=== PATIENT | female | born 1960 | race Caucasian/White ===

== ENCOUNTER → 2017-03-05 18:19 | Outpatient (REF) | payer MEDICAID, SELFPAY ==
[2017-03-05 20:24] LABS: Amphetamine/Metha Screen,Urine Negative ng/mL (<1000); Barbiturates Screen,Urine Negative ng/mL (<200); Benzodiazepines Screen,Urine Positive ng/mL (200); Cannabinoid Screen,Urine Positive ng/mL (<50); Cocaine Screen,Urine Negative ng/g (<300); Methadone Screen,Urine Negative ng/mL (<300); Opiate Screen,Urine Negative ng/mL (<300); Phencyclidine Screen,Urine Negative ng/mL (<25)
== END ==
LOC: LAB 18:19
PROVIDERS: Visit Provider Emergency Medicine
DX: Z79.899 Other long term (current) drug therapy (principal)
CPT/HCPCS: 80305

== ENCOUNTER 2017-03-20 09:13 | Day surgery (SDC) | payer MEDICAID, SELFPAY ==
[2017-03-19 13:47] VITALS: BMI 22.0
--- NOTE | 2017-03-20 09:35 | HMH.ANESCL ---
[facility] Anesthesia Checklist - Patient Identification Patient Identification: Arm Band, Verbal (Name & ) - Structural Data Admitted From: Home Planned Operative Procedure/s: egd Consent for Planned Operative Procedure(s) Verified: Yes Verified Documents: Surgical Consent - Chart Verification Results Verified: CBC, BMP - Additional verifications Patient : No Anesthesia Reactions: No Hx Blood Transfusions: No Blood Transfusion Reaction: No Cephalosporin Allergy: No Previous Colonoscopy: No - Cardiovascular Assessment Heart Sounds: S1 & S2 Pulse Strength: Strong Pulse Rhythm: Regular Peripheral Edema: No - Airway Assessment C-Spine Mobility Assessed: Yes TMJ Mobility Assessed: Yes Dentition: Dentures-good fit - Neurological Assessment Level of Consciousness: Awake, Alert, Appropriate Hx Seizures: Yes Numbness or tingling in extremities: No - Anesthesia Plan Anesthesia Risk discussed: Yes Anesthesia Plan: Verified ASA Class: III Anesthesia Type: MAC [facility] Anesthesia HX I have reviewed the patient's past medical history: Yes Medical History: Reports:: Cerebrovascular Accident, Gastroesophageal Reflux Disease(GERD), Hypertension Denies:: Diabetes Mellitus Type 1, Diabetes Mellitus Type 2, Lung Disease Other Surgeries: Yes: Colonoscopy, EGD, Hysterectomy-Total Amputation: No Fractures: No *Family Hx:: Cancer, Thyroid Disorder, Hypertension, Coronary Artery Disease
[2017-03-20 09:43] VITALS: BP 123/84; PULSE 72; RESP 18; TEMP 36.2; O2SAT 98
[2017-03-20 09:55] VITALS: O2SAT 99
--- NOTE | 2017-03-20 10:02 | HMH.SCOPE ---
- Procedure: Date: 03/20/17 Procedure Performed:: Esophagogastroduodenoscopy with biopsy Indications:: This is a 56-year-old female recently diagnosed with Helicobacter pylori, as well as crater ulcer of the polyp. She has completed Helicobacter pylori therapy and remains on a proton pump inhibitor, as well as Carafate. She is without symptoms. Performing Provider:: Derek Padron MD Referring Provider:: Dr. Shaw Sedation:: Monitored anesthesia care Procedure:: After informed consent was obtained, the patient was taken to the endoscopy suite. Monitored anesthesia care ensued after she was transferred to the left lateral decubitus position. The gastroscope was passed into the stomach. Evaluation of the antrum and pylorus revealed some inflammatory response, but no ulceration noted. Essentially, 100% healing was seen. Antral biopsies were obtained and the gastroscope was carefully removed. Findings:: Inflammatory response, but no ulceration noted Specimens:: Antral biopsy Recommendations:: Continue medical therapy Complications:: No immediate Estimated blood obtained (mL): 1
[2017-03-20 10:05] VITALS: BP 106/65; PULSE 65; RESP 16; TEMP 36.6; O2SAT 99
[2017-03-20 10:15] VITALS: BP 125/68; PULSE 60; RESP 18; TEMP 36.6; O2SAT 99
[2017-03-20 10:25] VITALS: BP 124/76; PULSE 61; RESP 18; O2SAT 100
[2017-03-20 10:35] VITALS: BP 124/71; PULSE 61; RESP 18; O2SAT 100
--- NOTE | 2017-03-20 14:40 | PC.NURSE ---
450ML TOTAL IV INTAKE
== END 2017-03-20 10:35 ==
PROVIDERS: Family Provider Emergency Medicine; PCP Emergency Medicine; Visit Provider Surgery
PROC: 0DJ08ZZ Inspection of Upper Intestinal Tract, Via Natural or Artificial Opening Endoscopic (ICD-10-PCS; CPT 43235; principal; 2017-03-20 09:45)
DX: Z09 Encounter for follow-up examination after completed treatment for conditions other than malignant neoplasm (principal); Z87.11 Personal history of peptic ulcer disease
CPT/HCPCS: 43239

== ENCOUNTER → 2017-04-04 14:03 | Outpatient (REF) | payer MEDICAID, SELFPAY ==
[2017-04-04 17:40] LABS: Amphetamine/Metha Screen,Urine Negative ng/mL (<1000); Barbiturates Screen,Urine Negative ng/mL (<200); Benzodiazepines Screen,Urine Positive ng/mL (200); Cannabinoid Screen,Urine Positive ng/mL (<50); Cocaine Screen,Urine Negative ng/g (<300); Methadone Screen,Urine Negative ng/mL (<300); Opiate Screen,Urine Positive ng/mL (<300); Phencyclidine Screen,Urine Negative ng/mL (<25)
== END ==
LOC: LAB 14:03
PROVIDERS: Visit Provider Emergency Medicine
DX: Z79.899 Other long term (current) drug therapy (principal)
CPT/HCPCS: 80305

== ENCOUNTER → 2017-05-05 13:15 | Outpatient (REF) | payer MEDICAID, SELFPAY ==
[2017-05-05 19:20] LABS: Amphetamine/Metha Screen,Urine Negative ng/mL (<1000); Barbiturates Screen,Urine Negative ng/mL (<200); Benzodiazepines Screen,Urine Positive ng/mL (200); Cannabinoid Screen,Urine Positive ng/mL (<50); Cocaine Screen,Urine Negative ng/g (<300); Methadone Screen,Urine Negative ng/mL (<300); Opiate Screen,Urine Negative ng/mL (<300); Phencyclidine Screen,Urine Negative ng/mL (<25)
== END ==
LOC: LAB 13:15
PROVIDERS: Visit Provider Emergency Medicine
DX: Z79.899 Other long term (current) drug therapy (principal)
CPT/HCPCS: 80305

== ENCOUNTER → 2017-06-06 12:48 | Outpatient (CLI) | payer MEDICAID, SELFPAY ==
[2017-06-06 18:46] LABS: Amphetamine/Metha Screen,Urine Negative ng/mL (<1000); Barbiturates Screen,Urine Negative ng/mL (<200); Benzodiazepines Screen,Urine Positive ng/mL (200); Cannabinoid Screen,Urine Positive ng/mL (<50); Cocaine Screen,Urine Negative ng/g (<300); Methadone Screen,Urine Negative ng/mL (<300); Opiate Screen,Urine Positive ng/mL (<300); Phencyclidine Screen,Urine Negative ng/mL (<25)
== END ==
PROVIDERS: Visit Provider Emergency Medicine
DX: Z79.899 Other long term (current) drug therapy (principal)
CPT/HCPCS: 80305

== ENCOUNTER → 2017-07-02 13:54 | Outpatient (REF) | payer MEDICAID, SELFPAY ==
[2017-07-02 18:49] LABS: Basophils # 0.1 K/mm3 (0-0.2); Basophils % 0.8 % (0.1-2.0); Eosinophils # 0.3 K/mm3 (0.0-0.4); Eosinophils % 3.8 % (0.1-12.0); Hematocrit 32.2 % (37.0-47.0); Hemoglobin 10.7 g/dL (12.2-16.2); Lymphocytes # 2.2 K/mm3 (0.7-4.5); Lymphocytes % 32.1 K/mm3 (10-50); Mean Corpuscular HGB Conc 33.3 g/dL (31.8-35.4); Mean Corpuscular Hemoglobin 36.5 pg (27.0-31.2); Mean Corpuscular Volume 109.4 fl (81-99); Mean Platelet Volume 8.5 fl (7.4-10.4); Monocytes # 0.5 K/mm3 (0.1-1.0); Monocytes % 6.5 % (1.7-9.3); Neutrophils # 3.9 K/mm3 (1.8-7.8); Neutrophils % 56.8 % (37.0-80.0); Platelet Count 394 K/mm3 (142-424); Red Blood Count 2.95 M/mm3 (4.20-5.40); Red Cell Distribution Width 13.2 % (11.5-17.5); White Blood Count 6.9 K/mm3 (4.8-10.8)
[2017-07-02 19:08] LABS: Alanine Aminotransferase 22 U/L (12-78); Albumin Level 3.5 gm/dL (3.4-5.0); Alkaline Phosphatase 73 U/L (46-116); Anion Gap 17.9 mEq/L (5-15); Aspartate Amino Transferase 21 U/L (15-37); Bilirubin,Total 0.2 mg/dL (0.2-1.0); Blood Urea Nitrogen 11 mg/dL (7-18); Calcium 9.3 mg/dL (8.5-10.1); Carbon Dioxide 21 mmol/L (21.0-32.0); Chloride 104 mmol/L (98-107); Creatinine,Serum 1.15 mg/dL (0.55-1.02); Estimated Glomerular Filt Rate 49 ml/min (>60); Free T4 (Free Thyroxine) 0.73 ng/dl (0.76-1.46); GFR (African American) 59 ML/MIN (>60); Globulin 3.6 gm/dl (1.3-3.2); Glucose 184 mg/dL (74-106); Potassium 3.9 mmoL/L (3.5-5.1); Sodium 139 mmol/L (136-145); Thyroid Stimulating Hormone 1.09 uIU/ml (0.358-3.740); Total Protein,Serum 7.1 gm/dL (6.4-8.2)
[2017-07-04 13:48] LABS: Vitamin D 25 Hydroxy 11.4 ng/mL (30.0-100.0)
[2017-07-04 13:49] LABS: Vitamin B12 329 pg/mL (232-1245)
== END ==
LOC: LAB 13:54
PROVIDERS: Visit Provider Emergency Medicine
DX: R53.83 Other fatigue (principal)
CPT/HCPCS: 80053; 82607; 82652; 84439; 84443; 85025

== ENCOUNTER → 2017-07-16 15:35 | Outpatient (POV) | payer MEDICAID, SELFPAY | PROVIDERS: Family Provider Emergency Medicine; PCP Emergency Medicine | DX: Z00.00 Encounter for general adult medical examination without abnormal findings (principal) ==

== ENCOUNTER → 2017-08-05 15:51 | Outpatient (REF) | payer MEDICAID, SELFPAY ==
[2017-08-05 17:55] LABS: Amphetamine/Metha Screen,Urine Negative ng/mL (<1000); Barbiturates Screen,Urine Negative ng/mL (<200); Benzodiazepines Screen,Urine Positive ng/mL (200); Cannabinoid Screen,Urine Positive ng/mL (<50); Cocaine Screen,Urine Negative ng/g (<300); Methadone Screen,Urine Negative ng/mL (<300); Opiate Screen,Urine Positive ng/mL (<300); Phencyclidine Screen,Urine Negative ng/mL (<25)
== END ==
LOC: LAB 15:51
PROVIDERS: Visit Provider Nurse Practitioner Family
DX: Z79.899 Other long term (current) drug therapy (principal)
CPT/HCPCS: 80305

== ENCOUNTER → 2017-08-12 16:06 | Outpatient (CLI) | payer MEDICAID, SELFPAY ==
--- NOTE | 2017-08-12 16:08 | MM_ITS ---
MM Dig screening mamm BI w/CAD CAD Screening COMPARISON: Digital mammograms with CAD 10/17/2015 and digital mammograms with CAD 10/10/2014 INDICATION: There is a history of breast cancer patient's aunt and sister both diagnosed after menopause. TECHNIQUE: Standard CC and MLO images were obtained. R2 CAD reviewed. FINDINGS: There is a diffusely dense and heterogenic parenchymal pattern in both breast lessening the sensitivity of mammography. There is no new or suspicious lesion in either breast and no suspicious microcalcifications. There are several benign-appearing micro and macro calcifications in each breast. IMPRESSION: Markedly dense parenchymal pattern with no suspicious lesion seen recommend yearly follow-up BI-RADS Category: 2 Benign Finding(s) RECOMMENDED FOLLOW-UP: 1YR - 1 YEAR FOLLOW-UP (A letter has been sent to the patient regarding results of the study.)
== END ==
PROVIDERS: Family Provider Emergency Medicine; PCP Emergency Medicine; Visit Provider Emergency Medicine
DX: Z12.31 Encounter for screening mammogram for malignant neoplasm of breast (principal)
CPT/HCPCS: 77067

== ENCOUNTER → 2017-09-05 14:07 | Outpatient (REF) | payer MEDICAID, SELFPAY ==
[2017-09-05 17:32] LABS: Amphetamine/Metha Screen,Urine Negative ng/mL (<1000); Barbiturates Screen,Urine Negative ng/mL (<200); Benzodiazepines Screen,Urine Positive ng/mL (<200); Cannabinoid Screen,Urine Positive ng/mL (<50); Cocaine Screen,Urine Negative ng/mL (<300); Methadone Screen,Urine Negative ng/mL (<300); Opiate Screen,Urine Positive ng/mL (<300); Phencyclidine Screen,Urine Negative ng/mL (<25)
== END ==
LOC: LAB 14:07
PROVIDERS: Visit Provider Emergency Medicine
DX: N39.0 Urinary tract infection, site not specified (principal); Z79.899 Other long term (current) drug therapy
CPT/HCPCS: 80305; 87086; 87088; 87186

== ENCOUNTER → 2017-10-03 13:43 | Outpatient (REF) | payer MEDICAID, SELFPAY ==
[2017-10-03 18:48] LABS: Amphetamine/Metha Screen,Urine Negative ng/mL (<1000); Barbiturates Screen,Urine Negative ng/mL (<200); Benzodiazepines Screen,Urine Positive ng/mL (<200); Cannabinoid Screen,Urine Positive ng/mL (<50); Cocaine Screen,Urine Negative ng/mL (<300); Methadone Screen,Urine Negative ng/mL (<300); Opiate Screen,Urine Negative ng/mL (<300); Phencyclidine Screen,Urine Negative ng/mL (<25)
== END ==
LOC: LAB 13:43
PROVIDERS: Visit Provider Emergency Medicine
DX: Z79.899 Other long term (current) drug therapy (principal)
CPT/HCPCS: 80305

== ENCOUNTER → 2017-10-31 08:44 | Outpatient (REF) | payer MEDICAID, SELFPAY ==
[2017-10-31 18:51] LABS: Amphetamine/Metha Screen,Urine Negative ng/mL (<1000); Barbiturates Screen,Urine Negative ng/mL (<200); Benzodiazepines Screen,Urine Positive ng/mL (<200); Cannabinoid Screen,Urine Positive ng/mL (<50); Cocaine Screen,Urine Negative ng/mL (<300); Methadone Screen,Urine Negative ng/mL (<300); Opiate Screen,Urine Negative ng/mL (<300); Phencyclidine Screen,Urine Negative ng/mL (<25)
== END ==
LOC: LAB 08:44
PROVIDERS: Visit Provider Emergency Medicine
DX: G89.29 Other chronic pain (principal)
CPT/HCPCS: 80305

== ENCOUNTER → 2017-11-28 15:31 | Outpatient (REF) | payer MEDICAID, SELFPAY ==
[2017-11-28 18:08] LABS: Amphetamine/Metha Screen,Urine Negative ng/mL (<1000); Barbiturates Screen,Urine Negative ng/mL (<200); Benzodiazepines Screen,Urine Positive ng/mL (<200); Cannabinoid Screen,Urine Positive ng/mL (<50); Cocaine Screen,Urine Negative ng/mL (<300); Methadone Screen,Urine Negative ng/mL (<300); Opiate Screen,Urine Negative ng/mL (<300); Phencyclidine Screen,Urine Negative ng/mL (<25)
[2017-12-08 12:15] LABS: Opiates NEGATIVE
== END ==
LOC: LAB 15:31
PROVIDERS: Visit Provider Emergency Medicine
DX: Z79.899 Other long term (current) drug therapy (principal)
CPT/HCPCS: 80305; 80361; G0480

== ENCOUNTER → 2017-12-01 16:33 | Outpatient (REF) | payer MEDICAID, SELFPAY | LOC: LAB 16:33 | PROVIDERS: PCP Emergency Medicine; Visit Provider Emergency Medicine | DX: Z79.899 Other long term (current) drug therapy (principal) ==

== ENCOUNTER → 2017-12-29 18:00 | Outpatient (CLI) | payer MEDICAID, SELFPAY ==
[2017-12-30 20:32] LABS: Amphetamine/Metha Screen,Urine Negative ng/mL (<1000); Barbiturates Screen,Urine Negative ng/mL (<200); Benzodiazepines Screen,Urine Positive ng/mL (<200); Cannabinoid Screen,Urine Positive ng/mL (<50); Cocaine Screen,Urine Negative ng/mL (<300); Methadone Screen,Urine Negative ng/mL (<300); Opiate Screen,Urine Negative ng/mL (<300); Phencyclidine Screen,Urine Negative ng/mL (<25)
== END ==
PROVIDERS: Visit Provider Emergency Medicine
DX: Z79.899 Other long term (current) drug therapy (principal)
CPT/HCPCS: 80305

== ENCOUNTER → 2018-01-26 19:01 | Outpatient (CLI) | payer MEDICAID, SELFPAY ==
[2018-01-26 19:15] LABS: Amphetamine/Metha Screen,Urine Negative ng/mL (<1000); Barbiturates Screen,Urine Negative ng/mL (<200); Benzodiazepines Screen,Urine Negative ng/mL (<200); Cannabinoid Screen,Urine Positive ng/mL (<50); Cocaine Screen,Urine Negative ng/mL (<300); Methadone Screen,Urine Negative ng/mL (<300); Opiate Screen,Urine Negative ng/mL (<300); Phencyclidine Screen,Urine Negative ng/mL (<25)
== END ==
PROVIDERS: Visit Provider Emergency Medicine
DX: Z79.899 Other long term (current) drug therapy (principal)
CPT/HCPCS: 80305

== ENCOUNTER → 2018-02-27 20:12 | Outpatient (CLI) | payer MEDICAID, SELFPAY ==
[2018-02-27 21:28] LABS: Amphetamine/Metha Screen,Urine Negative ng/mL (<1000); Barbiturates Screen,Urine Negative ng/mL (<200); Benzodiazepines Screen,Urine Negative ng/mL (<200); Cannabinoid Screen,Urine Positive ng/mL (<50); Cocaine Screen,Urine Negative ng/mL (<300); Methadone Screen,Urine Negative ng/mL (<300); Opiate Screen,Urine Positive ng/mL (<300); Phencyclidine Screen,Urine Negative ng/mL (<25)
[2018-03-07 16:12] LABS: Alprazolam Negative (Cutoff=100); Benzodiazepines Negative ng/mL (Cutoff=100); Clonazepam Negative (Cutoff=100); Flurazepam Negative (Cutoff=100); Lorazepam Negative (Cutoff=100); Midazolam Negative (Cutoff=100); Temazepam Negative (Cutoff=100); Triazolam Negative (Cutoff=100)
== END ==
PROVIDERS: Visit Provider Emergency Medicine
DX: Z79.899 Other long term (current) drug therapy (principal)
CPT/HCPCS: 80305; 80346

== ENCOUNTER → 2018-04-27 17:15 | Outpatient (CLI) | payer MEDICAID, SELFPAY ==
[2018-04-27 18:52] LABS: Amphetamine/Metha Screen,Urine Negative ng/mL (<1000); Barbiturates Screen,Urine Negative ng/mL (<200); Benzodiazepines Screen,Urine Negative ng/mL (<200); Cannabinoid Screen,Urine Negative ng/mL (<50); Cocaine Screen,Urine Negative ng/mL (<300); Methadone Screen,Urine Negative ng/mL (<300); Opiate Screen,Urine Negative ng/mL (<300); Phencyclidine Screen,Urine Negative ng/mL (<25)
== END ==
PROVIDERS: Visit Provider Emergency Medicine
DX: M54.9 Dorsalgia, unspecified (principal)
CPT/HCPCS: 80305

== ENCOUNTER → 2018-06-26 16:52 | Outpatient (CLI) | payer MEDICAID, SELFPAY ==
[2018-06-26 18:54] LABS: Amphetamine/Metha Screen,Urine Negative ng/mL (<1000); Barbiturates Screen,Urine Negative ng/mL (<200); Benzodiazepines Screen,Urine Positive ng/mL (<200); Cannabinoid Screen,Urine Positive ng/mL (<50); Cocaine Screen,Urine Negative ng/mL (<300); Methadone Screen,Urine Negative ng/mL (<300); Opiate Screen,Urine Negative ng/mL (<300); Phencyclidine Screen,Urine Negative ng/mL (<25)
[2018-07-07 17:12] LABS: Codeine Negative (Cutoff=100); Hydrocodone Negative (Cutoff=100); Hydromorphone Negative (Cutoff=100)
[2018-07-08 06:51] LABS: Morphine Comment: (.); Opiates Comment: ng/mL (.)
== END ==
PROVIDERS: Visit Provider Emergency Medicine
DX: M54.9 Dorsalgia, unspecified (principal)
CPT/HCPCS: 80305; 80361; G0480

== ENCOUNTER → 2018-08-13 10:15 | Outpatient (CLI) | payer MEDICAID, SELFPAY ==
--- NOTE | 2018-08-13 10:17 | MM_ITS ---
MM Dig screening mamm BI w/CAD CAD Screening COMPARISON: Digital mammograms with CAD 10/17/2015 and 08/12/2017 INDICATION: There is a history of breast cancer in patient's sister and paternal aunt both diagnosed after menopause TECHNIQUE: Standard CC and MLO images were obtained. R2 CAD reviewed. FINDINGS: Again noted is a diffusely dense and heterogenic parenchymal pattern lessening the sensitivity of mammography. There are scattered benign-appearing micro and macrocalcifications. There is no suspicious lesion and there are no suspicious microcalcifications. IMPRESSION: Diffusely dense parenchymal pattern with no suspicious lesion seen BI-RADS Category: 2 Benign Finding(s) RECOMMENDED FOLLOW-UP: 1YR - 1 YEAR FOLLOW-UP (A letter has been sent to the patient regarding results of the study.)
== END ==
PROVIDERS: PCP Emergency Medicine; Visit Provider Emergency Medicine
DX: Z12.31 Encounter for screening mammogram for malignant neoplasm of breast (principal)
CPT/HCPCS: 77067

== ENCOUNTER → 2018-08-19 13:18 | Outpatient (POV) | payer MEDICAID, SELFPAY | DX: Z00.00 Encounter for general adult medical examination without abnormal findings (principal) ==

== ENCOUNTER → 2018-09-09 14:26 | Outpatient (CLI) | payer MEDICAID, SELFPAY ==
[2018-09-09 15:04] LABS: Amphetamine/Metha Screen,Urine Negative ng/mL (<1000); Barbiturates Screen,Urine Negative ng/mL (<200); Benzodiazepines Screen,Urine Positive ng/mL (<200); Cannabinoid Screen,Urine Positive ng/mL (<50); Cocaine Screen,Urine Negative ng/mL (<300); Methadone Screen,Urine Negative ng/mL (<300); Opiate Screen,Urine Negative ng/mL (<300); Phencyclidine Screen,Urine Negative ng/mL (<25)
== END ==
PROVIDERS: Visit Provider Emergency Medicine
DX: Z79.891 Long term (current) use of opiate analgesic (principal); Z79.899 Other long term (current) drug therapy
CPT/HCPCS: 80305; 80361; 80365; G0480

== ENCOUNTER → 2018-10-07 18:39 | Outpatient (CLI) | payer MEDICAID, SELFPAY ==
[2018-10-07 19:32] LABS: Amphetamine/Metha Screen,Urine Negative ng/mL (<1000); Barbiturates Screen,Urine Negative ng/mL (<200); Benzodiazepines Screen,Urine Positive ng/mL (<200); Cannabinoid Screen,Urine Positive ng/mL (<50); Cocaine Screen,Urine Negative ng/mL (<300); Methadone Screen,Urine Negative ng/mL (<300); Opiate Screen,Urine Negative ng/mL (<300); Phencyclidine Screen,Urine Negative ng/mL (<25)
[2018-10-18 17:19] LABS: Opiates Negative ng/mL (Cutoff=100)
== END ==
PROVIDERS: Visit Provider Emergency Medicine
DX: Z79.899 Other long term (current) drug therapy (principal)
CPT/HCPCS: 80305; 80361; G0480

== ENCOUNTER → 2018-12-09 08:54 | Outpatient (CLI) | payer MEDICAID, SELFPAY ==
--- NOTE | 2018-12-09 08:55 | CA_ITS ---
APPROVED REPORT Bl[employer] Furnace Supervisor: Meredith Marino RVT Study Quality: Excellent Indications: Uncontrolled HTN Risk Factors Hypertension Hyperlipidemia Smoking Renal Artery Doppler Origin (R) 107.0/34.1 cm/sec Proximal (R) 99.5/46.8 cm/sec Mid (R) 144.0/45.8 cm/sec Distal (R) 94.2/33.9 cm/sec Renal Aorta Ratio (R) 2.81 Segmental A. (R) 30.9/10.8 cm/sec RI: 0.65 Segmental A. Sup (R) 28.9/7.3 cm/sec Segmental A. Mid (R) 35.8/13.4 cm/sec Segmental A. Inf (R) 27.9/11.7 cm/sec Origin (L) 120.0/42.8 cm/sec Proximal (L) 138.0/38.2 cm/sec Mid (L) 118.0/42.8 cm/sec Distal (L) 141.0/49.7 cm/sec Renal Aorta Ratio (L) 2.75 Segmental A. (L) 43.0/15.2 cm/sec RI: 0.64 Segmental A. Sup (L) 55.9/17.1 cm/sec Segmental A. Mid (L) 42.8/16.6 cm/sec Segmental A. Inf (L) 30.3/11.9 cm/sec Renal Measurements Kidney Size (R) 9.8x5.5 cm Cortical Thickness (R) 0.9 cm Kidney Size (L) 8.3x4.8 cm Cortical Thickness (L) 0.8 cm Aortic Doppler Velocity Waveform Sup David Ao 51.2 cm/sec Findings No evidence of renal artery occlusive disease in either renal artery. Conclusion No evidence of renal artery occlusive disease in either renal artery. Electronically signed by : Luis Eduardo Hunter MD 12/10/2018 18:58:41
== END ==
PROVIDERS: PCP Emergency Medicine; Visit Provider Emergency Medicine
DX: I10 Essential (primary) hypertension (principal)
CPT/HCPCS: 93976

== ENCOUNTER → 2018-12-29 17:12 | Outpatient (CLI) | payer MEDICAID, SELFPAY ==
[2018-12-29 19:02] LABS: Amphetamine/Metha Screen,Urine Negative ng/mL (<1000); Barbiturates Screen,Urine Negative ng/mL (<200); Benzodiazepines Screen,Urine Positive ng/mL (<200); Cannabinoid Screen,Urine Positive ng/mL (<50); Cocaine Screen,Urine Negative ng/mL (<300); Methadone Screen,Urine Negative ng/mL (<300); Opiate Screen,Urine Negative ng/mL (<300); Phencyclidine Screen,Urine Negative ng/mL (<25)
[2019-01-08 21:12] LABS: Opiates Negative (Cutoff=100)
== END ==
PROVIDERS: Visit Provider Emergency Medicine
DX: Z79.899 Other long term (current) drug therapy (principal)
CPT/HCPCS: 80305; 80361; 80365; G0480

== ENCOUNTER → 2019-02-02 16:42 | Outpatient (CLI) | payer MEDICAID, SELFPAY ==
[2019-02-02 17:34] LABS: Amphetamine/Metha Screen,Urine Negative ng/mL (<1000); Barbiturates Screen,Urine Negative ng/mL (<200); Benzodiazepines Screen,Urine Positive ng/mL (<200); Cannabinoid Screen,Urine Positive ng/mL (<50); Cocaine Screen,Urine Negative ng/mL (<300); Methadone Screen,Urine Negative ng/mL (<300); Opiate Screen,Urine Negative ng/mL (<300); Phencyclidine Screen,Urine Negative ng/mL (<25)
== END ==
PROVIDERS: Visit Provider Emergency Medicine
DX: Z79.899 Other long term (current) drug therapy (principal); M54.9 Dorsalgia, unspecified
CPT/HCPCS: 80305; 87086; 87088; 87186

== ENCOUNTER → 2019-03-03 17:25 | Outpatient (CLI) | payer MEDICAID, SELFPAY ==
[2019-03-03 19:11] LABS: Amphetamine/Metha Screen,Urine Negative ng/mL (<1000); Barbiturates Screen,Urine Negative ng/mL (<200); Benzodiazepines Screen,Urine Positive ng/mL (<200); Cannabinoid Screen,Urine Positive ng/mL (<50); Cocaine Screen,Urine Negative ng/mL (<300); Methadone Screen,Urine Negative ng/mL (<300); Opiate Screen,Urine Negative ng/mL (<300); Phencyclidine Screen,Urine Negative ng/mL (<25)
== END ==
PROVIDERS: Visit Provider Emergency Medicine
DX: M54.2 Cervicalgia (principal)
CPT/HCPCS: 80305

== ENCOUNTER → 2019-03-17 13:50 | Outpatient (POV) | payer MEDICAID, SELFPAY | DX: Z00.00 Encounter for general adult medical examination without abnormal findings (principal) ==

== ENCOUNTER → 2019-04-13 16:48 | Outpatient (CLI) | payer MEDICAID, SELFPAY ==
[2019-04-13 21:11] LABS: Benzodiazepines Screen,Urine Negative ng/ml (<200)
[2019-04-13 21:12] LABS: Amphetamine/Metha Screen,Urine Negative ng/ml (<1000); Barbiturates Screen,Urine Negative ng/ml (<200)
[2019-04-13 21:13] LABS: Cannabinoid Screen,Urine Positive ng/ml (<50)
[2019-04-13 21:14] LABS: Cocaine Screen,Urine Negative ng/ml (<300); Methadone Screen,Urine Negative ng/ml (<300)
[2019-04-13 21:16] LABS: Phencyclidine Screen,Urine Negative
[2019-04-13 21:37] LABS: Opiate Screen,Urine Negative ng/ml (<300)
[2019-04-22 10:28] LABS: Alprazolam Negative (Cutoff=100); Benzodiazepines Negative ng/mL (Cutoff=100); Clonazepam Negative (Cutoff=100); Flurazepam Negative (Cutoff=100); Lorazepam Negative (Cutoff=100); Midazolam Negative (Cutoff=100); Temazepam Negative (Cutoff=100); Triazolam Negative (Cutoff=100)
[2019-04-22 12:33] LABS: Opiates Negative (Cutoff=100)
== END ==
PROVIDERS: Visit Provider Emergency Medicine
DX: Z79.899 Other long term (current) drug therapy (principal)
CPT/HCPCS: 80305; 80346; 80361; 80365; G0480

== ENCOUNTER → 2019-07-30 09:13 | Outpatient (CLI) | payer MEDICAID, SELFPAY ==
--- NOTE | 2019-07-30 09:14 | US_ITS ---
APPROVED REPORT Exam Type: Lower Extremity Segmental Pressures Lap Polisher: Charlotte Russell RDCS Indications Claudication: Edema Current Smoker History of Smoking Pressures/Indices Right Indices Left Indices Brachial 133.00 mmHg Brachial 140.00 mmHg Low Thigh 118.00 mmHg 0.84 Low Thigh 138.00 mmHg 0.99 Calf 131.00 mmHg 0.94 Calf 134.00 mmHg 0.96 Ankle(PT) 143.00 mmHg 1.02 Ankle(PT) 142.00 mmHg 1.01 Ankle(DP) 133.00 mmHg 0.95 Ankle(DP) 132.00 mmHg 0.94 Digit 87.00 mmHg 0.62 Digit 92.00 mmHg 0.66 Findings RIGHT ISIDRO 1.0 LEFT ISIDRO .9 RIGHT TBI .9 LEFT TBI .7 NORMAL PULSES AND WAVEFORMS No evidence significant arterial disease throughout the right and left lower extremities as evidenced by normal resting PVR waveforms and normal resting indices. Electronically signed by : Luis Eduardo Hunter MD 07/30/2019 16:45:26
== END ==
PROVIDERS: PCP Emergency Medicine; Visit Provider Emergency Medicine
DX: R60.0 Localized edema (principal)
CPT/HCPCS: 93923

== ENCOUNTER 2020-02-28 02:02 | Emergency (ER) | payer MEDICAID, SELFPAY ==
[2020-02-28 01:41] VITALS: BP 150/92; PULSE 116; RESP 17; TEMP 36.9; O2SAT 95; BMI 21.9
--- NOTE | 2020-02-28 01:53 | PC.NURSE ---
EKG attempted at this time. pt is too anxious to sit still and continues to yell at police officers outside of the room at this time
--- NOTE | 2020-02-28 01:57 | PC.NURSE ---
pt to RAD
--- NOTE | 2020-02-28 01:59 | XR_ITS ---
PROCEDURE: XR CHEST 2V CLINICAL HISTORY: chest pain Smoker COMPARISON: CT [facility] CT CHEST W/O CONTRAST from 11/05/2013 CR XR CHEST 2V from 11/26/2018 CR XR RIBS LT MIN 3V W CXR1V from 01/29/2019 CR XR CHEST AP from 05/20/2019 FINDINGS: Patient is tilted toward the right. Normal heart size. There is slight increased density in the left lower lobe which may be related to the patient positioning an overlying breast attenuation. Lungs are otherwise clear. Thoracic scoliosis convex left IMPRESSION: No acute findings. Dictated by: Luis Eduardo Hunter MD 02/28/2020 04:54 Luis Eduardo Hunter MD in [place] 02/28/2020 04:54
--- NOTE | 2020-02-28 01:59 | ECG_ITS ---
APPROVED REPORT Exam: Resting ECG HR:99 bpm ECG Measurements Heart Rate 99 AXES IA 146 P 63 QRSd 60 QRS 78 QT 330 T 76 QTc 423 Conclusion Normal sinus rhythm Left atrial abnormality Late R wave progression Abnormal ECG Electronically signed by : Ariel Sanchez, 02/28/2020 06:54:23
--- NOTE | 2020-02-28 02:00 | XR_ITS ---
PROCEDURE: XR KNEE LT 3V CLINICAL INDICATION: fall yesterday. left knee pain COMPARISON: No exams were available for comparison FINDINGS: There is a nondisplaced transverse fracture involving the mid to lower aspect of the patella. Suprapatellar effusion/hemarthrosis noted. The joint spaces are well-preserved. No significant degenerative/arthritic changes. No erosive changes evident. Other findings:None. IMPRESSION: Nondisplaced patellar fracture with hemarthrosis Dictated by: Luis Eduardo Hunter MD 02/28/2020 04:53 Luis Eduardo Hunter MD in [place] 02/28/2020 04:53
[2020-02-28 02:01] VITALS: BP 116/81; PULSE 111; RESP 15; O2SAT 95
--- NOTE | 2020-02-28 02:04 | HMH.EDCP ---
ED Disposition Clinical Impression: SHADY (acute kidney injury), Abnormal drug screen Chest pain Qualifiers: Chest pain type: precordial pain Qualified Code(s): R07.2 - Precordial pain Patellar fracture Qualifiers: Encounter type: initial encounter Fracture type: closed Fracture morphology: transverse Fracture alignment: nondisplaced Laterality: left Qualified Code(s): S82.035A - Nondisplaced transverse fracture of left patella, initial encounter for closed fracture Disposition: Left Against Medical Advice Condition on Discharge: Fair Instructions: DI for Kidney Failure Additional Instructions: see pcp for follow up this week and stop neurotin Referrals: Higinio Shaw MD [Primary Care Provider] - - Critical Care Critical Care Time: No Attestation: On , the high probability of a clinically significant, sudden or life threatening deterioration of the following system(s) required my full and direct attention, intervention and personal management. The time I documented below is in addition to time spent performing reported procedures but includes the following listed in this critical care notation. Medical Decision Making - Medical Records Medical records reviewed: Yes: I reviewed the patient's medical records. - Georgi Inquiry Pt receiving controlled substance: No Vital Signs: 02/28/20 01:41 02/28/20 02:01 Temperature 98.5 F Temperature Source Oral Pulse Rate [Left Radial] 116 H 111 H Respiratory Rate 17 15 Blood Pressure [Right Arm] 150/92 H 116/81 Blood Pressure Mean [Right Arm] 111 92 Blood Pressure Source [Right Arm] Automatic Cuff Automatic Cuff Blood Pressure Position [Right Arm] Sitting Sitting 02 Sat by Pulse Oximetry 95 95 Oxygen Delivery Method Room Air Room Air - Lab Data Lab results reviewed: Yes: I reviewed the patient's lab results. Lab Results 02/28/20 02:15: WBC 12.7 H, RBC 3.31 L, Hgb 11.2 L, Hct 35.2 L, MCV 106.4 H, MCH 33.8 H, MCHC 31.8, RDW 14.8, Plt Count 493 H, MPV 7.2 L, Neut % (Auto) 64.3, Lymph % (Auto) 25.5, [place] % (Auto) 7.1, Eos % (Auto) 2.2, Baso % (Auto) 0.9, Neut # (Auto) 8.1 H, Lymph # (Auto) 3.2, [place] # (Auto) 0.9, Eos # (Auto) 0.3, Baso # (Auto) 0.1 02/28/20 02:15: Sodium 139, Potassium 3.5, Chloride 109 H, Carbon Dioxide 15 L, Anion Gap 18.5 H, BUN 62 H, Creatinine 2.90 H, Estimated Creat Clear 18, Estimated GFR 17 L*, Est GFR ( Amer) 20 L, Glucose 101 H, Calcium 10.8 H, Troponin I 0.07 H 02/28/20 02:15: SARS-CoV-2 IgG Ab (Rapid) Negative, SARS-CoV-2 IgM Ab (Rapid) Negative 02/28/20 02:40: Urine Color Yellow, Urine Appearance Cloudy, Urine pH 5.5, Ur Specific [place] 1.025, Urine Protein Trace, Urine Glucose (UA) Negative, Urine Ketones Negative, Urine Blood 1+, Urine Nitrate Negative, Urine Bilirubin Negative, Urine Urobilinogen 0.2, Ur Leukocyte Esterase Trace, Urine RBC 3-5, Urine WBC 3-5, Ur Squamous Epith Cells 50-100 02/28/20 02:40: Urine Opiates Screen Positive H, Urine Methadone Screen Negative, Ur Barbituates Screen Negative, Ur Phencyclidine Scrn Negative, Ur Amphetamines Screen Positive H, U Benzodiazepines Scrn Negative, Urine Cocaine Screen Negative, U Marijuana (THC) Screen Positive H Result diagrams: 02/28/20 02:15 02/28/20 02:15 Orders (Tests/Meds): ED MEDICATIONS Generic Name Dose Route Start Last Admin Trade Name Freq PRN Reason Stop Dose Admin Sodium Chloride 1,000 mls @ 999 mls/hr 02/28/20 02:45 02/28/20 02:52 Sod Chlor 0.9% 1000ml Bag IV 02/28/20 03:45 999 mls/hr .Q1H1M AVE Administration Discontinued Medications Generic Name Dose Route Start Last Admin Trade Name Freq PRN Reason Stop Dose Admin Aspirin 324 mg 02/28/20 02:42 02/28/20 02:49 Aspirin 81mg Chewable Tablet PO 02/28/20 02:43 324 mg ONCE ONE Administration ORDERS Category Date Time Status XR chest 2V Stat Exams 02/28/20 01:59 Taken XR knee LT 3V Stat Exams 02/28/20 02:00 Taken Ethyl Alcohol Stat Lab 02/28/20 02:15 Received
[2020-02-28 02:23] LABS: Basophils # 0.1 K/mm3 (0-0.2); Basophils % 0.9 % (0.1-2.0); Eosinophils # 0.3 K/mm3 (0.0-0.4); Eosinophils % 2.2 % (0.1-12.0); Hematocrit 35.2 % (37.0-47.0); Hemoglobin 11.2 g/dL (12.2-16.2); Lymphocytes # 3.2 K/mm3 (0.7-4.5); Lymphocytes % 25.5 % (10-50); Mean Corpuscular HGB Conc 31.8 g/dL (31.8-35.4); Mean Corpuscular Hemoglobin 33.8 pg (27.0-31.2); Mean Corpuscular Volume 106.4 fl (81-99); Mean Platelet Volume 7.2 fl (7.4-10.4); Monocytes # 0.9 K/mm3 (0.1-1.0); Monocytes % 7.1 % (1.7-9.3); Neutrophils # 8.1 K/mm3 (1.8-7.8); Neutrophils % 64.3 % (37.0-80.0); Platelet Count 493 K/mm3 (142-424); Red Blood Count 3.31 M/mm3 (4.20-5.40); Red Cell Distribution Width 14.8 % (11.5-17.5); White Blood Count 12.7 K/mm3 (4.8-10.8)
[2020-02-28 02:33] LABS: Anion Gap 18.5 mEq/L (5-15); Blood Urea Nitrogen 62 mg/dl (7-17); Calcium 10.8 mg/dl (8.4-10.2); Carbon Dioxide 15 mmol/L (22.0-30.0); Chloride 109 mmol/L (98-107); Creatinine Clearance Estimated 18 mL/min (50-200); Estimated Glomerular Filt Rate 17 ml/min (>60); GFR (African American) 20 ML/MIN (>60); Glucose 101 mg/dl (74-100); Potassium 3.5 mmoL/L (3.5-5.1); Sodium 139 mmol/L (136-145)
[2020-02-28 02:45] LABS: Troponin I 0.07 ng/ml (0.00-0.034)
[2020-02-28 02:47] LABS: Microscopic, Urine URINE MICROSCOPIC (MICROSCOPIC)
[2020-02-28 02:49] LABS: Appearance,Urine CLOUDY (Clear); Bilirubin,Urine Negative (Negative); Blood, Urine 1+ (Negative); Color,Urine YELLOW (Yellow); Glucose,Urine (UA) Negative (Negative); Ketones,Urine Negative (Negative); Leukocyte Esterase,Urine TRACE (Negative); Nitrate,Urine Negative (Negative); PH,Urine 5.5 (5.0-8.5); Protein,Urine TRACE (Negative); Specific Gravity, Urine 1.025 (1.005-1.030); Urobilinogen,Urine 0.2 EU/dl (0.2)
[2020-02-28 02:55] LABS: Squamous Epithelial Cell,Urine 50-100 #/hpf (0-5)
[2020-02-28 03:05] LABS: Barbiturates Screen,Urine Negative ng/ml (<200)
[2020-02-28 03:06] LABS: Benzodiazepines Screen,Urine Negative ng/ml (<200)
[2020-02-28 03:07] LABS: Cannabinoid Screen,Urine Positive ng/ml (<50); Cocaine Screen,Urine Negative ng/ml (<300)
[2020-02-28 03:08] LABS: Methadone Screen,Urine Negative ng/ml (<300)
[2020-02-28 03:09] LABS: Opiate Screen,Urine Positive ng/ml (<300); Phencyclidine Screen,Urine Negative ng/ml (<25)
[2020-02-28 03:19] LABS: Amphetamine/Metha Screen,Urine Positive ng/ml (<1000)
[2020-02-28 03:29] LABS: Coronavirus 19 IgG Antibody Negative (Negative); Coronavirus 19 IgM Antibody Negative (Negative)
--- NOTE | 2020-02-28 03:29 | PC.NURSE ---
at bedside. pt is refusing to be admitted at this time.
[2020-02-28 03:39] LABS: Ethyl Alcohol < 10 mg/dl (0-10)
[2020-02-28 03:43] VITALS: BP 112/71; PULSE 75; RESP 16; TEMP 36.7; O2SAT 98
== END 2020-02-28 03:49 | disposition left against medical advice (07) ==
PROVIDERS: Emergency Provider Emergency Medicine; PCP Emergency Medicine
DX: S82.035A Nondisplaced transverse fracture of left patella, initial encounter for closed fracture (principal); W10.9XXA Fall (on) (from) unspecified stairs and steps, initial encounter; N17.9 Acute kidney failure, unspecified; Z01.84 Encounter for antibody response examination; F12.10 Cannabis abuse, uncomplicated; F19.10 Other psychoactive substance abuse, uncomplicated; J44.9 Chronic obstructive pulmonary disease, unspecified; F41.8 Other specified anxiety disorders; K21.9 Gastro-esophageal reflux disease without esophagitis; Z88.5 Allergy status to narcotic agent; F17.210 Nicotine dependence, cigarettes, uncomplicated; Z79.899 Other long term (current) drug therapy
CPT/HCPCS: 71046; 73562; 80048; 80305; 81001; 84484; 85025; 86328; 93005; 99282

== ENCOUNTER 2020-02-28 12:36 | Observation (INO) | payer MEDICAID, SELFPAY ==
[2020-02-28] VITALS (7 sets, daily range): BP systolic 93–140; BP diastolic 52–81; PULSE 66–90; RESP 11–20; TEMP 36.4–36.8; O2SAT 90–99; BMI 20.2; BMI 21.3
[2020-02-28 12:53] LABS: Basophils # 0.1 K/mm3 (0-0.2); Basophils % 0.7 % (0.1-2.0); Eosinophils # 0.2 K/mm3 (0.0-0.4); Eosinophils % 1.8 % (0.1-12.0); Hematocrit 31.6 % (37.0-47.0); Hemoglobin 10.5 g/dL (12.2-16.2); Lymphocytes # 3.3 K/mm3 (0.7-4.5); Lymphocytes % 26.1 % (10-50); Mean Corpuscular HGB Conc 33.4 g/dL (31.8-35.4); Mean Corpuscular Hemoglobin 34.3 pg (27.0-31.2); Mean Corpuscular Volume 102.6 fl (81-99); Mean Platelet Volume 7.7 fl (7.4-10.4); Monocytes # 0.8 K/mm3 (0.1-1.0); Monocytes % 5.9 % (1.7-9.3); Neutrophils # 8.4 K/mm3 (1.8-7.8); Neutrophils % 65.5 % (37.0-80.0); Platelet Count 452 K/mm3 (142-424); Red Blood Count 3.08 M/mm3 (4.20-5.40); Red Cell Distribution Width 14.9 % (11.5-17.5); White Blood Count 12.8 K/mm3 (4.8-10.8)
[2020-02-28 13:00] LABS: Alanine Aminotransferase 34 U/L (12-78); Albumin Level 4.6 g/dl (3.5-5.0); Albumin/Globulin Ratio 1.1 (1.1-1.8); Alkaline Phosphatase 77 U/L (38-126); Anion Gap 17.8 mEq/L (5-15); Aspartate Amino Transferase 83 U/L (14-36); Bilirubin,Total 0.7 mg/dl (0.2-1.3); Blood Urea Nitrogen 56 mg/dl (7-17); Calcium 10.5 mg/dl (8.4-10.2); Carbon Dioxide 14 mmol/L (22.0-30.0); Chloride 113 mmol/L (98-107); Creatinine Clearance Estimated 17 mL/min (50-200); Estimated Glomerular Filt Rate 17 ml/min (>60); GFR (African American) 21 ML/MIN (>60); Globulin 4.1 g/dL (1.3-3.2); Glucose 100 mg/dl (74-100); Potassium 3.8 mmoL/L (3.5-5.1); Sodium 141 mmol/L (136-145); Total Protein,Serum 8.7 g/dl (6.3-8.2)
--- NOTE | 2020-02-28 13:05 | HMH.EDRECH ---
ED Disposition Clinical Impression: SHADY (acute kidney injury) Disposition: Admitted as Observation Condition on Discharge: Good Instructions: DI for Urinary Tract Infection (UTI), DI for Urinary Tract Infection in Children Referrals: Higinio Shaw MD [Primary Care Provider] - - Critical Care Critical Care Time: No Attestation: On 02/28/20, the high probability of a clinically significant, sudden or life threatening deterioration of the following system(s) required my full and direct attention, intervention and personal management. The time I documented below is in addition to time spent performing reported procedures but includes the following listed in this critical care notation. Medical Decision Making - Medical Records Medical records reviewed: Yes: I reviewed the patient's medical records. - Georgi Inquiry Pt receiving controlled substance: No Vital Signs: 02/28/20 12:37 02/28/20 13:07 02/28/20 14:00 Temperature 98.2 F Temperature Source Oral Pulse Rate [Left Radial] 90 81 72 Respiratory Rate 20 20 11 L Blood Pressure [Right Arm] 93/52 L 96/66 L 93/62 L Blood Pressure Mean [Right Arm] 65 76 72 Blood Pressure Source [Right Arm] Automatic Cuff Automatic Cuff Blood Pressure Position [Right Arm] Sitting Supine Sitting 02 Sat by Pulse Oximetry 98 98 Oxygen Delivery Method Room Air Room Air - Lab Data Lab results reviewed: Yes: I reviewed the patient's lab results. Lab Results 02/28/20 12:40: WBC 12.8 H, RBC 3.08 L, Hgb 10.5 L, Hct 31.6 L, MCV 102.6 H, MCH 34.3 H, MCHC 33.4, RDW 14.9, Plt Count 452 H, MPV 7.7, Neut % (Auto) 65.5, Lymph % (Auto) 26.1, [place] % (Auto) 5.9, Eos % (Auto) 1.8, Baso % (Auto) 0.7, Neut # (Auto) 8.4 H, Lymph # (Auto) 3.3, [place] # (Auto) 0.8, Eos # (Auto) 0.2, Baso # (Auto) 0.1 02/28/20 12:40: Sodium 141, Potassium 3.8, Chloride 113 H, Carbon Dioxide 14 L, Anion Gap 17.8 H, BUN 56 H, Creatinine 2.80 H, Estimated Creat Clear 17, Estimated GFR 17 L*, Est GFR ( Amer) 21 L, Glucose 100, Calcium 10.5 H, Total Bilirubin 0.7, AST 83 H, ALT 34, Alkaline Phosphatase 77, Total Protein 8.7 H, Albumin 4.6, Globulin 4.1 H, Albumin/Globulin Ratio 1.1 02/28/20 12:40: SARS-CoV-2 IgG Ab (Rapid) Negative, SARS-CoV-2 IgM Ab (Rapid) Negative Result diagrams: 02/28/20 12:40 02/28/20 12:40 Orders (Tests/Meds): ED MEDICATIONS Generic Name Dose Route Start Last Admin Trade Name Freq PRN Reason Stop Dose Admin Sodium Chloride 1,000 mls @ 200 mls/hr 02/28/20 13:15 02/28/20 13:05 Sod Chlor 0.9% 1000ml Bag IV 03/29/20 13:14 200 mls/hr .Q5H AVE Administration Recheck HPI - General Chief Complaint: Urogenital-Female Stated Complaint: back pain Time Seen by Provider: 02/28/20 13:05 Mode of Arrival: EMS Source of Information: Patient, EMS, Medical Record Limitations: No Limitations Description of Symptoms (Recalled from ER Triage Doc. by RN): Pt states she has not urinated since 329 and is having lower back pain. - History of Present Illness HPI narrative: pt here last pm with abn labs with shady - dec po intake - no fever/vomiting or diarrhea - MD complaint: abnormal lab Initial visit (ago): day(s) Returns today for: called because of abnormal lab/test Symptoms since prior visit: no new symptoms Associated symptoms: none - Related Data Home Medications Medication Instructions Recorded Confirmed Aspirin [Low Dose Aspirin EC] 81 mg PO BID 02/28/20 02/28/20 Bisoprolol/Hydrochlorothiazide 1 tab PO DAILY 02/28/20 02/28/20 [Bisoprolol-Hctz 2.5-6.25 mg Tb] Cholecalciferol (Vitamin D3) 25 mcg PO DAILY 02/28/20 02/28/20 [Vitamin D3 1,000 Unit Tab] Ergocalciferol (Vitamin D2) 50,000 unit PO QWEEK 02/28/20 02/28/20 [Drisdol] Hydrocodone/Acetaminophen [[place] 1 tab PO BID 02/28/20 02/28/20 7.5-325 Tablet] Quetiapine Fumarate 200 mg PO QHS 02/28/20 02/28/20 levETIRAcetam [Levetiracetam] 1 tab PO DAILY 02/28/20 02/28/20 Previous Rx's Medication
--- NOTE | 2020-02-28 13:32 | PC.NURSE ---
Notified care management of admission
[2020-02-28 14:22] LABS: Coronavirus 19 IgG Antibody Negative (Negative)
[2020-02-28 14:23] LABS: Coronavirus 19 IgM Antibody Negative (Negative)
--- NOTE | 2020-02-28 16:05 | HMH.PHAINT ---
MEDICATION RECONCILIATION COMPLETED ON PATIENT USING EXTERNAL FILL HISTORY FROM PHARMACY AND LIST FROM MD OFFICE. -LOLLY BUCHANAND
--- NOTE | 2020-02-28 17:20 | INFXCTL.NOTE ---
HS updated that pt will be going to room 207. A stat clean was placed for this bed and the nurse will come to get report once the room is finished
--- NOTE | 2020-02-28 17:56 | PC.NURSE ---
PT eating supper at this time. No complaints.
--- NOTE | 2020-02-28 18:32 | PC.NURSE ---
Called 2nd floor who advised room was clean. Advised them pt was ready for admission
--- NOTE | 2020-02-28 19:01 | PC.NURSE ---
call and requested to know how much longer for admit. spoke with yuriyrn-charge nurse. she stated the receiving nurse had been told multiple times and she still hadn't come for the patient.both charge and malt house loader aware that nurse has not came for patient.advised nursing patient will be brought to floor. transported via mitch albright-p. no acute distress or complaints offered at time of dc.
--- NOTE | 2020-02-28 20:32 | P.CONPHA_ITS ---
[facility] Pharmacy VTE Monitoring - Patient Demographics Admission date: 02/28/20 Report Date: 02/28/20 Time: 20:32 Allergies/Adverse Reactions: Patient Allergies codeine Allergy (Mild, Verified 01/05/20 13:20) Height: 1.52 m Weight: 47.174 kg Patient Problems: Current Active Problems SHADY (acute kidney injury) (Acute) - VTE Risk Labs: VTE Related Lab Results Hgb 10.5 g/dL (12.2-16.2) L 02/28/20 12:40 Hct 31.6 % (37.0-47.0) L 02/28/20 12:40 Plt Count 452 K/mm3 (142-424) H 02/28/20 12:40 BUN 56 mg/dl (7-17) H 02/28/20 12:40 Creatinine 2.80 mg/dl (0.52-1.04) H 02/28/20 12:40 Estimated Creat Clear 17 mL/min (50-200) 02/28/20 12:40 Clinical Trial Participant: No - Prophylaxis VTE Prophylaxis Ordered?: Yes Types of VTE Prophylaxis: TEDS Knee High
--- NOTE | 2020-02-28 23:11 | PC.NURSE ---
Addendum entered by Moni Moreau RN 02/28/20 23:24: 2012- PT. D/C FROM [facility] Original Note: 1949-- PT. UPSET THAT HER SIGNIFICANT OTHER COULD NOT SPEND THE NIGHT WITH HER. EXPLAINED VISITING HOURS AND REASONS, ALSO NOTIFIED ADULT SPECIALIST. PT. ADAMANT ABOUT LEAVING, PT. EDUCATED ON RISKS OF LEAVING AMA. 1956- NOTIFIED MD LAKESHIA OF SITUATION; NNO 1999- D/C IV AND FC, PT. AND FAMILY ESCORTED TO ED
== END 2020-02-28 23:33 | disposition left against medical advice (07) ==
LOC: ER 14:37 → 2ND 23:20
PROVIDERS: Admitting Provider Emergency Medicine; Emergency Provider Emergency Medicine; PCP Emergency Medicine; Visit Provider Emergency Medicine
DX: N17.9 Acute kidney failure, unspecified (principal); J44.9 Chronic obstructive pulmonary disease, unspecified; I10 Essential (primary) hypertension; Z72.0 Tobacco use; Z79.899 Other long term (current) drug therapy
CPT/HCPCS: 80053; 85025; 86328; 96365; 99284; G0378

== ENCOUNTER 2020-03-02 12:36 | Emergency (ER) | payer MEDICAID, SELFPAY ==
[2020-03-02 12:37] VITALS: BP 120/76; PULSE 72; RESP 16; TEMP 36.5; O2SAT 99; BMI 20.5
--- NOTE | 2020-03-02 12:43 | HMH.EDGENADL ---
ED Disposition Clinical Impression: Left patella fracture Qualifiers: Encounter type: initial encounter Fracture type: closed Fracture morphology: unspecified fracture morphology Fracture alignment: nondisplaced Qualified Code(s): S82.002A - Unspecified fracture of left patella, initial encounter for closed fracture Low back pain Qualifiers: Chronicity: acute Back pain laterality: bilateral Sciatica presence: without sciatica Qualified Code(s): M54.5 - Low back pain Disposition: Home, Self-Care Condition on Discharge: Good Instructions: DI for Low Back Pain, DI for Patella Fracture Additional Instructions: Follow-up with Dr. Shaw in the office tomorrow as scheduled. Continue knee immobilizer. Referrals: Higinio Shaw MD [Primary Care Provider] - - Critical Care Critical Care Time: No Attestation: On 03/02/20, the high probability of a clinically significant, sudden or life threatening deterioration of the following system(s) required my full and direct attention, intervention and personal management. The time I documented below is in addition to time spent performing reported procedures but includes the following listed in this critical care notation. Medical Decision Making - Medical Records Medical records reviewed: Yes: I reviewed the patient's medical records. MR Comment: Reviewed emergency department visits/admission on 02/28/2020 - Georgi Blum Pt receiving controlled substance: No Vital Signs: 03/02/20 12:37 03/02/20 13:16 03/02/20 13:36 Temperature 97.7 F Temperature Source Oral Pulse Rate Pulse Rate [Radial] 72 73 68 Respiratory Rate 16 18 18 Blood Pressure Blood Pressure [Right Arm] 120/76 101/71 L 103/74 L Blood Pressure Mean [Right Arm] 90 81 83 Blood Pressure Source [Right Arm] Automatic Cuff Automatic Cuff Blood Pressure Position Blood Pressure Position [Right Arm] Sitting Sitting Sitting 02 Sat by Pulse Oximetry 99 100 100 Oxygen Delivery Method Room Air Room Air 03/02/20 15:33 03/02/20 15:47 Temperature 98 F Temperature Source Oral Pulse Rate 87 Pulse Rate [Radial] 65 Respiratory Rate 18 16 Blood Pressure 112/54 L Blood Pressure [Right Arm] Blood Pressure Mean [Right Arm] Blood Pressure Source [Right Arm] Blood Pressure Position Sitting Blood Pressure Position [Right Arm] 02 Sat by Pulse Oximetry 99 Oxygen Delivery Method Room Air - Lab Data Lab results reviewed: Yes: I reviewed the patient's lab results. Lab Results 03/02/20 12:55: Urine Color Yellow, Urine Appearance Sl cloudy, Urine pH 6.0, Ur Specific [place] 1.020, Urine Protein Trace, Urine Glucose (UA) Negative, Urine Ketones 1+, Urine Blood Negative, Urine Nitrate Negative, Urine Bilirubin Negative, Urine Urobilinogen 0.2, Ur Leukocyte Esterase Negative, Urine RBC 3-5, Urine WBC 5-10, Ur Squamous Epith Cells 10-20, Urine Bacteria 2+ 03/02/20 13:05: WBC 7.6, RBC 3.20 L, Hgb 10.5 L, Hct 34.4 L, MCV 107.4 H, MCH 32.8 H, MCHC 30.5 L, RDW 14.4, Plt Count 453 H, MPV 7.5, Neut % (Auto) 54.1, Lymph % (Auto) 37.3, [place] % (Auto) 5.5, Eos % (Auto) 2.2, Baso % (Auto) 0.9, Neut # (Auto) 4.1, Lymph # (Auto) 2.8, [place] # (Auto) 0.4, Eos # (Auto) 0.2, Baso # (Auto) 0.1 03/02/20 13:05: Sodium 143, Potassium 4.2, Chloride 116 H, Carbon Dioxide 19 L, Anion Gap 12.2, BUN 23 H, Creatinine 1.10 H, Estimated Creat Clear 42, Estimated GFR 51 L, Est GFR ( Amer) 62, Glucose 147 H, Calcium 10.7 H, Total Bilirubin 0.6, AST 55 H, ALT 31, Alkaline Phosphatase 74, Total Protein 8.9 H, Albumin 4.6, Globulin 4.3 H, Albumin/Globulin Ratio 1.1 Result diagrams: 03/02/20 13:05 03/02/20 13:05 Orders (Tests/Meds): ED MEDICATIONS Discontinued Medications Generic Name Dose Route Start Last Admin Trade Name Freq PRN Reason Stop Dose Admin Sodium Chloride 1,000 mls @ 999 mls/hr 03/02/20 13:30 03/02/20 13:30 Sod Chlor 0.9% 1000ml Bag IV 03/02/20 14:30 999 mls/hr .Q1H1M AVE Administration ORDER
[2020-03-02 13:02] LABS: Microscopic, Urine URINE MICROSCOPIC (MICROSCOPIC)
--- NOTE | 2020-03-02 13:10 | CT_ITS ---
PROCEDURE: CT ABDOMEN PELVIS WO CON CLINICAL INDICATION: kidney pain , SHADY Left flank pain COMPARISON: CT ABDPELW/O CT ABD PELVIS W/O CONTRAST from 11/06/2016 TECHNIQUE: Axial images obtained with sagittal and coronal reformats. All CT scans at the facility use one or more dose reduction, viz: automated exposure control, ma/kV adjustment per patient size (including targeted exams where dose is matched to indication, i.e. head), or iterative reconstruction technique. FINDINGS: LOWER THORAX: No acute finding ABDOMEN & PELVIS: There is mild thickening of the GE junction. The liver, spleen, adrenal glands, pancreas, and kidneys have an unremarkable unenhanced appearance. Small focal area of calcification is present along the upper portion of the stomach posteriorly and medially not significantly changed. No evidence of appendicitis, intestinal obstruction, free air, or diverticulitis. There are post hysterectomy changes. No acute bony findings. IMPRESSION: No acute finding Dictated by: Luis Eduardo Hunter MD 03/02/2020 14:53 Luis Eduardo Hunter MD in [place] 03/02/2020 14:53
[2020-03-02 13:12] LABS: Appearance,Urine SL CLOUDY (Clear); Blood, Urine Negative (Negative); Color,Urine YELLOW (Yellow); Glucose,Urine (UA) Negative (Negative); Ketones,Urine 1+ (Negative); Leukocyte Esterase,Urine Negative (Negative); Nitrate,Urine Negative (Negative); Protein,Urine TRACE (Negative); Urobilinogen,Urine 0.2 EU/dl (0.2)
[2020-03-02 13:16] VITALS: BP 101/71; PULSE 73; RESP 18; O2SAT 100
[2020-03-02 13:17] LABS: Basophils # 0.1 K/mm3 (0-0.2); Basophils % 0.9 % (0.1-2.0); Eosinophils # 0.2 K/mm3 (0.0-0.4); Eosinophils % 2.2 % (0.1-12.0); Hematocrit 34.4 % (37.0-47.0); Hemoglobin 10.5 g/dL (12.2-16.2); Lymphocytes # 2.8 K/mm3 (0.7-4.5); Lymphocytes % 37.3 % (10-50); Mean Corpuscular HGB Conc 30.5 g/dL (31.8-35.4); Mean Corpuscular Hemoglobin 32.8 pg (27.0-31.2); Mean Corpuscular Volume 107.4 fl (81-99); Mean Platelet Volume 7.5 fl (7.4-10.4); Monocytes # 0.4 K/mm3 (0.1-1.0); Monocytes % 5.5 % (1.7-9.3); Neutrophils # 4.1 K/mm3 (1.8-7.8); Neutrophils % 54.1 % (37.0-80.0); Platelet Count 453 K/mm3 (142-424); Red Cell Distribution Width 14.4 % (11.5-17.5); White Blood Count 7.6 K/mm3 (4.8-10.8)
[2020-03-02 13:19] LABS: Bilirubin,Urine Negative (Negative)
[2020-03-02 13:19] LABS: Chloride 116 mmol/L (98-107); Potassium 4.2 mmoL/L (3.5-5.1); Sodium 143 mmol/L (136-145)
[2020-03-02 13:21] LABS: Blood Urea Nitrogen 23 mg/dl (7-17); Creatinine Clearance Estimated 42 mL/min (50-200); Estimated Glomerular Filt Rate 51 ml/min (>60); GFR (African American) 62 ML/MIN (>60)
[2020-03-02 13:22] LABS: Alanine Aminotransferase 31 U/L (12-78); Albumin Level 4.6 g/dl (3.5-5.0); Albumin/Globulin Ratio 1.1 (1.1-1.8); Alkaline Phosphatase 74 U/L (38-126); Anion Gap 12.2 mEq/L (5-15); Aspartate Amino Transferase 55 U/L (14-36); Bilirubin,Total 0.6 mg/dl (0.2-1.3); Carbon Dioxide 19 mmol/L (22.0-30.0); Globulin 4.3 g/dL (1.3-3.2); Total Protein,Serum 8.9 g/dl (6.3-8.2)
[2020-03-02 13:23] LABS: Calcium 10.7 mg/dl (8.4-10.2); Glucose 147 mg/dl (74-100)
[2020-03-02 13:36] VITALS: BP 103/74; PULSE 68; RESP 18; O2SAT 100
[2020-03-02 13:38] LABS: Bacteria,Urine 2+ /lpf
[2020-03-02 15:33] VITALS: PULSE 65; RESP 18; O2SAT 99
[2020-03-02 15:47] VITALS: BP 112/54; PULSE 87; RESP 16; TEMP 36.6; O2SAT 98
== END 2020-03-02 15:49 | disposition home or self-care (01) ==
PROVIDERS: Emergency Provider Emergency Medicine; PCP Emergency Medicine
DX: S82.002A Unspecified fracture of left patella, initial encounter for closed fracture (principal); R10.32 Left lower quadrant pain; M54.5 Low back pain; J44.9 Chronic obstructive pulmonary disease, unspecified; F41.8 Other specified anxiety disorders; K21.9 Gastro-esophageal reflux disease without esophagitis; I10 Essential (primary) hypertension; F17.210 Nicotine dependence, cigarettes, uncomplicated
CPT/HCPCS: 74176; 80053; 81001; 85025; 87086; 96365; 99283

== ENCOUNTER → 2020-03-15 08:44 | Outpatient (CLI) | payer MEDICAID, SELFPAY ==
--- NOTE | 2020-03-15 08:49 | XR_ITS ---
PROCEDURE: XR KNEE LT 2V CLINICAL INDICATION: left patella fracture fu Follow-up patellar fracture COMPARISON: CR XR KNEE LT 3V from 02/28/2020 FINDINGS: Nondisplaced transverse and longitudinal fracture involves the mid aspect of the patella The joint spaces are well-preserved. No significant degenerative/arthritic changes. No erosive changes evident. Other findings:Suprapatellar effusion has resolved. IMPRESSION: No change nondisplaced patellar fracture with resolution of suprapatellar effusion Dictated by: Luis Eduardo Hunter MD 03/15/2020 11:00 Luis Eduardo Hunter MD in [place] 03/15/2020 11:00
--- NOTE | 2020-03-15 11:00 | XR_ITS ---
PROCEDURE: XR KNEE LT 2V CLINICAL INDICATION: left patella fx Follow-up fracture COMPARISON: CR XR KNEE LT 3V from 02/28/2020 CR XR KNEE LT 2V from 03/15/2020 FINDINGS: Cast has been placed. No change in the nondisplaced patellar fracture. Other findings:None. IMPRESSION: Status post casting nondisplaced patellar fracture Dictated by: Luis Eduardo Hunter MD 03/15/2020 11:52 Luis Eduardo Hunter MD in [place] 03/15/2020 11:52
== END ==
PROVIDERS: PCP Emergency Medicine; Visit Provider Orthopaedic Surgery
DX: S82.002A Unspecified fracture of left patella, initial encounter for closed fracture (principal)
CPT/HCPCS: 73560

== ENCOUNTER → 2020-04-28 17:33 | Outpatient (CLI) | payer MEDICAID, SELFPAY ==
[2020-04-28 18:51] LABS: Amphetamine/Metha Screen,Urine Negative ng/ml (<1000); Barbiturates Screen,Urine Negative ng/ml (<200)
[2020-04-28 18:53] LABS: Benzodiazepines Screen,Urine Positive ng/ml (<200)
[2020-04-28 18:54] LABS: Cannabinoid Screen,Urine Positive ng/ml (<50); Cocaine Screen,Urine Negative ng/ml (<300)
[2020-04-28 18:55] LABS: Methadone Screen,Urine Negative ng/ml (<300)
[2020-04-28 18:56] LABS: Opiate Screen,Urine Negative ng/ml (<300); Phencyclidine Screen,Urine Negative ng/ml (<25)
== END ==
PROVIDERS: Visit Provider Emergency Medicine
DX: M54.5 Low back pain (principal); Z79.899 Other long term (current) drug therapy
CPT/HCPCS: 80305

== ENCOUNTER → 2020-05-09 08:35 | Outpatient (CLI) | payer MEDICAID, SELFPAY ==
--- NOTE | 2020-05-09 08:36 | MM_ITS ---
PROCEDURE: MM DIG SCREENING MAMM BI W/CAD Digital Breast Tomosynthesis Included CLINICAL INDICATION: screening There is a history of breast cancer in the patient's mother sister. There has been a previous cyst aspiration left breast with benign findings COMPARISON: MG DMSB DIG MAMM-SCREEN GEOVANY from 10/17/2015 MG SCBI MM Dig screening mamm BI w/CAD from 08/12/2017 MG DIG MAMM-SCREEN GEOVANY from 08/13/2018 TECHNIQUE: Standard CC and MLO images and 3D Tomosynthesis was obtained. R2 CAD reviewed. FINDINGS: There is a markedly dense and heterogenic parenchymal findings are fairly symmetrical bilaterally. There are several benign-appearing microcalcifications in each breast, there is a mole marker right breast. There is a biopsy clip left breast. Benigno images are most helpful in this type of dense breast parenchyma. There is faint arterial calcification in each breast. There is no new or suspicious lesion in either breast and no suspicious microcalcifications. IMPRESSION: Diffusely dense and heterogenic parenchymal pattern with no suspicious lesions seen BI-RAD Category: 2 Benign Finding(s) FOLLOW-UP: 1YR 1 Year Follow-up (A letter has been sent to the patient regarding results of the study.) Dictated by: Dr. Yinka Proctor MD 05/13/2020 08:48 Dr. Yinka Proctor MD in [place] 05/13/2020 08:48
== END ==
PROVIDERS: PCP Emergency Medicine; Visit Provider Emergency Medicine
DX: Z12.31 Encounter for screening mammogram for malignant neoplasm of breast (principal)
CPT/HCPCS: 77063; 77067

== ENCOUNTER 2020-05-15 12:51 | Emergency (ER) | payer MEDICAID, SELFPAY ==
[2020-05-15 12:55] VITALS: BP 114/78; PULSE 84; RESP 16; TEMP 37.2; O2SAT 98; BMI 24.3
[2020-05-15 13:00] VITALS: BP 114/78; PULSE 84; RESP 16; TEMP 37.2; O2SAT 98; BMI 24.2
--- NOTE | 2020-05-15 13:28 | HMH.EDUTC ---
[facility] [place] Disposition Clinical Impression: Gastroenteritis Disposition: Home, Self-Care Condition on Discharge: Good Instructions: DI for Viral Gastroenteritis -- Adult Additional Instructions: Drink plenty of fluids. Take tylenol or ibuprofen for pain or fever. Take the medications as directed. Follow up with your regular doctor. GO TO THE ER FOR ANY WORSENING SYMPTOMS Prescriptions: Ondansetron [Zofran 4mg ODT] 4 mg PO Q8HP PRN #20 tab.rapdis PRN Reason: Nausea Transmission Status: Received by [facility] Referrals: Higinio Shaw MD [Primary Care Provider] - Time of Disposition: 13:38 Medical Decision Making - Medical Records Medical records reviewed: No: I reviewed the patient's medical records. - Georgi Inquiry Pt receiving controlled substance: No Vital Signs: 05/15/20 12:55 05/15/20 13:00 05/15/20 13:40 Temperature 98.9 F 98.9 F 98.9 F Temperature Source Oral Oral Pulse Rate 84 Pulse Rate [Radial] 84 84 Respiratory Rate 16 16 16 Blood Pressure 114/78 Blood Pressure [Right Arm] 114/78 114/78 Blood Pressure Mean [Right Arm] 90 90 Blood Pressure Source [Right Arm] Automatic Cuff Blood Pressure Position [Right Arm] Sitting Sitting 02 Sat by Pulse Oximetry 98 98 Oxygen Delivery Method Room Air Room Air [facility] [place] HPI - General Stated complaint: nausea, weakness Time Seen by Provider: 05/15/20 13:28 Mode of Arrival: Ambulatory Source of Information: Patient Limitations: No Limitations Description of Symptoms (Recalled from Triage Doc. by RN): TO ED PER PVT CAR WITH C/O NAUSEA STARTING FRIDAY. PT DENIES ANY FEVER, VOMITING, DIARRHEA, ABD PAIN. PT STATES SHE RECEIVED HER FIRST COVID VACC. . - History of Present Illness Provider Complaint: She states that for the past 2 days she has had nausea. She denies any abdominal pain. She denies diarrhea or constipation. She has vomited x1 since her symptoms began. - Related Data Home Medications Medication Instructions Recorded Confirmed Albuterol Sulfate [Albuterol 3 ml IH Q6HP PRN 02/28/20 04/28/20 0.083% 2.5mg/3mL neb] Ergocalciferol (Vitamin D2) 50,000 unit PO WEEKLY 02/28/20 04/28/20 [Drisdol] Previous Rx's Medication Instructions Recorded aspirin 81 mg tablet,delayed See Rx Instructions .ROUTE 03/03/20 release .COMPLEX #60 tablet bisoprolol 2.5 See Rx Instructions .ROUTE 03/03/20 mg-hydrochlorothiazide 6.25 mg .COMPLEX #30 tablet tablet cholecalciferol (vitamin D3) 25 See Rx Instructions .ROUTE 03/03/20 mcg (1,000 unit) tablet .COMPLEX #30 tablet amlodipine 5 mg tablet 5 mg PO HS #90 tab 04/28/20 diazepam 5 mg tablet 5 mg PO DAILY #30 tab 04/28/20 gabapentin 300 mg capsule 300 mg PO BID #60 cap 04/28/20 hydrocodone 7.5 mg-acetaminophen 1 tab PO BID #60 tab 04/28/20 325 mg tablet levetiracetam 1,000 mg tablet 1,500 mg PO BID #270 tab 04/28/20 lisinopril 20 1 tab PO DAILY #90 tab 04/28/20 mg-hydrochlorothiazide 12.5 mg tablet albuterol sulfate 90 mcg/actuation 2 puff INHALATION Q4-6H PRN #8.5 g 05/02/20 aerosol inhaler quetiapine 200 mg tablet 200 mg PO HS #30 tab 05/09/20 Ondansetron [Zofran 4mg ODT] 4 mg PO Q8HP PRN #20 tab.rapdis 05/15/20 Allergies Allergy/AdvReac Type Severity Reaction Status Date / Time codeine Allergy Mild Verified 05/09/20 15:02 - Worker's Comp Is this a Worker's Comp case?: No [facility] History - Hepatitis A Screen Drug use history?: No High risk sexual behaviors?: No History of sexually transmitted infection?: No Currently employed?: No Childcare worker?: No Do you have indoor plumbing?: Yes Do you have electricity?: Yes Attestation statement:: This patient has been screened for Hepatitis A risk factors. I have reviewed the patient's past medical history: Yes Medical History: Reports:: Anxiety, Chronic Obstructive Pulmonary Disease (COPD), Cerebrovascular Accident, Depression, Gastroesophageal Reflux Disease(GERD)
[2020-05-15 13:40] VITALS: BP 114/78; PULSE 84; RESP 16; TEMP 37.2; O2SAT 98
== END 2020-05-15 13:43 | disposition home or self-care (01) ==
PROVIDERS: Emergency Provider Nurse Practitioner Family; PCP Emergency Medicine
DX: K52.9 Noninfective gastroenteritis and colitis, unspecified (principal); F41.8 Other specified anxiety disorders; K21.9 Gastro-esophageal reflux disease without esophagitis; I10 Essential (primary) hypertension; J44.9 Chronic obstructive pulmonary disease, unspecified; F17.210 Nicotine dependence, cigarettes, uncomplicated; Z79.899 Other long term (current) drug therapy
CPT/HCPCS: 99202; G0463

== ENCOUNTER → 2020-06-14 13:24 | Outpatient (POV) | payer MEDICAID, SELFPAY | DX: Z00.00 Encounter for general adult medical examination without abnormal findings (principal) ==

== ENCOUNTER → 2020-06-26 17:21 | Outpatient (CLI) | payer MEDICAID, SELFPAY ==
[2020-06-26 18:37] LABS: Barbiturates Screen,Urine Negative ng/ml (<200)
[2020-06-26 18:38] LABS: Benzodiazepines Screen,Urine Negative ng/ml (<200)
[2020-06-26 18:39] LABS: Cocaine Screen,Urine Negative ng/ml (<300)
[2020-06-26 18:40] LABS: Opiate Screen,Urine Positive ng/ml (<300)
[2020-06-26 18:41] LABS: Phencyclidine Screen,Urine Negative ng/ml (<25)
[2020-06-26 18:56] LABS: Cannabinoid Screen,Urine Positive ng/ml (<50)
[2020-06-26 19:39] LABS: Amphetamine/Metha Screen,Urine Negative ng/ml (<1000); Methadone Screen,Urine Negative ng/ml (<300)
== END ==
PROVIDERS: Visit Provider Emergency Medicine
DX: Z79.899 Other long term (current) drug therapy (principal)
CPT/HCPCS: 80305

== ENCOUNTER → 2020-08-21 17:33 | Outpatient (CLI) | payer MEDICAID, SELFPAY ==
[2020-08-21 19:17] LABS: Amphetamine/Metha Screen,Urine Negative ng/ml (<1000)
[2020-08-21 19:18] LABS: Barbiturates Screen,Urine Negative ng/ml (<200)
[2020-08-21 19:19] LABS: Benzodiazepines Screen,Urine Negative ng/ml (<200)
[2020-08-21 19:20] LABS: Cannabinoid Screen,Urine Negative ng/ml (<50)
[2020-08-21 19:21] LABS: Cocaine Screen,Urine Negative ng/ml (<300); Methadone Screen,Urine Negative ng/ml (<300)
[2020-08-21 19:22] LABS: Opiate Screen,Urine Negative ng/ml (<300)
[2020-08-21 19:23] LABS: Phencyclidine Screen,Urine Negative ng/ml (<25)
== END ==
PROVIDERS: Visit Provider Emergency Medicine
DX: Z79.899 Other long term (current) drug therapy (principal)
CPT/HCPCS: 80305

== ENCOUNTER 2020-10-10 16:25 | Emergency (ER) | payer MEDICAID, SELFPAY ==
[2020-10-10 16:25] VITALS: BP 111/69; PULSE 64; RESP 15; TEMP 36.8; O2SAT 98; BMI 21.4
--- NOTE | 2020-10-10 16:34 | XR_ITS ---
PROCEDURE: XR CHEST 2V CLINICAL HISTORY: soa COMPARISON: CT [facility] CT CHEST W/O CONTRAST from 11/05/2013 CR XR RIBS LT MIN 3V W CXR1V from 01/29/2019 CR XR CHEST AP from 05/20/2019 CR XR CHEST 2V from 02/28/2020 FINDINGS: The cardiomediastinal silhouette and pulmonary vascularity are within normal limits. The lungs are clear without infiltrates, suspicious nodules, or pleural effusions. Lower thoracic scoliosis convex left. IMPRESSION: No acute findings. Dictated by: Luis Eduardo Hunter MD 10/10/2020 17:04 Luis Eduardo Hunter MD in [place] 10/10/2020 17:04
--- NOTE | 2020-10-10 16:41 | ECG_ITS ---
APPROVED REPORT Exam: Resting ECG HR:64 bpm ECG Measurements Heart Rate 64 AXES QRSd 66 QRS 58 QT 400 T 34 QTc 412 Conclusion Junctional rhythm Nonspecific ST and T wave abnormality Abnormal ECG Electronically signed by : Ariel Sanchez MD 10/11/2020 11:44:45
--- NOTE | 2020-10-10 16:46 | PC.NURSE ---
Pt to rad.
--- NOTE | 2020-10-10 16:50 | PC.NURSE ---
Pt returned from rad
[2020-10-10 16:56] LABS: Basophils # 0.1 K/mm3 (0-0.2); Basophils % 0.6 % (0.1-2.0); Eosinophils # 0.4 K/mm3 (0.0-0.4); Eosinophils % 4.2 % (0.1-12.0); Hematocrit 30.6 % (37.0-47.0); Hemoglobin 10.3 g/dL (12.2-16.2); Lymphocytes # 2.8 K/mm3 (0.7-4.5); Lymphocytes % 32.5 % (10-50); Mean Corpuscular HGB Conc 33.7 g/dL (31.8-35.4); Mean Corpuscular Hemoglobin 33.4 pg (27.0-31.2); Mean Corpuscular Volume 99.1 fl (81-99); Mean Platelet Volume 7.4 fl (7.4-10.4); Monocytes # 0.5 K/mm3 (0.1-1.0); Monocytes % 6.3 % (1.7-9.3); Neutrophils # 4.8 K/mm3 (1.8-7.8); Neutrophils % 56.4 % (37.0-80.0); Platelet Count 445 K/mm3 (142-424); Red Blood Count 3.09 M/mm3 (4.20-5.40); Red Cell Distribution Width 13.4 % (11.5-17.5); White Blood Count 8.6 K/mm3 (4.8-10.8)
[2020-10-10 17:05] LABS: Chloride 103 mmol/L (98-107); Potassium 4.1 mmoL/L (3.5-5.1); Sodium 132 mmol/L (136-145)
[2020-10-10 17:08] LABS: Anion Gap 10.1 mEq/L (5-15); Blood Urea Nitrogen 20 mg/dl (7-17); Calcium 9.3 mg/dl (8.4-10.2); Carbon Dioxide 23 mmol/L (22.0-30.0); Creatinine Clearance Estimated 54 mL/min (50-200); Estimated Glomerular Filt Rate 64 ml/min (>60); GFR (African American) 78 ML/MIN (>60); Glucose 98 mg/dl (74-100)
[2020-10-10 17:27] LABS: Troponin I < 0.01 ng/ml (0.00-0.034)
--- NOTE | 2020-10-10 17:36 | HMH.EDGENADL ---
ED Disposition Attestation: On , the high probability of a clinically significant, sudden or life threatening deterioration of the following system(s) required my full and direct attention, intervention and personal management. The time I documented below is in addition to time spent performing reported procedures but includes the following listed in this critical care notation. Medical Decision Making Vital Signs: 10/10/20 16:25 Temperature 98.3 F Temperature Source Oral Pulse Rate [Left Radial] 64 Respiratory Rate 15 Blood Pressure [Right Arm] 111/69 Blood Pressure Mean [Right Arm] 83 Blood Pressure Source [Right Arm] Automatic Cuff Blood Pressure Position [Right Arm] Sitting 02 Sat by Pulse Oximetry 98 Oxygen Delivery Method Room Air - Lab Data Lab Results 10/10/20 16:46: WBC 8.6, RBC 3.09 L, Hgb 10.3 L, Hct 30.6 L, MCV 99.1 H, MCH 33.4 H, MCHC 33.7, RDW 13.4, Plt Count 445 H, MPV 7.4, Neut % (Auto) 56.4, Lymph % (Auto) 32.5, Sierra % (Auto) 6.3, Eos % (Auto) 4.2, Baso % (Auto) 0.6, Neut # (Auto) 4.8, Lymph # (Auto) 2.8, Sierra # (Auto) 0.5, Eos # (Auto) 0.4, Baso # (Auto) 0.1 10/10/20 16:46: Sodium 132 L, Potassium 4.1, Chloride 103, Carbon Dioxide 23, Anion Gap 10.1, BUN 20 H, Creatinine 0.90, Estimated Creat Clear 54, Estimated GFR 64, Est GFR ( Amer) 78, Glucose 98, Calcium 9.3, Troponin I < 0.01 Result diagrams: 10/10/20 16:46 10/10/20 16:46 Orders (Tests/Meds): ORDERS Category Date Time Status Lactic Acid Stat Lab 10/10/20 16:34 Ordered Troponin I Q3H Lab 10/10/20 19:45 Ordered Troponin I Q3H Lab 10/10/20 22:45 Ordered Blood Culture Stat Micro 10/10/20 16:34 Ordered - Radiology Data #1 Image(s): Chest Image Reviewed: Yes I have reviewed radiologist's interpretation PROCEDURE: XR CHEST PORTABLE CLINICAL HISTORY: COVID POSITIVE FROM [facility] COMPARISON: No exams were available for comparison FINDINGS: There is cardiomegaly with mild CHF or plasma volume overload. The azygos vein is also suggesting plasma volume overload. Patchy density is present in the right upper and right lower lobe consistent with right-sided pneumonia. IMPRESSION: Right-sided pneumonia with mild CHF/volume overload Dictated by: Luis Eduardo Hunter MD 10/10/2020 15:37 Luis Eduardo Hunter MD in [place] 10/10/2020 15:37 - ECG Data Tracing #1 EKG interpreted by Mickey Mcmahan MD: Rhythm: sinus Rate: 64 [place]: normal Ectopy: none Conduction: normal ST Segment Changes: none T Wave Changes: none Q Waves: none No evidence of acute ischemia or injury Baseline artifact present, but I consider the EKG adequate for accurate interpretation. General Adult HPI - General Chief complaint: Shortness of Breath/Dyspnea Stated complaint: SOB Mode of Arrival: Ambulatory Limitations: No Limitations Description of Symptoms (Recalled from ER Triage Doc. by RN): c/o soa all day, states she took a nap and after she had increased soa - Related Data Home Medications Medication Instructions Recorded Confirmed Albuterol Sulfate [Albuterol 3 ml IH Q6HP PRN 02/28/20 08/21/20 0.083% 2.5mg/3mL neb] Previous Rx's Medication Instructions Recorded Ondansetron [Zofran 4mg ODT] 4 mg PO Q8HP PRN #20 tab.rapdis 05/15/20 diazepam 5 mg tablet 5 mg PO DAILY #30 tab 08/21/20 gabapentin 300 mg capsule 300 mg PO BID #60 cap 08/21/20 hydrocodone 7.5 mg-acetaminophen 1 tab PO BID #60 tab 08/21/20 325 mg tablet lisinopril 20 See Rx Instructions .ROUTE 08/22/20 mg-hydrochlorothiazide 12.5 mg .COMPLEX #30 tab tablet albuterol sulfate 90 mcg/actuation See Rx Instructions .ROUTE 08/25/20 aerosol inhaler .COMPLEX #8.5 g quetiapine 200 mg tablet 200 mg PO HS #30 tab 09/05/20 sertraline 50 mg tablet 50 mg PO DAILY #30 tab 09/05/20 amlodipine 5 mg tablet See Rx Instructions .ROUTE 09/08/20 .COMPLEX #30 tab levetiracetam 750 mg tablet 1,500 mg PO BID #120 tab 09/19/20 aspirin 81 mg tablet,d
--- NOTE | 2020-10-10 17:51 | PC.NURSE ---
pt states wanting to leave at this time, states she is feeling better and has a ride outside waiting on her.
[2020-10-10 17:52] VITALS: BP 130/65; PULSE 64; RESP 16; TEMP 36.8; O2SAT 98
== END 2020-10-10 17:52 | disposition left against medical advice (07) ==
LOC: ER 11-16 09:30
PROVIDERS: Emergency Provider Emergency Medicine; PCP Emergency Medicine
DX: R06.02 Shortness of breath (principal)
CPT/HCPCS: 71046; 80048; 84484; 85025; 93005; 99211; 99283

== ENCOUNTER → 2020-10-16 18:33 | Outpatient (CLI) | payer MEDICAID, SELFPAY ==
[2020-10-16 19:16] LABS: Opiate Screen,Urine Positive ng/ml (<300)
[2020-10-16 19:17] LABS: Phencyclidine Screen,Urine Negative ng/ml (<25)
[2020-10-16 19:20] LABS: Amphetamine/Metha Screen,Urine Negative ng/ml (<1000)
[2020-10-16 19:21] LABS: Barbiturates Screen,Urine Negative ng/ml (<200); Benzodiazepines Screen,Urine Negative ng/ml (<200)
[2020-10-16 19:22] LABS: Cannabinoid Screen,Urine Positive ng/ml (<50)
[2020-10-16 19:23] LABS: Cocaine Screen,Urine Negative ng/ml (<300); Methadone Screen,Urine Negative ng/ml (<300)
== END ==
PROVIDERS: Visit Provider Emergency Medicine
DX: R82.90 Unspecified abnormal findings in urine (principal); Z79.899 Other long term (current) drug therapy
CPT/HCPCS: 80305; 87086; 87088; 87186

== ENCOUNTER 2020-11-06 15:04 | Emergency (ER) | payer MEDICAID, SELFPAY ==
[2020-11-06 16:10] VITALS: BP 146/81; PULSE 89; RESP 18; TEMP 36.8; O2SAT 98; BMI 29.2
--- NOTE | 2020-11-06 16:55 | HMH.EDUTC ---
[facility] [place] Disposition Clinical Impression: Nausea, Encounter for laboratory testing for COVID-19 virus Disposition: Home, Self-Care Condition on Discharge: Good Instructions: DI for COVID-19 (Suspected or Confirmed ), Preventing the Spread of Coronavirus Discharge Instructions Additional Instructions: *Monitor Temp, Over the counter Motrin or Tylenol as directed/as needed Tylenol every 4 hours and Motrin every 6 hours (as long as your family doctor has told you that you can take it) for fever or pain. and straight to ER if unable to lower temp less than 101.0 after medication given *Warm salt water gargles may help to soothe the throat *Throat Lozenges *Warm fluids like tea with honey may help to soothe the throat *Sleep elevated *Humidifier/Vaporizer Drink extra fluids with and between meals. If you have difficulty drinking, try very small amounts of water or suck on ice chips. ? Avoid fruit juices, as these do not replace minerals and can actually increase diarrhea. ? Children and adults can use sports drinks to replenish electrolytes. Younger children and infants should use products formulated for children, like oral rehydration solutions. ? Eat food in small amounts and let your stomach recover. ? Get lots of rest. You may feel tired or weak. ? No greasy or fried foods for the next 24-48 hours BRAT diet Bananas Rice Apples and [place]wood ? Make sure to drink plenty of liquids ? Return if needed ? Straight to ER if any life threatening symptoms ? Zofran as prescribed ? Follow up with family doctor in the next 48-72 hours if no improvement or any worsening of symptoms Follow up IMMEDIATELY for new or worsening symptoms or no Noticeable improvement over the next 48-72 hours. 911 for difficulty breathing or swallowing You were tested for today for COVID19 your test result should be back in the next 24-48 hours, you was given handout on how to check for your results on [facility] if you have issues or no internet access you may call the [facility] You was given a handout with instructions for Self Quarantine and Self isolation for while you wait on test results and what to do if they are positive If you are positive the Health Dept will be contacting you also Make sure to take your Vitamins Vit. C Vit D and Zinc if you can take them Prescriptions: Ondansetron [Zofran 4mg ODT] 4 mg PO TIDP PRN #20 tab PRN Reason: Nausea Transmission Status: Pending to [facility] Referrals: Higinio Shaw MD [Primary Care Provider] - As needed Time of Disposition: 17:02 Medical Decision Making - Georgi Inquiry Pt receiving controlled substance: No Georgi was queried for this patient: No Vital Signs: 11/06/20 16:10 Temperature 98.2 F Temperature Source Oral Pulse Rate [Right Brachial] 89 Respiratory Rate 18 Blood Pressure [Right Arm] 146/81 H Blood Pressure Mean [Right Arm] 102 Blood Pressure Source [Right Arm] Automatic Cuff Blood Pressure Position [Right Arm] Sitting 02 Sat by Pulse Oximetry 98 Oxygen Delivery Method Room Air Medical Decision Narrative: Patient states that she has taken zofran before without complications or reactions [facility] [place] HPI - General Stated complaint: covid test and symptoms Time Seen by Provider: 11/06/20 16:55 Mode of Arrival: Ambulatory Source of Information: Patient Limitations: No Limitations Description of Symptoms (Recalled from Triage Doc. by RN): PATIENT C/O LOSS OF TASTE, DECREASED APPETITE, AND RUNNY NOSE. WANTING COVID TEST HEENT Symptoms (Recalled from RN notes): Yes Resp Symptoms (Recalled from RN notes): No Skin Symptoms (Recalled from RN notes): No MS Symptoms (Recalled from RN notes): No Functional Status (Recalled from RN notes): WNL - History of Present Illness Provider Complaint: Patient state that she has been fully vaccinated but for the last couple of days she has noticed she has not been able to taste anything, having runny nose, and nausea and decreased appet
[2020-11-06 17:12] VITALS: BP 146/81; PULSE 89; RESP 18; TEMP 36.8; O2SAT 98
== END 2020-11-06 17:15 | disposition home or self-care (01) ==
PROVIDERS: Emergency Provider Nurse Practitioner; PCP Emergency Medicine
DX: Z20.822 Contact with and (suspected) exposure to COVID-19 (principal); R43.9 Unspecified disturbances of smell and taste; R11.0 Nausea; F17.210 Nicotine dependence, cigarettes, uncomplicated; F41.8 Other specified anxiety disorders
CPT/HCPCS: 99202; C9803; G0463; U0003; U0005

== ENCOUNTER → 2020-12-13 18:24 | Outpatient (CLI) | payer MEDICAID, SELFPAY ==
[2020-12-13 19:35] LABS: Amphetamine/Metha Screen,Urine Negative ng/ml (<1000); Barbiturates Screen,Urine Negative ng/ml (<200)
[2020-12-13 19:37] LABS: Benzodiazepines Screen,Urine Positive ng/ml (<200)
[2020-12-13 19:38] LABS: Cannabinoid Screen,Urine Positive ng/ml (<50); Cocaine Screen,Urine Negative ng/ml (<300)
[2020-12-13 19:39] LABS: Methadone Screen,Urine Negative ng/ml (<300)
[2020-12-13 19:40] LABS: Opiate Screen,Urine Positive ng/ml (<300); Phencyclidine Screen,Urine Negative ng/ml (<25)
== END ==
PROVIDERS: Visit Provider Emergency Medicine
DX: Z79.899 Other long term (current) drug therapy (principal)
CPT/HCPCS: 80305

== ENCOUNTER → 2021-02-07 19:08 | Outpatient (CLI) | payer MEDICAID, SELFPAY ==
[2021-02-07 21:02] LABS: Amphetamine/Metha Screen,Urine Negative ng/ml (<1000)
[2021-02-07 21:03] LABS: Barbiturates Screen,Urine Negative ng/ml (<200)
[2021-02-07 21:05] LABS: Benzodiazepines Screen,Urine Positive ng/ml (<200); Cannabinoid Screen,Urine Positive ng/ml (<50)
[2021-02-07 21:06] LABS: Cocaine Screen,Urine Negative ng/ml (<300); Methadone Screen,Urine Negative ng/ml (<300)
[2021-02-07 21:07] LABS: Opiate Screen,Urine Positive ng/ml (<300)
[2021-02-07 21:08] LABS: Phencyclidine Screen,Urine Negative ng/ml (<25)
== END ==
PROVIDERS: Visit Provider Emergency Medicine
DX: Z79.899 Other long term (current) drug therapy (principal); R82.90 Unspecified abnormal findings in urine; B96.20 Unspecified Escherichia coli [E. coli] as the cause of diseases classified elsewhere
CPT/HCPCS: 80305; 87086; 87088; 87186

== ENCOUNTER → 2021-04-23 11:18 | Outpatient (CLI) | payer MEDICAID, SELFPAY ==
[2021-04-23 12:12] LABS: Basophils # 0.2 K/mm3 (0-0.2); Basophils % 1.6 % (0.1-2.0); Eosinophils # 0.7 K/mm3 (0.0-0.4); Eosinophils % 7.3 % (0.1-12.0); Hematocrit 31.7 % (37.0-47.0); Hemoglobin 10.4 g/dL (12.2-16.2); Lymphocytes # 2.2 K/mm3 (0.7-4.5); Lymphocytes % 24.7 % (10-50); Mean Corpuscular HGB Conc 32.8 g/dL (31.8-35.4); Mean Corpuscular Hemoglobin 33.5 pg (27.0-31.2); Mean Corpuscular Volume 102.1 fl (81-99); Mean Platelet Volume 7.6 fl (7.4-10.4); Monocytes # 0.6 K/mm3 (0.1-1.0); Monocytes % 6.8 % (1.7-9.3); Neutrophils # 5.3 K/mm3 (1.8-7.8); Neutrophils % 59.5 % (37.0-80.0); Platelet Count 373 K/mm3 (142-424); Red Cell Distribution Width 14.2 % (11.5-17.5)
[2021-04-23 13:20] LABS: Chloride 91 mmol/L (98-107); Sodium 121 mmol/L (136-145)
[2021-04-23 13:23] LABS: Blood Urea Nitrogen 24 mg/dl (7-17); Carbon Dioxide 24 mmol/L (22.0-30.0); Estimated Glomerular Filt Rate 51 ml/min (>60); GFR (African American) 62 ML/MIN (>60)
[2021-04-23 13:24] LABS: Calcium 8.4 mg/dl (8.4-10.2); Glucose 87 mg/dl (74-100)
== END ==
PROVIDERS: Visit Provider Internal Medicine
DX: Z01.812 Encounter for preprocedural laboratory examination (principal); Z11.52 Encounter for screening for COVID-19; R55 Syncope and collapse; I20.9 Angina pectoris, unspecified; I63.9 Cerebral infarction, unspecified; I10 Essential (primary) hypertension; E78.5 Hyperlipidemia, unspecified; R94.31 Abnormal electrocardiogram [ECG] [EKG]
CPT/HCPCS: 36415; 80048; 85025; C9803; U0003; U0005

== ENCOUNTER 2021-04-24 06:39 | Day surgery (SDC) | payer MEDICAID, SELFPAY ==
[2021-04-24] VITALS (10 sets, daily range): BP systolic 71–109; BP diastolic 37–72; PULSE 67–81; RESP 16–20; O2SAT 90–97; BMI 23.0
--- NOTE | 2021-04-24 | IR_ITS ---
APPROVED REPORT Patient Location: Outpatient Soc Analyst: AMRITA Vera RT (R) PROCEDURES Left heart catheterization Left ventriculogram Selective coronary angiogram Intravascular ultrasound interrogation of the LAD and left main artery INDICATION Coronary artery disease, Typical angina pectoris, Risk factors for coronary disease, Angiographically indeterminate left main stenosis, Informed consent was obtained prior to the procedure. COMPLICATIONS None Estimated Blood Loss: Less than 10 mls TECHNIQUE One percent lidocaine used to anesthetize the right anterior aspect of the wrist. The right radial artery was accessed via the Seldinger technique. A 6 Wolof sheath was placed in the right radial artery. 2.5 mg of verapamil, 800 mcg of nitroglycerin, 1mg Lidocaine and 3000 U Heparin were given through the arterial sheath. The papa catheter was also used to perform left heart catheterization, left ventriculogram and selective coronary angiogram. At the end of the diagnostic angiogram therapeutic heparin was administered giving a therapeutic ACT. The catheter was left in the left main artery and a Choice PT floppy wire was placed distally in the LAD. An [place] eye intravascular ultrasound probe was advanced in the LAD and left main artery were interrogated. This demonstrated mild eccentric plaque approximately 20% with an MLA much greater than 6.5 mm???. Given the mild coronary artery disease the apparatus was removed the sheath was removed and hemostasis was achieved using TR banding patient transferred to the postop already in stable condition ANGIOGRAPHIC RESULTS The left main artery Has a distal eccentric 20% stenosis The left anterior descending artery Has an ostial 10 to 20% stenosis with remaining vessel normal The circumflex artery Nondominant normal The right coronary artery Is a dominant vessel and has diffuse proximal and mid vessel 20 to 30% stenoses The DILLARD ventriculogram reveals Normal 65% The left ventricular end-diastolic pressure 10 mmHg IMPRESSION Mild nonflow limiting coronary disease as described above Normal ejection fraction Normal left ventricular end-diastolic pressure PLAN 1. Risk factor modification for coronary disease 2. Avoidance of tobacco products 3. Patient is likely experiencing endothelial dysfunction which is etiology for her angina pectoris and should be accordingly treated 4. May be reasonable to continue noncardiac evaluation evaluation of ongoing angina/chest pain Electronically signed by : Jose Luis Gibbs MD 04/24/2021 09:51:14
--- NOTE | 2021-04-24 07:18 | CA_ITS ---
APPROVED REPORT EXAM: Comprehensive 2D, Doppler, and color-flow Echocardiogram Health Insurance Adjuster: Meredith Marino RVT Ht: 5 ft 0 in Wt: 118lbs BSA: 1.49 BP: 106/73 mmHg Indications: ANGINA,HX CVA,HX IV DRUG USE,SMOKER,HTN,HLD 2D Dimensions LVOT 2.04 cm (M/F) 1.5-2.5 LA Volume 24.60 mL LA Volume Index 16.51 mL/m2 (M/F) 16-34 M-Mode Dimensions RVDd 1.75 cm (0.9-2.6) LA Diam 3.07 cm (1.9-4.0) LVDd 4.44 cm (3.5-5.7) Ao Diam 2.89 cm (2.0-3.7) LVDs 3.16 cm (3.5-5.7) IVSd 0.38 cm (0.6-1.1) PWd 0.75 cm (0.6-1.1) EF (Teich) 55.70% FS 28.80% EDV (Teich) 89.60 mL TAPSE 2.66 (<1.7) ESV (Teich) 39.70 mL LV Diastology E Decel Time 203.00 (160-240 msec) E/A Ratio 1.0 MED E' 8.10 (< 7 cm/sec) E'/MED E' Ratio 9.96 (>14) LAT E' 12.30 (<10 cm/sec) E/LAT E' Ratio 6.56 (>14) Mitral Valve MV E Max Alcides. 81.00 (40-130 cm/s) MV A Velocity 82.00 (40-130 cm/s) E/A Ratio 0.98 MV Decel. Time 203.00 (160-240 ms) MV PHT 60.00 ms Pulmonary Valve PV Peak Velocity 45.00 (50-150 cm/s) Tricuspid Valve TR P. Velocity 297.00 cm/s RAP Estimate 10.00 mmHg RVSP 45.20 mmHg Left Ventricle Left atrium is mildly enlarged, left ventricle is normal size, mild concentric left ventricular hypertrophy, visually estimated ejection fraction 55% with no regional wall motion abnormality, diastolic parameters are inconclusive. Right Ventricle Right atrium and right ventricle mildly enlarged with normal contractility. Aortic Valve Aortic valve is minimally thickened and fibrosed, there is no aortic stenosis or aortic insufficiency. Mitral Valve Mitral valve is grossly normal, there is trace mitral regurgitation. Tricuspid Valve Tricuspid grossly normal, there is trace tricuspid regurgitation, calculated right ventricular systolic pressure is 45 mmHg. Pulmonic Valve Pulmonic valve is poorly visualized. Great Vessels Aortic root is normal size. Inferior vena cava is mildly dilated. Respiratory variation is not seen. Pericardium No significant pericardial effusion noted. Conclusion 1. Biatrial enlargement, normal left ventricular size, mild concentric left ventricular hypertrophy, visually estimated ejection fraction 55% with no obvious regional wall motion abnormality, diastolic parameters are inconclusive. 2. Mildly enlarged right ventricle with normal contractility. 3. Trace mitral and tricuspid regurgitation, calculated right ventricular systolic pressure is 45 mmHg. 4. Inferior vena cava is mildly dilated without significant respiratory variation. Electronically signed by : Jason Shaw MD 04/24/2021 20:26:50
--- NOTE | 2021-04-24 07:18 | CA_ITS ---
FINAL REPORT TECHNIQUE: Color Doppler, duplex Doppler and savage scale sonography of the bilateral neck arterial vasculature was performed. Velocities were measured in the carotid arteries. Stenosis evaluation based on the validated velocity criteria. CLINICAL HISTORY: HX CVA,SMOKER,HTN,HLD,DIZZINESS FINDINGS: The peak systolic velocity of the right common carotid artery is 72 cm/s. The peak systolic velocity of the right internal carotid artery is 76 cm/s and end diastolic velocity 28 cm/s. The ICA/CCA ratio is 1.1. A small amount of plaque is present. The right external carotid artery is patent. The right vertebral artery is patent with antegrade flow. The peak systolic velocity of the left common carotid artery is 62 cm/s. The peak systolic velocity of the left internal carotid artery is 89 cm/s and end diastolic velocity 36 cm/s. The ICA/CCA ratio is 1.7. A small amount of plaque is present. The left external carotid artery is patent.The left vertebral artery is patent with antegrade flow. IMPRESSION: Less than 50% bilateral carotid stenoses. Bilateral patent vertebral arteries with antegrade flow. If indicated, CTA or MRA could further evaluate. Reviewed, Interpreted and Dictated by Cal Hwang III, MD Transcribed by Dionne Locke Authenticated by Cal Hwang III, MD on 04/24/2021 09:10:24 AM [facility]
== END 2021-04-24 13:28 | disposition home or self-care (01) ==
LOC: CATHLAB 06:40
PROVIDERS: PCP Emergency Medicine; Visit Provider Internal Medicine
DX: R07.2 Precordial pain (principal); E78.5 Hyperlipidemia, unspecified; I25.110 Atherosclerotic heart disease of native coronary artery with unstable angina pectoris; I10 Essential (primary) hypertension; R94.31 Abnormal electrocardiogram [ECG] [EKG]; F17.210 Nicotine dependence, cigarettes, uncomplicated; Z79.899 Other long term (current) drug therapy; G45.8 Other transient cerebral ischemic attacks and related syndromes
CPT/HCPCS: 92978; 93306; 93458; 93880; 99152; C1725; C1769; J1644; Q9967

== ENCOUNTER → 2021-05-10 12:49 | Outpatient (CLI) | payer MEDICAID, SELFPAY ==
--- NOTE | 2021-05-10 12:49 | MM_ITS ---
PROCEDURE INFORMATION: Exam: MG Bilateral Screening 3D Mammography Exam date and time: 05/10/2021 12:55 PM Age: 60 years old Clinical indication: Encounter for screening mammogram for malignant neoplasm of breast TECHNIQUE: Imaging protocol: Bilateral Screening tomosynthesis and 2D mammography including computer-aided detection (CAD) when performed. COMPARISON: 1. MG MM DIG SCREENING MAMM BI W/CAD 05/09/2020 9:02 AM 2. MG DIG MAMM-SCREEN GEOVANY 08/13/2018 10:25 AM FINDINGS: MAMMOGRAPHY: Breast composition: The breast tissue is extremely dense, limiting the sensitivity of mammography. Mass: None. Architectural distortion: None. Calcifications: No suspicious calcifications. Asymmetric density: None. Skin thickening: None. Axillary adenopathy: None. IMPRESSION: No mammographic evidence of malignancy. Annual screening is recommended unless otherwise clinically indicated. ASSESSMENT: BI-RADS Category 1: Negative
== END ==
PROVIDERS: PCP Emergency Medicine; Visit Provider Emergency Medicine
DX: Z12.31 Encounter for screening mammogram for malignant neoplasm of breast (principal)
CPT/HCPCS: 77063; 77067

== ENCOUNTER → 2021-06-06 12:48 | Outpatient (CLI) | payer MEDICAID, SELFPAY ==
[2021-06-05 22:23] LABS: Barbiturates Screen,Urine Negative ng/ml (<200)
[2021-06-05 22:24] LABS: Amphetamine/Metha Screen,Urine Negative ng/ml (<1000); Benzodiazepines Screen,Urine Negative ng/ml (<200)
[2021-06-05 22:25] LABS: Methadone Screen,Urine Negative ng/ml (<300)
[2021-06-05 22:26] LABS: Cannabinoid Screen,Urine Positive ng/ml (<50); Cocaine Screen,Urine Negative ng/ml (<300)
[2021-06-05 22:27] LABS: Opiate Screen,Urine Positive ng/ml (<300)
[2021-06-05 22:28] LABS: Phencyclidine Screen,Urine Negative ng/ml (<25)
== END ==
PROVIDERS: Visit Provider Emergency Medicine
DX: Z79.899 Other long term (current) drug therapy (principal)
CPT/HCPCS: 80305

== ENCOUNTER 2021-07-14 14:01 | Emergency (ER) | payer MEDICAID, SELFPAY ==
[2021-07-14 14:02] VITALS: BP 136/78; PULSE 78; RESP 16; TEMP 36.8; O2SAT 98; BMI 23.8
--- NOTE | 2021-07-14 14:10 | ECG_ITS ---
APPROVED REPORT Exam: Resting ECG HR:75 bpm ECG Measurements Heart Rate 75 AXES AZ 158 P 58 QRSd 88 QRS 65 QT 375 T 41 QTc 404 Conclusion SINUS RHYTHM NONSPECIFIC T-WAVE ABNORMALITY BORDERLINE ECG UNCONFIRMED REPORT Electronically signed by : Ariel Sanchez MD 07/16/2021 17:47:38
--- NOTE | 2021-07-14 14:19 | XR_ITS ---
PROCEDURE INFORMATION: Exam: XR Left Shoulder Exam date and time: 07/14/2021 2:20 PM Age: 60 years old Clinical indication: Pain; Shoulder; Left; Additional info: Pain x1day. No injury or trauma. TECHNIQUE: Imaging protocol: XR Left shoulder. Views: 2 or more views. COMPARISON: [id number] 02/27/2016 3:02 PM FINDINGS: Bones/joints: Mild changes of osteopenia. No evidence of acute osseous injury. Soft tissues: Normal. IMPRESSION: No evidence of acute osseous injury.
--- NOTE | 2021-07-14 14:19 | HMH.EDGENADL ---
ED Disposition Clinical Impression: Acute pain of left shoulder, Renal insufficiency Fatigue Qualifiers: Fatigue type: unspecified Qualified Code(s): R53.83 - Other fatigue Disposition: Home, Self-Care Condition on Discharge: Good Additional Instructions: follow up pcp next week, return for worse - Critical Care Critical Care Time: No Attestation: On , the high probability of a clinically significant, sudden or life threatening deterioration of the following system(s) required my full and direct attention, intervention and personal management. The time I documented below is in addition to time spent performing reported procedures but includes the following listed in this critical care notation. Medical Decision Making - Medical Records Medical records reviewed: Yes: I reviewed the patient's medical records. - Georgi Inquiry Pt receiving controlled substance: No Vital Signs: 07/14/21 14:02 07/14/21 14:28 Temperature 98.2 F Temperature Source Oral Pulse Rate 78 Pulse Rate [Radial] 78 Respiratory Rate 16 16 Blood Pressure 136/78 Blood Pressure [Right Arm] 136/78 Blood Pressure Mean [Right Arm] 97 Blood Pressure Position Sitting Blood Pressure Position [Right Arm] Sitting 02 Sat by Pulse Oximetry 98 98 Oxygen Delivery Method Room Air - Lab Data Lab Results 07/14/21 14:55: WBC 8.2, RBC 3.49 L, Hgb 12.0 L, Hct 36.8 L, MCV 105.2 H, MCH 34.4 H, MCHC 32.7, RDW 13.7, Plt Count 463 H, MPV 7.7, Neut % (Auto) 58.0, Lymph % (Auto) 30.9, [place] % (Auto) 7.7, Eos % (Auto) 1.4, Baso % (Auto) 2.1 H, Neut # (Auto) 4.8, Lymph # (Auto) 2.5, [place] # (Auto) 0.6, Eos # (Auto) 0.1, Baso # (Auto) 0.2 07/14/21 14:55: Sodium 138, Potassium 4.3, Chloride 106, Carbon Dioxide 23, Anion Gap 13.3, BUN 28 H, Creatinine 1.70 H, Estimated Creat Clear 32, Estimated GFR 31 L, Est GFR ( Amer) 37 L, Glucose 108 H, Calcium 10.3 H, Total Bilirubin 0.4, AST 29, ALT 19, Alkaline Phosphatase 83, Troponin I < 0.01, Total Protein 8.1, Albumin 4.3, Globulin 3.8 H, Albumin/Globulin Ratio 1.1 Result diagrams: 07/14/21 14:55 07/14/21 14:55 Orders (Tests/Meds): ED MEDICATIONS Generic Name Dose Route Start Last Admin Trade Name Freq PRN Reason Stop Dose Admin Sodium Chloride 1,000 mls @ 999 mls/hr 07/14/21 15:45 Sod Chlor 0.9% 1000ml Bag IV 07/14/21 16:[address] ORDERS Category Date Time Status ECG Request by /Raf Stat Y 07/14/21 14:20 Ordered - ECG Data Tracing #1 I reviewed this ECG and interpreted as documented below: ekg by me nsr, qrs narrow, no st elev Medical Decision Narrative: reval, declined fluids and meal, says she wants to go home, appears well, family at bedside, ok with plan to f/u pcp General Adult HPI - General Chief complaint: PAIN Stated complaint: weakness Time Seen by Provider: 07/14/21 14:19 Mode of Arrival: EMS Limitations: No Limitations Description of Symptoms (Recalled from ER Triage Doc. by RN): TO ED PER SQUAD WITH C/O GENERALIZED WEAKNESS, LT SIDE SHOULDER AND NECK PAIN AFTER WAKING UP YESTERDAY. PT C/O SOB, NAUSEA STATES PAIN WORSE WITH MOVEMENT - History of Present Illness HPI narrative: left shoulder pain acute this am, no injury also generalized weakness, no cause Onset (ago): hour(s) Radiation: neck Severity: moderate Consistency: constant Relieving factors: immobilization Exacerbating factors: movement Associated symptoms: denies other symptoms - Related Data Home Medications Medication Instructions Recorded Confirmed Albuterol Sulfate [Albuterol 3 ml IH Q6HP PRN 02/28/20 06/05/21 0.083% 2.5mg/3mL neb] Albuterol Sulfate [Albuterol See Rx Instructions .ROUTE .COMPLEX 04/24/21 06/05/21 Sulfate Hfa] Bisoprolol/Hydrochlorothiazide See Rx Instructions .ROUTE .COMPLEX 04/24/21 06/05/21 [Bisoprolol-Hctz 2.5-6.25 mg Tb] Lisinopril/Hydrochlorothiazide See Rx Instructions .ROUTE .COMPLEX 04/24/21 06/05/21 [Lisinopril-Hctz
--- NOTE | 2021-07-14 14:27 | PC.NURSE ---
patient to radiology at this time.
[2021-07-14 14:28] VITALS: BP 136/78; PULSE 78; RESP 16; O2SAT 98
--- NOTE | 2021-07-14 14:32 | PC.NURSE ---
patient back from radiology. Hooked back up to vital signs and cardiac monitoring. family member bedside with patient.
[2021-07-14 15:00] VITALS: BP 131/73; PULSE 68; RESP 18; O2SAT 98
[2021-07-14 15:01] LABS: Basophils # 0.2 K/mm3 (0-0.2); Basophils % 2.1 % (0.1-2.0); Eosinophils # 0.1 K/mm3 (0.0-0.4); Eosinophils % 1.4 % (0.1-12.0); Hematocrit 36.8 % (37.0-47.0); Lymphocytes # 2.5 K/mm3 (0.7-4.5); Lymphocytes % 30.9 % (10-50); Mean Corpuscular HGB Conc 32.7 g/dL (31.8-35.4); Mean Corpuscular Hemoglobin 34.4 pg (27.0-31.2); Mean Corpuscular Volume 105.2 fl (81-99); Mean Platelet Volume 7.7 fl (7.4-10.4); Monocytes # 0.6 K/mm3 (0.1-1.0); Monocytes % 7.7 % (1.7-9.3); Neutrophils # 4.8 K/mm3 (1.8-7.8); Platelet Count 463 K/mm3 (142-424); Red Blood Count 3.49 M/mm3 (4.20-5.40); Red Cell Distribution Width 13.7 % (11.5-17.5); White Blood Count 8.2 K/mm3 (4.8-10.8)
[2021-07-14 15:07] LABS: Chloride 106 mmol/L (98-107)
[2021-07-14 15:08] LABS: Potassium 4.3 mmoL/L (3.5-5.1); Sodium 138 mmol/L (136-145)
[2021-07-14 15:10] LABS: Alanine Aminotransferase 19 U/L (12-78); Alkaline Phosphatase 83 U/L (38-126); Aspartate Amino Transferase 29 U/L (14-36); Bilirubin,Total 0.4 mg/dl (0.2-1.3); Blood Urea Nitrogen 28 mg/dl (7-17); Creatinine Clearance Estimated 32 mL/min (50-200); Estimated Glomerular Filt Rate 31 ml/min (>60); GFR (African American) 37 ML/MIN (>60)
[2021-07-14 15:11] LABS: Albumin Level 4.3 g/dl (3.5-5.0); Albumin/Globulin Ratio 1.1 (1.1-1.8); Anion Gap 13.3 mEq/L (5-15); Calcium 10.3 mg/dl (8.4-10.2); Carbon Dioxide 23 mmol/L (22.0-30.0); Globulin 3.8 g/dL (1.3-3.2); Glucose 108 mg/dl (74-100); Total Protein,Serum 8.1 g/dl (6.3-8.2)
[2021-07-14 15:23] LABS: Troponin I < 0.01 ng/ml (0.00-0.034)
--- NOTE | 2021-07-14 15:41 | PC.NURSE ---
called dietary to get a tray for the patient. will send one down.
[2021-07-14 16:35] VITALS: BP 125/74; PULSE 74; RESP 16; TEMP 36.6; O2SAT 98
== END 2021-07-14 16:37 | disposition home or self-care (01) ==
PROVIDERS: Emergency Provider Emergency Medicine
DX: M25.512 Pain in left shoulder (principal); R53.82 Chronic fatigue, unspecified; R53.1 Weakness; M54.2 Cervicalgia; R06.02 Shortness of breath; R11.0 Nausea; I10 Essential (primary) hypertension; N28.9 Disorder of kidney and ureter, unspecified; I25.2 Old myocardial infarction; K21.9 Gastro-esophageal reflux disease without esophagitis; J44.9 Chronic obstructive pulmonary disease, unspecified; G40.909 Epilepsy, unspecified, not intractable, without status epilepticus; F32.A Depression, unspecified; F41.9 Anxiety disorder, unspecified; F17.210 Nicotine dependence, cigarettes, uncomplicated; Z79.51 Long term (current) use of inhaled steroids; Z79.82 Long term (current) use of aspirin; Z79.899 Other long term (current) drug therapy; Z88.5 Allergy status to narcotic agent; Z82.49 Family history of ischemic heart disease and other diseases of the circulatory system; Z83.49 Family history of other endocrine, nutritional and metabolic diseases; Z80.9 Family history of malignant neoplasm, unspecified
CPT/HCPCS: 73030; 80053; 84484; 85025; 93005; 96360; 99285

== ENCOUNTER → 2021-08-02 07:17 | Outpatient (CLI) | payer MEDICAID, SELFPAY ==
[2021-08-01 17:55] LABS: Amphetamine/Metha Screen,Urine Negative ng/ml (<1000)
[2021-08-01 17:56] LABS: Barbiturates Screen,Urine Negative ng/ml (<200)
[2021-08-01 17:57] LABS: Benzodiazepines Screen,Urine Positive ng/ml (<200); Cannabinoid Screen,Urine Positive ng/ml (<50)
[2021-08-01 17:58] LABS: Cocaine Screen,Urine Negative ng/ml (<300)
[2021-08-01 17:59] LABS: Methadone Screen,Urine Negative ng/ml (<300); Opiate Screen,Urine Positive ng/ml (<300)
[2021-08-01 18:01] LABS: Phencyclidine Screen,Urine Negative ng/ml (<25)
== END ==
PROVIDERS: PCP Emergency Medicine; Visit Provider Emergency Medicine
DX: R82.90 Unspecified abnormal findings in urine (principal); Z79.899 Other long term (current) drug therapy; B95.8 Unspecified staphylococcus as the cause of diseases classified elsewhere
CPT/HCPCS: 80305; 87086; 87088; 87186

== ENCOUNTER → 2021-10-02 07:15 | Outpatient (CLI) | payer MEDICAID, SELFPAY ==
[2021-10-02 20:32] LABS: Barbiturates Screen,Urine Negative ng/ml (<200)
[2021-10-02 20:33] LABS: Benzodiazepines Screen,Urine Positive ng/ml (<200)
[2021-10-02 20:34] LABS: Amphetamine/Metha Screen,Urine Negative ng/ml (<1000); Methadone Screen,Urine Negative ng/ml (<300)
[2021-10-02 20:35] LABS: Cannabinoid Screen,Urine Negative ng/ml (<50); Cocaine Screen,Urine Negative ng/ml (<300)
[2021-10-02 20:37] LABS: Opiate Screen,Urine Positive ng/ml (<300); Phencyclidine Screen,Urine Negative ng/ml (<25)
== END ==
PROVIDERS: PCP Emergency Medicine; Visit Provider Emergency Medicine
DX: Z79.899 Other long term (current) drug therapy (principal)
CPT/HCPCS: 80305

== ENCOUNTER → 2021-11-28 16:00 | Outpatient (CLI) | payer MEDICAID, SELFPAY ==
[2021-11-28 20:49] LABS: Amphetamine/Metha Screen,Urine Negative ng/ml (<1000); Barbiturates Screen,Urine Negative ng/ml (<200)
[2021-11-28 20:50] LABS: Benzodiazepines Screen,Urine Positive ng/ml (<200)
[2021-11-28 20:51] LABS: Cannabinoid Screen,Urine Positive ng/ml (<50); Cocaine Screen,Urine Positive ng/ml (<300)
[2021-11-28 20:52] LABS: Methadone Screen,Urine Negative ng/ml (<300)
[2021-11-28 20:53] LABS: Opiate Screen,Urine Positive ng/ml (<300); Phencyclidine Screen,Urine Negative ng/ml (<25)
== END ==
PROVIDERS: PCP Emergency Medicine; Visit Provider Emergency Medicine
DX: Z79.899 Other long term (current) drug therapy (principal)
CPT/HCPCS: 80305

== ENCOUNTER 2021-12-01 12:21 | Emergency (ER) | payer MEDICAID, SELFPAY ==
[2021-12-01 12:17] VITALS: BP 148/107; PULSE 81; RESP 18; TEMP 36.6; O2SAT 99; BMI 22.2
--- NOTE | 2021-12-01 12:30 | XR_ITS ---
PROCEDURE INFORMATION: Exam: XR Chest Exam date and time: 12/01/2021 12:31 PM Age: 61 years old Clinical indication: Shortness of breath; Additional info: SOA TECHNIQUE: Imaging protocol: Radiologic exam of the chest. Views: 2 views. COMPARISON: CR XR CHEST 2V 10/10/2020 4:39 PM FINDINGS: Lungs: Hyperexpanded lung ghotra consistent with COPDNo consolidation. Pleural spaces: Unremarkable. No pleural effusion. No pneumothorax. Heart/Mediastinum: Unremarkable. No cardiomegaly. Bones/joints: Mild levoscoliosis of the lumbar spine IMPRESSION: Hyperexpanded lung ghotra consistent with COPD
--- NOTE | 2021-12-01 12:30 | PC.NURSE ---
ED MD AT BEDSIDE FOR EVALUATION
--- NOTE | 2021-12-01 12:33 | HMH.EDGENADL ---
Discharge Plan Disposition Patient Disposition: Home, Self-Care Condition: Good Prescriptions Prescriptions: New ondansetron 4 mg tablet,disintegrating 4 mg PO Q8H PRN (Reason: nausea and vomiting) Qty: 8 0RF No Action gabapentin 300 mg capsule 300 mg PO BID Qty: 60 1RF diazepam 5 mg tablet 5 mg PO BID Qty: 60 1RF oxycodone-acetaminophen [Percocet] 5-325 mg tablet 1 tab PO BID Qty: 60 0RF cholecalciferol (vitamin D3) 25 mcg (1,000 unit) tablet See Rx Instructions .ROUTE .COMPLEX Qty: 30 3RF Dose Instruction: TAKE ONE TABLET BY MOUTH ONCE A DAY Rx Instructions: TAKE ONE TABLET BY MOUTH ONCE A DAY aspirin 81 mg tablet,delayed release (DR/EC) See Rx Instructions .ROUTE .COMPLEX Qty: 60 3RF Dose Instruction: TAKE ONE TABLET BY MOUTH 2 TIMES A DAY Rx Instructions: TAKE ONE TABLET BY MOUTH 2 TIMES A DAY ergocalciferol (vitamin D2) 1,250 mcg (50,000 unit) capsule See Rx Instructions .ROUTE .COMPLEX Qty: 4 3RF Dose Instruction: TAKE ONE CAPSULE BY MOUTH EVERY WEEK Rx Instructions: TAKE ONE CAPSULE BY MOUTH EVERY WEEK levetiracetam 750 mg tablet See Rx Instructions .ROUTE .COMPLEX Qty: 120 3RF Dose Instruction: TAKE 2 TABLETS BY MOUTH 2 TIMES A DAY Rx Instructions: TAKE 2 TABLETS BY MOUTH 2 TIMES A DAY quetiapine 200 mg tablet 200 mg PO HS Qty: 30 1RF albuterol sulfate [ProAir HFA] 90 mcg/actuation HFA aerosol inhaler See Rx Instructions .ROUTE .COMPLEX Qty: 8.5 3RF Dose Instruction: INHALE 2 PUFFS BY MOUTH EVERY 4 TO 6 HOURS NEEDED FOR SHORTNESS OF BREATH OR WHEEZING Rx Instructions: INHALE 2 PUFFS BY MOUTH EVERY 4 TO 6 HOURS NEEDED FOR SHORTNESS OF BREATH OR WHEEZING lisinopril-hydrochlorothiazide 20-12.5 mg tablet See Rx Instructions .ROUTE .COMPLEX Qty: 30 3RF Dose Instruction: TAKE ONE TABLET BY MOUTH ONCE A DAY FOR HYPERTENSION Rx Instructions: TAKE ONE TABLET BY MOUTH ONCE A DAY FOR HYPERTENSION ondansetron 4 MG tablet,disintegrating 4 mg PO Q8HP PRN (Reason: Nausea) Qty: 20 0RF albuterol sulfate 2.5 MG/NEB solution for nebulization 3 ml IH Q6HP PRN (Reason: shortness of breath or wheezing) bisoprolol-hydrochlorothiazide 1 EACH tablet See Rx Instructions .Route .COMPLEX Rx Instructions: TAKE ONE TABLET BY MOUTH ONCE A DAY Activity Restrictions/Add. Instructions Additional Instructions/Restrictions: Zofran as needed for nausea and vomiting. Additional instructions for VOMITING/DIARRHEA: See your physician as soon as possible for further evaluation. Drink plenty of fluids. Return immediately if severe abdominal pain, uncontrollable vomiting, shortness of breath, fever, bloody diarrhea, vomiting of blood or abdominal distention. Clinical Impressions Clinical Impression: Gastroenteritis Discharge ED Provider: Mickey Mcmahan General Adult HPI General Chief complaint: Nausea/Vomiting/Diarrhea Stated complaint: Weakness Time Seen by Provider: 12/01/21 12:26 Mode of Arrival: EMS Limitations: No Limitations Description of Symptoms (Recalled from ER Triage Doc. by RN): PT TO ED VIA EMS. REPORTS N/V THAT BEGAN THIS AM. REPORTS BODY ACHES AND SHORTNESS OF BREATH. History of Present Illness HPI narrative: Arrives by ambulance. States she has been sick since last night. She has body aches. Vomiting, she thinks twice. Diarrhea once when she ate some chicken broth last night. No diarrhea since. She had some shortness of breath earlier today which is now gone. She has a chronic cough which she says is unchanged. No fever noted. No abdominal pain. No chest pain. No urinary symptoms. Related Data Home Medications Medication Instructions Recorded Confirmed albuterol sulfate 2.5 mg/3 mL 3 ml inhalation Q6HP PRN shortness 02/28/20 11/28/21 (0.083 %) solution for nebulization of breath or wheezing bisoprolol 2.5 See Rx Instructions .Route
--- NOTE | 2021-12-01 12:39 | PC.NURSE ---
PT TO XR AT THIS TIME
--- NOTE | 2021-12-01 12:41 | PC.NURSE ---
pt gone to rad
[2021-12-01 13:14] LABS: Chloride 100 mmol/L (98-107); Potassium 3.9 mmoL/L (3.5-5.1); Sodium 134 mmol/L (136-145)
[2021-12-01 13:15] LABS: Basophils # 0.1 K/mm3 (0-0.2); Basophils % 0.9 % (0.1-2.0); Eosinophils # 0.1 K/mm3 (0.0-0.4); Eosinophils % 1.1 % (0.1-12.0); Hematocrit 35.8 % (37.0-47.0); Hemoglobin 11.4 g/dL (12.2-16.2); Lymphocytes # 1.9 K/mm3 (0.7-4.5); Lymphocytes % 25.1 % (10-50); Mean Corpuscular HGB Conc 31.8 g/dL (31.8-35.4); Mean Corpuscular Hemoglobin 33.7 pg (27.0-31.2); Mean Platelet Volume 8.2 fl (7.4-10.4); Monocytes # 0.5 K/mm3 (0.1-1.0); Monocytes % 6.2 % (1.7-9.3); Neutrophils # 5.1 K/mm3 (1.8-7.8); Neutrophils % 66.7 % (37.0-80.0); Platelet Count 499 K/mm3 (142-424); Red Blood Count 3.37 M/mm3 (4.20-5.40); Red Cell Distribution Width 13.5 % (11.5-17.5); White Blood Count 7.7 K/mm3 (4.8-10.8)
[2021-12-01 13:16] LABS: Alanine Aminotransferase 21 U/L (12-78); Aspartate Amino Transferase 39 U/L (14-36); Blood Urea Nitrogen 12 mg/dl (7-17); Creatinine Clearance Estimated 62 mL/min (50-200); Estimated Glomerular Filt Rate 73 ml/min (>60); GFR (African American) 89 ML/MIN (>60)
--- NOTE | 2021-12-01 13:16 | PC.NURSE ---
PT SWABBED FOR COVID, UP TO BR FOR URINE SPECIMEN
[2021-12-01 13:17] LABS: Albumin Level 4.1 g/dl (3.5-5.0); Albumin/Globulin Ratio 1.2 (1.1-1.8); Alkaline Phosphatase 79 U/L (38-126); Anion Gap 13.9 mEq/L (5-15); Bilirubin,Total 0.2 mg/dl (0.2-1.3); Calcium 9.5 mg/dl (8.4-10.2); Carbon Dioxide 24 mmol/L (22.0-30.0); Globulin 3.4 g/dL (1.3-3.2); Glucose 119 mg/dl (74-100); Lipase 184 U/L (23-300); Total Protein,Serum 7.5 g/dl (6.3-8.2)
--- NOTE | 2021-12-01 13:20 | ECG_ITS ---
APPROVED REPORT Exam: Resting ECG HR:71 bpm ECG Measurements Heart Rate 71 AXES MD 162 P 34 QRSd 83 QRS 75 QT 378 T 63 QTc 401 Conclusion SINUS RHYTHM NONSPECIFIC T-WAVE ABNORMALITY BORDERLINE ECG UNCONFIRMED REPORT Electronically signed by : Ariel Sanchez MD 12/01/2021 17:37:09
[2021-12-01 13:26] LABS: Coronavirus 19, PCR Not Detected (NotDetected); Influenza A, PCR Not Detected (NotDetected); Influenza B, PCR Not Detected (NotDetected)
[2021-12-01 13:26] LABS: Microscopic, Urine URINE MICROSCOPIC (MICROSCOPIC)
[2021-12-01 13:30] LABS: Appearance,Urine CLEAR (Clear); Bilirubin,Urine Negative (Negative); Blood, Urine Negative (Negative); Color,Urine YELLOW (Yellow); Glucose,Urine (UA) Negative (Negative); Ketones,Urine Negative (Negative); Leukocyte Esterase,Urine TRACE (Negative); Nitrate,Urine Negative (Negative); Protein,Urine Negative (Negative); Urobilinogen,Urine 0.2 EU/dl (0.2)
[2021-12-01 13:31] LABS: Troponin I < 0.01 ng/ml (0.00-0.034)
--- NOTE | 2021-12-01 13:31 | PC.NURSE ---
Pt ambulatory to bathroom with assistance.
[2021-12-01 13:40] VITALS: BP 128/81; PULSE 79; O2SAT 99
[2021-12-01 13:45] LABS: Bacteria,Urine Trace /lpf; WBC,Urine Occasional #/hpf (0-3)
--- NOTE | 2021-12-01 13:51 | PC.NURSE ---
KASIA BELLA at
[2021-12-01 14:00] VITALS: BP 125/80; PULSE 75; RESP 18; TEMP 36.7; O2SAT 99
== END 2021-12-01 14:00 | disposition home or self-care (01) ==
PROVIDERS: Emergency Provider Emergency Medicine; PCP Emergency Medicine
DX: M54.9 Dorsalgia, unspecified (principal); R06.02 Shortness of breath; R11.2 Nausea with vomiting, unspecified; R19.7 Diarrhea, unspecified; R53.1 Weakness; R05.9 Cough, unspecified; Z20.822 Contact with and (suspected) exposure to COVID-19; M79.10 Myalgia, unspecified site; F17.210 Nicotine dependence, cigarettes, uncomplicated; F41.9 Anxiety disorder, unspecified; Z79.51 Long term (current) use of inhaled steroids; Z79.82 Long term (current) use of aspirin; Z79.899 Other long term (current) drug therapy; Z88.5 Allergy status to narcotic agent
CPT/HCPCS: 71046; 80053; 81001; 83690; 84484; 85025; 93005; 96361; 96374; 99285; C9803; J2405; U0003; U0005

== ENCOUNTER → 2021-12-10 16:25 | Outpatient (CLI) | payer MEDICAID, SELFPAY ==
[2021-12-10 17:49] LABS: Amphetamine/Metha Screen,Urine Negative ng/ml (<1000)
[2021-12-10 17:50] LABS: Barbiturates Screen,Urine Negative ng/ml (<200); Benzodiazepines Screen,Urine Positive ng/ml (<200)
[2021-12-10 17:51] LABS: Cannabinoid Screen,Urine Positive ng/ml (<50)
[2021-12-10 17:52] LABS: Cocaine Screen,Urine Negative ng/ml (<300); Methadone Screen,Urine Negative ng/ml (<300)
[2021-12-10 17:53] LABS: Opiate Screen,Urine Negative ng/ml (<300)
[2021-12-10 17:54] LABS: Phencyclidine Screen,Urine Negative ng/ml (<25)
== END ==
PROVIDERS: PCP Emergency Medicine; Visit Provider Emergency Medicine
DX: Z79.899 Other long term (current) drug therapy (principal)
CPT/HCPCS: 80305

== ENCOUNTER → 2022-01-22 14:05 | Outpatient (CLI) | payer MEDICAID, SELFPAY ==
[2022-01-22 18:12] LABS: Amphetamine/Metha Screen,Urine Negative ng/ml (<1000)
[2022-01-22 18:13] LABS: Barbiturates Screen,Urine Negative ng/ml (<200); Benzodiazepines Screen,Urine Negative ng/ml (<200)
[2022-01-22 18:14] LABS: Cannabinoid Screen,Urine Positive ng/ml (<50)
[2022-01-22 18:15] LABS: Cocaine Screen,Urine Negative ng/ml (<300); Methadone Screen,Urine Negative ng/ml (<300)
[2022-01-22 18:16] LABS: Opiate Screen,Urine Positive ng/ml (<300)
[2022-01-22 18:17] LABS: Phencyclidine Screen,Urine Negative ng/ml (<25)
== END ==
PROVIDERS: PCP Emergency Medicine; Visit Provider Emergency Medicine
DX: Z79.899 Other long term (current) drug therapy (principal)
CPT/HCPCS: 80305

== ENCOUNTER → 2022-03-22 11:00 | Outpatient (CLI) | payer MEDICAID, SELFPAY ==
[2022-03-22 18:49] LABS: Amphetamine/Metha Screen,Urine Negative ng/ml (<1000)
[2022-03-22 18:50] LABS: Barbiturates Screen,Urine Negative ng/ml (<200)
[2022-03-22 18:51] LABS: Benzodiazepines Screen,Urine Positive ng/ml (<200); Cannabinoid Screen,Urine Positive ng/ml (<50)
[2022-03-22 18:53] LABS: Cocaine Screen,Urine Negative ng/ml (<300); Methadone Screen,Urine Negative ng/ml (<300)
[2022-03-22 18:54] LABS: Opiate Screen,Urine Positive ng/ml (<300)
[2022-03-22 18:55] LABS: Phencyclidine Screen,Urine Negative ng/ml (<25)
== END ==
PROVIDERS: PCP Emergency Medicine; Visit Provider Emergency Medicine
DX: Z79.899 Other long term (current) drug therapy (principal)
CPT/HCPCS: 80305

== ENCOUNTER → 2022-05-24 16:31 | Outpatient (CLI) | payer MEDICAID, SELFPAY ==
--- NOTE | 2022-05-24 16:32 | MM_ITS ---
PROCEDURE INFORMATION: Exam: MG Bilateral Screening 3D Mammography Exam date and time: 05/24/2022 4:26 PM Age: 61 years old Clinical indication: Screening examination. Her mother and her sister had breast cancer. TECHNIQUE: Imaging protocol: Bilateral Screening tomosynthesis and 2D mammography including computer-aided detection (CAD) when performed. COMPARISON: 1. MG MM DIG SCREENING MAMM BI W/CAD 05/10/2021 12:55 PM 2. MG MM DIG SCREENING MAMM BI W/CAD 05/09/2020 9:02 AM 3. MG DIG MAMM-SCREEN [place] 08/13/2018 10:25 AM 4. MG SCBI MM Dig screening mamm BI w/CAD 08/12/2017 4:15 PM FINDINGS: MAMMOGRAPHY: Breast composition: The breasts are extremely dense, which lowers the sensitivity of mammography. Mass: None. Architectural distortion: None. Calcifications: No suspicious calcifications. Asymmetric density: None. Skin thickening: None. Axillary adenopathy: None. Other: Left biopsy clip. IMPRESSION: No mammographic evidence of malignancy. Annual screening is recommended unless otherwise clinically indicated. Given the reported risk factors coupled with the patient's breast density, a breast cancer risk assessment may prove useful for further evaluation. ASSESSMENT: BI-RADS Category 2: Benign
== END ==
PROVIDERS: PCP Emergency Medicine; Visit Provider Emergency Medicine
DX: Z12.31 Encounter for screening mammogram for malignant neoplasm of breast (principal)
CPT/HCPCS: 77063; 77067

== ENCOUNTER 2022-07-09 15:56 | Outpatient (CLI) | payer MEDICAID, SELFPAY ==
[2022-07-09 16:01] VITALS: BMI 21.1
[2022-07-09 16:20] VITALS: BP 125/73; PULSE 102; RESP 20; TEMP 36.6; O2SAT 98
[2022-07-09 16:38] LABS: Basophils % 0.3 % (0.1-2.0); Eosinophils # 0.2 K/mm3 (0.0-0.4); Eosinophils % 1.5 % (0.1-12.0); Hemoglobin 11.2 g/dL (12.2-16.2); Lymphocytes # 2.6 K/mm3 (0.7-4.5); Lymphocytes % 26.2 % (10-50); Mean Corpuscular Hemoglobin 34.3 pg (27.0-31.2); Mean Platelet Volume 7.5 fl (7.4-10.4); Monocytes # 0.6 K/mm3 (0.1-1.0); Monocytes % 5.7 % (1.7-9.3); Neutrophils # 6.7 K/mm3 (1.8-7.8); Neutrophils % 66.3 % (37.0-80.0); Platelet Count 601 K/mm3 (142-424); Red Blood Count 3.27 M/mm3 (4.20-5.40); Red Cell Distribution Width 14.8 % (11.5-17.5)
[2022-07-09 16:42] LABS: Chloride 92 mmol/L (98-107); Sodium 129 mmol/L (136-145)
[2022-07-09 16:44] LABS: Blood Urea Nitrogen 7 mg/dl (7-17); Creatinine Clearance Estimated 59 mL/min (50-200); Estimated Glomerular Filt Rate 73 ml/min (>60); GFR (African American) 89 ML/MIN (>60)
[2022-07-09 16:45] LABS: Alanine Aminotransferase 19 U/L (12-78); Albumin Level 4.1 g/dl (3.5-5.0); Albumin/Globulin Ratio 1.1 (1.1-1.8); Alkaline Phosphatase 90 U/L (38-126); Aspartate Amino Transferase 30 U/L (14-36); Bilirubin,Total 0.4 mg/dl (0.2-1.3); Carbon Dioxide 26 mmol/L (22.0-30.0); Globulin 3.9 g/dL (1.3-3.2)
[2022-07-09 16:46] LABS: Calcium 9.9 mg/dl (8.4-10.2); Glucose 94 mg/dl (74-100)
[2022-07-09 16:50] VITALS: BP 119/72; PULSE 99; RESP 20; O2SAT 98
[2022-07-09 17:35] VITALS: BP 118/77; PULSE 97; RESP 20; O2SAT 98
[2022-07-09 20:25] LABS: Barbiturates Screen,Urine Negative ng/ml (<200)
[2022-07-09 20:26] LABS: Amphetamine/Metha Screen,Urine Negative ng/ml (<1000); Benzodiazepines Screen,Urine Positive ng/ml (<200)
[2022-07-09 20:27] LABS: Cannabinoid Screen,Urine Positive ng/ml (<50); Methadone Screen,Urine Negative ng/ml (<300)
[2022-07-09 20:28] LABS: Cocaine Screen,Urine Negative ng/ml (<300)
[2022-07-09 20:31] LABS: Opiate Screen,Urine Negative ng/ml (<300); Phencyclidine Screen,Urine Negative ng/ml (<25)
== END 2022-07-09 17:35 | disposition home or self-care (01) ==
LOC: INF 15:57
PROVIDERS: PCP Emergency Medicine; Visit Provider Physician Assistant
DX: R42 Dizziness and giddiness (principal); E86.0 Dehydration; Z79.899 Other long term (current) drug therapy
CPT/HCPCS: 80053; 80305; 85025; 96360; 96375; J2405

== ENCOUNTER → 2022-07-10 08:15 | Outpatient (CLI) | payer MEDICAID, SELFPAY | PROVIDERS: PCP Physician Assistant; Visit Provider Physician Assistant | DX: Z79.899 Other long term (current) drug therapy (principal) ==

== ENCOUNTER 2022-07-16 09:58 | Day surgery (SDC) | payer MEDICAID, SELFPAY ==
[2022-07-15 11:04] VITALS: BMI 27.5
[2022-07-16 10:16] VITALS: BP 92/62; PULSE 77; RESP 18; TEMP 36.4; O2SAT 98
--- NOTE | 2022-07-16 10:26 | HMH.SCOPE ---
Procedure: Date: 07/16/22 Patient Date of :: 1960 Procedure Performed:: Colonoscopy with polypectomy Indications:: Screening Performing Provider:: Derek Padron MD Referring Provider:: . Sedation:: Monitored anesthesia care Procedure:: After informed consent was obtained the patient was taken to the endoscopy suite. Sedation ensued after the patient was transferred to the left lateral decubitus position. Pulse, blood pressure, and oxygen saturation were monitored throughout the procedure. Digital rectal exam revealed no significant abnormality. The colonoscope was placed in position. The entire colon was evaluated. The colonoscope was carefully removed and the patient was transferred to recovery in stable condition. Please see findings and specimens below for detail. Findings:: Bowel preparation moderate to poor Significant tortuosity (profound sigmoid tortuosity) Lobulated sessile polyp of the splenic flexure Specimens:: Lobulated sessile splenic flexure polyp (cold snare) Recommendations:: Timing of repeat colonoscopy is pending pathology but likely be between 1-2 years with extended/alternate bowel preparation Complications:: No immediate Estimated blood obtained (mL): 1
[2022-07-16 10:37] VITALS: O2SAT 98
[2022-07-16 11:21] VITALS: BP 99/56; PULSE 78; RESP 16; TEMP 36.3; O2SAT 99
[2022-07-16 11:31] VITALS: BP 93/61; PULSE 76; RESP 17; O2SAT 98
[2022-07-16 11:41] VITALS: BP 85/59; PULSE 73; RESP 16; O2SAT 98
[2022-07-16 11:51] VITALS: BP 93/67; PULSE 75; RESP 17; O2SAT 99
== END 2022-07-16 12:00 | disposition home or self-care (01) ==
PROVIDERS: PCP Emergency Medicine; Visit Provider Surgery
PROC: 0DJD8ZZ Inspection of Lower Intestinal Tract, Via Natural or Artificial Opening Endoscopic (ICD-10-PCS; CPT 45385; principal; 2022-07-16 11:30)
DX: Z12.11 Encounter for screening for malignant neoplasm of colon (principal); D12.6 Benign neoplasm of colon, unspecified; F17.210 Nicotine dependence, cigarettes, uncomplicated
CPT/HCPCS: 45385

== ENCOUNTER 2022-08-07 13:26 | Emergency (ER) | payer MEDICAID, SELFPAY ==
[2022-08-07 13:28] VITALS: BP 116/69; PULSE 87; RESP 19; TEMP 36.8; O2SAT 99; BMI 22.2
--- NOTE | 2022-08-07 13:47 | PC.NURSE ---
ED MD AT BEDSIDE
--- NOTE | 2022-08-07 13:48 | XR_ITS ---
FINAL REPORT CLINICAL HISTORY: fall. low back pain COMPARISON: 01/29/2019 FINDINGS: LUMBAR SPINE Three views demonstrate no acute fracture. There is dextroscoliosis. There is mild right lateral subluxation of L3 on 4. There are mild degenerative changes. Mild vascular calcification is identified. IMPRESSION: Degenerative changes as above, stable since previous. Reviewed, Interpreted and Dictated by Cal Hwang III, MD Transcribed by Dionne Locke Authenticated and [facility]
--- NOTE | 2022-08-07 13:48 | XR_ITS ---
FINAL REPORT CLINICAL HISTORY: fall, coccyx pain COMPARISON: None FINDINGS: SACRUM COCCYX 2 views demonstrate no acute fracture or dislocation. The sacral arches are intact. The sacroiliac joints are unremarkable. No soft tissue abnormality is seen. IMPRESSION: No acute process. Reviewed, Interpreted and Dictated by Cal Hwang III, MD Transcribed by Kera Leigh Authenticated and [facility]
--- NOTE | 2022-08-07 13:50 | HMH.EDFALL ---
Discharge Plan Disposition Chief Complaint: Fall Prescriptions Prescriptions: No Action albuterol sulfate 2.5 mg /3 mL (0.083 %) solution for nebulization 2.5 mg IH Q6HP PRN (Reason: shortness of breath or wheezing) Qty: 180 3RF diazepam 5 mg tablet 5 mg PO BID Qty: 60 1RF gabapentin 300 mg capsule 300 mg PO BID Qty: 60 1RF quetiapine 200 mg tablet 200 mg PO HS Qty: 30 2RF ergocalciferol (vitamin D2) 1,250 mcg (50,000 unit) capsule See Rx Instructions .ROUTE .COMPLEX Qty: 4 0RF Dose Instruction: TAKE ONE CAPSULE BY MOUTH EVERY WEEK Rx Instructions: TAKE ONE CAPSULE BY MOUTH EVERY WEEK aspirin 81 mg tablet,delayed release (DR/EC) See Rx Instructions .ROUTE .COMPLEX Qty: 60 0RF Dose Instruction: TAKE ONE TABLET BY MOUTH 2 TIMES A DAY Rx Instructions: TAKE ONE TABLET BY MOUTH 2 TIMES A DAY levetiracetam 750 mg tablet See Rx Instructions .ROUTE .COMPLEX Qty: 120 0RF Dose Instruction: TAKE 2 TABLETS BY MOUTH 2 TIMES A DAY Rx Instructions: TAKE 2 TABLETS BY MOUTH 2 TIMES A DAY lisinopril-hydrochlorothiazide 20-12.5 mg tablet See Rx Instructions .ROUTE .COMPLEX Qty: 30 0RF Dose Instruction: TAKE ONE TABLET BY MOUTH ONCE A DAY FOR HYPERTENSION Rx Instructions: TAKE ONE TABLET BY MOUTH ONCE A DAY FOR HYPERTENSION cholecalciferol (vitamin D3) 25 mcg (1,000 unit) tablet See Rx Instructions .ROUTE .COMPLEX Qty: 30 0RF Dose Instruction: TAKE ONE TABLET BY MOUTH ONCE A DAY Rx Instructions: TAKE ONE TABLET BY MOUTH ONCE A DAY bisoprolol-hydrochlorothiazide 2.5-6.25 mg tablet See Rx Instructions .ROUTE .COMPLEX Qty: 30 0RF Dose Instruction: TAKE ONE TABLET BY MOUTH ONCE A DAY Rx Instructions: TAKE ONE TABLET BY MOUTH ONCE A DAY oxycodone-acetaminophen [Percocet] 5-325 mg tablet 1 tab PO BID albuterol sulfate [ProAir HFA] 90 mcg/actuation HFA aerosol inhaler See Rx Instructions .ROUTE .COMPLEX Rx Instructions: INHALE 2 PUFFS BY MOUTH EVERY 4 TO 6 HOURS NEEDED FOR SHORTNESS OF BREATH OR WHEEZING Referrals Follow up/Referrals: Higinio Shaw MD [Primary Care Provider] - See instructions Discharge ED Provider: Heath Cyo Fall HPI General Chief Complaint: Fall Stated Complaint: AO6/12@home pain in tailbone Time Seen by Provider: 08/07/22 14:48 Mode of Arrival: Ambulatory Source of Information: Patient Limitations: No Limitations Description of Symptoms (Recalled from ER Triage Doc. by RN): 61 F presents from home after sustaining a fall on Friday night when she tripped in the dark. Patient was checked out by EMS, and decided not to be taken to the hospital. Patient has pain to her sacral area that has not gotten better with medication or time. Patient denies loss of bowel or bladder after the accident. History of Present Illness HPI Narrative: This is a 61-year-old white female who sustained a mechanical ground-level fall 2 days ago landing on her behind. Apparently she called EMS at that time but did not want to go to the hospital patient presents today with low back pain and tailbone pain. No saddle paresthesias no gait disturbance no foot drop no weakness or numbness of the lower extremities. Patient denies any other trauma. Related Data Home Medications Medication Instructions Recorded Confirmed albuterol sulfate 90 mcg/actuation See Rx Instructions .Route 07/15/22 aerosol inhaler (ProAir HFA) .COMPLEX SOA oxycodone-acetaminophen 5 mg-325 1 tab PO BID Pain 07/15/22 mg tablet (Percocet) Previous Rx's Medication Instructions Recorded albuterol sulfate 2.5 mg/3 mL 2.5 mg (3 mL) inhalation Q6HP PRN 04/10/22 (0.083 %) solution for nebulization shortness of breath or wheezing #180 mL diazepam 5 mg tablet 5 mg PO BID Anxiety #60 tabs 07/10/22 gabapentin 300 mg capsule 300 mg PO BID Pain #60 caps 07/10/22 quetiapine 200 mg tablet 200 mg PO HS sleep #30 tabs 05
[2022-08-07 14:30] VITALS: BP 107/63; PULSE 82; O2SAT 99
[2022-08-07 15:00] VITALS: BP 123/70; PULSE 73; O2SAT 99
[2022-08-07 15:30] VITALS: BP 116/78; PULSE 75; O2SAT 98
[2022-08-07 16:00] VITALS: BP 130/77; PULSE 76; O2SAT 99
[2022-08-07 16:28] VITALS: BP 127/81; PULSE 77; RESP 16; TEMP 36.8; O2SAT 98
== END 2022-08-07 17:21 | disposition home or self-care (01) ==
PROVIDERS: Emergency Provider Emergency Medicine; PCP Emergency Medicine
DX: M53.3 Sacrococcygeal disorders, not elsewhere classified (principal); W19.XXXA Unspecified fall, initial encounter; M54.50 Low back pain, unspecified; I10 Essential (primary) hypertension; G40.919 Epilepsy, unspecified, intractable, without status epilepticus; F41.9 Anxiety disorder, unspecified; Z86.73 Personal history of transient ischemic attack (TIA), and cerebral infarction without residual deficits; F17.210 Nicotine dependence, cigarettes, uncomplicated
CPT/HCPCS: 72100; 72220; 96372; 99284

== ENCOUNTER → 2022-09-03 23:39 | Outpatient (CLI) | payer MEDICAID, SELFPAY | PROVIDERS: PCP Emergency Medicine; Visit Provider Emergency Medicine | DX: N39.0 Urinary tract infection, site not specified (principal) | CPT/HCPCS: 87086 ==

== ENCOUNTER → 2022-11-01 23:47 | Outpatient (CLI) | payer MEDICAID, SELFPAY ==
[2022-11-01 18:54] LABS: Benzodiazepines Screen,Urine Positive ng/ml (<200)
[2022-11-01 18:55] LABS: Amphetamine/Metha Screen,Urine Negative ng/ml (<1000); Barbiturates Screen,Urine Negative ng/ml (<200)
[2022-11-01 18:56] LABS: Methadone Screen,Urine Negative ng/ml (<300)
[2022-11-01 18:57] LABS: Cannabinoid Screen,Urine Positive ng/ml (<50); Cocaine Screen,Urine Negative ng/ml (<300)
[2022-11-01 18:59] LABS: Opiate Screen,Urine Negative ng/ml (<300); Phencyclidine Screen,Urine Negative ng/ml (<25)
== END ==
PROVIDERS: PCP Emergency Medicine; Visit Provider Emergency Medicine
DX: M54.9 Dorsalgia, unspecified (principal); N39.0 Urinary tract infection, site not specified
CPT/HCPCS: 80305; 87086

== ENCOUNTER → 2022-11-12 14:18 | Outpatient (CLI) | payer MEDICAID, SELFPAY ==
[2022-11-12 14:40] LABS: Basophils % 0.3 % (0.1-2.0); Eosinophils # 0.3 K/mm3 (0.0-0.4); Eosinophils % 2.1 % (0.1-12.0); Hematocrit 29.5 % (37.0-47.0); Hemoglobin 9.4 g/dL (12.2-16.2); Lymphocytes # 3.2 K/mm3 (0.7-4.5); Lymphocytes % 25.2 % (10-50); Mean Corpuscular HGB Conc 31.8 g/dL (31.8-35.4); Mean Corpuscular Hemoglobin 33.3 pg (27.0-31.2); Mean Corpuscular Volume 104.5 fl (81-99); Mean Platelet Volume 7.5 fl (7.4-10.4); Monocytes # 0.7 K/mm3 (0.1-1.0); Monocytes % 5.3 % (1.7-9.3); Neutrophils # 8.5 K/mm3 (1.8-7.8); Neutrophils % 67.2 % (37.0-80.0); Platelet Count 402 K/mm3 (142-424); Red Blood Count 2.82 M/mm3 (4.20-5.40); Red Cell Distribution Width 14.1 % (11.5-17.5); White Blood Count 12.7 K/mm3 (4.8-10.8)
[2022-11-12 16:05] LABS: Chloride 97 mmol/L (98-107); Sodium 128 mmol/L (136-145)
[2022-11-12 16:06] LABS: Potassium 3.8 mmoL/L (3.5-5.1)
[2022-11-12 16:08] LABS: Alanine Aminotransferase 17 U/L (12-78); Albumin Level 3.4 g/dl (3.5-5.0); Albumin/Globulin Ratio 1.1 (1.1-1.8); Alkaline Phosphatase 69 U/L (38-126); Anion Gap 15.8 mEq/L (5-15); Aspartate Amino Transferase 25 U/L (14-36); Bilirubin,Total 0.3 mg/dl (0.2-1.3); Blood Urea Nitrogen 20 mg/dl (7-17); Calcium 8.6 mg/dl (8.4-10.2); Carbon Dioxide 19 mmol/L (22.0-30.0); Cholesterol 223 mg/dl (140-200); Estimated Glomerular Filt Rate 42 ml/min (>60); GFR (African American) 51 ML/MIN (>60); Globulin 3.1 g/dL (1.3-3.2); Glucose 129 mg/dl (74-100); Total Protein,Serum 6.5 g/dl (6.3-8.2); Triglycerides 133 mg/dl (30-150); VLDL Cholesterol 27 mg/dL (0-40)
[2022-11-12 16:09] LABS: Chol/HDL Ratio 6.8 (1-3.5); HDL Cholesterol 33 mg/dl (40-60)
[2022-11-12 16:19] LABS: Direct LDL Cholesterol 132.68 mg/dL (100-129)
[2022-11-12 16:26] LABS: Free T4 (Free Thyroxine) 0.92 ng/dl (0.78-2.19)
[2022-11-12 16:40] LABS: Thyroid Stimulating Hormone 0.48 uIU/mL (0.465-4.68)
[2022-11-12 16:52] LABS: 25-OH Vitamin D, Total 115 ng/mL (30-100)
[2022-11-12 21:47] LABS: Vitamin B12 237 pg/mL (239-931)
== END ==
PROVIDERS: PCP Emergency Medicine; Visit Provider Emergency Medicine
DX: R53.83 Other fatigue (principal); K59.00 Constipation, unspecified; E03.9 Hypothyroidism, unspecified; E67.3 Hypervitaminosis D
CPT/HCPCS: 36415; 80053; 80061; 82306; 82607; 84439; 84443; 85025

== ENCOUNTER 2022-11-22 11:56 | Emergency (ER) | payer MEDICAID, SELFPAY ==
[2022-11-22] VITALS (7 sets, daily range): BP systolic 88–117; BP diastolic 65–75; PULSE 74–93; RESP 14–20; TEMP 36.6; O2SAT 95–99; BMI 22.2
--- NOTE | 2022-11-22 12:07 | PC.NURSE ---
DR MISHRA AT BEDSIDE
--- NOTE | 2022-11-22 12:18 | ECG_ITS ---
APPROVED REPORT Exam: Resting ECG HR:80 bpm ECG Measurements Heart Rate 80 AXES WV 160 P 61 QRSd 84 QRS 72 QT 356 T 52 QTc 391 Conclusion SINUS RHYTHM NORMAL ECG UNCONFIRMED REPORT Electronically signed by : Ariel Sanchez MD 11/25/2022 17:18:11
--- NOTE | 2022-11-22 12:47 | HMH.EDGENADL ---
Discharge Plan Disposition Patient Disposition: Home, Self-Care Condition: Good Prescriptions Prescriptions: No Action diazepam 5 mg tablet 5 mg PO BID Qty: 60 1RF gabapentin 300 mg capsule 300 mg PO BID Qty: 60 1RF oxycodone-acetaminophen [Percocet] 5-325 mg tablet 1 tab PO BID Qty: 60 0RF albuterol sulfate 2.5 mg /3 mL (0.083 %) solution for nebulization 2.5 mg IH Q6HP PRN (Reason: shortness of breath or wheezing) Qty: 180 3RF levetiracetam 750 mg tablet See Rx Instructions .ROUTE .COMPLEX Qty: 120 2RF Dose Instruction: TAKE 2 TABLETS BY MOUTH 2 TIMES A DAY Rx Instructions: TAKE 2 TABLETS BY MOUTH 2 TIMES A DAY lisinopril-hydrochlorothiazide 20-12.5 mg tablet See Rx Instructions .ROUTE .COMPLEX Qty: 30 2RF Dose Instruction: TAKE ONE TABLET BY MOUTH ONCE A DAY FOR HYPERTENSION Rx Instructions: TAKE ONE TABLET BY MOUTH ONCE A DAY FOR HYPERTENSION aspirin 81 mg tablet,delayed release (DR/EC) See Rx Instructions .ROUTE .COMPLEX Qty: 60 2RF Dose Instruction: TAKE ONE TABLET BY MOUTH 2 TIMES A DAY Rx Instructions: TAKE ONE TABLET BY MOUTH 2 TIMES A DAY bisoprolol-hydrochlorothiazide 2.5-6.25 mg tablet See Rx Instructions .ROUTE .COMPLEX Qty: 30 2RF Dose Instruction: TAKE ONE TABLET BY MOUTH ONCE A DAY Rx Instructions: TAKE ONE TABLET BY MOUTH ONCE A DAY cholecalciferol (vitamin D3) 25 mcg (1,000 unit) tablet See Rx Instructions .ROUTE .COMPLEX Qty: 30 2RF Dose Instruction: TAKE ONE TABLET BY MOUTH ONCE A DAY Rx Instructions: TAKE ONE TABLET BY MOUTH ONCE A DAY ferrous sulfate 325 mg (65 mg iron) tablet 325 mg PO DAILY Qty: 90 2RF quetiapine 200 mg tablet 200 mg PO HS Qty: 30 2RF albuterol sulfate [ProAir HFA] 90 mcg/actuation HFA aerosol inhaler See Rx Instructions .ROUTE .COMPLEX Rx Instructions: INHALE 2 PUFFS BY MOUTH EVERY 4 TO 6 HOURS NEEDED FOR SHORTNESS OF BREATH OR WHEEZING Referrals Follow up/Referrals: Higinio Shaw MD [Primary Care Provider] - See instructions Activity Restrictions/Add. Instructions Additional Instructions/Restrictions: Please follow-up closely with your primary care provider. Make sure that you are staying hydrated and eating plenty. Return to the emergency department for new or worsening symptoms. Clinical Impressions Clinical Impression: Orthostatic hypotension, Chronic hyponatremia Instructions Patient Instructions: DI for Orthostatic Hypotension, DI for Hyponatremia Discharge ED Provider: Felicia Hernandez General Adult HPI General Chief complaint: Recheck/Abnormal Lab/Rx Stated complaint: phy ref, low BP Time Seen by Provider: 11/22/22 12:05 Mode of Arrival: Ambulatory Source of Information: Patient Limitations: No Limitations Description of Symptoms (Recalled from ER Triage Doc. by RN): PT SENT FROM PCP FOR LOW BLOOD PRESSURE PT DENIES ANY SYMPTOMS. SCHEDULED APPT FOR B12 AND LABS. PT WITHOUT CONERNS AT THIS TIME History of Present Illness HPI narrative: This patient is a 62-year-old female with a history of hypertension, hyperlipidemia, renal insufficiency, CAD, vitamin B12 deficiency, and gastric ulcer presenting to the emergency department for evaluation with concern for low blood pressure reading at her primary care provider's office. Patient states that she has been feeling fine without any concerns or complaints. She states that she went there for a B12 shot and basic lab work to check her kidney function. She denies any recent fevers, chills, cough, congestion, chest pain, shortness of breath, abdominal pain, nausea, vomiting, changes in bowel movements, rashes, or swelling. She does note that she has not had quite as much of an appetite as usual. She denies any recent changes in medications. Related Data Home Medications Medication Instructions Recorded Confirmed albuterol sulfate 90 mcg/actuation See Rx Instructions .
[2022-11-22 12:52] LABS: Anion Gap 10.3 mEq/L (5-15); Blood Urea Nitrogen 7 mg/dl (7-17); Calcium 9.2 mg/dl (8.4-10.2); Carbon Dioxide 27 mmol/L (22.0-30.0); Chloride 94 mmol/L (98-107); Creatinine Clearance Estimated 61 mL/min (50-200); Estimated Glomerular Filt Rate 73 ml/min (>60); GFR (African American) 89 ML/MIN (>60); Glucose 86 mg/dl (74-100); Potassium 4.3 mmoL/L (3.5-5.1); Sodium 127 mmol/L (136-145)
[2022-11-22 12:56] LABS: Basophils % 0.4 % (0.1-2.0); Eosinophils # 0.1 K/mm3 (0.0-0.4); Eosinophils % 1.2 % (0.1-12.0); Hematocrit 34.1 % (37.0-47.0); Hemoglobin 10.8 g/dL (12.2-16.2); Lymphocytes # 2.4 K/mm3 (0.7-4.5); Lymphocytes % 31.2 % (10-50); Mean Corpuscular HGB Conc 31.8 g/dL (31.8-35.4); Mean Corpuscular Volume 103.7 fl (81-99); Mean Platelet Volume 7.2 fl (7.4-10.4); Monocytes # 0.6 K/mm3 (0.1-1.0); Monocytes % 7.6 % (1.7-9.3); Neutrophils # 4.6 K/mm3 (1.8-7.8); Neutrophils % 59.5 % (37.0-80.0); Platelet Count 523 K/mm3 (142-424); Red Blood Count 3.28 M/mm3 (4.20-5.40); Red Cell Distribution Width 14.1 % (11.5-17.5); White Blood Count 7.8 K/mm3 (4.8-10.8)
== END 2022-11-22 13:35 | disposition home or self-care (01) ==
PROVIDERS: Emergency Provider Emergency Medicine; PCP Emergency Medicine
DX: I95.1 Orthostatic hypotension (principal); E87.1 Hypo-osmolality and hyponatremia; N28.9 Disorder of kidney and ureter, unspecified; E78.5 Hyperlipidemia, unspecified; I25.10 Atherosclerotic heart disease of native coronary artery without angina pectoris; E53.8 Deficiency of other specified B group vitamins; G40.909 Epilepsy, unspecified, not intractable, without status epilepticus; F17.210 Nicotine dependence, cigarettes, uncomplicated
CPT/HCPCS: 80048; 85025; 93005; 96360; 99284

== ENCOUNTER 2022-12-06 14:02 | Emergency (ER) | payer MEDICAID, SELFPAY ==
[2022-12-06] VITALS (7 sets, daily range): BP systolic 65–95; BP diastolic 45–66; PULSE 62–91; RESP 11–18; TEMP 36.4–36.7; O2SAT 84–98; BMI 22.2
--- NOTE | 2022-12-06 | ECG_ITS ---
APPROVED REPORT Exam: Resting ECG HR:90 bpm ECG Measurements Heart Rate 90 AXES NE 151 P 49 QRSd 74 QRS 61 QT 337 T 62 QTc 384 Conclusion SINUS RHYTHM NONSPECIFIC T-WAVE ABNORMALITY BORDERLINE ECG UNCONFIRMED REPORT Electronically signed by : Ariel Sanchez MD 12/07/2022 11:02:15
--- NOTE | 2022-12-06 14:39 | PC.NURSE ---
Dr. Medellin at BS for pt eval
--- NOTE | 2022-12-06 14:42 | CT_ITS ---
PROCEDURE INFORMATION: Exam: CTA Chest With Contrast Exam date and time: 12/06/2022 3:30 PM Age: 62 years old Clinical indication: Dyspnea; Additional info: Shock, dyspnea TECHNIQUE: Imaging protocol: Computed tomographic angiography of the chest with contrast. Exam focused on the arteries. 3D rendering (Not supervised by radiologist): MIP and/or 3D reconstructed images were created by the technologist. Radiation optimization: All CT scans at this facility use at least one of these dose optimization techniques: automated exposure control; mA and/or kV adjustment per patient size (includes targeted exams where dose is matched to clinical indication); or iterative reconstruction. Contrast material: ISOVUE; Contrast volume: 70 ml; Contrast route: INTRAVENOUS (IV); REPORTING DATA: Count of CT and Cardiac NM exams in prior 12 months: This patient has received 0 known CTs and 0 known cardiac nuclear medicine studies in the 12 months prior to the current study. COMPARISON: CR XR CHEST 2V 12/01/2021 12:31 PM FINDINGS: Pulmonary arteries: No evidence of filling defects to suggest pulmonary emboli. Great vessels off aortic arch: Moderate narrowing of the origin of the left subclavian artery. Aorta: Aorta is nonaneurysmal. Lungs: Bibasilar subsegmental atelectasis noted. No evidence of airspace opacity or interlobular septal thickening. Scattered pulmonary granulomas noted. Pleural spaces: No pneumothorax. No pleural effusion. Heart: No cardiomegaly or pericardial effusion. The left atrial appendage is normal. Heart RV/LV ratio: The RV/LV ratio is less than 1. Coronary arteries: There is mild atherosclerotic calcification of the coronary arteries. Lymph nodes: Prominent right hilar node. Bones/joints: No acute osseous abnormality. Multilevel degenerative changes of the included spine. Soft tissues: Unremarkable. IMPRESSION: 1. No evidence of filling defects to suggest pulmonary emboli. 2. Moderate narrowing of the origin of the left subclavian artery.
--- NOTE | 2022-12-06 14:47 | HMH.EDGENADL ---
Discharge Plan Disposition Patient Disposition: Home, Self-Care Prescriptions Prescriptions: New cefdinir 300 mg capsule 300 mg PO BID 10 Days Qty: 20 0RF No Action diazepam 5 mg tablet 5 mg PO BID Qty: 60 1RF gabapentin 300 mg capsule 300 mg PO BID Qty: 60 1RF oxycodone-acetaminophen [Percocet] 5-325 mg tablet 1 tab PO BID Qty: 60 0RF albuterol sulfate 2.5 mg /3 mL (0.083 %) solution for nebulization 2.5 mg IH Q6HP PRN (Reason: shortness of breath or wheezing) Qty: 180 3RF levetiracetam 750 mg tablet See Rx Instructions .ROUTE .COMPLEX Qty: 120 2RF Dose Instruction: TAKE 2 TABLETS BY MOUTH 2 TIMES A DAY Rx Instructions: TAKE 2 TABLETS BY MOUTH 2 TIMES A DAY lisinopril-hydrochlorothiazide 20-12.5 mg tablet See Rx Instructions .ROUTE .COMPLEX Qty: 30 2RF Dose Instruction: TAKE ONE TABLET BY MOUTH ONCE A DAY FOR HYPERTENSION Rx Instructions: TAKE ONE TABLET BY MOUTH ONCE A DAY FOR HYPERTENSION aspirin 81 mg tablet,delayed release (DR/EC) See Rx Instructions .ROUTE .COMPLEX Qty: 60 2RF Dose Instruction: TAKE ONE TABLET BY MOUTH 2 TIMES A DAY Rx Instructions: TAKE ONE TABLET BY MOUTH 2 TIMES A DAY bisoprolol-hydrochlorothiazide 2.5-6.25 mg tablet See Rx Instructions .ROUTE .COMPLEX Qty: 30 2RF Dose Instruction: TAKE ONE TABLET BY MOUTH ONCE A DAY Rx Instructions: TAKE ONE TABLET BY MOUTH ONCE A DAY ferrous sulfate 325 mg (65 mg iron) tablet 325 mg PO DAILY Qty: 90 2RF quetiapine 200 mg tablet 200 mg PO HS Qty: 30 2RF ergocalciferol (vitamin D2) 1,250 mcg (50,000 unit) capsule See Rx Instructions .ROUTE .COMPLEX Qty: 4 0RF Dose Instruction: TAKE ONE CAPSULE BY MOUTH EVERY WEEK Rx Instructions: TAKE ONE CAPSULE BY MOUTH EVERY WEEK albuterol sulfate [ProAir HFA] 90 mcg/actuation HFA aerosol inhaler See Rx Instructions .ROUTE .COMPLEX Rx Instructions: INHALE 2 PUFFS BY MOUTH EVERY 4 TO 6 HOURS NEEDED FOR SHORTNESS OF BREATH OR WHEEZING Referrals Follow up/Referrals: Higinio Shaw MD [Primary Care Provider] - See instructions Activity Restrictions/Add. Instructions Additional Instructions/Restrictions: Call your family doctor to establish care for this visit to the emergency department and schedule follow-up within 48 hours to ensure improvement. If you have any worsening of your condition or any other concerning signs or symptoms, return to the emergency department or your primary care doctor for further evaluation. Take cefdinir twice daily for full 10-day course. Clinical Impressions Clinical Impression: Acute hypotension, SHADY (acute kidney injury), Pyelonephritis Discharge ED Provider: Gilson Griffin General Adult HPI <Brandy Medellin MD - Last Filed: 12/06/22 14:57> General Chief complaint: Recheck/Abnormal Lab/Rx Stated complaint: cant get reading Time Seen by Provider: 12/06/22 14:24 History of Present Illness HPI narrative: Is a 62-year-old female who presents today with hypotension from Dr. Shaw's office. States that over the last 24 hours she has had some foul-smelling urine and little bit of urine [place] frequency and some shortness of breath. She states she has chronic low back pain but has a little bit worsening back pain than baseline currently. She denies any fevers or chills. Denies any changes in her medications but she is on blood pressure medication. States she had no change in her urine output no nausea vomiting or diarrhea. He did take two 5 mg oxycodone just prior to arrival which she is chronically prescribed states that this is a normal occurrence for her. Related Data Home Medications Medication Instructions Recorded Confirmed albuterol sulfate 90 mcg/actuation See Rx Instructions .Route 07/15/22 11/29/22 aerosol inhaler (ProAir HFA) .COMPLEX SOA Previous Rx's Medication Instructions Recorded albuterol sulfate 2.5 mg/3 mL 2.5 m
--- NOTE | 2022-12-06 15:02 | PC.NURSE ---
Pt unable to void a this time.
[2022-12-06 15:09] LABS: Coronavirus 19, PCR Not Detected (NotDetected); Influenza A, PCR Not Detected (NotDetected); Influenza B, PCR Not Detected (NotDetected)
[2022-12-06 15:10] LABS: Basophils # 0.1 K/mm3 (0-0.2); Basophils % 0.5 % (0.1-2.0); Eosinophils # 0.2 K/mm3 (0.0-0.4); Eosinophils % 1.4 % (0.1-12.0); Hematocrit 33.3 % (37.0-47.0); Hemoglobin 11.1 g/dL (12.2-16.2); Lymphocytes # 2.9 K/mm3 (0.7-4.5); Lymphocytes % 26.8 % (10-50); Mean Corpuscular HGB Conc 33.4 g/dL (31.8-35.4); Mean Corpuscular Hemoglobin 35.4 pg (27.0-31.2); Mean Corpuscular Volume 105.9 fl (81-99); Mean Platelet Volume 7.5 fl (7.4-10.4); Monocytes # 0.8 K/mm3 (0.1-1.0); Monocytes % 7.5 % (1.7-9.3); Neutrophils # 6.9 K/mm3 (1.8-7.8); Neutrophils % 63.7 % (37.0-80.0); Platelet Count 399 K/mm3 (142-424); Red Blood Count 3.15 M/mm3 (4.20-5.40); Red Cell Distribution Width 13.7 % (11.5-17.5); White Blood Count 10.8 K/mm3 (4.8-10.8)
--- NOTE | 2022-12-06 15:20 | CT_ITS ---
PROCEDURE INFORMATION: Exam: CT Abdomen And Pelvis With Contrast Exam date and time: 12/06/2022 3:30 PM Age: 62 years old Clinical indication: Abdominal pain; Other: L flank plain; Additional info: L abd/flank pain, hypotension TECHNIQUE: Imaging protocol: Computed tomography of the abdomen and pelvis with contrast. Radiation optimization: All CT scans at this facility use at least one of these dose optimization techniques: automated exposure control; mA and/or kV adjustment per patient size (includes targeted exams where dose is matched to clinical indication); or iterative reconstruction. Contrast material: ISOVUE; Contrast volume: 70 ml; Contrast route: IV; REPORTING DATA: Count of CT and Cardiac NM exams in prior 12 months: This patient has received 0 known CTs and 0 known cardiac nuclear medicine studies in the 12 months prior to the current study. COMPARISON: CT ABDOMEN PELVIS WO CON 03/02/2020 2:07 PM FINDINGS: Pleural spaces: No pneumothorax. No pleural effusion. Liver: No focal hepatic lesions. Gallbladder and bile ducts: Gallbladder is distended without radiopaque cholelithiasis. No biliary ductal dilation. Pancreas: No peripancreatic fluid stranding. No main pancreatic ductal dilation. Spleen: No splenomegaly. Adrenal glands: Nodular thickening of adrenal glands bilaterally. Kidneys and ureters: Nephrograms are symmetric. No nephrolithiasis or hydroureteronephrosis on either side. No solid lesions Stomach and bowel: No bowel wall thickening or distention. Appendix: A normal appendix is identified. Intraperitoneal space: There is no evidence of free intraperitoneal or pelvic fluid. Vasculature: The aorta demonstrates mild atherosclerotic calcification. Scattered pelvic phleboliths noted Lymph nodes: No lymphadenopathy. No lymphadenopathy. Urinary bladder: Unremarkable as visualized. Reproductive: Status post hysterectomy. Bones/joints: Multilevel degenerative changes of the included spine. No acute osseous abnormality. Soft tissues: Unremarkable. Other findings: For findings in the chest, please refer to the separately dictated chest CT report under a separate accession number. IMPRESSION: No acute abnormality in the abdomen or pelvis
[2022-12-06 15:21] LABS: Alanine Aminotransferase 22 U/L (12-78); Albumin Level 4.1 g/dl (3.5-5.0); Alkaline Phosphatase 97 U/L (38-126); Anion Gap 15.9 mEq/L (5-15); Aspartate Amino Transferase 30 U/L (14-36); Bilirubin,Total 0.3 mg/dl (0.2-1.3); Blood Urea Nitrogen 13 mg/dl (7-17); Calcium 9.6 mg/dl (8.4-10.2); Carbon Dioxide 23 mmol/L (22.0-30.0); Chloride 98 mmol/L (98-107); Creatinine Clearance Estimated 31 mL/min (50-200); Estimated Glomerular Filt Rate 33 ml/min (>60); GFR (African American) 40 ML/MIN (>60); Globulin 4.3 g/dL (1.3-3.2); Glucose 118 mg/dl (74-100); Potassium 3.9 mmoL/L (3.5-5.1); Sodium 133 mmol/L (136-145); Total Protein,Serum 8.4 g/dl (6.3-8.2)
[2022-12-06 15:33] LABS: NT Pro Brain Natriuretic Pep. 225 pg/mL (0-125)
[2022-12-06 15:39] LABS: Troponin I < 0.01 ng/ml (0.00-0.034)
--- NOTE | 2022-12-06 15:49 | PC.NURSE ---
Pt returned from RAD
[2022-12-06 15:52] LABS: Thyroid Stimulating Hormone 5.27 uIU/mL (0.465-4.68)
--- NOTE | 2022-12-06 15:53 | EXP.PHA.CONS ---
Pharmacy Consult Date: 12/06/22 Time: 15:53 Referring provider: DR. PAREDES Reason for Consult:: VANCOMYCIN DOSING Allergies Allergy/AdvReac Type Severity Reaction Status Date / Time codeine Allergy Mild Verified 11/29/22 11:38 Home Medications Medication Instructions Recorded Confirmed Type albuterol sulfate 2.5 mg/3 mL 2.5 mg (3 mL) inhalation Q6HP PRN 04/10/22 11/29/22 Rx (0.083 %) solution for nebulization shortness of breath or wheezing #180 mL albuterol sulfate 90 mcg/actuation See Rx Instructions .Route 07/15/22 11/29/22 History aerosol inhaler (ProAir HFA) .COMPLEX SOA levetiracetam 750 mg tablet See Rx Instructions .Route 08/28/22 11/29/22 Rx .COMPLEX #120 tabs aspirin 81 mg tablet,delayed See Rx Instructions .Route 10/31/22 11/29/22 Rx release .COMPLEX #60 tabs bisoprolol 2.5 See Rx Instructions .Route 10/31/22 11/29/22 Rx mg-hydrochlorothiazide 6.25 mg .COMPLEX #30 tabs tablet lisinopril 20 See Rx Instructions .Route 10/31/22 11/29/22 Rx mg-hydrochlorothiazide 12.5 mg .COMPLEX #30 tabs tablet diazepam 5 mg tablet 5 mg PO BID Anxiety #60 tabs 11/01/22 11/29/22 Rx gabapentin 300 mg capsule 300 mg PO BID Pain #60 caps 11/01/22 11/29/22 Rx oxycodone-acetaminophen 5 mg-325 1 tab PO BID Pain #60 tabs 11/01/22 11/29/22 Rx mg tablet (Percocet) ferrous sulfate 325 mg (65 mg 325 mg PO DAILY low HGB #90 tabs 11/13/22 11/29/22 Rx iron) tablet quetiapine 200 mg tablet 200 mg PO HS sleep #30 tabs 11/13/22 11/29/22 Rx ergocalciferol (vitamin D2) 1,250 See Rx Instructions .Route 11/27/22 11/29/22 Rx mcg (50,000 unit) capsule .COMPLEX #4 caps New Prescriptions to Start Prescriptions: Height: 1.52 m Weight: 51.71 kg Laboratory Results:: Laboratory Results - last 24 hr 12/06/22 14:53: WBC 10.8, RBC 3.15 L, Hgb 11.1 L, Hct 33.3 L, MCV 105.9 H, MCH 35.4 H, MCHC 33.4, RDW 13.7, Plt Count 399, MPV 7.5, Neut % (Auto) 63.7, Lymph % (Auto) 26.8, Van Zandt % (Auto) 7.5, Eos % (Auto) 1.4, Baso % (Auto) 0.5, Neut # (Auto) 6.9, Lymph # (Auto) 2.9, Van Zandt # (Auto) 0.8, Eos # (Auto) 0.2, Baso # (Auto) 0.1, Sodium 133 L, Potassium 3.9, Chloride 98, Carbon Dioxide 23, Anion Gap 15.9 H, BUN 13, Creatinine 1.60 H, Estimated Creat Clear 31, Estimated GFR 33 L, Est GFR ( Amer) 40 L, Glucose 118 H, Lactate 2.0, Calcium 9.6, Total Bilirubin 0.3, AST 30, ALT 22, Alkaline Phosphatase 97, Troponin I < 0.01, NT-Pro-B Natriuret Pep 225 H, Total Protein 8.4 H D, Albumin 4.1, Globulin 4.3 H, Albumin/Globulin Ratio 1.0 L, TSH 5.27 H 12/06/22 14:56: SARS-CoV-2 (PCR) Not detected, Influenza A Untype (PCR) Not detected, Influenza Type B (PCR) Not detected Medical History: Medical History (Updated 12/06/22 @ 14:57 by Brandy Paredes MD) Anxiety Back Pain History of stroke HTN (hypertension) Nerve pain Seizure disorder Assessment and Plan Assessment and plan all Dx Assessment and Plan for all problems:: Pharmacokinetic dosing service Objective: Patient: Floor: Age: 62 yo Serum creatinine: 1.60 mg/dL Height: 60.0 Inches Weight (kg): 51.7 Assessment: IBW (kg): 45.50 Dosing wt(kg): 51.7 Estimated Creatinine clearance (ml/min): 26.9 CRCL method: Cockcroft and Gault using ibw(default). Drug selected: Vancomycin Loading dose (mg): Vd (liters): 41.4 (factor used: 0.8 L/kg) Alex (hr-1): 0.027 Half life (hrs): 25.67 CLvanco=?? 1.118 L/hr Recommended dose: 1000 mg Interval: 36 hrs Infusion time (hrs): 2.0 Predicted peak (mcg/mL): 37.8 Predicted trough (mcg/mL): 15.09 Total body weight is being used for vancomycin dosing. Recommendations: Give Vancomycin 1000 mg q 36 hrs with an expected Cpeak of 37.8 mcg/ml and an expected Ctrough of 15.09 mcg/ml AUC 0-24 /YULY Data:
[2022-12-06 17:27] LABS: Microscopic, Urine URINE MICROSCOPIC (MICROSCOPIC)
--- NOTE | 2022-12-06 17:29 | PC.NURSE ---
Pt given drink and snack
[2022-12-06 17:32] LABS: Appearance,Urine CLOUDY (Clear); Bilirubin,Urine Negative (Negative); Blood, Urine 1+ (Negative); Color,Urine YELLOW (Yellow); Glucose,Urine (UA) Negative (Negative); Ketones,Urine Negative (Negative); Leukocyte Esterase,Urine 2+ (Negative); Nitrate,Urine POSITIVE (Negative); PH,Urine 5.5 (5.0-8.5); Protein,Urine TRACE (Negative); Urobilinogen,Urine 0.2 EU/dl (0.2)
[2022-12-06 17:33] LABS: Bacteria,Urine 1+ /lpf; RBC,Urine Occasional #/hpf (0-3); Squamous Epithelial Cell,Urine Occasional #/hpf (0-5)
--- NOTE | 2022-12-11 11:39 | PC.NURSE ---
notified dr. griffin of urine culture results-mixed urogenital camilo. Dr. Griffin states no action needed.
== END 2022-12-06 18:04 | disposition home or self-care (01) ==
PROVIDERS: Student in an Organized Health Care Education/Training Program; Emergency Provider Emergency Medicine; PCP Emergency Medicine
DX: N10 Acute pyelonephritis; I95.89 Other hypotension; N17.9 Acute kidney failure, unspecified; R06.02 Shortness of breath; M54.59 Other low back pain; I10 Essential (primary) hypertension; F41.9 Anxiety disorder, unspecified; Z86.73 Personal history of transient ischemic attack (TIA), and cerebral infarction without residual deficits; B96.29 Other Escherichia coli [E. coli] as the cause of diseases classified elsewhere
CPT/HCPCS: 71275; 74177; 80053; 81001; 83605; 83880; 84443; 84484; 85025; 87040; 87086; 87636; 93005; 96365; 96366; 96367; 99285; Q9967

== ENCOUNTER → 2022-12-13 08:35 | Outpatient (CLI) | payer MEDICAID, SELFPAY ==
[2022-12-13 18:53] LABS: Anion Gap 16.8 mEq/L (5-15); Blood Urea Nitrogen 13 mg/dl (7-17); Calcium 9.8 mg/dl (8.4-10.2); Carbon Dioxide 21 mmol/L (22.0-30.0); Chloride 102 mmol/L (98-107); Estimated Glomerular Filt Rate 57 ml/min (>60); GFR (African American) 68 ML/MIN (>60); Glucose 101 mg/dl (74-100); Potassium 4.8 mmoL/L (3.5-5.1); Sodium 135 mmol/L (136-145)
== END ==
PROVIDERS: PCP Emergency Medicine; Visit Provider Emergency Medicine
DX: N12 Tubulo-interstitial nephritis, not specified as acute or chronic (principal)
CPT/HCPCS: 80048

== ENCOUNTER → 2022-12-30 08:48 | Outpatient (CLI) | payer MEDICAID, SELFPAY ==
[2022-12-30 21:37] LABS: Amphetamine/Metha Screen,Urine Negative ng/ml (<1000)
[2022-12-30 21:38] LABS: Barbiturates Screen,Urine Negative ng/ml (<200); Benzodiazepines Screen,Urine Positive ng/ml (<200)
[2022-12-30 21:39] LABS: Cannabinoid Screen,Urine Positive ng/ml (<50); Cocaine Screen,Urine Negative ng/ml (<300)
[2022-12-30 21:40] LABS: Methadone Screen,Urine Negative ng/ml (<300)
[2022-12-30 21:41] LABS: Opiate Screen,Urine Positive ng/ml (<300); Phencyclidine Screen,Urine Negative ng/ml (<25)
== END ==
PROVIDERS: PCP Emergency Medicine; Visit Provider Emergency Medicine
DX: Z79.899 Other long term (current) drug therapy (principal)
CPT/HCPCS: 80305

== ENCOUNTER → 2023-01-21 08:20 | Outpatient (CLI) | payer MEDICAID, SELFPAY ==
[2023-01-21 18:39] LABS: Basophils % 0.5 % (0.1-2.0); Eosinophils # 0.2 K/mm3 (0.0-0.4); Eosinophils % 2.5 % (0.1-12.0); Hematocrit 36.5 % (37.0-47.0); Hemoglobin 11.7 g/dL (12.2-16.2); Lymphocytes # 2.8 K/mm3 (0.7-4.5); Lymphocytes % 34.8 % (10-50); Mean Corpuscular HGB Conc 31.9 g/dL (31.8-35.4); Mean Corpuscular Hemoglobin 34.8 pg (27.0-31.2); Mean Corpuscular Volume 109.1 fl (81-99); Mean Platelet Volume 9.9 fl (7.4-10.4); Monocytes # 0.6 K/mm3 (0.1-1.0); Neutrophils # 4.3 K/mm3 (1.8-7.8); Neutrophils % 54.2 % (37.0-80.0); Platelet Count 458 K/mm3 (142-424); Red Blood Count 3.35 M/mm3 (4.20-5.40); Red Cell Distribution Width 14.4 % (11.5-17.5)
[2023-01-21 18:43] LABS: Alanine Aminotransferase 24 U/L (12-78); Albumin Level 3.6 g/dl (3.5-5.0); Alkaline Phosphatase 85 U/L (38-126); Anion Gap 9.2 mEq/L (5-15); Aspartate Amino Transferase 37 U/L (14-36); Bilirubin,Total 0.3 mg/dl (0.2-1.3); Blood Urea Nitrogen 6 mg/dl (7-17); Calcium 8.7 mg/dl (8.4-10.2); Carbon Dioxide 27 mmol/L (22.0-30.0); Chloride 106 mmol/L (98-107); Estimated Glomerular Filt Rate 73 ml/min (>60); GFR (African American) 89 ML/MIN (>60); Globulin 3.7 g/dL (1.3-3.2); Glucose 100 mg/dl (74-100); Potassium 4.2 mmoL/L (3.5-5.1); Sodium 138 mmol/L (136-145); Total Protein,Serum 7.3 g/dl (6.3-8.2)
[2023-01-21 18:51] LABS: Amphetamine/Metha Screen,Urine Negative ng/ml (<1000)
[2023-01-21 18:52] LABS: Barbiturates Screen,Urine Negative ng/ml (<200)
[2023-01-21 18:53] LABS: Benzodiazepines Screen,Urine Positive ng/ml (<200); Cannabinoid Screen,Urine Positive ng/ml (<50)
[2023-01-21 18:54] LABS: Cocaine Screen,Urine Negative ng/ml (<300)
[2023-01-21 18:55] LABS: Methadone Screen,Urine Negative ng/ml (<300); Opiate Screen,Urine Negative ng/ml (<300)
[2023-01-21 18:56] LABS: Phencyclidine Screen,Urine Negative ng/ml (<25)
[2023-01-21 19:14] LABS: Thyroid Stimulating Hormone 0.91 uIU/mL (0.465-4.68)
== END ==
PROVIDERS: PCP Internal Medicine; Visit Provider Internal Medicine
DX: F41.9 Anxiety disorder, unspecified (principal); I95.9 Hypotension, unspecified; F10.929 Alcohol use, unspecified with intoxication, unspecified
CPT/HCPCS: 80053; 80305; 82043; 84443; 85025

== ENCOUNTER 2023-02-25 07:12 | Outpatient (CLI) | payer MEDICAID, SELFPAY ==
[2023-02-25 18:53] LABS: Alanine Aminotransferase 24 U/L (12-78); Albumin Level 3.5 g/dl (3.5-5.0); Alkaline Phosphatase 104 U/L (38-126); Anion Gap 7.8 mEq/L (5-15); Aspartate Amino Transferase 42 U/L (14-36); Bilirubin,Total 0.4 mg/dl (0.2-1.3); Blood Urea Nitrogen 8 mg/dl (7-17); Calcium 8.8 mg/dl (8.4-10.2); Carbon Dioxide 20 mmol/L (22.0-30.0); Chloride 109 mmol/L (98-107); Estimated Glomerular Filt Rate 85 ml/min (>60); GFR (African American) 103 ML/MIN (>60); Globulin 3.6 g/dL (1.3-3.2); Glucose 94 mg/dl (74-100); Potassium 3.8 mmoL/L (3.5-5.1); Sodium 133 mmol/L (136-145); Total Protein,Serum 7.1 g/dl (6.3-8.2)
[2023-02-25 19:51] LABS: Amphetamine/Metha Screen,Urine Negative ng/ml (<1000); Barbiturates Screen,Urine Negative ng/ml (<200); Benzodiazepines Screen,Urine Positive ng/ml (<200); Cannabinoid Screen,Urine Positive ng/ml (<50); Cocaine Screen,Urine Negative ng/ml (<300); Methadone Screen,Urine Negative ng/ml (<300); Opiate Screen,Urine Negative ng/ml (<300); Phencyclidine Screen,Urine Negative ng/ml (<25)
== END 2023-02-25 23:59 ==
LOC: LAB.DROPOF 02-26 07:12
PROVIDERS: PCP Internal Medicine; Visit Provider Internal Medicine
DX: Z79.899 Other long term (current) drug therapy (principal); I10 Essential (primary) hypertension
CPT/HCPCS: 80053; 80307

== ENCOUNTER 2023-03-25 21:19 | Outpatient (CLI) | payer MEDICAID, SELFPAY ==
[2023-03-25 18:32] LABS: Basophils # 0.1 K/mm3 (0-0.2); Basophils % 0.7 % (0.1-2.0); Eosinophils # 0.1 K/mm3 (0.0-0.4); Eosinophils % 1.6 % (0.1-12.0); Hematocrit 41.4 % (37.0-47.0); Hemoglobin 14.1 g/dL (12.2-16.2); Lymphocytes # 2.3 K/mm3 (0.7-4.5); Mean Corpuscular Hemoglobin 36.7 pg (27.0-31.2); Mean Corpuscular Volume 108.2 fl (81-99); Mean Platelet Volume 9.8 fl (7.4-10.4); Monocytes # 0.7 K/mm3 (0.1-1.0); Monocytes % 8.9 % (1.7-9.3); Neutrophils # 4.4 K/mm3 (1.8-7.8); Neutrophils % 58.7 % (37.0-80.0); Platelet Count 366 K/mm3 (142-424); Red Blood Count 3.83 M/mm3 (4.20-5.40); Red Cell Distribution Width 13.1 % (11.5-17.5); White Blood Count 7.5 K/mm3 (4.8-10.8)
[2023-03-25 18:41] LABS: Chol/HDL Ratio 3.1 (1-3.5); Cholesterol 179 mg/dl (140-200); HDL Cholesterol 58 mg/dl (40-60); Triglycerides 116 mg/dl (30-150); VLDL Cholesterol 23 mg/dL (0-40)
[2023-03-25 18:56] LABS: Direct LDL Cholesterol 91.75 mg/dL (100-129)
== END 2023-03-25 23:59 ==
LOC: LAB.DROPOF 21:19
PROVIDERS: PCP Internal Medicine; Visit Provider Internal Medicine
DX: R53.83 Other fatigue (principal)
CPT/HCPCS: 80061; 85025

== ENCOUNTER 2023-03-28 11:05 | Outpatient (CLI) | payer MEDICAID, SELFPAY ==
[2023-03-28] VITALS (7 sets, daily range): BP systolic 85–127; BP diastolic 55–84; PULSE 56–98; RESP 18; TEMP 36.6; O2SAT 95–98
--- NOTE | 2023-03-28 11:06 | CT_ITS ---
APPROVED REPORT Safety Aide: CLINICAL INDICATION Risk stratification. Of note, this test was initially scheduled as CCTA, but the patient's IV line infiltrated and the patient declined additional IV access. Therefore, the test was switched to coronary artery calcium CT only (only (without contrast). TECHNIQUE Image Acquisition: A 128 slice MDCT scanner ([employer] View) was used for data acquisition. A noncontrast coronary calcium scan was performed. A CT attenuation threshold of 130 Hounsfield units (HU) was used for the detection of calcium in contiguous voxels of 1 sq mm in area to be counted as individual lesions. A tube voltage of 120 KVp was used. The patient received no medications prior to the coronary calcium CT. Image Reconstruction Transaxial images were reconstructed at 0.67 mm slide thickness. Data was reviewed interactively on an advanced workstation capable of 2 and 3-dimensional displays in all conventional reconstruction formats, including multiplanar reformations, maximum intensity projections, curved multiplanar reformations, and volume rendered reconstructions. When applicable, selected routine images describing the relevant coronary anatomy and pathology were saved and sent to PACS. Complications -This test was initially scheduled as CCTA, but the patient's IV line infiltrated and the patient declined additional IV access. Therefore, the test was switched to coronary artery calcium CT only (only (without contrast). Technical Quality Overall image quality was good. Total DLP (Dose-Length Product) is 396.8 mGy-cm. The reported value represents the total of one or more individual components during the CT acquisition of this date and at this time, and as such, the same value may appear in more than one CT report depending on the interpreting/reporting physicians. COMPARISON None FINDINGS CT Coronary Calcium Scoring LMA (Left Main Artery) = 136 LAD (Left Anterior Descending) = 59 LCX (Left Coronary Circumflex) = 13 RCA (Right Coronary Artery) = 140 Total Calcium Score = 348 using the AJ-130 method. There is also identifiable calcification in the ascending and descending thoracic aorta, but not the aortic valve, mitral annulus or mitral valve, pericardium, or myocardium. IMPRESSION -Moderate coronary artery calcification is present. -Total Calcium Score (Agatston Score) = 348 using the AJ-130 method. -The observed calcium score of 348 is at 97th percentile for subjects of the same age, sex, and race/ethnicity. -Of note, this test was initially scheduled as CCTA, but the patient's IV line infiltrated and the patient declined additional IV access. Therefore, the test was switched to coronary artery calcium CT only (only (without contrast). The interpretation of the calcium heart score is based on the following continuum*: 0 = no calcified plaque detected (risk of coronary artery disease is very low ??? less than 5%) 1-10 = calcium detected in extremely minimal levels (risk of coronary diseases is still low ??? less than 10%) 11-100 = mild levels of plaque detected with certainty (mild or minimal narrowing of heart arteries is likely) 101-400 = definite,at least moderate levels of plaque detected (relatively high risk of a heart attack within 3-5 years) >401-999 = extensive levels of plaque detected (high risk of heart attack, high levels of vascular disease are present, high likelihood of at least one significant coronary narrowing) *The calcium heart score quantifies the burden of coronary calcification/plaque in the coronary arteries. The calcium heart score does not evaluate the presence or the burden of non-calcified (i.e. soft) plaque. The coronary and cardiac findings of this Coronary Calcium CT were reviewed, reported, and signed by Olvin Galo MD (Timber Harvester Operator). Conclusion Electronically signed by : Janelle Galo MD 03/28/2023 17:04:15
[2023-03-28] MEDS: METOPROLOL TARTRATE 25MG TABLET *IVABRADINE+METOPROLOL REGIMINE 25 MG PO (11:37)
[2023-03-28] MEDS: IVABRADINE HCL 7.5MG TABLET *IVABRADINE+METOPROLOL REGIMINE 15 MG PO (11:37)
[2023-03-28] MEDS: METOPROLOL TARTRATE 50MG TABLET *IVABRADINE+METOPROLOL REGIMINE 50 MG PO (11:37)
[2023-03-28] MEDS: NITROGLYCERIN 0.4MG SL TABLET 0.400000000000000022 MG SL (12:48)
[2023-03-28] MEDS: IOPAMIDOL-370 (76%);100ML BOTTLE 80 ML IV (13:13)
[2023-03-28] MEDS: 0.9 % SODIUM CHLORIDE 50 ML VIAL IV (13:13)
[2023-03-28] MEDS: SODIUM CHLORIDE 0.9% 10ML SYR (RAD ONLY) 10 ML IV (13:13)
--- NOTE | 2023-03-28 13:15 | PC.NURSE ---
1300-IV INFILTRATED R A/C. TEST STOPPED. r A/C IS SWOLLEN WITH THE CONTRAST UNDER THE SKIN WITH PURPLISH COLOR. SKIN VERY FIRM AND VERY PAINFUL. IV REMOVED AND COLD COMPRESS APPLIED. ER MD, DR. HOME MISHRA BROUGHT IN TO ASSESS. RADIAL PULSE STRONG, NO C/O OF NUMBNESS OR TINGLING. MD SAYS SHOULD BE FINE BUT TO RETURN TO ER IF DEVELOP NUMBNESS OR TINGLING IN R ARM, APPLY ICE. PT VERBALIZED UNDERSTANDING.
--- NOTE | 2023-03-28 13:19 | PC.NURSE ---
PT BROUGHT TO POST OP FOR RECOVERY, ICE PACK APPLIED TO R A/C INFLITRATION SITE. VSS, DRINKING MT. PULSES GOOD IN R RADIAL AND DENIES NUMBESS OR TINGLING, SAYS PAIN IS IMPROVING.
--- NOTE | 2023-03-28 14:05 | PC.NURSE ---
vss. r a/c still swollen but improving and softening. Ice applied. Pt says pain is better, no numbness or tingling.
== END 2023-03-28 14:00 | disposition home or self-care (01) ==
PROVIDERS: PCP Internal Medicine; Visit Provider Physician Assistant
DX: R07.2 Precordial pain (principal); R07.9 Chest pain, unspecified; I25.10 Atherosclerotic heart disease of native coronary artery without angina pectoris; I10 Essential (primary) hypertension; E78.5 Hyperlipidemia, unspecified; I63.9 Cerebral infarction, unspecified; Z72.0 Tobacco use
CPT/HCPCS: 75571; 93306; Q9967

== ENCOUNTER 2023-04-10 13:55 | Outpatient (CLI) | payer MEDICAID, SELFPAY ==
--- NOTE | 2023-04-10 13:56 | CA_ITS ---
APPROVED REPORT EXAM: Comprehensive 2D, Doppler, and color-flow Echocardiogram Tree Planter: Amie Briseno RT(R) Ht: 5 ft 0 in Wt: 114lbs BSA: 1.47 BP: 93/63 mmHg Indications: SOA, smoker, CP, HTN, hyperlipidemia, hx of stroke, seizure disorder, CAD, CVA 2D Dimensions Left Atrium 2.80 cm F: 2.7 - 3.8 EF AP4 47.60 % LVOT 1.90 cm (M/F) 1.5-2.5 GL Strain -17.0 % M-Mode Dimensions RVDd 3.04 cm (0.9-2.6) LVDd 3.93 cm (3.5-5.7) Ao Diam 2.69 cm (2.0-3.7) LVDs 3.22 cm (3.5-5.7) IVSd 0.71 cm (0.6-1.1) PWd 0.68 cm (0.6-1.1) EF (Teich) 38.00% FS 18.10% EDV (Teich) 67.10 mL ESV (Teich) 41.60 mL LV Diastology E Decel Time 153 (160-240 msec) E/A Ratio 0.7 MED E' 6.0 (>= 7 cm/sec) E'/MED E' Ratio 8.70 (<= 14) LAT E' 7.8 (>= 10 cm/sec) E/LAT E' Ratio 6.69 (<= 14) Mitral Valve MV E Max Alcides. 52.0 (40-130 cm/s) MV A Velocity 78.0 (40-130 cm/s) E/A Ratio 0.67 MV Decel. Time 153 (160-240 ms) Tricuspid Valve TR P. Velocity 211.00 cm/s RAP Estimate 10.00 mmHg RVSP 27.70 mmHg Left Ventricle The left ventricle is normal size. Left ventricular systolic function is mildly decreased. There is increased LV wall thickness. There is moderate hypokinesis of the anterior LV wall. Grade 1 diastolic dysfunction is present. LVEF is 45%. Right Ventricle Right ventricle is mildly dilated. Right ventricle is mildly hypokinetic. Atria The left atrium size is normal. The right atrium is mildly dilated. There is no Doppler evidence of interatrial shunt. Lipomatous hypertrophy of the interatrial septum is noted. Aortic Valve The aortic valve is mildly thickened. There is no aortic valvular stenosis. Trace aortic regurgitation. Mitral Valve The mitral valve is mildly thickened. No evidence of mitral valve stenosis. Trace mitral regurgitation. Tricuspid Valve The tricuspid valve leaflets are thin and pliable. Mild tricuspid regurgitation. RVSP is 20-25 mmHg. Pulmonic Valve The pulmonary valve is normal in structure. Trace pulmonic regurgitation. Great Vessels The aortic root is normal in size. The ascending aorta is not well-visualized. IVC is normal in size and collapses >50% with inspiration. Pericardium There is no pericardial effusion. Other Information Study Quality: Technically Difficult Conclusion Technically difficult study due to poor acoustic windows. Mild reduction in LV systolic function (LVEF 45%). Moderate hypokinesis of the anterior LV wall. Mild RV dilation with mild reduction in RV function. Mild RA dilation. Mild TR. Electronically signed by : Janelle Galo MD 04/14/2023 10:51:39
[2023-04-10 15:20] VITALS: PULSE 68; PULSE 70
[2023-04-10] MEDS: ALBUTEROL 0.083% 2.5 MG/3 ML NEB IH (15:20)
== END 2023-04-10 23:59 ==
LOC: RT 13:56
PROVIDERS: PCP Internal Medicine; Visit Provider Physician Assistant
DX: R06.09 Other forms of dyspnea (principal); R07.9 Chest pain, unspecified; R06.2 Wheezing; I25.10 Atherosclerotic heart disease of native coronary artery without angina pectoris; I10 Essential (primary) hypertension; E78.5 Hyperlipidemia, unspecified; I63.9 Cerebral infarction, unspecified; Z72.0 Tobacco use; Z71.6 Tobacco abuse counseling
CPT/HCPCS: 93306; 94060; 94640; 94726; 94729

== ENCOUNTER 2023-04-22 18:36 | Outpatient (CLI) | payer MEDICAID, SELFPAY ==
[2023-04-22 19:29] LABS: Alanine Aminotransferase 31 U/L (12-78); Albumin Level 3.8 g/dl (3.5-5.0); Albumin/Globulin Ratio 1.2 (1.1-1.8); Alkaline Phosphatase 78 U/L (38-126); Anion Gap 9.2 mEq/L (5-15); Aspartate Amino Transferase 36 U/L (14-36); Bilirubin,Total 0.4 mg/dl (0.2-1.3); Blood Urea Nitrogen 9 mg/dl (7-17); Calcium 9.3 mg/dl (8.4-10.2); Carbon Dioxide 26 mmol/L (22.0-30.0); Chloride 101 mmol/L (98-107); Estimated Glomerular Filt Rate 64 ml/min (>60); GFR (African American) 77 ML/MIN (>60); Globulin 3.1 g/dL (1.3-3.2); Glucose 73 mg/dl (74-100); Potassium 4.2 mmoL/L (3.5-5.1); Sodium 132 mmol/L (136-145); Total Protein,Serum 6.9 g/dl (6.3-8.2)
== END 2023-04-22 23:59 ==
LOC: LAB.DROPOF 18:36
PROVIDERS: PCP Internal Medicine; Visit Provider Internal Medicine
DX: R53.83 Other fatigue (principal)
CPT/HCPCS: 80053

== ENCOUNTER 2023-04-28 08:42 | Day surgery (SDC) | payer MEDICAID, SELFPAY ==
[2023-04-28] VITALS (11 sets, daily range): BP systolic 101–147; BP diastolic 72–95; PULSE 78–94; RESP 15–18; TEMP 36.7; O2SAT 93–97; BMI 20.1
--- NOTE | 2023-04-28 | IR_ITS ---
APPROVED REPORT Patient Location: Outpatient PROCEDURES Left heart catheterization Left ventriculogram Selective coronary angiogram INDICATION Acute coronary syndrome Informed consent was obtained prior to the procedure. COMPLICATIONS None Estimated Blood Loss: Less than 10 ml TECHNIQUE One percent lidocaine used to anesthetize the right anterior aspect of the wrist. The right radial artery was accessed via the Seldinger technique. A 6 [place] sheath was placed in the right radial artery. 2.5 mg of Verapamil, 800 mcg of nitroglycerin, 1mg Lidocaine and 5000 U Heparin were given through the arterial sheath. The papa catheter was also used to perform left heart catheterization, left ventriculogram and selective coronary angiogram. At the end of the procedure the sheath was removed good hemostasis was achieved using Traclet band, patient was transferred to the postop holding area in stable condition. ANGIOGRAPHIC RESULTS The left main artery Normal The left anterior descending artery Has an ostial 10 to 20% stenosis followed by mid vessel smooth 20 to 30% mid vessel stenosis the mid to distal LAD is highly tortuous The circumflex artery Is nondominant has proximal 30% stenoses in the first obtuse marginal artery The right coronary artery Is dominant and has proximal to mid vessel 30% stenoses The DILLARD ventriculogram reveals Normal 65% The left ventricular end-diastolic pressure 20 mmHg IMPRESSION Mild nonflow limiting coronary disease as described above Normal ejection fraction Borderline elevated LVEDP PLAN 1. Risk factor modification 2. Medical management Electronically signed by : Jose Luis Gibbs MD 04/29/2023 15:19:07
[2023-04-28 09:20] LABS: Basophils # 0.1 K/mm3 (0-0.2); Basophils % 1.2 % (0.1-2.0); Eosinophils # 0.2 K/mm3 (0.0-0.4); Eosinophils % 2.6 % (0.1-12.0); Hematocrit 39.9 % (37.0-47.0); Hemoglobin 12.5 g/dL (12.2-16.2); Lymphocytes # 1.6 K/mm3 (0.7-4.5); Lymphocytes % 19.9 % (10-50); Mean Corpuscular HGB Conc 31.3 g/dL (31.8-35.4); Mean Corpuscular Hemoglobin 36.3 pg (27.0-31.2); Mean Corpuscular Volume 115.9 fl (81-99); Mean Platelet Volume 7.7 fl (7.4-10.4); Monocytes # 0.5 K/mm3 (0.1-1.0); Monocytes % 6.7 % (1.7-9.3); Neutrophils # 5.5 K/mm3 (1.8-7.8); Neutrophils % 69.5 % (37.0-80.0); Platelet Count 342 K/mm3 (142-424); Red Blood Count 3.44 M/mm3 (4.20-5.40); Red Cell Distribution Width 12.7 % (11.5-17.5)
[2023-04-28 09:28] LABS: Anion Gap 8.8 mEq/L (5-15); Blood Urea Nitrogen 13 mg/dl (7-17); Calcium 9.4 mg/dl (8.4-10.2); Carbon Dioxide 23 mmol/L (22.0-30.0); Chloride 107 mmol/L (98-107); Creatinine Clearance Estimated 55 mL/min (50-200); Estimated Glomerular Filt Rate 73 ml/min (>60); GFR (African American) 89 ML/MIN (>60); Glucose 100 mg/dl (74-100); Potassium 3.8 mmoL/L (3.5-5.1); Sodium 135 mmol/L (136-145)
[2023-04-28] MEDS: HEPARIN 1,000 UNITS/500ML NS (CATH LAB) 3000 UNIT IV (11:49)
[2023-04-28] MEDS: NITROGLYCERIN 800MCG/8ML SYR (CATH LAB) 800 MCG IA (11:50)
[2023-04-28] MEDS: LIDOCAINE 1% 10ML MDV 20 ML IJ (11:50)
[2023-04-28] MEDS: VERAPAMIL 2.5MG/ML 2ML VIAL 2.5 MG IV (11:50)
[2023-04-28] MEDS: 0.9 % SODIUM CHLORIDE 500 ML 25 ML IV (11:50)
[2023-04-28] MEDS: HEPARIN 1,000 UNITS/ML 10ML VIAL (CATH LAB) 10000 UNIT IV (11:50)
[2023-04-28] MEDS: diphenhydrAMINE 50MG/ML VIAL 50 MG IV (11:51)
[2023-04-28] MEDS: MIDAZOLAM HCL 1MG/1ML 5ML VIAL 1 MG IV (12:21)
[2023-04-28] MEDS: FENTANYL 100MCG/2ML VIAL 50 MCG IV (12:21)
[2023-04-28] MEDS: MIDAZOLAM 2MG/2ML VIAL 1 MG IV (12:21)
[2023-04-28] MEDS: IOPAMIDOL-370 (76%);100ML BOTTLE 50 ML IV (13:33)
--- NOTE | 2023-04-28 14:09 | SUR.PHASEII ---
Pt is refusing to stay the required time for post op after cath, educated patient on importance of staying, pt continues to refuse, pt ride made aware. Pt is understanding she is leaving against medical advice.
--- NOTE | 2023-04-28 14:13 | SUR.PHASEII ---
All air removed out of radial band, no s/s of bleeding. Sterile bandage applied to site. 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 MD aware of patient leaving AMA
== END 2023-04-28 14:27 | disposition home or self-care (01) ==
LOC: CATHLAB 08:45
PROVIDERS: PCP Internal Medicine; Visit Provider Internal Medicine
DX: I25.10 Atherosclerotic heart disease of native coronary artery without angina pectoris (principal); I10 Essential (primary) hypertension; F17.210 Nicotine dependence, cigarettes, uncomplicated; R93.1 Abnormal findings on diagnostic imaging of heart and coronary circulation; R06.00 Dyspnea, unspecified
CPT/HCPCS: 80048; 85025; 93458; 99152; C1725; C1769; J1644; Q9967

== ENCOUNTER 2023-05-05 13:53 | Outpatient (CLI) | payer MEDICAID, SELFPAY ==
--- NOTE | 2023-05-05 14:04 | XR_ITS ---
FINAL REPORT CLINICAL HISTORY: weight loss COMPARISON: 12/01/2021 FINDINGS: Two views of the chest were obtained. The heart size and pulmonary vascularity are within normal limits. The mediastinum is normal. No acute pulmonary abnormality is identified. There is no pneumothorax. The bony thorax is intact. IMPRESSION: No active cardiopulmonary disease. Reviewed, Interpreted and Dictated by Cal Hwang III, MD Transcribed by Tiffany Cruz Authenticated and [facility]
[2023-05-05 14:59] LABS: Alanine Aminotransferase 24 U/L (12-78); Albumin Level 3.7 g/dl (3.5-5.0); Alkaline Phosphatase 81 U/L (38-126); Aspartate Amino Transferase 26 U/L (14-36); Bilirubin,Direct 0.3 mg/dl (0.0-0.4); Bilirubin,Indirect 0.2 mg/dL (0.0-0.9); Bilirubin,Total 0.5 mg/dl (0.2-1.3); Bilirubin,Unconjugated 0.2 mg/dL (0.0-1.1); Chol/HDL Ratio 3.3 (1-3.5); Cholesterol 160 mg/dl (140-200); HDL Cholesterol 48 mg/dl (40-60); Total Protein,Serum 6.8 g/dl (6.3-8.2); Triglycerides 81 mg/dl (30-150); VLDL Cholesterol 16 mg/dL (0-40)
[2023-05-05 15:11] LABS: Direct LDL Cholesterol 80.51 mg/dL (100-129)
== END 2023-05-05 23:59 ==
LOC: LAB 13:54
PROVIDERS: PCP Internal Medicine; Visit Provider Nurse Practitioner Family
DX: R06.2 Wheezing (principal); J44.9 Chronic obstructive pulmonary disease, unspecified; D64.9 Anemia, unspecified; E78.5 Hyperlipidemia, unspecified; I10 Essential (primary) hypertension; Z86.73 Personal history of transient ischemic attack (TIA), and cerebral infarction without residual deficits; F17.210 Nicotine dependence, cigarettes, uncomplicated
CPT/HCPCS: 36415; 71046; 80061; 80076

== ENCOUNTER 2023-07-17 13:30 | Observation (INO) | payer MEDICAID, SELFPAY ==
[2023-07-17 13:32] VITALS: BP 100/73; PULSE 100; RESP 18; TEMP 36.7; O2SAT 99; BMI 21.4
[2023-07-17 13:53] VITALS: BMI 21.4
[2023-07-17] MEDS: LACTATED RINGERS 1000ML 1,000 ML 999 ML IV ×2 (14:00→15:55)
[2023-07-17 14:05] LABS: Basophils # 0.1 K/mm3 (0-0.2); Basophils % 0.8 % (0.1-2.0); Eosinophils # 0.1 K/mm3 (0.0-0.4); Hematocrit 38.3 % (37.0-47.0); Hemoglobin 12.6 g/dL (12.2-16.2); Lymphocytes # 2.2 K/mm3 (0.7-4.5); Lymphocytes % 19.5 % (10-50); Mean Corpuscular HGB Conc 32.8 g/dL (31.8-35.4); Mean Corpuscular Hemoglobin 36.2 pg (27.0-31.2); Mean Corpuscular Volume 110.1 fl (81-99); Mean Platelet Volume 7.7 fl (7.4-10.4); Monocytes # 0.8 K/mm3 (0.1-1.0); Neutrophils # 8.1 K/mm3 (1.8-7.8); Neutrophils % 71.7 % (37.0-80.0); Platelet Count 513 K/mm3 (142-424); Red Blood Count 3.48 M/mm3 (4.20-5.40); Red Cell Distribution Width 13.8 % (11.5-17.5); White Blood Count 11.2 K/mm3 (4.8-10.8)
[2023-07-17 14:10] LABS: Alanine Aminotransferase 32 U/L (12-78); Albumin Level 4.4 g/dl (3.5-5.0); Alkaline Phosphatase 70 U/L (38-126); Anion Gap 18.1 mEq/L (5-15); Aspartate Amino Transferase 36 U/L (14-36); Bilirubin,Total 0.5 mg/dl (0.2-1.3); Blood Urea Nitrogen 34 mg/dl (7-17); Calcium 10.3 mg/dl (8.4-10.2); Carbon Dioxide 24 mmol/L (22.0-30.0); Chloride 103 mmol/L (98-107); Creatinine Clearance Estimated 25 mL/min (50-200); Estimated Glomerular Filt Rate 27 ml/min (>60); GFR (African American) 33 ML/MIN (>60); Globulin 4.2 g/dL (1.3-3.2); Glucose 188 mg/dl (74-100); Potassium 4.1 mmoL/L (3.5-5.1); Sodium 141 mmol/L (136-145); Total Protein,Serum 8.6 g/dl (6.3-8.2)
--- NOTE | 2023-07-17 14:43 | HMH.EDGENADL ---
Discharge Plan Disposition Patient Disposition: Admitted Prescriptions Prescriptions: No Action atorvastatin 10 mg tablet 10 mg PO DAILY Qty: 90 4RF baclofen 5 mg tablet See Rx Instructions .ROUTE .COMPLEX Qty: 90 4RF Dose Instruction: TAKE ONE TABLET BY MOUTH 3 TIMES A DAY Rx Instructions: TAKE ONE TABLET BY MOUTH 3 TIMES A DAY bupropion HCl 150 mg tablet extended release 24 hr 150 mg PO DAILY Qty: 90 4RF cyanocobalamin (vitamin B-12) 1,000 mcg tablet, sublingual 1,000 mcg PO DAILY 90 Days Qty: 90 4RF diazepam 5 mg tablet 2.5 mg PO BID PRN (Reason: pain) 30 Days Qty: 30 1RF ergocalciferol (vitamin D2) 1,250 mcg (50,000 unit) capsule See Rx Instructions .ROUTE .COMPLEX Qty: 12 1RF Dose Instruction: TAKE ONE CAPSULE BY MOUTH EVERY WEEK Rx Instructions: TAKE ONE CAPSULE BY MOUTH EVERY WEEK ferrous sulfate 325 mg (65 mg iron) tablet 325 mg PO DAILY Qty: 90 4RF hydrochlorothiazide 12.5 mg tablet 12.5 mg PO DAILY Qty: 90 4RF levetiracetam 750 mg tablet See Rx Instructions .ROUTE .COMPLEX Qty: 120 4RF Dose Instruction: TAKE 2 TABLETS BY MOUTH 2 TIMES A DAY Rx Instructions: TAKE 2 TABLETS BY MOUTH 2 TIMES A DAY lisinopril 10 mg tablet 10 mg PO DAILY 90 Days Qty: 90 4RF metoprolol succinate 25 mg tablet extended release 24 hr 25 mg PO DAILY 90 Days Qty: 90 4RF oxycodone-acetaminophen 5-325 mg tablet 1 tab PO BID PRN (Reason: pain) 30 Days Qty: 60 0RF oxycodone-acetaminophen 5-325 mg tablet 1 tab PO BID 30 Days Qty: 60 0RF quetiapine 300 mg tablet 300 mg PO DAILY 90 Days Qty: 90 2RF aspirin 81 mg tablet,delayed release (DR/EC) See Rx Instructions .ROUTE .COMPLEX Qty: 60 2RF Dose Instruction: TAKE ONE TABLET BY MOUTH 2 TIMES A DAY Rx Instructions: TAKE ONE TABLET BY MOUTH 2 TIMES A DAY albuterol sulfate [ProAir HFA] 90 mcg/actuation HFA aerosol inhaler See Rx Instructions .ROUTE .COMPLEX Rx Instructions: INHALE 2 PUFFS BY MOUTH EVERY 4 TO 6 HOURS NEEDED FOR SHORTNESS OF BREATH OR WHEEZING Referrals Follow up/Referrals: Jose De Jesus Kovacs DO [Primary Care Provider] - See instructions Clinical Impressions Clinical Impression: SHADY (acute kidney injury), Pyelonephritis Instructions Patient Instructions: DI for Urinary Tract Infection (UTI), DI for Urinary Tract Infection in Children Discharge ED Provider: Gilson Griffin General Adult HPI <Gilson Griffin MD - Last Filed: 07/17/23 15:23> General Chief complaint: Urogenital-Female Stated complaint: loss of appitite weakness dizziness Time Seen by Provider: 07/17/23 13:45 Mode of Arrival: Wheelchair Limitations: No Limitations Description of Symptoms (Recalled from ER Triage Doc. 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 DENIES N/V/D. REPORTS BURNING WITH URINATION. History of Present Illness HPI narrative: Please note that above description of symptoms, in this electronic medical record under categorization of recalled from ER triage doctor by RN are reflective of an initial nursing assessment, however, is not reflective of my full history and physical exam that was personally taken and clarified. Consequentially, this preceding description of symptoms, which may include the patient's categorized chief complaint in the EMR, do not reflect my personal clinical impression, and the ultimate description of history of present illness and patient stated complaints should be deferred to this section of the note. Unless stated otherwise or congruent with this section of the note, additional signs, symptoms, or incongruence should be interpreted as inaccurate with my clinical impression. Related Data Home Medications Medication Instructions Recorded Confirmed albuterol sulfate 90 mcg/actuation See Rx Instructions .Route 07/15/22 06/16/23 aerosol inhaler (ProAir HFA) .COMPLEX SOA Previous Rx's Medication Instructions Recorded aspirin 81 mg tablet,delayed See Rx Instructions .Route 10/31/22 release .COMPLEX #60 tabs atorvastatin 10 mg tablet 10 mg PO DAILY Cholesterol #90 tabs 06/16/23 baclofen 5 mg tablet See Rx Instructions .Route 06/16/23 .COMPLEX #90 tabs bupropion HCl 150 mg 24 hr tablet, 150 mg PO DAILY #90 tabs 06/16/23 extended release cyanocobalamin (vitamin B-12) 1,000 mcg PO DAILY 90 days #90 tabs 06/16/23 1,000 mcg sublingual tablet diazepam 5 mg tablet 2.5 mg (1/2 x 5 mg) PO BID PRN 06/16/23 pain 30 days #30 tabs ergocalciferol (vitamin D2) 1,250 See Rx Instructions .Route 06/16/23 mcg (50,000 unit) capsule .COMPLEX vit D deficiency #12 caps ferrous sulfate 325 mg (65 mg 325 mg PO DAILY low HGB #90 tabs 06/16/23 iron) tablet hydrochlorothiazide 12.5 mg tablet 12.5 mg PO DAILY #90 tabs 06/16/23 levetiracetam 750 mg tablet See Rx Instructions .Route 06/16/23 .COMPLEX #120 tabs lisinopril 10 mg tablet 10 mg PO DAILY 90 days #90 tabs 06/16/23 metoprolol succinate 25 mg 25 mg PO DAILY 90 days #90 tabs 06/16/23 tablet,extended release 24 hr oxycodone-acetaminophen 5 mg-325 1 tab PO BID 30 days #60 tabs 06/16/23 mg tablet oxycodone-acetaminophen 5 mg-325 1 tab PO BID PRN pain 30 days #60 06/16/23 mg tablet tabs quetiapine 300 mg tablet 300 mg PO DAILY 90 days #90 tabs 06/16/23 Allergies Allergy/AdvReac Type Severity Reaction Status Date / Time codeine Allergy Mild Verified 06/16/23 14:08 [facility] <Gilson Griffin MD - Last Filed: 07/17/23 15:23> [facility] Disclaimer: The information contained in this section may have been updated after the patient was seen, as this information can be updated by other users. Medical History (Updated 07/17/23 @ 16:58 by Brandy Medellin MD) CAD in [place] artery Hyperlipidemia Hypertension COPD (chronic obstructive pulmonary disease) Wheezing Dyspnea History of stroke Seizure disorder Nerve pain HTN (hypertension) Anxiety Back Pain Surgical History History of hysterectomy Family History Other Family history of cancer Family history of myocardial infarction Social History Smoking Status: Current every day smoker tobacco type: cigarettes packs per day: 1 second hand exposure: Yes alcohol intake: never substance use type: marijuana, crack/cocaine, heroin and opiates current occupational status: unemployed Travel in the last 8 weeks: None household members: significant other housing: house number of children: 2 <Gilson Griffin MD - Last Filed: 07/17/23 15:23> ROS Obtained: Yes All systems reviewed & no additional complaints except as documented Physical Exam <Gilson Griffin MD - Last Filed: 07/17/23 15:23> General General appearance: alert, in no apparent distress and cachectic (Chronically ill) Head Head exam: atraumatic and normocephalic Eye Eye exam: Present normal appearance, PERRL and EOMI ENT ENT exam: Present mucous membranes dry Neck Neck exam: Present normal inspection, full ROM and trachea midline Respiratory Respiratory exam: Present normal lung sounds bilaterally; Absent respiratory distress, wheezes, stridor, accessory muscle use or prolonged expiratory phase Cardiovascular Cardiovascular exam: Present normal rhythm; Absent regular rate Abdominal Exam Abdominal exam: Present soft and tenderness; Absent distention, guarding, rebound or rigidity Abdominal tenderness: Present suprapubic and mild Extremities Exam Extremities exam: Absent edema Back Exam Back exam: Present CVA tenderness (R) and CVA tenderness (L) Neurological Exam Neurological exam: Present alert, oriented X3 and normal gait (Wheelchair-bound); Absent CN II-XII intact (Baseline blindness) or motor sensory deficit Skin Skin exam: Present warm and dry; Absent diaphoresis or erythema Medical Decision Making <Gilson Griffin MD - Last Filed: 07/17/23 15:23> Medical Records Medical records reviewed: Yes I reviewed the patient's medical records. Georgi Inquiry Pt receiving controlled substance: No Georgi was queried for this patient: No Vital Signs: 07/17/23 13:32 Temperature 98.0 F Temperature Source Oral Pulse Rate [Radial] 100 H Respiratory Rate 18 Blood Pressure [Right Arm] 100/73 L Blood Pressure Mean [Right Arm] 82 Blood Pressure Source [Right Arm] Automatic Cuff Blood Pressure Position [Right Arm] Sitting 02 Sat by Pulse Oximetry 99 Oxygen Delivery Method Room Air Lab Data Lab Results 07/17/23 13:40: WBC 11.2 H, RBC 3.48 L, Hgb 12.6, Hct 38.3, MCV 110.1 H, MCH 36.2 H, MCHC 32.8, RDW 13.8, Plt Count 513 H, MPV 7.7, Neut % (Auto) 71.7, Lymph % (Auto) 19.5, [place] % (Auto) 7.0, Eos % (Auto) 1.0, Baso % (Auto) 0.8, Neut # (Auto) 8.1 H, Lymph # (Auto) 2.2, [place] # (Auto) 0.8, Eos # (Auto) 0.1, Baso # (Auto) 0.1, Sodium 141, Potassium 4.1, Chloride 103, Carbon Dioxide 24, Anion Gap 18.1 H, BUN 34 H, Creatinine 1.90 H, Estimated Creat Clear 25, Estimated GFR 27 L, Est GFR ( Amer) 33 L, Glucose 188 H, Calcium 10.3 H, Total Bilirubin 0.5, AST 36, ALT 32, Alkaline Phosphatase 70, Total Protein 8.6 H D, Albumin 4.4, Globulin 4.2 H, Albumin/Globulin Ratio 1.0 L 07/17/23 15:00: Urine Color Yellow, Urine Appearance Clear, Urine pH 6.0, Ur Specific [place] 1.020, Urine Protein Negative, Urine Glucose (UA) Negative, Urine Ketones Negative, Urine Blood Negative, Urine Nitrate Negative, Urine Bilirubin 1+ A, Urine Urobilinogen 0.2, Ur Leukocyte Esterase 2+ A, Urine RBC None, Urine WBC 10-20, Ur Squamous Epith Cells 3-5, Urine Bacteria 1+, Hyaline Casts Occasional, Urine Mucus 1+, Urine Trichomonas 2+ 07/17/23 13:40 07/17/23 13:40 Orders (Tests/Meds): ED MEDICATIONS Generic Name Dose Route Start Last Admin Trade Name Freq PRN Reason Stop Dose Admin Ceftriaxone Sodium 1 gm/ 50 mls @ 100 mls/hr 07/17/23 16:55 Sodium Chloride IV 07/17/23 17:24 ONCE ONE Sodium Chloride 10 ml 07/17/23 13:54 Sodium Chloride 0.9% 10ml Flush Syringe IV 08/16/23 13:53 NEEDED PRN Maintain IV Site Discontinued Medications Generic Name Dose Route Start Last Admin Trade Name Freq PRN Reason Stop Dose Admin Lactated Ringer's 1,000 mls @ 999 mls/hr 07/17/23 13:54 07/17/23 14:00 Lactated Ringer's 1000 Ml Bag IV 07/17/23 14:54 999 mls/hr .Q1H1M ONE Administration Lactated Ringer's 1,000 mls @ 999 mls/hr 07/17/23 15:16 07/17/23 15:55 Lactated Ringer's 1000 Ml Bag IV 07/17/23 16:16 999 mls/hr .Q1H1M ONE Administration Ondansetron HCl 4 mg 07/17/23 14:46 07/17/23 14:54 Ondansetron 4mg/2ml Vial IV 07/17/23 14:47 4 mg ONCE ONE Administration ORDERS Category Date Time Status Complete Blood Count Auto Diff Stat Lab 07/17/23 13:40 Completed Comprehensive Metabolic Panel Stat Lab 07/17/23 13:40 Completed Urinalysis and Microscopic Stat Lab 07/17/23 15:00 Completed Urine Culture Stat Micro 07/17/23 15:00 Received Medical Decision Narrative: 62 no history of hypertension, hyperlipidemia, CKD, seizure disorder on Keppra, CAD, CKD, 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 Patient states that she has not had much of an appetite for the past 2 or 3 months, has chronic abdominal pain, and chronic back pain but over the past few days has developed worsening bilateral lower back pain, dysuria, and lower abdominal pain. She is also been vomiting and unable to keep anything down in 3 to 4 days. States that she feels dehydrated, unable to keep even water down. No cough, fevers or chills, chest pain, shortness of breath, falls, no other complaints at this time. History was obtained via conversation with patient and caregiver. On arrival, patient hemodynamically stable, alert, oriented x4, appropriate, GCS 15. At neurologic baseline per her and caregiver. Full physical exam performed and significant for chronically ill-appearing woman who is in no acute distress. She does have lower abdominal tenderness in suprapubic region, it is minimally tender, no guarding or peritonitis. She does have bilateral flank tenderness, but states she thinks this may be chronic. Dry mucous membranes, heart rate in the 90s on my exam. Mildly hypotensive. Differential includes UTI, pyelonephritis, dehydration, deconditioning, malnutrition, among others. Patient was given fluid bolus, Zofran for symptomatic management and correction of underlying abnormalities. Workup independently interpreted and significant for nonactionable CBC. Chemistry with appears to be prerenal SHADY with BUN 34, creatinine 1.9. Anion gap mildly elevated 18.1, glucose 188. Urinalysis still pending given patient's dehydration and boluses when handed off to oncoming physician. Forestry Technical Officer disclaimer Much of this encounter note is an electronic outside salesman spoken language to printed text. Electronic outside salesman of the spoken language may permit errors. Although I have reviewed the note, some errors may still exist. <Brandy Medellin MD - Last Filed: 07/17/23 16:59> Vital Signs: 07/17/23 13:32 Temperature 98.0 F Temperature Source Oral Pulse Rate [Radial] 100 H Respiratory Rate 18 Blood Pressure [Right Arm] 100/73 L Blood Pressure Mean [Right Arm] 82 Blood Pressure Source [Right Arm] Automatic Cuff Blood Pressure Position [Right Arm] Sitting 02 Sat by Pulse Oximetry 99 Oxygen Delivery Method Room Air Lab Data Lab results reviewed: Yes I reviewed the patient's lab results. Lab Results 07/17/23 13:40: WBC 11.2 H, RBC 3.48 L, Hgb 12.6, Hct 38.3, MCV 110.1 H, MCH 36.2 H, MCHC 32.8, RDW 13.8, Plt Count 513 H, MPV 7.7, Neut % (Auto) 71.7, Lymph % (Auto) 19.5, [place] % (Auto) 7.0, Eos % (Auto) 1.0, Baso % (Auto) 0.8, Neut # (Auto) 8.1 H, Lymph # (Auto) 2.2, [place] # (Auto) 0.8, Eos # (Auto) 0.1, Baso # (Auto) 0.1, Sodium 141, Potassium 4.1, Chloride 103, Carbon Dioxide 24, Anion Gap 18.1 H, BUN 34 H, Creatinine 1.90 H, Estimated Creat Clear 25, Estimated GFR 27 L, Est GFR ( Amer) 33 L, Glucose 188 H, Calcium 10.3 H, Total Bilirubin 0.5, AST 36, ALT 32, Alkaline Phosphatase 70, Total Protein 8.6 H D, Albumin 4.4, Globulin 4.2 H, Albumin/Globulin Ratio 1.0 L 07/17/23 15:00: Urine Color Yellow, Urine Appearance Clear, Urine pH 6.0, Ur Specific [place] 1.020, Urine Protein Negative, Urine Glucose (UA) Negative, Urine Ketones Negative, Urine Blood Negative, Urine Nitrate Negative, Urine Bilirubin 1+ A, Urine Urobilinogen 0.2, Ur Leukocyte Esterase 2+ A, Urine RBC None, Urine WBC 10-20, Ur Squamous Epith Cells 3-5, Urine Bacteria 1+, Hyaline Casts Occasional, Urine Mucus 1+, Urine Trichomonas 2+ Orders (Tests/Meds): ED MEDICATIONS Generic Name Dose Route Start Last Admin Trade Name Freq PRN Reason Stop Dose Admin Ceftriaxone Sodium 1 gm/ 50 mls @ 100 mls/hr 07/17/23 16:55 Sodium Chloride IV 07/17/23 17:24 ONCE ONE Sodium Chloride 10 ml 07/17/23 13:54 Sodium Chloride 0.9% 10ml Flush Syringe IV 08/16/23 13:53 NEEDED PRN Maintain IV Site Discontinued Medications Generic Name Dose Route Start Last Admin Trade Name Freq PRN Reason Stop Dose Admin Lactated Ringer's 1,000 mls @ 999 mls/hr 07/17/23 13:54 07/17/23 14:00 Lactated Ringer's 1000 Ml Bag IV 07/17/23 14:54 999 mls/hr .Q1H1M ONE Administration Lactated Ringer's 1,000 mls @ 999 mls/hr 07/17/23 15:16 07/17/23 15:55 Lactated Ringer's 1000 Ml Bag IV 07/17/23 16:16 999 mls/hr .Q1H1M ONE Administration Ondansetron HCl 4 mg 07/17/23 14:46 07/17/23 14:54 Ondansetron 4mg/2ml Vial IV 07/17/23 14:47 4 mg ONCE ONE Administration ORDERS Category Date Time Status Complete Blood Count Auto Diff Stat Lab 07/17/23 13:40 Completed Comprehensive Metabolic Panel Stat Lab 07/17/23 13:40 Completed Urinalysis and Microscopic Stat Lab 07/17/23 15:00 Completed Urine Culture Stat Micro 07/17/23 15:00 Received Medical Decision Narrative: 62 no history of hypertension, hyperlipidemia, CKD, seizure disorder on Keppra, CAD, CKD, 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 Patient states that she has not had much of an appetite for the past 2 or 3 months, has chronic abdominal pain, and chronic back pain but over the past few days has developed worsening bilateral lower back pain, dysuria, and lower abdominal pain. She is also been vomiting and unable to keep anything down in 3 to 4 days. States that she feels dehydrated, unable to keep even water down. No cough, fevers or chills, chest pain, shortness of breath, falls, no other complaints at this time. History was obtained via conversation with patient and caregiver. On arrival, patient hemodynamically stable, alert, oriented x4, appropriate, GCS 15. At neurologic baseline per her and caregiver. Full physical exam performed and significant for chronically ill-appearing woman who is in no acute distress. She does have lower abdominal tenderness in suprapubic region, it is minimally tender, no guarding or peritonitis. She does have bilateral flank tenderness, but states she thinks this may be chronic. Dry mucous membranes, heart rate in the 90s on my exam. Mildly hypotensive. Differential includes UTI, pyelonephritis, dehydration, deconditioning, malnutrition, among others. Patient was given fluid bolus, Zofran for symptomatic management and correction of underlying abnormalities. Workup independently interpreted and significant for nonactionable CBC. Chemistry with appears to be prerenal SHADY with BUN 34, creatinine 1.9. Anion gap mildly elevated 18.1, glucose 188. Urinalysis still pending given patient's dehydration and boluses when handed off to oncoming physician. Forestry Technical Officer disclaimer Much of this encounter note is an electronic transc ription spoken language to printed text. Electronic outside salesman of the spoken language may permit errors. Although I have reviewed the note, some errors may still exist. Reassessment this is Dr. Medellin at 4:58 PM I took over from Dr. Griffin pending patient's urinalysis. Patient had flank pain urinalysis is positive for urinary tract infection Rocephin has been administered no evidence of any significant sepsis right now. Or endorgan damage or shock. Patient does have acute kidney injury with a creatinine of 0.8 at baseline now 1.9. She will need to be admitted for further evaluation I will discuss the case with hospital medicine for admission. Critical Care <Gilson Griffin MD - Last Filed: 07/17/23 15:23> Critical Care Time Critical Care Time: No
[2023-07-17] MEDS: ONDANSETRON 4MG/2ML VIAL 4 MG IV (14:54)
[2023-07-17 15:05] LABS: Microscopic, Urine URINE MICROSCOPIC (MICROSCOPIC)
[2023-07-17 15:26] LABS: Appearance,Urine CLEAR (Clear); Blood, Urine Negative (Negative); Color,Urine YELLOW (Yellow); Glucose,Urine (UA) Negative (Negative); Ketones,Urine Negative (Negative); Leukocyte Esterase,Urine 2+ (Negative); Nitrate,Urine Negative (Negative); Protein,Urine Negative (Negative); Urobilinogen,Urine 0.2 EU/dl (0.2)
[2023-07-17 15:34] LABS: Bilirubin,Urine 1+ (Negative)
[2023-07-17 15:47] LABS: Bacteria,Urine 1+ /lpf; Mucus,Urine 1+ /lpf; Trichomonas,Urine 2+ /lpf
[2023-07-17 15:48] LABS: Hyaline Casts,Urine Occasional #/lpf (0)
--- NOTE | 2023-07-17 16:14 | PC.NURSE ---
ROUNDED ON PT, NO NEEDS AT THIS TIME
--- NOTE | 2023-07-17 16:58 | PC.NURSE ---
DR PAREDES CONTACTED DR BUSTOS FOR ADMISSION
--- NOTE | 2023-07-17 17:02 | PC.NURSE ---
DR PAREDES SPEAKING WITH DR BUSTOS FOR ADMISSION
--- NOTE | 2023-07-17 17:07 | EXP.HP ---
History of Present Illness *Admission Date: 07/17/23 *Reason for visit:: back, nausea *History of present illness: Ms. Cedeño is a 62-year-old female with history of hypertension, CKD, seizure disorder, CAD, CVA with subsequent blindness. She presented with several days of decreased appetite and worsening low back pain. She does not have much of an appetite for the past several days, increased abdominal pain. Back pain for the past few days. Her caregiver came to check on her today and recommended she come to the ER for evaluation. She has had increased dysuria and lower abdominal pain. No kaylee fever. Reported vomiting in the ER but did not, no vomiting on my exam. Workup in the ER concerning for dehydration with SHADY. Urine positive for infection. Given back pain, clinically has pyelonephritis. Initiated on IV antibiotics, given fluid bolus, and medicine consulted for admission. On arrival to the floor, patient is feeling better. She denies chest pain, shortness of breath, headache. Stable on room air. [facility] Disclaimer: The information contained in this section may have been updated after the patient was seen, as this information can be updated by other users. Medical History (Updated 07/17/23 @ 21:37 by Branden Camacho MD) CAD in jackson artery Hyperlipidemia Hypertension COPD (chronic obstructive pulmonary disease) Wheezing Dyspnea History of stroke Seizure disorder Nerve pain HTN (hypertension) Anxiety Back Pain Surgical History History of hysterectomy Family History Other Family history of cancer Family history of myocardial infarction Social History Smoking Status: Current every day smoker tobacco type: cigarettes packs per day: 1 second hand exposure: Yes alcohol intake: former substance use type: marijuana, crack/cocaine, heroin and opiates current occupational status: unemployed Travel in the last 8 weeks: None household members: significant other housing: house number of children: 2 Review of Systems Review of Systems Review of systems (narrative): 14 point review of systems performed, pertinent positives and negatives as per HPI Meds Home Medications and Allergies Home Medications Medication Instructions Recorded Confirmed Type albuterol sulfate 90 mcg/actuation See Rx Instructions .Route 07/15/22 07/17/23 History aerosol inhaler (ProAir HFA) .COMPLEX SOA aspirin 81 mg tablet,delayed See Rx Instructions .Route 10/31/22 07/17/23 Rx release .COMPLEX #60 tabs atorvastatin 10 mg tablet 10 mg PO DAILY Cholesterol #90 tabs 06/16/23 07/17/23 Rx baclofen 5 mg tablet See Rx Instructions .Route 06/16/23 07/17/23 Rx .COMPLEX #90 tabs bupropion HCl 150 mg 24 hr tablet, 150 mg PO DAILY #90 tabs 06/16/23 07/17/23 Rx extended release cyanocobalamin (vitamin B-12) 1,000 mcg PO DAILY 90 days #90 tabs 06/16/23 07/17/23 Rx 1,000 mcg sublingual tablet diazepam 5 mg tablet 2.5 mg (1/2 x 5 mg) PO BID PRN 06/16/23 07/17/23 Rx pain 30 days #30 tabs ergocalciferol (vitamin D2) 1,250 See Rx Instructions .Route 06/16/23 07/17/23 Rx mcg (50,000 unit) capsule .COMPLEX vit D deficiency #12 caps ferrous sulfate 325 mg (65 mg 325 mg PO DAILY low HGB #90 tabs 06/16/23 07/17/23 Rx iron) tablet hydrochlorothiazide 12.5 mg tablet 12.5 mg PO DAILY #90 tabs 06/16/23 07/17/23 Rx lisinopril 10 mg tablet 10 mg PO DAILY 90 days #90 tabs 06/16/23 07/17/23 Rx metoprolol succinate 25 mg 25 mg PO DAILY 90 days #90 tabs 06/16/23 07/17/23 Rx tablet,extended release 24 hr oxycodone-acetaminophen 5 mg-325 1 tab PO BID 30 days #60 tabs 06/16/23 07/17/23 Rx mg tablet oxycodone-acetaminophen 5 mg-325 1 tab PO BID PRN pain 30 days #60 06/16/23 07/17/23 Rx mg tablet tabs quetiapine 300 mg tablet 300 mg PO DAILY 90 days #90 tabs 06/16/23 07/17/23 Rx levetiracetam 1,000 mg tablet 1,000 mg PO BID 07/17/23 07/17/23 History New Prescriptions to Start Prescriptions: Allergies Allergy/AdvReac Type Severity Reaction Status Date / Time codeine Allergy Mild Verified 06/16/23 14:08 Exam Data for Last 24 hours Vital signs and Labs for Last 24 Hours: Temp Pulse Resp BP Pulse Ox O2 Del Method 98.0 F 100 H 18 100/73 L 99 Room Air 07/17/23 13:32 07/17/23 13:32 07/17/23 13:32 07/17/23 13:32 07/17/23 13:32 07/17/23 13:32 Laboratory Results - last 24 hr 07/17/23 13:40: WBC 11.2 H, RBC 3.48 L, Hgb 12.6, Hct 38.3, MCV 110.1 H, MCH 36.2 H, MCHC 32.8, RDW 13.8, Plt Count 513 H, MPV 7.7, Neut % (Auto) 71.7, Lymph % (Auto) 19.5, Geary % (Auto) 7.0, Eos % (Auto) 1.0, Baso % (Auto) 0.8, Neut # (Auto) 8.1 H, Lymph # (Auto) 2.2, Geary # (Auto) 0.8, Eos # (Auto) 0.1, Baso # (Auto) 0.1, Sodium 141, Potassium 4.1, Chloride 103, Carbon Dioxide 24, Anion Gap 18.1 H, BUN 34 H, Creatinine 1.90 H, Estimated Creat Clear 25, Estimated GFR 27 L, Est GFR ( Amer) 33 L, Glucose 188 H, Calcium 10.3 H, Total Bilirubin 0.5, AST 36, ALT 32, Alkaline Phosphatase 70, Total Protein 8.6 H D, Albumin 4.4, Globulin 4.2 H, Albumin/Globulin Ratio 1.0 L 07/17/23 15:00: Urine Color Yellow, Urine Appearance Clear, Urine pH 6.0, Ur Specific Palmetto 1.020, Urine Protein Negative, Urine Glucose (UA) Negative, Urine Ketones Negative, Urine Blood Negative, Urine Nitrate Negative, Urine Bilirubin 1+ A, Urine Urobilinogen 0.2, Ur Leukocyte Esterase 2+ A, Urine RBC None, Urine WBC 10-20, Ur Squamous Epith Cells 3-5, Urine Bacteria 1+, Hyaline Casts Occasional, Urine Mucus 1+, Urine Trichomonas 2+ I & O for Last 24 hours: Intake & Output 07/14/23 07/15/23 07/16/23 07/17/23 23:59 23:59 23:59 23:59 Weight 49.895 kg Constitutional Constitutional: no acute distress, average body habitus, chronically ill appearing and cooperative *Routine HEENT Exam Head: Present normocephalic Eye: Present EOMI ENT: Present mucous membranes moist Comments: vision impaired *Routine Neck Exam Neck: Present supple; Absent lymphadenopathy *Routine Respiratory Exam Respiratory: Present CTA bilaterally; Absent rhonchi or wheezes *Routine Cardiovascular Exam Cardiovascular: Present RRR *Routine Abdominal Exam Abdominal: Present soft and normoactive bowel sounds; Absent tenderness or distended *Routine Rectal Exam Rectal:: deferred *Routine Genitalia Exam Genitalia:: deferred *Routine Extremities Exam Extremities: Absent cyanosis, clubbing or edema Routine Back/Spine/Pelvis Exam Back/Spine: Present CVA tenderness (left worse than right) *Routine Skin Exam Skin: Present intact and warm; Absent rash *Routine Neurological Exam Neurological: Present alert, oriented X3 and moving all extremities; Absent altered mental status Assessment and Plan *Assessment and plan (1) Sepsis: Status: Acute Category: Medical Code(s): A41.9 - Sepsis, unspecified organism (2) Pyelonephritis: Status: Acute Category: Medical Code(s): N12 - Tubulo-interstitial nephritis, not specified as acute or chronic (3) Infection due to trichomonas: Status: Acute Category: Medical Code(s): A59.9 - Trichomoniasis, unspecified (4) SHADY (acute kidney injury): Status: Acute Category: Medical Code(s): N17.9 - Acute kidney failure, unspecified (5) Chronic kidney disease: Problem Comment: This patient's GFR has ranged anywhere from 33 up to 73. In June 2021 was 31 and then in November 2021 it was 73. Dropped down again to 42 in November 16 then back up just 10 days later to 73. Not sure what to make of this. We did recheck the GFR on 04/22/2023 (today) and it was 73. Will just follow for now. If she does have further drops would consider sending her to nephrology. Status: Acute Qualifiers: Chronic kidney disease stage: unspecified stage Qualified Code(s): N18.9 - Chronic kidney disease, unspecified Category: Medical Code(s): N18.9 - Chronic kidney disease, unspecified (6) Anxiety: Status: Chronic Category: Medical Code(s): F41.9 - Anxiety disorder, unspecified (7) Back Pain: Problem Comment: This patient's main complaint is in the back and leg. Status: Chronic Qualifiers: Back pain laterality: bilateral Back pain location: low back pain Chronicity: chronic Sciatica presence: without sciatica Qualified Code(s): M54.5 - Low back pain; G89.29 - Other chronic pain Category: Medical Code(s): M54.9 - Dorsalgia, unspecified (8) HTN (hypertension): Status: Acute Category: Medical Code(s): I10 - Essential (primary) hypertension (9) History of stroke: Status: Acute Category: Medical Code(s): Z86.73 - Personal history of transient ischemic attack (TIA), and cerebral infarction without residual deficits (10) Seizure disorder: Status: Acute Category: Medical Code(s): G40.909 - Epilepsy, unspecified, not intractable, without status epilepticus (11) COPD (chronic obstructive pulmonary disease): Problem Comment: Patient has at least a [id number] history of smoking. Will get a low-dose CT scan for evaluation of potential carcinoma in this patient. Status: Acute Qualifiers: COPD type: unspecified COPD Qualified Code(s): J44.9 - Chronic obstructive pulmonary disease, unspecified Category: Medical Code(s): J44.9 - Chronic obstructive pulmonary disease, unspecified Plan 62-year-old female who vision impairment after CVA, COPD, hypertension, seizure disorder, chronic back pain. Presented with worsening pain, nausea, general feeling of being ill. Found to have sepsis and pyelonephritis. ER consulted medicine for IV antibiotics and further management. Medicine agreed to admit. Problems addressed as follows: Sepsis Pyelonephritis Trichomonas - flank pain on exam, urinalysis grossly abnormal. Urine culture pending -Initiated on ceftriaxone, continue 1 g daily -Urine positive for trichomonas, initiate metronidazole 500 mg twice daily for 7 days -White cell count elevated at 11.2 -Repeat CBC, CMP, magnesium ordered for the morning. SHADY -BUN elevated 34, creatinine 1.9. Baseline appears to be normal from chart review. -Gentle hydration IV fluids. Monitor kidney function in the morning Chronic pain: Continue oxycodone 5 mg every 6 hours as needed and baclofen 5 mg per home regimen Mood disorder: Continue Seroquel 300 mg daily, continue Wellbutrin 150 mg daily History of stroke: Continue aspirin 81 mg daily and Lipitor 10 mg daily Hypertension: Holding lisinopril in setting of SHADY, holding metoprolol due to normotensive state Seizure disorder: Continue Keppra 1000 mg twice daily Vision impairment complicates her care. Dependent on director of physician practices at home. Full code Cardiac diet
--- NOTE | 2023-07-17 17:07 | PC.NURSE ---
CASE REPAIRER NOTIFIED OF ADMISSION
--- NOTE | 2023-07-17 17:26 | PC.NURSE ---
REPORT CALLED TO MEGAN HARO
[2023-07-17] MEDS: CEFTRIAXONE SODIUM 1 GM in 0.9 % SODIUM CHLORIDE 50 ML IV (17:36)
[2023-07-17] MEDS: metroNIDAZOLE 500 MG TABLET PO (17:37)
[2023-07-17 17:40] VITALS: BP 140/78; PULSE 98; RESP 20; TEMP 36.6; O2SAT 100
[2023-07-17 18:00] VITALS: BP 171/90; PULSE 118; RESP 18; TEMP 36.6; O2SAT 93; BMI 20.2
[2023-07-17 20:00] VITALS: BP 125/75; PULSE 87; RESP 18; TEMP 36.7; O2SAT 99
[2023-07-17] MEDS: OXYCODONE 5MG W/APAP 325MG TABLET 1 EACH PO (20:34)
[2023-07-17] MEDS: levETIRAcetam 500 MG TABLET 1500 MG PO (20:35)
[2023-07-17] MEDS: QUETIAPINE 100MG TABLET 300 MG PO (21:23)
[2023-07-18] MEDS: METRONIDAZ/SOD CHL 500 MG/100 ML PIGGYBACK 100 MG IV ×2 (03:34→16:21)
[2023-07-18 04:00] VITALS: BP 99/70; PULSE 77; RESP 18; TEMP 36.6; O2SAT 99; BMI 21.6
--- NOTE | 2023-07-18 05:37 | PC.NURSE ---
Pt is alert and oriented x4 and currently on RA and tolerating it well. Pt has no complaints and no acute changes this shift
[2023-07-18 06:01] LABS: Basophils # 0.1 K/mm3 (0-0.2); Basophils % 1.3 % (0.1-2.0); Eosinophils # 0.3 K/mm3 (0.0-0.4); Eosinophils % 3.8 % (0.1-12.0); Hematocrit 35.2 % (37.0-47.0); Hemoglobin 11.6 g/dL (12.2-16.2); Lymphocytes # 2.5 K/mm3 (0.7-4.5); Lymphocytes % 32.3 % (10-50); Mean Corpuscular HGB Conc 32.9 g/dL (31.8-35.4); Mean Corpuscular Hemoglobin 36.8 pg (27.0-31.2); Mean Corpuscular Volume 111.7 fl (81-99); Mean Platelet Volume 7.5 fl (7.4-10.4); Monocytes # 0.5 K/mm3 (0.1-1.0); Monocytes % 6.1 % (1.7-9.3); Neutrophils # 4.4 K/mm3 (1.8-7.8); Neutrophils % 56.5 % (37.0-80.0); Platelet Count 389 K/mm3 (142-424); Red Blood Count 3.15 M/mm3 (4.20-5.40); Red Cell Distribution Width 13.5 % (11.5-17.5); White Blood Count 7.8 K/mm3 (4.8-10.8)
[2023-07-18 06:16] LABS: Potassium 3.4 mmoL/L (3.5-5.1)
[2023-07-18 06:19] LABS: Alanine Aminotransferase 17 U/L (12-78); Albumin Level 3.5 g/dl (3.5-5.0); Alkaline Phosphatase 66 U/L (38-126); Anion Gap 12.4 mEq/L (5-15); Aspartate Amino Transferase 39 U/L (14-36); Bilirubin,Total 0.4 mg/dl (0.2-1.3); Blood Urea Nitrogen 19 mg/dl (7-17); Calcium 9.1 mg/dl (8.4-10.2); Carbon Dioxide 23 mmol/L (22.0-30.0); Chloride 108 mmol/L (98-107); Creatinine Clearance Estimated 43 mL/min (50-200); Estimated Glomerular Filt Rate 51 ml/min (>60); GFR (African American) 61 ML/MIN (>60); Globulin 3.4 g/dL (1.3-3.2); Glucose 92 mg/dl (74-100); Magnesium 1.4 mg/dl (1.6-2.3); Sodium 140 mmol/L (136-145); Total Protein,Serum 6.9 g/dl (6.3-8.2)
[2023-07-18] MEDS: MAGNESIUM SULFATE IN WATER 2 GM/50 ML PIGGYBACK IV (07:47)
[2023-07-18 08:00] VITALS: BP 110/72; PULSE 84; RESP 16; TEMP 36.7; O2SAT 97
[2023-07-18] MEDS: buPROPion HCl SR 150MG TAB 150 MG PO (08:35)
[2023-07-18] MEDS: MAGNESIUM OXIDE 400MG TABLET 400 MG PO ×2 (08:36→20:14)
[2023-07-18] MEDS: METOPROLOL SUCCINATE XL 25MG TABLET 25 MG PO (08:36)
[2023-07-18] MEDS: levETIRAcetam 500 MG TABLET 1000 MG PO ×2 (08:36→20:15)
--- NOTE | 2023-07-18 09:59 | HMH.PTEV ---
Physical Therapy Evaluation Rehab PT IP Evaluation Start: 07/17/23 17:06 Freq: ONCE Status: Active Protocol: Document 07/18/23 09:55 TONY (Rec: 07/18/23 09:59 TONY [id number]) Subjective/History History History Per H&P: Ms. Cedeño is a 62-year-old female with history of hypertension, CKD, seizure disorder, CAD, CVA with subsequent blindness. She presented with several days of decreased appetite and worsening low back pain. She does not have much of an appetite for the past several days, increased abdominal pain . Back pain for the past few days. Her caregiver came to check on her today and recommended she come to the ER for evaluation. She has had increased dysuria and lower abdominal pain. No kaylee fever. Reported vomiting in the ER but did not, no vomiting on my exam. Workup in the ER concerning for dehydration with SHADY. Urine positive for infection. Given back pain, clinically has pyelonephritis. Initiated on IV antibiotics, given fluid bolus, and medicine consulted for admission. Subjective Subjective PLOF per pt report: Lives alone in single story apartment at [facility]. Has a ramped enterance. IND with ADLs and functional mobility. Has a RW but primarily furniture walks. Has a office engineer that comes in 2x a week. One fall reported in the past week. New diagnosis of cancer in past 12 No months? Rehab PT IP Eval Objective Appearance Patient Behavior Appropriate,Cooperative Patient Orientation Person,Birthday Difficulty following instructions none Speech Pattern Clear Ambulation Patient Able to Ambulate Yes Ambulation Observation IP General Gait Pattern Observation Wide Based Gait Ambulation Distance (feet) 15 Ambulation Assistive Device None Ambulation Ability Contact Guard/Hand Hold Balance Ability to Arise Able, uses arms to help Sitting Balance Steady, safe Standing Balance Steady, wide stance Transfers Bed Transfer Ability Supervision/Stand by Sit to Stand Bed Transfer Ability Minimal x 1 (25% assist) Rehab PT IP prob,goals,plan Problems Date of Evaluation: 07/18/23 PT IP Problems Bed Mobility,Transfers,Gait, Balance,Safety Rehab Potential Rehab Potential Good Equipment Needs Assistive Devices Rolling / Wheeled Walker Plan PT Intervention Plan Bed Mobility,Transfers,Gait, Balance,Safety,Therapeutic Exercise Other Intervention Plan 1-2 times PT Plan Frequency Daily Duration LOS Discharge Goals Bed Transfer Ability Independent Sit to Stand Chair Transfer Ability Supervision/Stand by Ambulation Assistive Device Rolling Walker Ambulation Distance (feet) 25 Discharge Plan PT Discharge Plan Initial physical therapy evaluation performed. Patient presents below baseline at this time in functional mobility, transfers, gait, and strength. Pt would benefit from skilled PT while at [facility] to prevent further functional decline and maximize safety with mobility. Pt safe to d/c home when deemed medically necessary d/t current level of mobility, home set-up, and family support. PT recommending home health PT services to address deficits. Eval Complexity Eval Charge Codes 60750 - Moderate Complexity PHYSICIAN CERTIFICATION: I certify the specified therapy services for Kiesha Cedeño are required, authorized, and reviewed every 30 days.
--- NOTE | 2023-07-18 10:37 | CT_ITS ---
FINAL REPORT TECHNIQUE: Axial images through the abdomen and pelvis were performed without contrast. This study was performed with techniques to keep radiation doses as low as reasonably achievable, (ALARA). Individualized dose reduction techniques using automated exposure control or adjustment of mA and/or kV according to the patient's size were employed. CLINICAL HISTORY: pyelo uti COMPARISON: 12/06/2022 FINDINGS: Abdomen: Scarring is present in the right lung base. There is a 20 degree thoracolumbar scoliosis convex to the right. The liver parenchyma is homogeneous. The gallbladder is present. The spleen, pancreas, adrenals and kidneys are unremarkable. There are several high density foci in the appendix, that may represent small appendicoliths. No periappendiceal inflammatory change is identified to suggest an acute process. Pelvis: The urinary bladder is incompletely distended. There is no pelvic mass or inflammation. No free fluid is noted in the abdomen or pelvis. IMPRESSION: No acute abnormality. Several high density foci are present in the appendix, that may represent small appendicoliths. No periappendiceal inflammatory change is identified. Reviewed, Interpreted and Dictated by Noe Flynn MD Transcribed by Tiffany Cruz Authenticated and [facility]
--- NOTE | 2023-07-18 10:46 | HMH.OTEV ---
OT Inpatient Evaluation Rehab OT IP Evaluation Start: 07/17/23 17:06 Freq: ONCE Status: Active Protocol: Document 07/18/23 10:38 RONNIE (Rec: 07/18/23 10:46 RONNIE [id number]) Rehab OT IP Assessment Subjective History Ms. Cedeño is a 62-year-old female with history of hypertension, CKD, seizure disorder, CAD, CVA with subsequent blindness. She presented with several days of decreased appetite and worsening low back pain. She does not have much of an appetite for the past several days, increased abdominal pain . Back pain for the past few days. Her caregiver came to check on her today and recommended she come to the ER for evaluation. She has had increased dysuria and lower abdominal pain. No kaylee fever. Reported vomiting in the ER but did not, no vomiting on my exam. Workup in the ER concerning for dehydration with SHADY. Urine positive for infection. Given back pain, clinically has pyelonephritis. Initiated on IV antibiotics, given fluid bolus, and medicine consulted for admission. Patient lives in 1 story apartment with ramp to enter. Independent with ADLs and fx'l mobility with usage of RW. Meals provide to patient daily by community services. family /neighbors provide transportation if needed. Subjective I want to return back home. Instructed Patient on safety awareness to complete bed mobility from supine->sit @ EOB requiring SBA. Instructed Patient on sit->stand transfer with usage of RW requiring Min A due to unsteadiness on feet. Patient able to maneuver around in room ~25 with with CGA. Patient required SBA to ty B socks. Objective Patient Orientation Person,Name,Age,Birthday,Year Right Upper Extremity Gross ROM WFL Left Upper Extremity Gross ROM WFL Bed Mobility bed mobility - supine/sit Assist Level Independent Transfer Training Sit/Stand/Pivot Transfer Assist Level Supervision/Stand by Chair Transfer Ability Supervision/Stand by,Contact Guard/Hand Hold Chair Transfer Technique Sit to/from Ambulatory Chair Transfer Assistive Devices Rolling Walker Lower Body Dressing Ability Independent Rehab OT IP prob,goals,plan Problems Date of Evaluation: 07/18/23 OT IP Problems Bed Mobility,Transfers,Balance ,Self care,Safety Rehab Potential Rehab Potential Good Equipment Needs Assistive Devices Rolling / Wheeled Walker Plan OT intervention Plan Bed Mobility,Transfers,Balance ,Self care,Safety,Therapeutic Exercise OT Plan Frequency Daily Duration LOS Discharge Goals Bed Mobility Ability Standby Assistance Sit to Stand Chair Transfer Ability Supervision/Stand by Chair Transfer Ability Independent Chair Transfer Technique Sit to/from Ambulatory Chair Transfer Assistive Devices Rolling Walker Lower Body Dressing Ability Independent Discharge Plan OT Discharge Plan REcommend patient to return home with HH services after medical d/c. Patient to continue to be seen by OT IP services while here at [facility]. Eval Complexity Eval Charge Codes 27267 - Low Complexity PHYSICIAN CERTIFICATION: I certify the specified therapy services for Kiesha Cedeño are required, authorized, and reviewed every 30 days.
--- NOTE | 2023-07-18 10:57 | SW/DCPLANNER ---
PT/OT evaluated patient and recommended home w/ home health services. Patient is NOT a candidate for home health services at this time due to insurance. Patient stated that she resides at home alone, has caregivers and receives [facility] waiver services. Patient has requested a rolling walker at time of discharge. Patient is agreeable to use [facility] for a rolling walker. Patient information/order will be faxed to [facility] today.
[2023-07-18 11:02] VITALS: BMI 21.6
--- NOTE | 2023-07-18 11:37 | EXP.ACUTE.PN ---
Subjective *Date: 07/18/23 *Time: 17:45 Interval history: Feeling little better today. No fever overnight. Stable on room air. No nausea or vomiting. Still has right-sided flank pain. Tolerating p.o. intake. Medical Exam Vital signs and Labs for Last 24 Hours: Vital Signs Temp Pulse Pulse Resp BP BP Pulse Ox 07/18/23 11:00 07/18/23 09:00 07/18/23 08:00 07/18/23 08:00 98.1 F 84 16 110/72 97 07/18/23 06:43 07/18/23 05:00 07/18/23 04:00 97.9 F 77 18 99/70 L 99 07/18/23 03:00 07/18/23 01:00 07/17/23 23:00 07/17/23 21:00 07/17/23 20:00 07/17/23 20:00 98.1 F 87 18 125/75 99 07/17/23 18:52 07/17/23 18:00 07/17/23 18:00 98 F 118 H 18 171/90 H 93 L 07/17/23 17:40 97.9 F 98 H 20 140/78 07/17/23 13:32 98.0 F 100 H 18 100/73 L 99 O2 Del Method 07/18/23 11:00 Room Air 07/18/23 09:00 Room Air 07/18/23 08:00 Room Air 07/18/23 08:00 07/18/23 06:43 Room Air 07/18/23 05:00 Room Air 07/18/23 04:00 Room Air 07/18/23 03:00 Room Air 07/18/23 01:00 Room Air 07/17/23 23:00 Room Air 07/17/23 21:00 Room Air 07/17/23 20:00 Room Air 07/17/23 20:00 Room Air 07/17/23 18:52 Room Air 07/17/23 18:00 Room Air 07/17/23 18:00 07/17/23 17:40 Room Air 07/17/23 13:32 Room Air Intake and Output 07/17/23 07/18/23 07/18/23 23:59 07:59 15:59 Intake Total 220 / 700 480 / 700 Output Total 0 / 0 0 / 0 Balance 0 / 220 220 / 700 480 / 700 Intake: Intake, Oral Amount 120 / 600 480 / 600 Intake, Total IV Amount 100 / 100 Metronidaz/Sod Chl 500 mg In 100 / 100 100 ml @ 100 mls/hr IV Q12H [facility] Rx#:[id number] Output: Output, Urine Amount 0 / 0 0 / 0 Other: Number of Unmeasured Voids 1 2 Weight 46.811 kg 49.986 kg 49.98 kg Patient Weight 07/18/23 23:59 Weight 49.98 kg Laboratory Results - last 24 hr 07/17/23 13:40: WBC 11.2 H, RBC 3.48 L, Hgb 12.6, Hct 38.3, MCV 110.1 H, MCH 36.2 H, MCHC 32.8, RDW 13.8, Plt Count 513 H, MPV 7.7, Neut % (Auto) 71.7, Lymph % (Auto) 19.5, [place] % (Auto) 7.0, Eos % (Auto) 1.0, Baso % (Auto) 0.8, Neut # (Auto) 8.1 H, Lymph # (Auto) 2.2, [place] # (Auto) 0.8, Eos # (Auto) 0.1, Baso # (Auto) 0.1, Sodium 141, Potassium 4.1, Chloride 103, Carbon Dioxide 24, Anion Gap 18.1 H, BUN 34 H, Creatinine 1.90 H, Estimated Creat Clear 25, Estimated GFR 27 L, Est GFR ( Amer) 33 L, Glucose 188 H, Calcium 10.3 H, Total Bilirubin 0.5, AST 36, ALT 32, Alkaline Phosphatase 70, Total Protein 8.6 H D, Albumin 4.4, Globulin 4.2 H, Albumin/Globulin Ratio 1.0 L 07/17/23 15:00: Urine Color Yellow, Urine Appearance Clear, Urine pH 6.0, Ur Specific [place] 1.020, Urine Protein Negative, Urine Glucose (UA) Negative, Urine Ketones Negative, Urine Blood Negative, Urine Nitrate Negative, Urine Bilirubin 1+ A, Urine Urobilinogen 0.2, Ur Leukocyte Esterase 2+ A, Urine RBC None, Urine WBC 10-20, Ur Squamous Epith Cells 3-5, Urine Bacteria 1+, Hyaline Casts Occasional, Urine Mucus 1+, Urine Trichomonas 2+ 07/18/23 05:40: WBC 7.8 D, RBC 3.15 L, Hgb 11.6 L, Hct 35.2 L, MCV 111.7 H, MCH 36.8 H, MCHC 32.9, RDW 13.5, Plt Count 389, MPV 7.5, Neut % (Auto) 56.5, Lymph % (Auto) 32.3, [place] % (Auto) 6.1, Eos % (Auto) 3.8, Baso % (Auto) 1.3, Neut # (Auto) 4.4, Lymph # (Auto) 2.5, [place] # (Auto) 0.5, Eos # (Auto) 0.3, Baso # (Auto) 0.1, Sodium 140, Potassium 3.4 L, Chloride 108 H, Carbon Dioxide 23, Anion Gap 12.4, BUN 19 H D, Creatinine 1.10 H D, Estimated Creat Clear 43, Estimated GFR 51 L, Est GFR ( Amer) 61 D, Glucose 92 D, Calcium 9.1, Magnesium 1.4 L, Total Bilirubin 0.4, AST 39 H, ALT 17 D, Alkaline Phosphatase 66, Total Protein 6.9, Albumin 3.5 D, Globulin 3.4 H, Albumin/Globulin Ratio 1.0 L I & O for Labs for Last 24 Hours: Intake & Output 07/15/23 07/16/23 07/17/23 07/18/23 23:59 23:59 23:59 23:59 Intake Total 700 / 700 Output Total 0 / 0 0 / 0 Balance 0 / 220 700 / 700 Weight 46.811 kg 49.98 kg Constitutional: Present no acute distress, average body habitus and chronically ill appearing Head: Present atraumatic and normocephalic ENT: Present normal exam Comment:: Visual impairment Respiratory: Present normal respiratory effort; Absent rhonchi, wheezes or crackles Cardiac: Present Reg Rate and Rhythm GI: Present soft and normal bowel sounds; Absent distention or tenderness Rectal (female): Present deferred Extremities: Present normal inspection and full ROM Skin: Present intact; Absent erythema Neuro: Present Grossly Intact, alert, awake, oriented x 3 and moves all extremities Additional Findings:: Right-sided CVA tenderness to percussion, left side improved Assessment and Plan *Assessment and plan (1) Sepsis: Status: Acute Category: Medical Code(s): A41.9 - Sepsis, unspecified organism (2) Pyelonephritis: Status: Acute Category: Medical Code(s): N12 - Tubulo-interstitial nephritis, not specified as acute or chronic (3) Infection due to trichomonas: Status: Acute Category: Medical Code(s): A59.9 - Trichomoniasis, unspecified (4) SHADY (acute kidney injury): Status: Acute Category: Medical Code(s): N17.9 - Acute kidney failure, unspecified (5) Chronic kidney disease: Problem Comment: This patient's GFR has ranged anywhere from 33 up to 73. In June 2021 was 31 and then in November 2021 it was 73. Dropped down again to 42 in November 16 then back up just 10 days later to 73. Not sure what to make of this. We did recheck the GFR on 04/22/2023 (today) and it was 73. Will just follow for now. If she does have further drops would consider sending her to nephrology. Status: Acute Qualifiers: Chronic kidney disease stage: unspecified stage Qualified Code(s): N18.9 - Chronic kidney disease, unspecified Category: Medical Code(s): N18.9 - Chronic kidney disease, unspecified (6) Anxiety: Status: Chronic Category: Medical Code(s): F41.9 - Anxiety disorder, unspecified (7) Back Pain: Problem Comment: This patient's main complaint is in the back and leg. Status: Chronic Qualifiers: Back pain laterality: bilateral Back pain location: low back pain Chronicity: chronic Sciatica presence: without sciatica Qualified Code(s): M54.5 - Low back pain; G89.29 - Other chronic pain Category: Medical Code(s): M54.9 - Dorsalgia, unspecified (8) HTN (hypertension): Status: Acute Category: Medical Code(s): I10 - Essential (primary) hypertension (9) History of stroke: Status: Acute Category: Medical Code(s): Z86.73 - Personal history of transient ischemic attack (TIA), and cerebral infarction without residual deficits (10) Seizure disorder: Status: Acute Category: Medical Code(s): G40.909 - Epilepsy, unspecified, not intractable, without status epilepticus (11) COPD (chronic obstructive pulmonary disease): Problem Comment: Patient has at least a [id number] history of smoking. Will get a low-dose CT scan for evaluation of potential carcinoma in this patient. Status: Acute Qualifiers: COPD type: unspecified COPD Qualified Code(s): J44.9 - Chronic obstructive pulmonary disease, unspecified Category: Medical Code(s): J44.9 - Chronic obstructive pulmonary disease, unspecified (12) Impaired vision: Problem Comment: Is a result of her stroke Status: Chronic Category: Medical Code(s): H54.7 - Unspecified visual loss Plan 62-year-old female who vision impairment after CVA, COPD, hypertension, seizure disorder, chronic back pain. Presented with worsening pain, nausea, general feeling of being ill. Found to have sepsis and pyelonephritis. ER consulted medicine for IV antibiotics and further management. Medicine agreed to admit. Showing some clinical improvement today. Still awaiting urine culture. CT of abdomen obtained today CT personally reviewed. No stones present. No hydronephrosis. Problems addressed as follows: Sepsis Pyelonephritis Trichomonas - flank pain on exam, urinalysis grossly abnormal. Urine culture pending -Continue ceftriaxone 1 g IV daily -Urine positive for trichomonas, initiate metronidazole 500 mg twice daily for 7 days -White cell count improved to 7.8 -Repeat CBC, CMP, magnesium ordered for the morning. Moderate stool burden personally reviewed on CT of abdomen. Will initiate docusate senna scheduled twice daily. At risk for constipation due to her chronic opiate therapy. SHADY -BUN improved to 19, creatinine 1.1. At patient's baseline. Magnesium 1.4, replaced IV and oral today. Chronic pain: Continue oxycodone 5 mg every 6 hours as needed and baclofen 5 mg per home regimen Mood disorder: Continue Seroquel 300 mg daily, continue Wellbutrin 150 mg daily History of stroke: Continue aspirin 81 mg daily and Lipitor 10 mg daily Hypertension: Holding lisinopril in setting of SHADY, holding metoprolol due to normotensive state Seizure disorder: Continue Keppra 1000 mg twice daily Vision impairment complicates her care. 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 Full code Cardiac diet
[2023-07-18] MEDS: diazePAM 5MG TABLET 2.5 MG PO (15:43)
[2023-07-18] MEDS: CEFTRIAXONE SODIUM 1 GM in 0.9 % SODIUM CHLORIDE 50 ML IV (15:44)
[2023-07-18] MEDS: OXYCODONE 5MG W/APAP 325MG TABLET 1 EACH PO (15:44)
[2023-07-18 16:00] VITALS: BP 124/88; PULSE 73; RESP 16; TEMP 36.6; O2SAT 97
--- NOTE | 2023-07-18 16:26 | PC.NURSE ---
pt is A&O x4, on RA. Pt family is at bedside. No changes in condition, call light within reach
[2023-07-18 19:32] VITALS: BP 100/68; PULSE 66; RESP 16; TEMP 36.7; O2SAT 94
[2023-07-18] MEDS: ATORVASTATIN 10MG TABLET 10 MG PO (20:14)
[2023-07-18] MEDS: QUETIAPINE 100MG TABLET 300 MG PO (20:14)
[2023-07-19 04:00] VITALS: BP 108/73; PULSE 77; RESP 17; TEMP 36.6; O2SAT 98; BMI 21.8
[2023-07-19] MEDS: OXYCODONE 5MG W/APAP 325MG TABLET 1 EACH PO (04:02)
[2023-07-19] MEDS: METRONIDAZ/SOD CHL 500 MG/100 ML PIGGYBACK 100 MG IV (04:02)
[2023-07-19 07:54] LABS: Alanine Aminotransferase 18 U/L (12-78); Albumin Level 3.6 g/dl (3.5-5.0); Albumin/Globulin Ratio 1.1 (1.1-1.8); Alkaline Phosphatase 61 U/L (38-126); Anion Gap 11.8 mEq/L (5-15); Aspartate Amino Transferase 31 U/L (14-36); Bilirubin,Total 0.4 mg/dl (0.2-1.3); Blood Urea Nitrogen 17 mg/dl (7-17); Calcium 9.4 mg/dl (8.4-10.2); Carbon Dioxide 26 mmol/L (22.0-30.0); Chloride 103 mmol/L (98-107); Creatinine Clearance Estimated 48 mL/min (50-200); Estimated Glomerular Filt Rate 57 ml/min (>60); GFR (African American) 68 ML/MIN (>60); Globulin 3.4 g/dL (1.3-3.2); Glucose 82 mg/dl (74-100); Magnesium 1.6 mg/dl (1.6-2.3); Potassium 3.8 mmoL/L (3.5-5.1); Sodium 137 mmol/L (136-145)
[2023-07-19 07:58] VITALS: BP 115/69; PULSE 81; RESP 18; TEMP 36.7; O2SAT 96
--- NOTE | 2023-07-19 08:02 | P.DS_ITS ---
General Admission date:: 07/17/23 Discharge date: 07/19/23 HPI HPI HPI: Ms. Cedeño is a 62-year-old female with history of hypertension, CKD, seizure disorder, CAD, CVA with subsequent blindness. She presented with several days of decreased appetite and worsening low back pain. She does not have much of an appetite for the past several days, increased abdominal pain. Back pain for the past few days. Her caregiver came to check on her today and recommended she come to the ER for evaluation. She has had increased dysuria and lower abdominal pain. No kaylee fever. Reported vomiting in the ER but did not, no vomiting on my exam. Workup in the ER concerning for dehydration with SHADY. Urine positive for infection. Given back pain, clinically has pyelonephritis. Initiated on IV antibiotics, given fluid bolus, and medicine consulted for admission. On arrival to the floor, patient is feeling better. She denies chest pain, shortness of breath, headache. Stable on room air. 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 Presented with worsening pain, nausea, general feeling of being ill. Found to have sepsis and pyelonephritis. ER consulted medicine for IV antibiotics and further management. Medicine agreed to admit. Show clinical improvement during admission. Vital stabilized. White cell count normalized. Tolerating p.o. intake. Clinically stable to discharge home. Will complete outpatient antibiotics. Problems addressed as follows: Sepsis Pyelonephritis Trichomonas -Presented with sepsis criteria. Started on broad-spectrum antibiotics with ceftriaxone for suspected pyelonephritis and metronidazole for trichomonas. Saw improvement clinically. White cell count normalized. Transition to Levaquin orally to complete 5-day course of antibiotics for pyelonephritis. Urine culture still negative at time of discharge. Will complete 7 days total of oral metronidazole twice daily for her trichomonas infection. Recommend follow-up with PCP in the next 1 to 2 weeks for reevaluation. Moderate stool burden personally reviewed on CT of abdomen. Initiated on bowel regimen during admission. Continue docusate/senna at discharge. Suspect constipation related to her opiate use SHADY: Present on admission. Improved to normal by day of discharge with BUN of 17 and creatinine of 1.0. Making good urine. Electrolytes improving. Still has low magnesium, will continue magnesium supplementation for 100 mg orally once daily. Chronic pain: Continue oxycodone 5 mg every 6 hours as needed and baclofen 5 mg per home regimen Mood disorder: Continue Seroquel 300 mg daily, continue Wellbutrin 150 mg daily History of stroke: Continue aspirin 81 mg daily and Lipitor 10 mg daily Hypertension: Pressure well-controlled during admission. No hypertension. [place] nopril held during admission, resume lisinopril and metoprolol at discharge. Seizure disorder: Continue Keppra 1000 mg twice daily Vision impairment complicates her care. 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 Exam Data for Last 24 hours Vital signs and Labs for Last 24 Hours: Temp Pulse Resp BP Pulse Ox O2 Del Method 98.1 F 81 18 115/69 96 Room Air 07/19/23 07:58 07/19/23 07:58 07/19/23 07:58 07/19/23 07:58 07/19/23 07:58 07/19/23 07:58 Laboratory Results - last 24 hr 07/19/23 06:17: Sodium 137, Potassium 3.8, Chloride 103, Carbon Dioxide 26, Anion Gap 11.8, BUN 17, Creatinine 1.00, Estimated Creat Clear 48, Estimated GFR 57 L, Est GFR ( Amer) 68, Glucose 82, Calcium 9.4, Magnesium 1.6 D, Total Bilirubin 0.4, AST 31, ALT 18, Alkaline Phosphatase 61, Total Protein 7.0, Albumin 3.6, Globulin 3.4 H, Albumin/Globulin Ratio 1.1 I & O for Last 24 hours: Intake & Output 07/16/23 07/17/23 07/18/23 07/19/23 23:59 23:59 23:59 23:59 Intake Total 1859 436 / 436 Output Total 0 / 0 2 / 2 0 / 0 Balance 0 / 220 1857 436 / 436 Weight 46.811 kg 49.98 kg 50.485 kg Constitutional Constitutional: no acute distress, average body habitus and chronically ill appearing *Routine HEENT Exam Head: Present normocephalic Eye: Present EOMI ENT: Present mucous membranes moist Comments: Visually impaired *Routine Neck Exam Neck: Present supple; Absent lymphadenopathy *Routine Respiratory Exam Respiratory: Present CTA bilaterally; Absent rhonchi, wheezes or crackles *Routine Cardiovascular Exam Cardiovascular: Present RRR *Routine Abdominal Exam Abdominal: Present soft and normoactive bowel sounds; Absent tenderness *Routine Rectal Exam Patient deferred: visual exam *Routine Exam Patient deferred: external exam *Routine Extremities Exam Extremities: Absent cyanosis, clubbing or edema Routine Back/Spine/Pelvis Exam Comments: Minimal lumbar tenderness, no CVA tenderness *Routine Skin Exam Skin: Present warm; Absent rash *Routine Neurological Exam Neurological: Present alert, oriented X3 and moving all extremities; Absent altered mental status Results Data Completed and Pending Labs on day of discharge: Labs from last 24 hours 07/19/23 06:17 Sodium 137 Potassium 3.8 Chloride 103 Carbon Dioxide 26 Anion Gap 11.8 BUN 17 Creatinine 1.00 Estimated Creat Clear 48 Estimated GFR 57 L Est GFR ( Amer) 68 Glucose 82 Calcium 9.4 Magnesium 1.6 D Total Bilirubin 0.4 AST 31 ALT 18 Alkaline Phosphatase 61 Total Protein 7.0 Albumin 3.6 Globulin 3.4 H Albumin/Globulin Ratio 1.1 DS: Diagnosis Discharge Diagnosis (1) Sepsis: Status: Acute Code(s): A41.9 - Sepsis, unspecified organism (2) Pyelonephritis: Status: Acute Code(s): N12 - Tubulo-interstitial nephritis, not specified as acute or chronic (3) Infection due to trichomonas: Status: Acute Code(s): A59.9 - Trichomoniasis, unspecified (4) SHADY (acute kidney injury): Status: Acute Code(s): N17.9 - Acute kidney failure, unspecified (5) Chronic kidney disease: Status: Acute Code(s): N18.9 - Chronic kidney disease, unspecified Qualifiers: Chronic kidney disease stage: unspecified stage Qualified Code(s): N18.9 - Chronic kidney disease, unspecified Problem details: This patient's GFR has ranged anywhere from 33 up to 73. In June 2021 was 31 and then in November 2021 it was 73. Dropped down again to 42 in November 16 then b ack up just 10 days later to 73. Not sure what to make of this. We did recheck the GFR on 04/22/2023 (today) and it was 73. Will just follow for now. If she does have further drops would consider sending her to nephrology. (6) Anxiety: Status: Chronic Code(s): F41.9 - Anxiety disorder, unspecified (7) Back Pain: Status: Chronic Code(s): M54.9 - Dorsalgia, unspecified Qualifiers: Back pain laterality: bilateral Back pain location: low back pain Chronicity: chronic Sciatica presence: without sciatica Qualified Code(s): M54.5 - Low back pain; G89.29 - Other chronic pain Problem details: This patient's main complaint is in the back and leg. (8) HTN (hypertension): Status: Acute Code(s): I10 - Essential (primary) hypertension (9) History of stroke: Status: Acute Code(s): Z86.73 - Personal history of transient ischemic attack (TIA), and cerebral infarction without residual deficits (10) Seizure disorder: Status: Acute Code(s): G40.909 - Epilepsy, unspecified, not intractable, without status epilepticus (11) COPD (chronic obstructive pulmonary disease): Status: Acute Code(s): J44.9 - Chronic obstructive pulmonary disease, unspecified Qualifiers: COPD type: unspecified COPD Qualified Code(s): J44.9 - Chronic obstructive pulmonary disease, unspecified Problem details: Patient has at least a 75-[id number] history of smoking. Will get a low-dose CT scan for evaluation of potential carcinoma in this patient. (12) Impaired vision: Status: Chronic Code(s): H54.7 - Unspecified visual loss Problem details: Is a result of her stroke Meds Home Medications and Allergies Home Medications Medication Instructions Recorded Confirmed Type albuterol sulfate 90 mcg/actuation 2 puff inhalation Q4-6H PRN 07/15/22 07/18/23 History aerosol inhaler (ProAir HFA) Shortness Of Breath atorvastatin 10 mg tablet 10 mg PO DAILY Cholesterol #90 tabs 06/16/23 07/17/23 Rx bupropion HCl 150 mg 24 hr tablet, 150 mg PO DAILY #90 tabs 06/16/23 07/17/23 Rx extended release cyanocobalamin (vitamin B-12) 1,000 mcg PO DAILY 90 days #90 tabs 06/16/23 07/17/23 Rx 1,000 mcg sublingual tablet ferrous sulfate 325 mg (65 mg 325 mg PO DAILY low HGB #90 tabs 06/16/23 07/17/23 Rx iron) tablet hydrochlorothiazide 12.5 mg tablet 12.5 mg PO DAILY #90 tabs 06/16/23 07/17/23 Rx lisinopril 10 mg tablet 10 mg PO DAILY 90 days #90 tabs 06/16/23 07/17/23 Rx metoprolol succinate 25 mg 25 mg PO DAILY 90 days #90 tabs 06/16/23 07/17/23 Rx tablet,extended release 24 hr levetiracetam 1,000 mg tablet 1,000 mg PO BID 07/17/23 07/17/23 History aspirin 81 mg tablet,delayed 81 mg PO DAILY 07/18/23 07/18/23 History release baclofen 5 mg tablet 5 mg PO TID 07/18/23 07/18/23 History diazepam 5 mg tablet 2.5 mg PO BIDP PRN muscle spasms 07/18/23 07/18/23 History ergocalciferol (vitamin D2) 1,250 1,250 mcg PO WEEKLY 07/18/23 07/18/23 History mcg (50,000 unit) capsule oxycodone-acetaminophen 5 mg-325 1 tab PO BID PRN Moderate Pain 07/18/23 07/17/23 History mg tablet (Scale Score 5-6) quetiapine 300 mg tablet 300 mg PO HS 07/18/23 07/18/23 History levofloxacin 750 mg tablet 750 mg PO DAILY 3 days #3 tabs 07/19/23 Rx magnesium oxide 400 mg (241.3 mg 400 mg PO DAILY 30 days #30 tabs 07/19/23 Rx magnesium) tablet metronidazole 500 mg tablet 500 mg PO BID 5 days #10 tabs 07/19/23 Rx sennosides 8.6 mg-docusate sodium 1 tab PO DAILY PRN constipation 30 07/19/23 Rx 50 mg tablet (Stimulant Laxative days #30 tabs Plus) New Prescriptions to Start Prescriptions: levofloxacin Branden Camacho magnesium oxide Branden Camacho metronidazole Branden Camacho sennoklevers-docusate sodium [Stimulant Laxative Plus] Branden Camacho Allergies Allergy/AdvReac Type Severity Reaction Status Date / Time codeine Allergy Mild Verified 06/16/23 14:08 Discharge Plan Disposition Patient Disposition: Home Health Service Condition: Fair Discharge Order Discharge Orders: Discharge Order (Routine); Ordered 07/19/23 Ordered By: Branden Camacho Follow up Plan Follow up with: Jose De Jesus Kovacs DO [Primary Care Provider] - 07/24/23 2:45 pm Prescriptions/Medication Reconciliation: New magnesium oxide 400 mg (241.3 mg magnesium) Tablet 400 mg PO DAILY 30 Days Qty: 30 0RF metronidazole 500 mg tablet 500 mg PO BID 5 Days Qty: 10 0RF sennosides-docusate sodium [Stimulant Laxative Plus] 8.6-50 mg Tablet 1 tab PO DAILY PRN (Reason: constipation) 30 Days Qty: 30 0RF levofloxacin 750 mg tablet 750 mg PO DAILY 3 Days Qty: 3 0RF Continued atorvastatin 10 mg tablet 10 mg PO DAILY Qty: 90 4RF bupropion HCl 150 mg tablet extended release 24 hr 150 mg PO DAILY Qty: 90 4RF cyanocobalamin (vitamin B-12) 1,000 mcg tablet, sublingual 1,000 mcg PO DAILY 90 Days Qty: 90 4RF ferrous sulfate 325 mg (65 mg iron) tablet 325 mg PO DAILY Qty: 90 4RF hydrochlorothiazide 12.5 mg tablet 12.5 mg PO DAILY Qty: 90 4RF lisinopril 10 mg tablet 10 mg PO DAILY 90 Days Qty: 90 4RF metoprolol succinate 25 mg tablet extended release 24 hr 25 mg PO DAILY 90 Days Qty: 90 4RF albuterol sulfate [ProAir HFA] 90 mcg/actuation HFA aerosol inhaler 2 puff inhalation Q4-6H PRN (Reason: Shortness Of Breath) Rx Instructions: INHALE 2 PUFFS BY MOUTH EVERY 4 TO 6 HOURS NEEDED FOR SHORTNESS OF BREATH OR WHEEZING levetiracetam 1,000 mg Tablet 1,000 mg PO BID aspirin 81 mg Tablet,Delayed Release (Dr/Ec) 81 mg PO DAILY ergocalciferol (vitamin D2) 1,250 mcg (50,000 unit) capsule 1,250 mcg PO WEEKLY quetiapine 300 mg tablet 300 mg PO HS oxycodone-acetaminophen 5-325 mg tablet 1 tab PO BID PRN (Reason: Moderate Pain (Scale Score 5-6)) diazepam 5 mg tablet 2.5 mg PO BIDP PRN (Reason: muscle spasms) baclofen 5 mg tablet 5 mg PO TID Rx Instructions: TAKE ONE TABLET BY MOUTH 3 TIMES A DAY Other Ambulatory Orders: Home Medical Equipment (Routine) Location: None Selected Ordered By: Branden Camacho Problem Reconciliation Problems Reviewed?: Yes Patient Discharge Instructions ACTIVITY: Continue current activity DIET: continue same diet Patient Instructions: Heart-Healthy Diet, DI for Kidney Infection, DI for Acute Kidney Injury Providers Primary Care Provider: Jose De Jesus Kovacs Admit Provider: Branden Camacho Attending Provider: Branden Camacho
[2023-07-19] MEDS: MAGNESIUM OXIDE 400MG TABLET 400 MG PO (08:06)
[2023-07-19] MEDS: buPROPion HCl SR 150MG TAB 150 MG PO (08:06)
[2023-07-19] MEDS: SENNOSIDES 8.6MG/DOCUSATE 50MG TABLET 1 TAB PO (08:06)
[2023-07-19] MEDS: levETIRAcetam 500 MG TABLET 1000 MG PO (08:06)
[2023-07-19] MEDS: METOPROLOL SUCCINATE XL 25MG TABLET 25 MG PO (08:07)
[2023-07-19 08:10] LABS: Basophils # 0.1 K/mm3 (0-0.2); Basophils % 0.9 % (0.1-2.0); Eosinophils # 0.3 K/mm3 (0.0-0.4); Eosinophils % 4.1 % (0.1-12.0); Hematocrit 35.8 % (37.0-47.0); Hemoglobin 11.1 g/dL (12.2-16.2); Lymphocytes # 2.2 K/mm3 (0.7-4.5); Lymphocytes % 28.6 % (10-50); Mean Corpuscular HGB Conc 30.9 g/dL (31.8-35.4); Mean Corpuscular Hemoglobin 35.5 pg (27.0-31.2); Mean Corpuscular Volume 114.8 fl (81-99); Monocytes # 0.6 K/mm3 (0.1-1.0); Monocytes % 7.7 % (1.7-9.3); Neutrophils # 4.5 K/mm3 (1.8-7.8); Neutrophils % 58.6 % (37.0-80.0); Platelet Count 396 K/mm3 (142-424); Red Blood Count 3.12 M/mm3 (4.20-5.40); Red Cell Distribution Width 13.7 % (11.5-17.5); White Blood Count 7.7 K/mm3 (4.8-10.8)
--- NOTE | 2023-07-22 14:10 | CARE MANAGER ---
Contacted patient related to hospital discharge. Denies any questions or concerns. Is rescheduling her follow up appointment with PCP but will be following up. She has her medication as well. MEGAN Quarles
== END 2023-07-19 11:08 | disposition home health service (06) ==
LOC: ER 16:58 → 2ND 17:43
PROVIDERS: Admitting Provider Internal Medicine Adolescent Medicine; Emergency Provider Emergency Medicine; PCP Internal Medicine; Visit Provider Internal Medicine Adolescent Medicine
DX: N12 Tubulo-interstitial nephritis, not specified as acute or chronic (principal); N17.9 Acute kidney failure, unspecified; I25.10 Atherosclerotic heart disease of native coronary artery without angina pectoris; G40.909 Epilepsy, unspecified, not intractable, without status epilepticus; F41.9 Anxiety disorder, unspecified; F17.200 Nicotine dependence, unspecified, uncomplicated; A59.9 Trichomoniasis, unspecified; I12.9 Hypertensive chronic kidney disease with stage 1 through stage 4 chronic kidney disease, or unspecified chronic kidney disease; N18.9 Chronic kidney disease, unspecified; A41.9 Sepsis, unspecified organism; M54.9 Dorsalgia, unspecified; J44.9 Chronic obstructive pulmonary disease, unspecified; I69.398 Other sequelae of cerebral infarction; H54.7 Unspecified visual loss; G89.29 Other chronic pain
CPT/HCPCS: 36415; 74176; 80053; 81001; 83735; 85025; 87086; 97116; 97162; 97165; 97535; 99285; G0378; J0696; J2405; J3475

== ENCOUNTER 2023-07-24 15:11 | Outpatient (CLI) | payer MEDICAID, SELFPAY ==
--- NOTE | 2023-07-24 15:12 | CT_ITS ---
FINAL REPORT CLINICAL HISTORY: lung cancer screening smoker 1 ppd x 30 years FINDINGS: CT CHEST LOW DOSE SCREENING HISTORY: Screening exam for lung cancer. Current smoker, 30 pack year smoking history DOSE: CTDIvol: 2.90 mGy, DLP: 100.81 mGy*cm COMPARISON: CTA chest dated 12/06/2022. TECHNIQUE: Axial CT without IV contrast administration using low dose protocol FINDINGS: No acute lung disease is present . No pulmonary lesions are seen suspicious for neoplasm. No pleural or pericardial effusion is seen . No adenopathy or mass lesion is present . IMPRESSION: 1. No evidence of lung cancer LUNG RADS CATEGORY 1 RECOMMENDATION: 12 month LDCT follow up Reviewed, Interpreted and Dictated by Pelon Lantigua MD Transcribed by Vicki Dumont Authenticated and [facility]
== END 2023-07-24 23:59 | disposition home or self-care (01) ==
LOC: RAD 15:12
PROVIDERS: PCP Internal Medicine; Visit Provider Internal Medicine
DX: F17.200 Nicotine dependence, unspecified, uncomplicated (principal); Z12.2 Encounter for screening for malignant neoplasm of respiratory organs
CPT/HCPCS: 71271

== ENCOUNTER 2023-08-09 18:06 | Emergency (ER) | payer MEDICAID, SELFPAY ==
[2023-08-09 18:07] VITALS: BP 138/91; PULSE 74; RESP 19; TEMP 36.6; O2SAT 98; BMI 19.6
[2023-08-09 18:38] VITALS: BP 106/76; PULSE 74; O2SAT 94
--- NOTE | 2023-08-09 18:52 | ED_ITS ---
Discharge Plan Disposition Patient Disposition: Home, Self-Care Prescriptions Prescriptions: New cefdinir 300 mg capsule 300 mg PO BID 10 Days Qty: 20 0RF No Action atorvastatin 10 mg tablet 10 mg PO DAILY Qty: 90 4RF bupropion HCl 150 mg tablet extended release 24 hr 150 mg PO DAILY Qty: 90 4RF cyanocobalamin (vitamin B-12) 1,000 mcg tablet, sublingual 1,000 mcg PO DAILY 90 Days Qty: 90 4RF ferrous sulfate 325 mg (65 mg iron) tablet 325 mg PO DAILY Qty: 90 4RF lisinopril 10 mg tablet 10 mg PO DAILY 90 Days Qty: 90 4RF metoprolol succinate 25 mg tablet extended release 24 hr 25 mg PO DAILY 90 Days Qty: 90 4RF oxycodone-acetaminophen 5-325 mg tablet 1 tab PO BID PRN (Reason: Moderate Pain (Scale Score 5-6)) Qty: 60 0RF albuterol sulfate [ProAir HFA] 90 mcg/actuation HFA aerosol inhaler 2 puff inhalation Q4-6H PRN (Reason: Shortness Of Breath) Qty: 8.5 8RF Rx Instructions: INHALE 2 PUFFS BY MOUTH EVERY 4 TO 6 HOURS NEEDED FOR SHORTNESS OF BREATH OR WHEEZING aspirin 81 mg tablet,delayed release (DR/EC) 81 mg PO DAILY Qty: 90 4RF baclofen 5 mg tablet 5 mg PO TID 90 Days Qty: 270 4RF Rx Instructions: TAKE ONE TABLET BY MOUTH 3 TIMES A DAY diazepam 5 mg tablet 2.5 mg PO BIDP PRN (Reason: muscle spasms) 90 Days Qty: 48 0RF cholecalciferol (vitamin D3) 125 mcg (5,000 unit) capsule 125 mcg PO DAILY Qty: 90 4RF levetiracetam 1,000 mg tablet 1,000 mg PO BID Qty: 180 4RF quetiapine 300 mg tablet 300 mg PO HS Qty: 90 4RF magnesium oxide 400 mg (241.3 mg magnesium) Tablet 400 mg PO DAILY 30 Days Qty: 30 0RF metronidazole 500 mg tablet 500 mg PO BID 5 Days Qty: 10 0RF sennosides-docusate sodium [Stimulant Laxative Plus] 8.6-50 mg Tablet 1 tab PO DAILY PRN (Reason: constipation) 30 Days Qty: 30 0RF levofloxacin 750 mg tablet 750 mg PO DAILY 3 Days Qty: 3 0RF Referrals Follow up/Referrals: Jose De Jesus Kovacs DO [Primary Care Provider] - See instructions Activity Restrictions/Add. Instructions Additional Instructions/Restrictions: Please follow-up primary care doctor in 1 to 3 days return to the emergency room with high fevers or other concerns. Sodium level was also 128 which is below normal which also needs to be followed by your primary care doctor. Clinical Impressions Clinical Impression: Right flank pain, Pyelonephritis, Acute hyponatremia Instructions Patient Instructions: DI for Urinary Tract Infection (UTI), DI for Urinary Tract Infection in Children Discharge ED Provider: Brandy [facility] HPI General Chief complaint: Urogenital-Female Stated complaint: Lower ABD pain Time Seen by Provider: 08/09/23 18:45 Mode of Arrival: EMS Source of Information: Patient, EMS and Medical Record Limitations: legally blind Description of Symptoms (Recalled from ER Triage Doc. by RN): Pt c/o low pelvic pain and recent UTI. Denies any fever, chills, or vomiting. She does report mild nausea. States she was recently tx'ed for a UTI and has 1 days left on her ABX. States the pain came back last night and has continued to worsen today. History of Present Illness HPI narrative: Patient is a 62-year-old female presenting today with right flank pain from my history standpoint she denies any pelvic pain to me. She was recently diagnosed with pyelonephritis and was admitted for acute kidney injury states her symptoms are similar to that and her friend called EMS and she was brought in by EMS. No fevers or chills. Related Data Previous Rx's Medication Instructions Recorded atorvastatin 10 mg tablet 10 mg PO DAILY Cholesterol #90 tabs 06/16/23 bupropion HCl 150 mg 24 hr tablet, 150 mg PO DAILY #90 tabs 06/16/23 extended release cyanocobalamin (vitamin B-12) 1,000 mcg PO DAILY 90 days #90 tabs 06/16/23 1,000 mcg sublingual tablet ferrous sulfate 325 mg (65 mg 325 mg PO DAILY low HGB #90 tabs 06/16/23 iron) tablet lisinopril 10 mg tablet 10 mg PO DAILY 90 days #90 tabs 06/16/23 metoprolol succinate 25 mg 25 mg PO DAILY 90 days #90 tabs 06/16/23 tablet,extended release 24 hr levofloxacin 750 mg tablet 750 mg PO DAILY 3 days #3 tabs 07/19/23 magnesium oxide 400 mg (241.3 mg 400 mg PO DAILY 30 days #30 tabs 07/19/23 magnesium) tablet metronidazole 500 mg tablet 500 mg PO BID 5 days #10 tabs 07/19/23 sennosides 8.6 mg-docusate sodium 1 tab PO DAILY PRN constipation 30 07/19/23 50 mg tablet (Stimulant Laxative days #30 tabs Plus) albuterol sulfate 90 mcg/actuation 2 puff inhalation Q4-6H PRN 07/24/23 aerosol inhaler (ProAir HFA) Shortness Of Breath #8.5 grams aspirin 81 mg tablet,delayed 81 mg PO DAILY #90 tabs 07/24/23 release baclofen 5 mg tablet 5 mg PO TID 90 days #270 tabs 07/24/23 cholecalciferol (vitamin D3) 125 125 mcg PO DAILY #90 caps 07/24/23 mcg (5,000 unit) capsule diazepam 5 mg tablet 2.5 mg (1/2 x 5 mg) PO BIDP PRN 07/24/23 muscle spasms 90 days #48 tabs levetiracetam 1,000 mg tablet 1,000 mg PO BID #180 tabs 07/24/23 oxycodone-acetaminophen 5 mg-325 1 tab PO BID PRN Moderate Pain 07/24/23 mg tablet (Scale Score 5-6) #60 tabs quetiapine 300 mg tablet 300 mg PO HS #90 tabs 07/24/23 cefdinir 300 mg capsule 300 mg PO BID 10 days #20 caps 08/09/23 Allergies Allergy/AdvReac Type Severity Reaction Status Date / Time codeine Allergy Mild Verified 08/04/23 13:14 [facility] Disclaimer: The information contained in this section may have been updated after the patient was seen, as this information can be updated by other users. Medical History Left against medical advice Left patella fracture Alcoholic intoxication Gastric ulcer Essentially healed CAD in [place] artery We did the coronary calcium scoring and she has moderate disease. She is following with Dr. Luis. Echocardiogram does reveal mild reduction of left ventricular function with an ejection fraction of 45%, moderate hypokinesis of the anterior LV, the remainder of the read was read as mild . She will return to Dr. Luis within 2 weeks for further evaluation and treatment. Hyperlipidemia Patient is on atorvastatin at 10 mg/day. Lipid panel done May 05, 2023 reveals a triglyceride of 81, total cholesterol 160, LDL of 80 and an HDL of 48. Will continue the atorvastatin as this panel is not bad. Given her cardiac disease would like to see her LDL closer to 70 and we certainly can consider increasing the atorvastatin to 20 mg/day. Will see what cardiology suggest in this regard. Hypertension Blood pressure today is 100/66, a month ago was 106/74. She has no symptomatology with this. She denies any vertigo, presyncope or other symptoms. Will continue to follow and again have asked her to check her blood pressures record them and bring them back at her next visit. Her blood pressures have done well on the current regimen we will just continue, and she will be seeing cardiology. COPD (chronic obstructive pulmonary disease) We need to get a CT scan low-dose of this patient's lungs because of her tobacco history and risk for pulmonary carcinoma. She has been in the hospital and had other issues but we will try to get this scheduled soon as we can. Wheezing Dyspnea History of stroke Seizure disorder Patient has levetiracetam at 1000 mg twice daily. She has been seizure-free for quite some time. Will continue this medication. Nerve pain HTN (hypertension) Have asked her to check her blood pressures at home at least 3 times a week. This is difficult secondary to her visual disturbances however she does have a caregiver who could do this. I strongly encouraged her to do this. Blood pressure today was 100/66. Anxiety Back Pain This patient's main complaint is in the back and leg. Surgical History History of hysterectomy Family History Other Family history of cancer Family history of myocardial infarction Social History Smoking Status: Current every day smoker tobacco type: cigarettes packs per day: 1 second hand exposure: Yes alcohol intake: former substance use type: marijuana, crack/cocaine, heroin and opiates current occupational status: unemployed Travel in the last 8 weeks: None household members: significant other housing: house number of children: 2 ROS Obtained: Yes All systems reviewed & no additional complaints except as documented Physical Exam General General appearance: alert Respiratory Respiratory exam: Present normal lung sounds bilaterally Cardiovascular Cardiovascular exam: Present regular rate Abdominal Exam Abdominal exam: Present soft; Absent distention or tenderness Back Exam Back exam: Present CVA tenderness (R) Neurological Exam Neurological exam: Present alert and oriented X3 Medical Decision Making Georgi Inquiry Pt receiving controlled substance: No Vital Signs: 08/09/23 18:07 08/09/23 18:38 08/09/23 19:00 Temperature 97.8 F Temperature Source Oral Pulse Rate 74 74 Pulse Rate [Right] 74 Respiratory Rate 19 20 Blood Pressure 106/76 L 114/80 Blood Pressure [Right Arm] 138/91 H Blood Pressure Mean [Right Arm] 106 Blood Pressure Source [Right Arm] Automatic Cuff 02 Sat by Pulse Oximetry 98 94 L 95 Oxygen Delivery Method Room Air Room Air Room Air 08/09/23 19:35 08/09/23 20:00 Temperature Temperature Source Pulse Rate 72 61 Pulse Rate [Right] Respiratory Rate 18 20 Blood Pressure 134/88 148/94 H Blood Pressure [Right Arm] Blood Pressure Mean [Right Arm] Blood Pressure Source [Right Arm] 02 Sat by Pulse Oximetry 96 99 Oxygen Delivery Method Room Air Room Air Lab Data Lab results reviewed: Yes I reviewed the patient's lab results. Lab Results 08/09/23 18:20: WBC 6.2, RBC 3.08 L, Hgb 10.8 L, Hct 33.7 L, MCV 109.4 H, MCH 35.2 H, MCHC 32.1, RDW 13.3, Plt Count 344, MPV 7.9, Neut % (Auto) 52.6, Lymph % (Auto) 36.0, [place] % (Auto) 8.1, Eos % (Auto) 2.0, Baso % (Auto) 1.2, Neut # (Auto) 3.3, Lymph # (Auto) 2.2, [place] # (Auto) 0.5, Eos # (Auto) 0.1, Baso # (Auto) 0.1, Sodium 128 L, Potassium 3.7, Chloride 102, Carbon Dioxide 21 L, Anion Gap 8.7, BUN 13, Creatinine 0.90, Estimated Creat Clear 50, Estimated GFR 64, Est GFR ( Amer) 77, Glucose 104 H, Lactate 0.7, Calcium 8.9, Total Bilirubin 0.3, AST 32, ALT 20, Alkaline Phosphatase 60, Total Protein 7.1, Albumin 3.6, Globulin 3.5 H, Albumin/Globulin Ratio 1.0 L 08/09/23 20:15: Urine Color Yellow, Urine Appearance Clear, Urine pH 6.5, Ur Specific [place] <= 1.005, Urine Protein Negative, Urine Glucose (UA) Negative, Urine Ketones Negative, Urine Blood Negative, Urine Nitrate Negative, Urine Bilirubin Negative, Urine Urobilinogen 0.2, Ur Leukocyte Esterase 1+ A, Urine RBC None, Urine WBC 10-20, Ur Squamous Epith Cells 5-10, Urine Bacteria Trace 08/09/23 18:20 08/09/23 18:20 Orders (Tests/Meds): ED MEDICATIONS Generic Name Dose Route Start Last Admin Trade Name Freq PRN Reason Stop Dose Admin Cefdinir 300 mg 08/09/23 20:34 08/09/23 20:35 Cefdinir 300mg Capsule PO 08/09/23 20:35 300 mg ONCE ONE Administration Discontinued Medications Generic Name Dose Route Start Last Admin Trade Name Freq PRN Reason Stop Dose Admin Lactated Ringer's 1,000 mls @ 999 mls/hr 08/09/23 19:00 08/09/23 19:27 Lactated Ringer's 1000 Ml Bag IV 08/09/23 20:00 999 mls/hr .Q[address]H1M AVE Administration ORDERS Category Date Time Status CBC w/Auto Diff [Complete Blood Count Auto Diff] Stat Lab 08/09/23 18:20 Completed CMP [Comprehensive Metabolic Panel] Stat Lab 08/09/23 18:20 Completed Lactic Acid Stat Lab 08/09/23 18:20 Completed UA [Urinalysis and Microscopic] Stat Lab 08/09/23 20:15 Completed Blood Culture Stat Micro 08/09/23 19:35 Received Urine Culture Stat Micro 08/09/23 20:15 Received Medical Decision Narrative: 8-year-old female presented with right flank pain concerning for possible recurrent pyelonephritis after recent admission for pyelonephritis and acute kidney injury will get basic blood work IV fluids cultures she is tachycardic significantly will reassess. Reassessment 836 patient feeling much better less than she was hospitalized for acute kidney injury in the setting of pyelonephritis this time her creatinine is back to normal at 0.9. She does still have evidence of urinary tract infection with positive leukocyte esterase and white cells in urine. She did not grow anything significantly last time she was in the hospital from a urine culture standpoint so do not have susceptibilities. I will empirically treat her with cefdinir first dose in the emergency department prescription has been sent to her pharmacy. She also has hyponatremia sodium is 128 it has been running low in the past she has been made aware of this she will follow-up with primary care doctor regarding this as well. No indication for hospitalization she looks very good on reassessment serial abdominal exams are benign no evidence of sepsis. Patient was discharged in stable condition. Critical Care Critical Care Time Critical Care Time: No
[2023-08-09 19:00] VITALS: BP 114/80; PULSE 74; RESP 20; O2SAT 95
[2023-08-09 19:03] LABS: Chloride 102 mmol/L (98-107)
[2023-08-09 19:04] LABS: Potassium 3.7 mmoL/L (3.5-5.1); Sodium 128 mmol/L (136-145)
[2023-08-09 19:06] LABS: Alanine Aminotransferase 20 U/L (12-78); Alkaline Phosphatase 60 U/L (38-126); Aspartate Amino Transferase 32 U/L (14-36); Bilirubin,Total 0.3 mg/dl (0.2-1.3); Blood Urea Nitrogen 13 mg/dl (7-17); Creatinine Clearance Estimated 50 mL/min (50-200); Estimated Glomerular Filt Rate 64 ml/min (>60); GFR (African American) 77 ML/MIN (>60); Lactic Acid 0.7 mmol/L (0.7-2.1)
[2023-08-09 19:07] LABS: Albumin Level 3.6 g/dl (3.5-5.0); Anion Gap 8.7 mEq/L (5-15); Basophils # 0.1 K/mm3 (0-0.2); Basophils % 1.2 % (0.1-2.0); Calcium 8.9 mg/dl (8.4-10.2); Carbon Dioxide 21 mmol/L (22.0-30.0); Eosinophils # 0.1 K/mm3 (0.0-0.4); Globulin 3.5 g/dL (1.3-3.2); Glucose 104 mg/dl (74-100); Hematocrit 33.7 % (37.0-47.0); Hemoglobin 10.8 g/dL (12.2-16.2); Lymphocytes # 2.2 K/mm3 (0.7-4.5); Mean Corpuscular HGB Conc 32.1 g/dL (31.8-35.4); Mean Corpuscular Hemoglobin 35.2 pg (27.0-31.2); Mean Corpuscular Volume 109.4 fl (81-99); Mean Platelet Volume 7.9 fl (7.4-10.4); Monocytes # 0.5 K/mm3 (0.1-1.0); Monocytes % 8.1 % (1.7-9.3); Neutrophils # 3.3 K/mm3 (1.8-7.8); Neutrophils % 52.6 % (37.0-80.0); Platelet Count 344 K/mm3 (142-424); Red Blood Count 3.08 M/mm3 (4.20-5.40); Red Cell Distribution Width 13.3 % (11.5-17.5); Total Protein,Serum 7.1 g/dl (6.3-8.2); White Blood Count 6.2 K/mm3 (4.8-10.8)
[2023-08-09] MEDS: LACTATED RINGERS 1000ML 1,000 ML 999 ML IV (19:27)
[2023-08-09 19:35] VITALS: BP 134/88; PULSE 72; RESP 18; O2SAT 96
--- NOTE | 2023-08-09 19:35 | PC.NURSE ---
bld cultures drawn and sent to lab
[2023-08-09 20:00] VITALS: BP 148/94; PULSE 61; RESP 20; O2SAT 99
[2023-08-09 20:17] LABS: Microscopic, Urine URINE MICROSCOPIC (MICROSCOPIC)
[2023-08-09 20:18] LABS: Appearance,Urine CLEAR (Clear); Bilirubin,Urine Negative (Negative); Blood, Urine Negative (Negative); Color,Urine YELLOW (Yellow); Glucose,Urine (UA) Negative (Negative); Ketones,Urine Negative (Negative); Leukocyte Esterase,Urine 1+ (Negative); Nitrate,Urine Negative (Negative); PH,Urine 6.5 (5.0-8.5); Protein,Urine Negative (Negative); Specific Gravity, Urine <= 1.005 (1.005-1.030); Urobilinogen,Urine 0.2 EU/dl (0.2)
[2023-08-09 20:33] LABS: Bacteria,Urine Trace /lpf
[2023-08-09] MEDS: CEFDINIR 300MG CAPSULE 300 MG PO (20:35)
--- NOTE | 2023-08-09 20:42 | PC.NURSE ---
received call from her friend who states they do not have the gas to come get her. informed primary nurse
[2023-08-09 20:44] VITALS: BP 105/77; PULSE 70; RESP 14; TEMP 36.7; O2SAT 97
== END 2023-08-09 20:45 | disposition home or self-care (01) ==
PROVIDERS: Emergency Provider Student in an Organized Health Care Education/Training Program; PCP Internal Medicine
DX: N10 Acute pyelonephritis (principal); R10.31 Right lower quadrant pain; M54.59 Other low back pain; E87.1 Hypo-osmolality and hyponatremia; F17.210 Nicotine dependence, cigarettes, uncomplicated; J44.9 Chronic obstructive pulmonary disease, unspecified; I11.9 Hypertensive heart disease without heart failure; I25.10 Atherosclerotic heart disease of native coronary artery without angina pectoris; E78.5 Hyperlipidemia, unspecified; Z86.73 Personal history of transient ischemic attack (TIA), and cerebral infarction without residual deficits
CPT/HCPCS: 80053; 81001; 83605; 85025; 87040; 87086; 96360; 99284; J7120

== ENCOUNTER 2023-08-22 20:38 | Emergency (ER) | payer MEDICAID, SELFPAY ==
[2023-08-22 20:38] VITALS: BP 103/75; PULSE 84; RESP 18; TEMP 36.7; O2SAT 94; BMI 20.2
--- NOTE | 2023-08-22 20:55 | PC.NURSE ---
Attempted IV x3 with no success.
--- NOTE | 2023-08-22 20:58 | CT_ITS ---
PROCEDURE INFORMATION: Exam: CT Abdomen And Pelvis With Contrast Exam date and time: 08/22/2023 9:19 PM Age: 62 years old Clinical indication: Abdominal pain; Additional info: Rlq pain TECHNIQUE: Imaging protocol: Computed tomography of the abdomen and pelvis with contrast. Radiation optimization: All CT scans at this facility use at least one of these dose optimization techniques: automated exposure control; mA and/or kV adjustment per patient size (includes targeted exams where dose is matched to clinical indication); or iterative reconstruction. Contrast material: ISOVUE; Contrast volume: 70 ml; Contrast route: IV; COMPARISON: 1. CT ABDOMEN PELVIS WO CON 07/18/2023 10:[address] ABDOMEN PELVIS W CON 12/06/2022 3:[address] ABDOMEN PELVIS WO CON 03/02/2020 2:07 PM FINDINGS: Lungs: Scattered areas of bronchial wall thickening which are likely chronic inflammatory. A few areas of subpleural reticulation are noted, nonspecific. Liver: Normal. Gallbladder and biliary ducts: The gallbladder demonstrates a Phrygian cap. Pancreas: Normal. Spleen: Normal. Adrenal glands: The adrenal glands appear normal. Kidneys and ureters: There is mild bilateral pelvicaliectasis, possibly due to the significantly distended urinary bladder. Stomach and bowel: There is large volume stool throughout the colon. Appendix: The appendix is normal in appearance. Intraperitoneal space: Unremarkable. Vasculature: There is atherosclerotic disease of the visualized aorta and its major branch vessels. The aorta demonstrates significant tortuosity. Lymph nodes: No lymphadenopathy. Urinary bladder: There is significant distension of the urinary bladder compression Reproductive: The patient has undergone prior hysterectomy. Bones/joints: There is diffuse degenerative disease of the visualized osseous structures. Soft tissues: Unremarkable. IMPRESSION: 1. Normal appendix. 2. Otherwise, incidental findings as above.
[2023-08-22 21:10] LABS: Chloride 100 mmol/L (98-107); Potassium 4.1 mmoL/L (3.5-5.1); Sodium 127 mmol/L (136-145)
[2023-08-22 21:12] LABS: Basophils # 0.1 K/mm3 (0-0.2); Basophils % 0.9 % (0.1-2.0); Eosinophils # 0.3 K/mm3 (0.0-0.4); Eosinophils % 3.4 % (0.1-12.0); Hematocrit 31.7 % (37.0-47.0); Hemoglobin 10.4 g/dL (12.2-16.2); Lymphocytes # 2.7 K/mm3 (0.7-4.5); Lymphocytes % 35.3 % (10-50); Mean Corpuscular HGB Conc 32.9 g/dL (31.8-35.4); Mean Corpuscular Hemoglobin 35.8 pg (27.0-31.2); Mean Corpuscular Volume 108.7 fl (81-99); Mean Platelet Volume 7.5 fl (7.4-10.4); Monocytes # 0.6 K/mm3 (0.1-1.0); Monocytes % 7.4 % (1.7-9.3); Neutrophils # 4.1 K/mm3 (1.8-7.8); Platelet Count 333 K/mm3 (142-424); Red Blood Count 2.91 M/mm3 (4.20-5.40); Red Cell Distribution Width 13.4 % (11.5-17.5); White Blood Count 7.7 K/mm3 (4.8-10.8)
[2023-08-22 21:13] LABS: Alanine Aminotransferase 17 U/L (12-78); Albumin Level 3.5 g/dl (3.5-5.0); Albumin/Globulin Ratio 1.1 (1.1-1.8); Alkaline Phosphatase 57 U/L (38-126); Anion Gap 10.1 mEq/L (5-15); Aspartate Amino Transferase 30 U/L (14-36); Bilirubin,Total 0.3 mg/dl (0.2-1.3); Blood Urea Nitrogen 9 mg/dl (7-17); Carbon Dioxide 21 mmol/L (22.0-30.0); Creatinine Clearance Estimated 50 mL/min (50-200); Estimated Glomerular Filt Rate 64 ml/min (>60); GFR (African American) 77 ML/MIN (>60); Globulin 3.2 g/dL (1.3-3.2); Total Protein,Serum 6.7 g/dl (6.3-8.2)
[2023-08-22 21:14] LABS: Calcium 9.1 mg/dl (8.4-10.2); Glucose 97 mg/dl (74-100)
[2023-08-22 21:17] LABS: Lactic Acid 1.5 mmol/L (0.7-2.1)
[2023-08-22] MEDS: LACTATED RINGERS 1000ML 1,000 ML 999 ML IV (21:17)
[2023-08-22] MEDS: ACETAMINOPHEN 1,000MG/100ML VIAL 1000 MG IV (21:17)
[2023-08-22] MEDS: KETOROLAC 30MG/ML VIAL 15 MG IV (21:17)
--- NOTE | 2023-08-22 21:24 | PC.NURSE ---
pt to RAD at this time
--- NOTE | 2023-08-22 21:35 | HMH.EDGENADL ---
Discharge Plan Disposition Patient Disposition: Home, Self-Care Prescriptions Prescriptions: New cefdinir 300 mg capsule 300 mg PO BID 5 Days Qty: 10 0RF No Action atorvastatin 10 mg tablet 10 mg PO DAILY Qty: 90 4RF bupropion HCl 150 mg tablet extended release 24 hr 150 mg PO DAILY Qty: 90 4RF cyanocobalamin (vitamin B-12) 1,000 mcg tablet, sublingual 1,000 mcg PO DAILY 90 Days Qty: 90 4RF ferrous sulfate 325 mg (65 mg iron) tablet 325 mg PO DAILY Qty: 90 4RF lisinopril 10 mg tablet 10 mg PO DAILY 90 Days Qty: 90 4RF metoprolol succinate 25 mg tablet extended release 24 hr 25 mg PO DAILY 90 Days Qty: 90 4RF tizanidine 2 mg capsule 2 mg PO HS PRN (Reason: muscle spasticity) Qty: 30 2RF diazepam 5 mg tablet 2.5 mg PO DAILY PRN (Reason: muscle spasms) 30 Days Qty: 15 0RF oxycodone-acetaminophen 5-325 mg tablet 1 tab PO BID PRN (Reason: Moderate Pain (Scale Score 5-6)) Qty: 60 0RF albuterol sulfate [ProAir HFA] 90 mcg/actuation HFA aerosol inhaler 2 puff inhalation Q4-6H PRN (Reason: Shortness Of Breath) Qty: 8.5 8RF Rx Instructions: INHALE 2 PUFFS BY MOUTH EVERY 4 TO 6 HOURS NEEDED FOR SHORTNESS OF BREATH OR WHEEZING aspirin 81 mg tablet,delayed release (DR/EC) 81 mg PO DAILY Qty: 90 4RF cholecalciferol (vitamin D3) 125 mcg (5,000 unit) capsule 125 mcg PO DAILY Qty: 90 4RF levetiracetam 1,000 mg tablet 1,000 mg PO BID Qty: 180 4RF quetiapine 300 mg tablet 300 mg PO HS Qty: 90 4RF magnesium oxide 400 mg (241.3 mg magnesium) Tablet 400 mg PO DAILY 30 Days Qty: 30 0RF sennosides-docusate sodium [Stimulant Laxative Plus] 8.6-50 mg Tablet 1 tab PO DAILY PRN (Reason: constipation) 30 Days Qty: 30 0RF cefdinir 300 mg capsule 300 mg PO BID 10 Days Qty: 20 0RF Referrals Follow up/Referrals: Jose De Jesus Kovacs DO [Primary Care Provider] - See instructions Activity Restrictions/Add. Instructions Additional Instructions/Restrictions: Call your family doctor to establish care for this visit to the emergency department and schedule follow-up within 48 hours to ensure improvement. If you have any worsening of your condition or any other concerning signs or symptoms, return to the emergency department or your primary care doctor for further evaluation. Antibiotic twice daily for 5 days. Take Tylenol 1000 mg every 6 hours (4 times daily) and ibuprofen 400 mg every 6 hours (4 times daily) as needed with food and water to prevent GI upset and kidney damage. Be sure to stay plenty hydrated. Clinical Impressions Clinical Impression: Abdominal pain, right lower quadrant, Urinary tract infection Instructions Patient Instructions: DI for Altered Mental Status Discharge ED Provider: Gilson Griffin General Adult HPI General Chief complaint: Weakness Stated complaint: AMS Time Seen by Provider: 08/22/23 20:41 Mode of Arrival: EMS Source of Information: Patient and EMS Limitations: Altered Mental Status Description of Symptoms (Recalled from ER Triage Doc. by RN): Patient arrived via EMS after original call-out for altered mental status by patient's neighbor. Patient appears drowsy at triage. Oriented x 4 when questioned. Patient reports that she feels unwell and that it came on suddenly, she's unsure of when. EMS reports patient was found in sweatshirt, and air conditioning was working fair in the home. Neighbor had reported to EMS that she was last seen at 2pm more alert and normal-appearing to them. Patient reports that she thinks she might be dehydrated. History of Present Illness HPI narrative: Please note that above description of symptoms, in this electronic medical record under categorization of recalled from ER triage doctor by RN are reflective of an initial nursing assessment, however, is not reflective of my full history and physical exam that was personally taken and clarified. Consequentially, this preceding description of symptoms, which may include the patient's categorized chief complaint in the EMR, do not reflect my personal clinical impression, and the ultimate description of history of present illness and patient stated complaints should be deferred to this section of the note. Unless stated otherwise or congruent with this section of the note, additional signs, symptoms, or incongruence should be interpreted as inaccurate with my clinical impression. Related Data Previous Rx's Medication Instructions Recorded atorvastatin 10 mg tablet 10 mg PO DAILY Cholesterol #90 tabs 06/16/23 bupropion HCl 150 mg 24 hr tablet, 150 mg PO DAILY #90 tabs 06/16/23 extended release cyanocobalamin (vitamin B-12) 1,000 mcg PO DAILY 90 days #90 tabs 06/16/23 1,000 mcg sublingual tablet ferrous sulfate 325 mg (65 mg 325 mg PO DAILY low HGB #90 tabs 06/16/23 iron) tablet lisinopril 10 mg tablet 10 mg PO DAILY 90 days #90 tabs 06/16/23 metoprolol succinate 25 mg 25 mg PO DAILY 90 days #90 tabs 06/16/23 tablet,extended release 24 hr magnesium oxide 400 mg (241.3 mg 400 mg PO DAILY 30 days #30 tabs 07/19/23 magnesium) tablet sennosides 8.6 mg-docusate sodium 1 tab PO DAILY PRN constipation 30 07/19/23 50 mg tablet (Stimulant Laxative days #30 tabs Plus) albuterol sulfate 90 mcg/actuation 2 puff inhalation Q4-6H PRN 07/24/23 aerosol inhaler (ProAir HFA) Shortness Of Breath #8.5 grams aspirin 81 mg tablet,delayed 81 mg PO DAILY #90 tabs 07/24/23 release cholecalciferol (vitamin D3) 125 125 mcg PO DAILY #90 caps 07/24/23 mcg (5,000 unit) capsule levetiracetam 1,000 mg tablet 1,000 mg PO BID #180 tabs 07/24/23 quetiapine 300 mg tablet 300 mg PO HS #90 tabs 07/24/23 cefdinir 300 mg capsule 300 mg PO BID 10 days #20 caps 08/09/23 diazepam 5 mg tablet 2.5 mg (1/2 x 5 mg) PO DAILY PRN 08/12/23 muscle spasms 30 days #15 tabs oxycodone-acetaminophen 5 mg-325 1 tab PO BID PRN Moderate Pain 08/12/23 mg tablet (Scale Score 5-6) #60 tabs tizanidine 2 mg capsule 2 mg PO HS PRN muscle spasticity 08/12/23 #30 caps cefdinir 300 mg capsule 300 mg PO BID 5 days #10 caps 08/22/23 Allergies Allergy/AdvReac Type Severity Reaction Status Date / Time codeine Allergy Mild Verified 08/22/23 20:50 PFSH PFS Disclaimer: The information contained in this section may have been updated after the patient was seen, as this information can be updated by other users. 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 She is following with Dr. Luis. Echocardiogram does reveal mild reduction of left ventricular function with an ejection fraction of 45%, moderate hypokinesis of the anterior LV, the remainder of the read was read as mild . She will return to Dr. Luis within 2 weeks for further evaluation and treatment. Hyperlipidemia Patient is on atorvastatin at 10 mg/day. Lipid panel done May 05, 2023 reveals a triglyceride of 81, total cholesterol 160, LDL of 80 and an HDL of 48. Will continue the atorvastatin as this panel is not bad. Given her cardiac disease would like to see her LDL closer to 70 and we certainly can consider increasing the atorvastatin to 20 mg/day. Will see what cardiology suggest in this regard. Hypertension Blood pressure today is 100/66, a month ago was 106/74. She has no symptomatology with this. She denies any vertigo, presyncope or other symptoms. Will continue to follow and again have asked her to check her blood pressures record them and bring them back at her next visit. Her blood pressures have done well on the current regimen we will just continue, and she will be seeing cardiology. COPD (chronic obstructive pulmonary disease) We need to get a CT scan low-dose of this patient's lungs because of her tobacco history and risk for pulmonary carcinoma. She has been in the hospital and had other issues but we will try to get this scheduled soon as we can. Wheezing Dyspnea History of stroke Seizure disorder Patient has levetiracetam at 1000 mg twice daily. She has been seizure-free for quite some time. Will continue this medication. Nerve pain HTN (hypertension) Have asked her to check her blood pressures at home at least 3 times a week. This is difficult secondary to her visual disturbances however she does have a caregiver who could do this. I strongly encouraged her to do this. Blood pressure today was 100/66. Anxiety Back Pain This patient's main complaint is in the back and leg. Surgical History History of hysterectomy Family History Other Family history of cancer Family history of myocardial infarction Social History Smoking Status: Current every day smoker tobacco type: cigarettes packs per day: 1 second hand exposure: Yes alcohol intake: former substance use type: marijuana, crack/cocaine, heroin and opiates current occupational status: unemployed Travel in the last 8 weeks: None household members: significant other housing: house number of children: 2 ROS Obtained: Yes All systems reviewed & no additional complaints except as documented Physical Exam General General appearance: alert, in no apparent distress and other (chronically ill, no acute illness) Head Head exam: atraumatic and normocephalic Eye Eye exam: Present normal appearance, PERRL and EOMI ENT ENT exam: Present mucous membranes moist Neck Neck exam: Present normal inspection, full ROM and trachea midline Respiratory Respiratory exam: Absent respiratory distress, wheezes, stridor, accessory muscle use or prolonged expiratory phase Cardiovascular Cardiovascular exam: Present normal rhythm Abdominal Exam Abdominal exam: Present soft; Absent distention, tenderness, guarding, rebound or rigidity Comment: No tender Extremities Exam Extremities exam: Absent edema Neurological Exam Neurological exam: Present alert, oriented X3, CN II-XII intact and normal gait; Absent motor sensory deficit Skin Skin exam: Present warm and dry; Absent diaphoresis or erythema Medical Decision Making Medical Records Medical records reviewed: Yes I reviewed the patient's medical records. Georgi Inquiry Pt receiving controlled substance: No Georgi was queried for this patient: No Vital Signs: 08/22/23 20:38 Temperature 98.1 F Temperature Source Oral Pulse Rate [Left Radial] 84 Respiratory Rate 18 Blood Pressure [Right Arm] 103/75 L Blood Pressure Mean [Right Arm] 84 Blood Pressure Source [Right Arm] Automatic Cuff Blood Pressure Position [Right Arm] Sitting 02 Sat by Pulse Oximetry 94 L Oxygen Delivery Method Room Air Lab Data Lab Results 08/22/23 20:35: WBC 7.7, RBC 2.91 L, Hgb 10.4 L, Hct 31.7 L, MCV 108.7 H, MCH 35.8 H, MCHC 32.9, RDW 13.4, Plt Count 333, MPV 7.5, Neut % (Auto) 53.0, Lymph % (Auto) 35.3, Mcculloch % (Auto) 7.4, Eos % (Auto) 3.4, Baso % (Auto) 0.9, Neut # (Auto) 4.1, Lymph # (Auto) 2.7, Mcculloch # (Auto) 0.6, Eos # (Auto) 0.3, Baso # (Auto) 0.1, Sodium 127 L, Potassium 4.1, Chloride 100, Carbon Dioxide 21 L, Anion Gap 10.1, BUN 9, Creatinine 0.90, Estimated Creat Clear 50, Estimated GFR 64, Est GFR ( Amer) 77, Glucose 97, Calcium 9.1, Total Bilirubin 0.3, AST 30, ALT 17, Alkaline Phosphatase 57, Total Protein 6.7, Albumin 3.5, Globulin 3.2, Albumin/Globulin Ratio 1.1 08/22/23 21:03: Lactate 1.5 08/22/23 21:45: Urine Color Yellow, Urine Appearance Clear, Urine pH 6.0, Ur Specific Graham 1.010, Urine Protein Negative, Urine Glucose (UA) Negative, Urine Ketones Negative, Urine Blood Negative, Urine Nitrate Negative, Urine Bilirubin Negative, Urine Urobilinogen 0.2, Ur Leukocyte Esterase 1+ A, Urine RBC None, Urine WBC 3-5, Ur Squamous Epith Cells Occasional, Urine Bacteria Trace 08/22/23 20:35 08/22/23 20:35 Orders (Tests/Meds): ED MEDICATIONS Generic Name Dose Route Start Last Admin Trade Name Freq PRN Reason Stop Dose Admin Sodium Chloride 10 ml 08/22/23 21:36 08/22/23 21:38 Sodium Chloride 0.9% 10ml Syr (Rad Only) IV 09/21/23 21:35 10 ml NEEDED PRN Administration Maintain IV Site Discontinued Medications Generic Name Dose Route Start Last Admin Trade Name Freq PRN Reason Stop Dose Admin Acetaminophen 1,000 mg 08/22/23 20:59 08/22/23 21:17 Acetaminophen 1,000mg/100ml Vial IV 08/22/23 21:00 1,000 mg ONCE ONE Administration Cefdinir 300 mg 08/22/23 22:22 08/22/23 22:28 Cefdinir 300mg Capsule PO 08/22/23 22:23 300 mg ONCE ONE Administration Lactated Ringer's 1,000 mls @ 999 mls/hr 08/22/23 20:59 08/22/23 21:17 Lactated Ringer's 1000 Ml Bag IV 08/22/23 21:59 999 mls/hr .Q1H1M ONE Administration Iopamidol 70 ml 08/22/23 21:36 08/22/23 21:38 Iopamidol-370 (76%);100ml Bottle IV 08/22/23 21:37 70 ml ONCE ONE Administration Ketorolac Tromethamine 15 mg 08/22/23 20:59 08/22/23 21:17 Ketorolac 30mg/Ml Vial IV 08/22/23 21:00 15 mg ONCE ONE Administration ORDERS Category Date Time Status CT abdomen pelvis w con Stat Cat Scan 08/22/23 20:58 Completed CBC w/Auto Diff [Complete Blood Count Auto Diff] Stat Lab 08/22/23 20:35 Completed CMP [Comprehensive Metabolic Panel] Stat Lab 08/22/23 20:35 Completed Lactic Acid Stat Lab 08/22/23 21:03 Completed UA [Urinalysis and Microscopic] Stat Lab 08/22/23 21:45 Completed Urine Culture Stat Micro 08/22/23 21:45 Received Medical Decision Narrative: 62-year-old female presenting with right lower quadrant pain. States has been going on for 2 or 3 days. Starts in right lower quadrant, does not radiate all the time, but intermittently radiates around into her right flank. No dysuria, hematuria, fevers or chills, nausea or vomiting. Pain is moderate in intensity, intermittent. Has tried Tylenol and ibuprofen may have helped mildly. Patient came in on concern for dehydration and kidney stones, UTI, or appendicitis. History was obtained via conversation with patient. On arrival, patient hemodynamically stable, alert, oriented x4, appropriate, GCS 15, moving all extremities spontaneously, pupils equal and reactive to light. Full physical exam performed and significant for chronically appearing woman in no acute distress. Abdomen soft, nontender, nondistende no overlying skin change. No flank tenderness.d. Unremarkable vitals. Differential includes PUD, gastritis, enteritis, gastroenteritis, pancreatitis, SBO, colitis, diverticulitis, nephrolithiasis, UTI, cholecystitis, choledocholithiasis, appendicitis, torsion, hepatitis, aortic pathology, mesenteric ischemia among others. Patient was given fluid bolus, Toradol for symptomatic management and correction of underlying abnormalities. Workup independently interpreted and significant for no leukocytosis. Stable hyponatremia. Kidney function normal. Urinalysis without concern for blood, but she does have leukocyte esterase and bacteria concerning for mild UTI. Given first dose of cefdinir here. CT abdomen pelvis without acute stone or intra-abdominal abnormality. See radiology read for full review of final results. On reevaluation, patient ready go home, feeling much better after Toradol. Because patient at baseline without signs or symptoms of clinical decompensation, deemed appropriate for discharge. Results were relayed to patient who voiced understanding and were agreeable to outpatient management and follow up. I discussed my clinical impression with patient and answered all questions. At this time, the evidence for any other entities in the differential is insufficient to warrant any further testing or ED observation. This was explained as well. Advisory was given that persistent or worsening symptoms require further evaluation. I confirmed the understanding of this discussion. Plastics Worker disclaimer Much of this encounter note is an electronic extrusion technician spoken language to printed text. Electronic extrusion technician of the spoken language may permit errors. Although I have reviewed the note, some errors may still exist. Critical Care Critical Care Time Critical Care Time: No
[2023-08-22] MEDS: SODIUM CHLORIDE 0.9% 10ML SYR (RAD ONLY) 10 ML IV (21:38)
[2023-08-22] MEDS: IOPAMIDOL-370 (76%);100ML BOTTLE 70 ML IV (21:38)
[2023-08-22 21:50] LABS: Microscopic, Urine URINE MICROSCOPIC (MICROSCOPIC)
[2023-08-22 21:52] LABS: Appearance,Urine CLEAR (Clear); Bilirubin,Urine Negative (Negative); Blood, Urine Negative (Negative); Color,Urine YELLOW (Yellow); Glucose,Urine (UA) Negative (Negative); Ketones,Urine Negative (Negative); Leukocyte Esterase,Urine 1+ (Negative); Nitrate,Urine Negative (Negative); Protein,Urine Negative (Negative); Urobilinogen,Urine 0.2 EU/dl (0.2)
[2023-08-22 22:00] LABS: Bacteria,Urine Trace /lpf; Squamous Epithelial Cell,Urine Occasional #/hpf (0-5)
[2023-08-22] MEDS: CEFDINIR 300MG CAPSULE 300 MG PO (22:28)
--- NOTE | 2023-08-22 22:31 | PC.NURSE ---
Rounded on patient and administered 300mgs of cefdinir PO as per the APR.
[2023-08-22 23:15] VITALS: BP 116/76; PULSE 76; RESP 17; TEMP 36.7; O2SAT 92
== END 2023-08-22 23:17 | disposition home or self-care (01) ==
PROVIDERS: Emergency Provider Emergency Medicine; PCP Internal Medicine
DX: R10.31 Right lower quadrant pain (principal); E87.1 Hypo-osmolality and hyponatremia; N39.0 Urinary tract infection, site not specified; F17.210 Nicotine dependence, cigarettes, uncomplicated; I11.9 Hypertensive heart disease without heart failure; E78.5 Hyperlipidemia, unspecified; J44.9 Chronic obstructive pulmonary disease, unspecified; I25.10 Atherosclerotic heart disease of native coronary artery without angina pectoris
CPT/HCPCS: 74177; 80053; 81001; 83605; 85025; 87086; 96361; 96374; 96375; 99285; J0131; J1885; J7120; Q9967

== ENCOUNTER 2023-08-23 20:17 | Emergency (ER) | payer MEDICAID, SELFPAY ==
[2023-08-23 20:17] VITALS: BP 93/69; PULSE 100; RESP 17; TEMP 36.8; O2SAT 94; BMI 20.1
--- NOTE | 2023-08-23 20:52 | PC.NURSE ---
received a call from a third republican, a neighbor, who stated patient had taken another person's medications prior to this event. According to Nayely Enamorado, who lives at [address] [place] [address], the neighbor Marisela Martin who lives at [address] [place] [address] gave this patient one of her nerve pills for anxiety. Upon looking at Marisela's records, it is revealed that she takes clonazepam 1mg as part of her prescriptions. MD and primary nurse notified.
[2023-08-23] MEDS: LACTATED RINGERS 1000ML 1,000 ML 999 ML IV (20:58)
[2023-08-23 21:02] LABS: Chloride 104 mmol/L (98-107); Sodium 129 mmol/L (136-145)
[2023-08-23 21:03] LABS: Potassium 3.6 mmoL/L (3.5-5.1)
[2023-08-23 21:05] LABS: Alanine Aminotransferase 16 U/L (12-78); Albumin Level 3.1 g/dl (3.5-5.0); Albumin/Globulin Ratio 1.1 (1.1-1.8); Alkaline Phosphatase 64 U/L (38-126); Anion Gap 12.6 mEq/L (5-15); Aspartate Amino Transferase 31 U/L (14-36); Bilirubin,Total 0.2 mg/dl (0.2-1.3); Blood Urea Nitrogen 14 mg/dl (7-17); Calcium 8.4 mg/dl (8.4-10.2); Carbon Dioxide 16 mmol/L (22.0-30.0); Creatinine Clearance Estimated 47 mL/min (50-200); Estimated Glomerular Filt Rate 57 ml/min (>60); GFR (African American) 68 ML/MIN (>60); Globulin 2.8 g/dL (1.3-3.2); Glucose 77 mg/dl (74-100); Lipase 364 U/L (23-300); Total Protein,Serum 5.9 g/dl (6.3-8.2)
[2023-08-23 21:14] LABS: Basophils % 0.6 % (0.1-2.0); Eosinophils # 0.2 K/mm3 (0.0-0.4); Eosinophils % 2.7 % (0.1-12.0); Hematocrit 27.2 % (37.0-47.0); Lymphocytes # 2.2 K/mm3 (0.7-4.5); Lymphocytes % 32.1 % (10-50); Mean Corpuscular HGB Conc 34.3 g/dL (31.8-35.4); Mean Corpuscular Hemoglobin 36.7 pg (27.0-31.2); Mean Platelet Volume 7.4 fl (7.4-10.4); Monocytes # 0.6 K/mm3 (0.1-1.0); Monocytes % 8.1 % (1.7-9.3); Neutrophils # 3.9 K/mm3 (1.8-7.8); Neutrophils % 56.4 % (37.0-80.0); Platelet Count 293 K/mm3 (142-424); Red Blood Count 2.54 M/mm3 (4.20-5.40); Red Cell Distribution Width 13.1 % (11.5-17.5); White Blood Count 6.9 K/mm3 (4.8-10.8)
--- NOTE | 2023-08-23 21:14 | PC.NURSE ---
Patient called out requesting to use the restroom. Assisted patient to restroom, standby assist. Patient alert and oriented at this time. No further needs expressed at this time.
[2023-08-23 21:18] LABS: Hemoglobin 9.3 g/dL (12.2-16.2)
--- NOTE | 2023-08-23 21:34 | ED_ITS ---
Discharge Plan Disposition Patient Disposition: Home, Self-Care Chief Complaint: Altered Mental Status Prescriptions Prescriptions: No Action atorvastatin 10 mg tablet 10 mg PO DAILY Qty: 90 4RF bupropion HCl 150 mg tablet extended release 24 hr 150 mg PO DAILY Qty: 90 4RF cyanocobalamin (vitamin B-12) 1,000 mcg tablet, sublingual 1,000 mcg PO DAILY 90 Days Qty: 90 4RF ferrous sulfate 325 mg (65 mg iron) tablet 325 mg PO DAILY Qty: 90 4RF lisinopril 10 mg tablet 10 mg PO DAILY 90 Days Qty: 90 4RF metoprolol succinate 25 mg tablet extended release 24 hr 25 mg PO DAILY 90 Days Qty: 90 4RF tizanidine 2 mg capsule 2 mg PO HS PRN (Reason: muscle spasticity) Qty: 30 2RF diazepam 5 mg tablet 2.5 mg PO DAILY PRN (Reason: muscle spasms) 30 Days Qty: 15 0RF oxycodone-acetaminophen 5-325 mg tablet 1 tab PO BID PRN (Reason: Moderate Pain (Scale Score 5-6)) Qty: 60 0RF albuterol sulfate [ProAir HFA] 90 mcg/actuation HFA aerosol inhaler 2 puff inhalation Q4-6H PRN (Reason: Shortness Of Breath) Qty: 8.5 8RF Rx Instructions: INHALE 2 PUFFS BY MOUTH EVERY 4 TO 6 HOURS NEEDED FOR SHORTNESS OF BREATH OR WHEEZING aspirin 81 mg tablet,delayed release (DR/EC) 81 mg PO DAILY Qty: 90 4RF cholecalciferol (vitamin D3) 125 mcg (5,000 unit) capsule 125 mcg PO DAILY Qty: 90 4RF levetiracetam 1,000 mg tablet 1,000 mg PO BID Qty: 180 4RF quetiapine 300 mg tablet 300 mg PO HS Qty: 90 4RF magnesium oxide 400 mg (241.3 mg magnesium) Tablet 400 mg PO DAILY 30 Days Qty: 30 0RF sennosides-docusate sodium [Stimulant Laxative Plus] 8.6-50 mg Tablet 1 tab PO DAILY PRN (Reason: constipation) 30 Days Qty: 30 0RF cefdinir 300 mg capsule 300 mg PO BID 5 Days Qty: 10 0RF cefdinir 300 mg capsule 300 mg PO BID 10 Days Qty: 20 0RF Referrals Follow up/Referrals: Jose De Jesus Kovacs DO [Primary Care Provider] - See instructions Activity Restrictions/Add. Instructions Additional Instructions/Restrictions: Call your family doctor to establish care for this visit to the emergency department and schedule follow-up within 48 hours to ensure improvement. If you have any worsening of your condition or any other concerning signs or symptoms, return to the emergency department or your primary care doctor for further evaluation. Clinical Impressions Clinical Impression: Fatigue Abdominal pain Qualifiers: Abdominal location: right lower quadrant Qualified Code(s): R10.31 - Right lower quadrant pain Instructions Patient Instructions: DI for Altered Mental Status Discharge ED Provider: Gilson Griffin General Adult HPI General Chief complaint: Altered Mental Status Stated complaint: Falls and combative Time Seen by Provider: 08/23/23 20:21 Mode of Arrival: EMS Source of Information: Patient and EMS Limitations: Altered Mental Status Description of Symptoms (Recalled from ER Triage Doc. by RN): EMS was called by neighbor after patient was reportedly banging on neighbors door, then fell. Patient was found to be lethargic on scene with a blood pressure of 80/52. Patient was oriented on scene but not entirely alert. Patient states that she just got weak and is unable to elaborate at this time. Patient is arousable to voice during triage. Oriented to person, place, month, and situation. History of Present Illness HPI narrative: Please note that above description of symptoms, in this electronic medical record under categorization of recalled from ER triage doctor by RN are reflective of an initial nursing assessment, however, is not reflective of my full history and physical exam that was personally taken and clarified. Consequentially, this preceding description of symptoms, which may include the patient's categorized chief complaint in the EMR, do not reflect my personal clinical impression, and the ultimate description of history of present illness and patient stated complaints should be deferred to this section of the note. Unless stated otherwise or congruent with this section of the note, additional signs, symptoms, or incongruence should be interpreted as inaccurate with my clinical impression. Related Data Previous Rx's Medication Instructions Recorded atorvastatin 10 mg tablet 10 mg PO DAILY Cholesterol #90 tabs 06/16/23 bupropion HCl 150 mg 24 hr tablet, 150 mg PO DAILY #90 tabs 06/16/23 extended release cyanocobalamin (vitamin B-12) 1,000 mcg PO DAILY 90 days #90 tabs 06/16/23 1,000 mcg sublingual tablet ferrous sulfate 325 mg (65 mg 325 mg PO DAILY low HGB #90 tabs 06/16/23 iron) tablet lisinopril 10 mg tablet 10 mg PO DAILY 90 days #90 tabs 06/16/23 metoprolol succinate 25 mg 25 mg PO DAILY 90 days #90 tabs 06/16/23 tablet,extended release 24 hr magnesium oxide 400 mg (241.3 mg 400 mg PO DAILY 30 days #30 tabs 07/19/23 magnesium) tablet sennosides 8.6 mg-docusate sodium 1 tab PO DAILY PRN constipation 30 07/19/23 50 mg tablet (Stimulant Laxative days #30 tabs Plus) albuterol sulfate 90 mcg/actuation 2 puff inhalation Q4-6H PRN 07/24/23 aerosol inhaler (ProAir HFA) Shortness Of Breath #8.5 grams aspirin 81 mg tablet,delayed 81 mg PO DAILY #90 tabs 07/24/23 release cholecalciferol (vitamin D3) 125 125 mcg PO DAILY #90 caps 07/24/23 mcg (5,000 unit) capsule levetiracetam 1,000 mg tablet 1,000 mg PO BID #180 tabs 07/24/23 quetiapine 300 mg tablet 300 mg PO HS #90 tabs 07/24/23 cefdinir 300 mg capsule 300 mg PO BID 10 days #20 caps 08/09/23 diazepam 5 mg tablet 2.5 mg (1/2 x 5 mg) PO DAILY PRN 08/12/23 muscle spasms 30 days #15 tabs oxycodone-acetaminophen 5 mg-325 1 tab PO BID PRN Moderate Pain 08/12/23 mg tablet (Scale Score 5-6) #60 tabs tizanidine 2 mg capsule 2 mg PO HS PRN muscle spasticity 08/12/23 #30 caps cefdinir 300 mg capsule 300 mg PO BID 5 days #10 caps 08/22/23 Allergies Allergy/AdvReac Type Severity Reaction Status Date / Time codeine Allergy Mild Verified 08/22/23 20:50 [facility] Disclaimer: The information contained in this section may have been updated after the patient was seen, as this information can be updated by other users. Medical History Left against medical advice Left patella fracture Alcoholic intoxication Gastric ulcer Essentially healed CAD in [place] artery We did the coronary calcium scoring and she has moderate disease. She is following with Dr. Luis. Echocardiogram does reveal mild reduction of left ventricular function with an ejection fraction of 45%, moderate hypokinesis of the anterior LV, the remainder of the read was read as mild . She will return to Dr. Luis within 2 weeks for further evaluation and treatment. Hyperlipidemia Patient is on atorvastatin at 10 mg/day. Lipid panel done May 05, 2023 reveals a triglyceride of 81, total cholesterol 160, LDL of 80 and an HDL of 48. Will continue the atorvastatin as this panel is not bad. Given her cardiac disease would like to see her LDL closer to 70 and we certainly can consider increasing the atorvastatin to 20 mg/day. Will see what cardiology suggest in this regard. Hypertension Blood pressure today is 100/66, a month ago was 106/74. She has no symptomatology with this. She denies any vertigo, presyncope or other symptoms. Will continue to follow and again have asked her to check her blood pressures record them and bring them back at her next visit. Her blood pressures have done well on the current regimen we will just continue, and she will be seeing cardiology. COPD (chronic obstructive pulmonary disease) We need to get a CT scan low-dose of this patient's lungs because of her tobacco history and risk for pulmonary carcinoma. She has been in the hospital and had other issues but we will try to get this scheduled soon as we can. Wheezing Dyspnea History of stroke Seizure disorder Patient has levetiracetam at 1000 mg twice daily. She has been seizure-free for quite some time. Will continue this medication. Nerve pain HTN (hypertension) Have asked her to check her blood pressures at home at least 3 times a week. This is difficult secondary to her visual disturbances however she does have a caregiver who could do this. I strongly encouraged her to do this. Blood pressure today was 100/66. Anxiety Back Pain This patient's main complaint is in the back and leg. Surgical History History of hysterectomy Family History Other Family history of cancer Family history of myocardial infarction Social History Smoking Status: Current every day smoker tobacco type: cigarettes packs per day: 1 second hand exposure: Yes alcohol intake: former substance use type: marijuana, crack/cocaine, heroin and opiates current occupational status: unemployed Travel in the last 8 weeks: None household members: significant other housing: house number of children: 2 ROS Obtained: Yes All systems reviewed & no additional complaints except as documented Physical Exam General General appearance: alert and other (Acutely ill-appearing, tired) Head Head exam: atraumatic and normocephalic Eye Eye exam: Present normal appearance, PERRL and EOMI ENT ENT exam: Present mucous membranes moist Neck Neck exam: Present normal inspection, full ROM and trachea midline Respiratory Respiratory exam: Absent respiratory distress, wheezes, stridor, accessory muscle use or prolonged expiratory phase Cardiovascular Cardiovascular exam: Present normal rhythm Abdominal Exam Abdominal exam: Present soft; Absent distention, tenderness, guarding, rebound or rigidity Comment: No 10 initial my Extremities Exam Extremities exam: Absent edema Neurological Exam Neurological exam: Present alert, oriented X3, CN II-XII intact and normal gait; Absent motor sensory deficit Skin Skin exam: Present warm and dry; Absent diaphoresis or erythema Medical Decision Making Medical Records Medical records reviewed: Yes I reviewed the patient's medical records. Georgi Inquiry Pt receiving controlled substance: No Georgi was queried for this patient: No Vital Signs: 08/23/23 20:17 Temperature 98.3 F Temperature Source Oral Pulse Rate [Left Radial] 100 H Respiratory Rate 17 Blood Pressure [Right Arm] 93/69 L Blood Pressure Mean [Right Arm] 77 Blood Pressure Source [Right Arm] Automatic Cuff Blood Pressure Position [Right Arm] Sitting 02 Sat by Pulse Oximetry 94 L Oxygen Delivery Method Room Air Lab Data Lab Results 08/23/23 20:25: WBC 6.9, RBC 2.54 L, Hgb 9.3 L D, Hct 27.2 L, MCV 107.0 H, MCH 36.7 H, MCHC 34.3, RDW 13.1, Plt Count 293, MPV 7.4, Neut % (Auto) 56.4, Lymph % (Auto) 32.1, [place] % (Auto) 8.1, Eos % (Auto) 2.7, Baso % (Auto) 0.6, Neut # (Auto) 3.9, Lymph # (Auto) 2.2, [place] # (Auto) 0.6, Eos # (Auto) 0.2, Baso # (Auto) 0.0, Sodium 129 L, Potassium 3.6, Chloride 104, Carbon Dioxide 16 L, Anion Gap 12.6, BUN 14 D, Creatinine 1.00, Estimated Creat Clear 47, Estimated GFR 57 L, Est GFR ( Amer) 68, Glucose 77 D, Calcium 8.4, Total Bilirubin 0.2, AST 31, ALT 16, Alkaline Phosphatase 64, Total Protein 5.9 L, Albumin 3.1 L D, Globulin 2.8, Albumin/Globulin Ratio 1.1, Lipase 364 H 08/23/23 20:25 08/23/23 20:25 Orders (Tests/Meds): ED MEDICATIONS Generic Name Dose Route Start Last Admin Trade Name Freq PRN Reason Stop Dose Admin Lactated Ringer's 1,000 mls @ 999 mls/hr 08/23/23 20:53 08/23/23 20:58 Lactated Ringer's 1000 Ml Bag IV 08/23/23 21:53 999 mls/hr .Q1H1M ONE Administration ORDERS Category Date Time Status CBC w/Auto Diff [Complete Blood Count Auto Diff] Stat Lab 08/23/23 20:25 Completed CMP [Comprehensive Metabolic Panel] Stat Lab 08/23/23 20:25 Completed Lipase Stat Lab 08/23/23 20:25 Completed Medical Decision Narrative: 62-year-old female history of hypertension, hyperlipidemia, numerous UTIs, CAD, chronic fatigue, hysterectomy,Presenting with lower abdominal pain. Was seen yesterday for lower abdominal pain. States it has not changed. Coming in for further evaluation. States she has been constipated, no blood in her stool. Has been taking antibiotics for UTI. No fevers or chills, nausea or vomiting, or any other concerns. Pain is mild in intensity, does not radiate, made worse with changes in position, made better with lying flat. History was obtained via conversation with patient and chart. On arrival, patient hemodynamically stable, alert, oriented x4, appropriate, GCS 15, moving all extremities spontaneously, pupils equal and reactive to light. Full physical exam performed and significant for chronically ill-appearing woman in no acute distress. Abdomen soft, nontender, nondistended, no tenderness is elicited on my exam. No flank tenderness. No overlying skin changes. Basic labs obtained, patient had urine done yesterday, concern for UTI and started on antibiotic by me. Did not need urine today. CT abdomen pelvis was also reviewed from yesterday, no acute findings. Because patient nonperitoneal neck, not an extremis, no tenderness on exam, hemodynamically stable, very well-appearing, CT scan not deemed necessary at this time either. Patient given Toradol for pain. On reevaluation, patient resting comfortably. Patient's neighbor called emergency department staff prior to discharge, stated that another person that lives near her gave her a nerve pill prior to arrival when patient began feeling tired and complaining of abdominal pain. On chart review of this person/patient, clonazepam was medication patient took for her lungs. Conversation was had with patient regarding this, it was recommended that she does not take medications that are not prescribed to her. She voiced understanding. Because patient at baseline without signs or symptoms of clinical decompensation, deemed appropriate for discharge. Results were relayed to patient who voiced understanding and were agreeable to outpatient management and follow up. I discussed my clinical impression with patient and answered all questions. At this time, the evidence for any other entities in the differential is insufficient to warrant any further testing or ED observation. This was explained as well. Advisory was given that persistent or worsening symptoms require further evaluation. I confirmed the understanding of this discussion. Car Salesman disclaimer Much of this encounter note is an electronic surgery technician spoken language to printed text. Electronic surgery technician of the spoken language may permit errors. Although I have reviewed the note, some errors may still exist. Critical Care Critical Care Time Critical Care Time: No
[2023-08-23 22:10] VITALS: BP 123/76; PULSE 63; RESP 15; TEMP 36.7; O2SAT 99
== END 2023-08-23 22:12 | disposition home or self-care (01) ==
PROVIDERS: Emergency Provider Emergency Medicine; PCP Internal Medicine
DX: R10.31 Right lower quadrant pain (principal); E87.1 Hypo-osmolality and hyponatremia; R53.83 Other fatigue; F17.210 Nicotine dependence, cigarettes, uncomplicated; J44.9 Chronic obstructive pulmonary disease, unspecified; I11.9 Hypertensive heart disease without heart failure; I25.10 Atherosclerotic heart disease of native coronary artery without angina pectoris; E78.5 Hyperlipidemia, unspecified
CPT/HCPCS: 80053; 83690; 85025; 96360; 99284; J7120

== ENCOUNTER 2023-09-17 14:51 | Emergency (ER) | payer MEDICAID, SELFPAY ==
[2023-09-17 14:53] VITALS: BP 118/87; PULSE 97; RESP 18; TEMP 36.9; O2SAT 95; BMI 20.2
--- NOTE | 2023-09-17 14:55 | ED_ITS ---
<Statement entered by Chelly Carrizales MD - 09/17/23 16:19> I was consulted by the MONTRELL, and we discussed the complexity of problems being addressed. I approved the treatment and management plan for this patient's care in the emergency department, thus performing a substantial portion of the medical decision making. Chelly Carrizales MD Discharge Plan Disposition Patient Disposition: Home, Self-Care Condition: Good Prescriptions Prescriptions: New methocarbamol 750 mg tablet 750 mg PO QID PRN (Reason: muscle spasm) Qty: 20 0RF lidocaine 5 % adhesive patch,medicated 1 patch topical DAILY Qty: 30 0RF Rx Instructions: leave on most painful area for up to 12 hrs No Action atorvastatin 10 mg tablet 10 mg PO DAILY Qty: 90 4RF bupropion HCl 150 mg tablet extended release 24 hr 150 mg PO DAILY Qty: 90 4RF cyanocobalamin (vitamin B-12) 1,000 mcg tablet, sublingual 1,000 mcg PO DAILY 90 Days Qty: 90 4RF ferrous sulfate 325 mg (65 mg iron) tablet 325 mg PO DAILY Qty: 90 4RF lisinopril 10 mg tablet 10 mg PO DAILY 90 Days Qty: 90 4RF metoprolol succinate 25 mg tablet extended release 24 hr 25 mg PO DAILY 90 Days Qty: 90 4RF tizanidine 2 mg capsule 2 mg PO HS PRN (Reason: muscle spasticity) Qty: 30 2RF albuterol sulfate [ProAir HFA] 90 mcg/actuation HFA aerosol inhaler 2 puff inhalation Q4-6H PRN (Reason: Shortness Of Breath) Qty: 8.5 8RF Rx Instructions: INHALE 2 PUFFS BY MOUTH EVERY 4 TO 6 HOURS NEEDED FOR SHORTNESS OF BREATH OR WHEEZING aspirin 81 mg tablet,delayed release (DR/EC) 81 mg PO DAILY Qty: 90 4RF cholecalciferol (vitamin D3) 125 mcg (5,000 unit) capsule 125 mcg PO DAILY Qty: 90 4RF levetiracetam 1,000 mg tablet 1,000 mg PO BID Qty: 180 4RF quetiapine 300 mg tablet 300 mg PO HS Qty: 90 4RF methylprednisolone [Medrol (David)] 4 mg tablets,dose pack See Rx Instructions PO PER PKG DIR Qty: 21 0RF Rx Instructions: PO PER PKG DIR magnesium oxide 400 mg (241.3 mg magnesium) Tablet 400 mg PO DAILY 30 Days Qty: 30 0RF sennosides-docusate sodium [Stimulant Laxative Plus] 8.6-50 mg Tablet 1 tab PO DAILY PRN (Reason: constipation) 30 Days Qty: 30 0RF Referrals Follow up/Referrals: Jose De Jesus Kovacs DO [Primary Care Provider] - See instructions Activity Restrictions/Add. Instructions Additional Instructions/Restrictions: Please follow-up with your PCP within 48 hours for recheck. I have sent prescriptions in for both muscle relaxer and topical lidocaine patches. Return to ER for any worsening signs or symptoms as needed. Clinical Impressions Clinical Impression: Neck arthralgia Acute thoracic back pain Qualifiers: Back pain laterality: midline Qualified Code(s): M54.6 - Pain in thoracic spine Instructions Patient Instructions: DI for Neck Pain, DI for Thoracic Back Pain Print Language Print Language: Slovak Discharge ED Provider: Chelly Carrizales General Adult HPI <EULALIO Wilson - Last Filed: 09/17/23 16:14> General Chief complaint: Skin/Abscess/Foreign Body Stated complaint: knots on neck and pain Time Seen by Provider: 09/17/23 14:55 History of Present Illness HPI narrative: Patient presents for evaluation of acute neck pain. Patient reports that she has knots on her neck and upper back that are exquisitely tender to palpation. She cannot straighten her head due to the pain. She denies change in mental status loss of neurologic function no numbness no tingling chest pain shortness of breath fever chills hemoptysis hematochezia melena nausea vomiting diarrhea. Patient is legally blind and has a past medical history of hypertension history of stroke history of seizure disorder history of generalized anxiety disorder hyperlipidemia restless leg syndrome. Patient explicitly denied any history of drug or alcohol use although review of her chart suggest differently. Patient's current Glascow coma score at the time of my exam is 15 Related Data Previous Rx's ?Medication ?Instructions ?Recorded atorvastatin 10 mg tablet 10 mg PO DAILY Cholesterol #90 tabs 06/16/23 bupropion HCl 150 mg 24 hr tablet, 150 mg PO DAILY #90 tabs 06/16/23 extended release cyanocobalamin (vitamin B-12) 1,000 mcg PO DAILY 90 days #90 tabs 06/16/23 1,000 mcg sublingual tablet ferrous sulfate 325 mg (65 mg 325 mg PO DAILY low HGB #90 tabs 06/16/23 iron) tablet lisinopril 10 mg tablet 10 mg PO DAILY 90 days #90 tabs 06/16/23 metoprolol succinate 25 mg 25 mg PO DAILY 90 days #90 tabs 06/16/23 tablet,extended release 24 hr magnesium oxide 400 mg (241.3 mg 400 mg PO DAILY 30 days #30 tabs 07/19/23 magnesium) tablet sennosides 8.6 mg-docusate sodium 1 tab PO DAILY PRN constipation 30 07/19/23 50 mg tablet (Stimulant Laxative days #30 tabs Plus) albuterol sulfate 90 mcg/actuation 2 puff inhalation Q4-6H PRN 07/24/23 aerosol inhaler (ProAir HFA) Shortness Of Breath #8.5 grams aspirin 81 mg tablet,delayed 81 mg PO DAILY #90 tabs 07/24/23 release cholecalciferol (vitamin D3) 125 125 mcg PO DAILY #90 caps 07/24/23 mcg (5,000 unit) capsule levetiracetam 1,000 mg tablet 1,000 mg PO BID #180 tabs 07/24/23 quetiapine 300 mg tablet 300 mg PO HS #90 tabs 07/24/23 tizanidine 2 mg capsule 2 mg PO HS PRN muscle spasticity 08/12/23 #30 caps methylprednisolone 4 mg tablets in See Rx Instructions PO PER PKG DIR 09/08/23 a dose pack (Medrol (David)) #21 tabs lidocaine 5 % topical patch 1 patch topical DAILY #30 ea 09/17/23 methocarbamol 750 mg tablet 750 mg PO QID PRN muscle spasm #20 09/17/23 tabs Allergies Allergy/AdvReac Type Severity Reaction Status Date / Time codeine Allergy Mild Verified 09/08/23 14:10 [facility] <EULALIO Wilson - Last Filed: 09/17/23 16:14> [facility] Disclaimer: The information contained in this section may have been updated after the patient was seen, as this information can be updated by other users. Medical History Left against medical advice Left patella fracture Alcoholic intoxication Gastric ulcer Essentially healed CAD in [place] artery We did the coronary calcium scoring and she has moderate disease. She is following with Dr. Luis. Echocardiogram does reveal mild reduction of left ventricular function with an ejection fraction of 45%, moderate hypokinesis of the anterior LV, the remainder of the read was read as mild . She will return to Dr. Luis within 2 weeks for further evaluation and treatment. Hyperlipidemia Hypertension COPD (chronic obstructive pulmonary disease) Wheezing Dyspnea History of stroke Seizure disorder Nerve pain HTN (hypertension) Anxiety Back Pain This patient's main complaint is in the back and leg. Surgical History History of hysterectomy Family History Other Family history of cancer Family history of myocardial infarction Social History Smoking Status: Current every day smoker tobacco type: cigarettes packs per day: 1 second hand exposure: Yes alcohol intake: former substance use type: marijuana, crack/cocaine, heroin and opiates current occupational status: unemployed Travel in the last 8 weeks: None household members: significant other housing: house number of children: 2 <EULALIO Wilson - Last Filed: 09/17/23 16:14> ROS Obtained: Yes Systems reviewed as appropriate & no additional complaints except as documented Physical Exam <EULALIO Wilson - Last Filed: 09/17/23 16:14> General General appearance: alert and in no apparent distress Head Head exam: atraumatic and normal inspection Eye Eye exam: Present normal appearance and EOMI ENT ENT exam: Present normal exam and normal oropharynx Neck Neck exam: Present trachea midline and tenderness (Patient has midline C-spine tenderness and has an abrasion and slight ecchymosis over T1 suggesting a trauma); Absent normal inspection, full ROM or lymphadenopathy Chest Chest inspection: Present normal inspection and symmetric chest wall rise; Absent tenderness Respiratory Respiratory exam: Present normal lung sounds bilaterally and accessory muscle use; Absent respiratory distress or wheezes Cardiovascular Cardiovascular exam: Present regular rate and normal rhythm Abdominal Exam Abdominal exam: Present soft and normal bowel sounds; Absent tenderness, guarding, rebound or rigidity Extremities Exam Extremities exam: Present normal inspection and full ROM; Absent tenderness Back Exam Back exam: Present tenderness; Absent normal inspection or full ROM Neurological Exam Neurological exam: Present alert, oriented X3 and normal gait; Absent motor sensory deficit Psychiatric Psychiatric exam: Present normal affect and normal mood Medical Decision Making <EULALIO Wilson - Last Filed: 09/17/23 16:14> Medical Records Medical records reviewed: Yes I reviewed the patient's medical records. Georgi Inquiry Pt receiving controlled substance: No Vital Signs: 09/17/23 14:53 Temperature 98.4 F Temperature Source Oral Pulse Rate [Right Radial] 97 H Respiratory Rate 18 Blood Pressure [Right Arm] 118/87 Blood Pressure Mean [Right Arm] 97 02 Sat by Pulse Oximetry 95 Oxygen Delivery Method Room Air Lab Data Lab results reviewed: Yes I reviewed the patient's lab results. Lab Results 09/17/23 15:15: WBC 6.4, RBC 2.66 L, Hgb 9.8 L, Hct 29.8 L, MCV 112.3 H, MCH 37.0 H, MCHC 32.9, RDW 13.7, Plt Count 451 H, MPV 8.1, Neut % (Auto) 66.3, Lymph % (Auto) 23.4, Bollinger % (Auto) 5.3, Eos % (Auto) 4.3, Baso % (Auto) 0.7, Neut # (Auto) 4.2, Lymph # (Auto) 1.5, Bollinger # (Auto) 0.3, Eos # (Auto) 0.3, Baso # (Auto) 0.0, Sodium 136, Potassium 3.6, Chloride 111 H, Carbon Dioxide 20 L, Anion Gap 8.6, BUN 10, Creatinine 1.00, Estimated Creat Clear 45, Estimated GFR 57 L, Est GFR ( Amer) 68, Glucose 125 H, Calcium 8.9, Total Bilirubin 0.4, AST 36, ALT 28, Alkaline Phosphatase 84, Total Protein 6.8, Albumin 3.2 L, Globulin 3.6 H, Albumin/Globulin Ratio 0.9 L, Procalcitonin 0.049 09/17/23 15:15 09/17/23 15:15 Orders (Tests/Meds): ED MEDICATIONS Generic Name Dose Route Start Last Admin Trade Name Freq PRN Reason Stop Dose Admin Lidocaine 1 each 09/17/23 16:07 09/17/23 16:12 Lidocaine 5% Transdermal Patch TP 09/17/23 16:08 1 each ONCE ONE Administration Discontinued Medications Generic Name Dose Route Start Last Admin Trade Name Marie PRN Reason Stop Dose Admin Acetaminophen 1,000 mg 09/17/23 14:59 09/17/23 15:33 Acetaminophen 1,000mg/100ml Vial IV 09/17/23 15:00 1,000 mg ONCE ONE Administration Dexamethasone Sodium Phosphate 10 mg 09/17/23 14:59 09/17/23 15:35 Dexamethasone 4mg/Ml 5ml Mdv IV 09/17/23 15:00 10 mg ONCE ONE Administration Sodium Chloride 1,000 mls @ 999 mls/hr 09/17/23 14:59 09/17/23 15:33 Sod Chlor 0.9% 1000ml Bag IV 09/17/23 15:59 999 mls/hr .Q1H1M ONE Administration Methocarbamol 500 mg 09/17/23 14:59 09/17/23 15:34 Methocarbamol 500mg Tablet PO 09/17/23 15:00 500 mg ONCE ONE Administration Ondansetron HCl 4 mg 09/17/23 14:59 09/17/23 15:34 Ondansetron 4mg/2ml Vial IV 09/17/23 15:00 4 mg ONCE ONE Administration ORDERS Category Date Time Status CT cervical spine wo con Stat Cat Scan 09/17/23 14:[address] head/brain wo con Stat Cat Scan 09/17/23 14:[address] lumbar spine wo con Stat Cat Scan 09/17/23 14:[address] thoracic spine wo con Stat Cat Scan 09/17/23 14:58 Completed CBC w/Auto Diff [Complete Blood Count Auto Diff] Stat Lab 09/17/23 15:15 Completed CMP [Comprehensive Metabolic Panel] Stat Lab 09/17/23 15:15 Completed Procalcitonin Stat Lab 09/17/23 15:15 Completed Medical Decision Narrative: In summary patient is a 62-year-old female who presents to the emergency department for evaluation of neck and upper back pain. Patient is hemodynamically stable upon arrival, afebrile. Physical exam is remarkable for tenderness to palpation over the C-spine and T-spine to the level of T2. There appears to be abrasion of the skin at T1 suggesting trauma but patient adamantly denies a fall or trauma. She is unable to straighten her neck to the neutral position due to pain. Patient is neurovascularly intact in all 4 extremities without loss of motor or sensory.. Differential diagnosis includes contusion versus fracture versus infection etc. Initial workup will be conducted with hematologic labs noncontrast CT scans including the head chest and abdomen as patient appears to have had trauma but does not recall it as she adamantly denies falling. Initial interventions include crystalloid bolus Tylenol Decadron Zofran Robaxin. Initial workup reviewed by me and her hematologic labs are nonactionable and her imaging shows no acute fracture via my informal interpretation. Upon repeat evaluation patient reports significant improvement in her discomfort and upon reexamination has no paresthesias, numbness tingling loss of motor or sensory in any extremity and is ambulatory without assistance in the ER.. Given this patient is appropriate for discharge with a prescription for Robaxin and topical lidocaine. Patient to follow-up with her PCP within 48 hours for recheck. <Chelly Carrizales MD - Last Filed: 09/17/23 16:21> Vital Signs: 09/17/23 14:53 Temperature 98.4 F Temperature Source Oral Pulse Rate [Right Radial] 97 H Respiratory Rate 18 Blood Pressure [Right Arm] 118/87 Blood Pressure Mean [Right Arm] 97 02 Sat by Pulse Oximetry 95 Oxygen Delivery Method Room Air Lab Data Lab Results 09/17/23 15:15: WBC 6.4, RBC 2.66 L, Hgb 9.8 L, Hct 29.8 L, MCV 112.3 H, MCH 37.0 H, MCHC 32.9, RDW 13.7, Plt Count 451 H, MPV 8.1, Neut % (Auto) 66.3, Lymph % (Auto) 23.4, Bollinger % (Auto) 5.3, Eos % (Auto) 4.3, Baso % (Auto) 0.7, Neut # (Auto) 4.2, Lymph # (Auto) 1.5, Bollinger # (Auto) 0.3, Eos # (Auto) 0.3, Baso # (Auto) 0.0, Sodium 136, Potassium 3.6, Chloride 111 H, Carbon Dioxide 20 L, Anion Gap 8.6, BUN 10, Creatinine 1.00, Estimated Creat Clear 45, Estimated GFR 57 L, Est GFR ( Amer) 68, Glucose 125 H, Calcium 8.9, Total Bilirubin 0.4, AST 36, ALT 28, Alkaline Phosphatase 84, Total Protein 6.8, Albumin 3.2 L, Globulin 3.6 H, Albumin/Globulin Ratio 0.9 L, Procalcitonin 0.049 Orders (Tests/Meds): ED MEDICATIONS Generic Name Dose Route Start Last Admin Trade Name Frejuan PRN Reason Stop Dose Admin Lidocaine 1 each 09/17/23 16:07 09/17/23 16:12 Lidocaine 5% Transdermal Patch TP 09/17/23 16:08 1 each ONCE ONE Administration Discontinued Medications Generic Name Dose Route Start Last Admin Trade Name Marie PRN Reason Stop Dose Admin Acetaminophen 1,000 mg 09/17/23 14:59 09/17/23 15:33 Acetaminophen 1,000mg/100ml Vial IV 09/17/23 15:00 1,000 mg ONCE ONE Administration Dexamethasone Sodium Phosphate 10 mg 09/17/23 14:59 09/17/23 15:35 Dexamethasone 4mg/Ml 5ml Mdv IV 09/17/23 15:00 10 mg ONCE ONE Administration Sodium Chloride 1,000 mls @ 999 mls/hr 09/17/23 14:59 09/17/23 15:33 Sod Chlor 0.9% 1000ml Bag IV 09/17/23 15:59 999 mls/hr .Q1H1M ONE Administration Methocarbamol 500 mg 09/17/23 14:59 09/17/23 15:34 Methocarbamol 500mg Tablet PO 09/17/23 15:00 500 mg ONCE ONE Administration Ondansetron HCl 4 mg 09/17/23 14:59 09/17/23 15:34 Ondansetron 4mg/2ml Vial IV 09/17/23 15:00 4 mg ONCE ONE Administration ORDERS Category Date Time Status CT cervical spine wo con Stat Cat Scan 09/17/23 14:[address] head/brain wo con Stat Cat Scan 09/17/23 14:[address] lumbar spine wo con Stat Cat Scan 09/17/23 14:[address] thoracic spine wo con Stat Cat Scan 09/17/23 14:58 Completed CBC w/Auto Diff [Complete Blood Count Auto Diff] Stat Lab 09/17/23 15:15 Completed CMP [Comprehensive Metabolic Panel] Stat Lab 09/17/23 15:15 Completed Procalcitonin Stat Lab 09/17/23 15:[address] Scan: Head and C-Spine Time Received: 15:[address] Reviewed: Yes I have reviewed the patient's CT results Preliminary Findings: Normal/NAD and No Fracture Seen Findings Narrative: Personally interpreted head and C-spine CTs, do not appreciate acute traumatic injury. See radiology read for final interpretation Chelly Carrizales MD US Data ED US Reviewed: Yes I have reviewed the patient's US results Critical Care <EULALIO Wilson - Last Filed: 09/17/23 16:14> Critical Care Time Critical Care Time: No
--- NOTE | 2023-09-17 14:58 | CT_ITS ---
FINAL REPORT TECHNIQUE: Thin section axial CT with sagittal reconstruction without contrast CLINICAL HISTORY: C-spine tenderness FINDINGS: CT CERVICAL SPINE TECHNIQUE: Thin section axial CT with sagittal and coronal reconstructions FINDINGS: No fracture is present. Minimal anterolisthesis is noted C4-5. More pronounced anterolisthesis at C5-6 is noted measuring 2.5 mm. Subluxation is attributed to facet arthropathy. Diffuse degenerative disc disease and facet arthropathy is noted. Facet arthropathy is more pronounced in the upper cervical spine.. IMPRESSION: Negative CT evaluation of the cervical spine for acute bony injury. This study was performed using automated techniques to achieve radiation exposure as low as reasonably achievable Authenticated and ERN
--- NOTE | 2023-09-17 14:58 | CT_ITS ---
FINAL REPORT CLINICAL HISTORY: T1 tenderness FINDINGS: CT THORACIC SPINE TECHNIQUE: Thin section axial CT with sagittal and coronal reconstructions FINDINGS: No fracture is present. Alignment is normal. No bony canal stenosis is seen. Mild diffuse degenerative changes are noted. IMPRESSION: Negative CT evaluation of the thoracic spine for acute bony injury. Authenticated and ERN
--- NOTE | 2023-09-17 14:58 | CT_ITS ---
FINAL REPORT CLINICAL HISTORY: Acute vertebral tenderness FINDINGS: CT LUMBAR SPINE TECHNIQUE: Thin section axial CT with sagittal and coronal reconstructions FINDINGS: No fracture is present. Moderate dextroscoliosis is present. No bony canal stenosis is seen. Moderate multilevel degenerative disc disease is noted. Lateral subluxation occurs L3-4 related to scoliosis. IMPRESSION: Negative CT evaluation of the lumbar spine for acute bony injury. This study was performed using automated techniques to achieve radiation exposure as low as reasonably achievable Authenticated and ERN
--- NOTE | 2023-09-17 14:58 | CT_ITS ---
FINAL REPORT TECHNIQUE: Noncontrast exam This study was performed using automated techniques to achieve radiation exposure as low as reasonably achievable CLINICAL HISTORY: Cervical and T-spine tenderness possible fall, pain COMPARISON: 05/20/2019 FINDINGS: Extensive encephalomalacia seen of the posterior right hemisphere compatible with old infarct similar to prior exam. Multiple chronic lacunar infarcts are seen of the bilateral basal ganglia. Moderate generalized atrophy is present. Ventricles are normal. There is no hemorrhage. No mass effect is seen. Bone windows show no evidence of fracture. IMPRESSION: No acute findings Authenticated and ERN
[2023-09-17 15:25] LABS: Basophils % 0.7 % (0.1-2.0); Eosinophils # 0.3 K/mm3 (0.0-0.4); Eosinophils % 4.3 % (0.1-12.0); Hematocrit 29.8 % (37.0-47.0); Hemoglobin 9.8 g/dL (12.2-16.2); Lymphocytes # 1.5 K/mm3 (0.7-4.5); Lymphocytes % 23.4 % (10-50); Mean Corpuscular HGB Conc 32.9 g/dL (31.8-35.4); Mean Corpuscular Volume 112.3 fl (81-99); Mean Platelet Volume 8.1 fl (7.4-10.4); Monocytes # 0.3 K/mm3 (0.1-1.0); Monocytes % 5.3 % (1.7-9.3); Neutrophils # 4.2 K/mm3 (1.8-7.8); Neutrophils % 66.3 % (37.0-80.0); Platelet Count 451 K/mm3 (142-424); Red Blood Count 2.66 M/mm3 (4.20-5.40); Red Cell Distribution Width 13.7 % (11.5-17.5); White Blood Count 6.4 K/mm3 (4.8-10.8)
[2023-09-17 15:31] LABS: Chloride 111 mmol/L (98-107); Potassium 3.6 mmoL/L (3.5-5.1); Sodium 136 mmol/L (136-145)
[2023-09-17 15:33] LABS: Alanine Aminotransferase 28 U/L (12-78); Alkaline Phosphatase 84 U/L (38-126); Anion Gap 8.6 mEq/L (5-15); Aspartate Amino Transferase 36 U/L (14-36); Bilirubin,Total 0.4 mg/dl (0.2-1.3); Blood Urea Nitrogen 10 mg/dl (7-17); Carbon Dioxide 20 mmol/L (22.0-30.0); Creatinine Clearance Estimated 45 mL/min (50-200); Estimated Glomerular Filt Rate 57 ml/min (>60); GFR (African American) 68 ML/MIN (>60)
[2023-09-17] MEDS: 0.9 % SODIUM CHLORIDE 1000ML 1,000 ML 999 ML IV (15:33)
[2023-09-17] MEDS: ACETAMINOPHEN 1,000MG/100ML VIAL 1000 MG IV (15:33)
[2023-09-17 15:34] LABS: Albumin Level 3.2 g/dl (3.5-5.0); Albumin/Globulin Ratio 0.9 (1.1-1.8); Calcium 8.9 mg/dl (8.4-10.2); Globulin 3.6 g/dL (1.3-3.2); Glucose 125 mg/dl (74-100); Total Protein,Serum 6.8 g/dl (6.3-8.2)
[2023-09-17] MEDS: ONDANSETRON 4MG/2ML VIAL 4 MG IV (15:34)
[2023-09-17] MEDS: METHOCARBAMOL 500MG TABLET 500 MG PO (15:34)
[2023-09-17] MEDS: DEXAMETHASONE 4MG/ML 5ML MDV 10 MG IV (15:35)
[2023-09-17 16:06] LABS: Procalcitonin 0.049 ng/mL (0.0-2.0)
[2023-09-17] MEDS: LIDOCAINE 5% TRANSDERMAL PATCH 1 EACH TP (16:12)
[2023-09-17 16:24] VITALS: BP 118/87; PULSE 94; RESP 18; TEMP 36.9; O2SAT 97
== END 2023-09-17 16:22 | disposition home or self-care (01) ==
PROVIDERS: Physician Assistant; Emergency Provider Emergency Medicine; PCP Internal Medicine
DX: M54.2 Cervicalgia (principal); M54.6 Pain in thoracic spine; F17.210 Nicotine dependence, cigarettes, uncomplicated; J44.9 Chronic obstructive pulmonary disease, unspecified; E78.5 Hyperlipidemia, unspecified; I11.9 Hypertensive heart disease without heart failure; I25.10 Atherosclerotic heart disease of native coronary artery without angina pectoris; Z86.73 Personal history of transient ischemic attack (TIA), and cerebral infarction without residual deficits
CPT/HCPCS: 70450; 72125; 72128; 72131; 80053; 84145; 85025; 96361; 96374; 96375; 99285; J0131; J2405

== ENCOUNTER 2023-09-28 12:43 | Emergency (ER) | payer MEDICAID, SELFPAY ==
[2023-09-28 12:44] VITALS: BP 132/93; PULSE 89; O2SAT 97
[2023-09-28 12:51] VITALS: BP 132/93; PULSE 88; RESP 16; TEMP 37; O2SAT 97; BMI 20.2
--- NOTE | 2023-09-28 13:05 | [facility].EDGENADL ---
Discharge Plan Disposition Patient Disposition: Home, Self-Care Condition: Good Prescriptions Prescriptions: New ketorolac 10 mg tablet 10 mg PO Q6H PRN (Reason: pain) 4 Days Qty: 16 0RF cefdinir 300 mg capsule 300 mg PO BID 14 Days Qty: 28 0RF ondansetron HCl 4 mg tablet 4 mg PO Q6H PRN (Reason: nausea and vomiting) 3 Days Qty: 12 0RF No Action atorvastatin 10 mg tablet 10 mg PO DAILY Qty: 90 4RF bupropion HCl 150 mg tablet extended release 24 hr 150 mg PO DAILY Qty: 90 4RF cyanocobalamin (vitamin B-12) 1,000 mcg tablet, sublingual 1,000 mcg PO DAILY 90 Days Qty: 90 4RF ferrous sulfate 325 mg (65 mg iron) tablet 325 mg PO DAILY Qty: 90 4RF lisinopril 10 mg tablet 10 mg PO DAILY 90 Days Qty: 90 4RF metoprolol succinate 25 mg tablet extended release 24 hr 25 mg PO DAILY 90 Days Qty: 90 4RF tizanidine 2 mg capsule 2 mg PO HS PRN (Reason: muscle spasticity) Qty: 30 2RF meloxicam 15 mg tablet 15 mg PO DAILY Qty: 30 2RF pramipexole 0.25 mg tablet 0.25 mg PO HS Qty: 30 2RF diclofenac sodium 3 % gel 1 applic topical TID PRN (Reason: musculoskeletal pain) Qty: 100 0RF Rx Instructions: Apply to area of neck pain up to three times a day. albuterol sulfate [ProAir HFA] 90 mcg/actuation HFA aerosol inhaler 2 puff inhalation Q4-6H PRN (Reason: Shortness Of Breath) Qty: 8.5 8RF Rx Instructions: INHALE 2 PUFFS BY MOUTH EVERY 4 TO 6 HOURS NEEDED FOR SHORTNESS OF BREATH OR WHEEZING aspirin 81 mg tablet,delayed release (DR/EC) 81 mg PO DAILY Qty: 90 4RF cholecalciferol (vitamin D3) 125 mcg (5,000 unit) capsule 125 mcg PO DAILY Qty: 90 4RF levetiracetam 1,000 mg tablet 1,000 mg PO BID Qty: 180 4RF quetiapine 300 mg tablet 300 mg PO HS Qty: 90 4RF methylprednisolone [Medrol (David)] 4 mg tablets,dose pack See Rx Instructions PO PER PKG DIR Qty: 21 0RF Rx Instructions: PO PER PKG DIR magnesium oxide 400 mg (241.3 mg magnesium) Tablet 400 mg PO DAILY 30 Days Qty: 30 0RF sennosides-docusate sodium [Stimulant Laxative Plus] 8.6-50 mg Tablet 1 tab PO DAILY PRN (Reason: constipation) 30 Days Qty: 30 0RF lidocaine 5 % adhesive patch,medicated 1 patch topical DAILY Qty: 30 0RF Rx Instructions: leave on most painful area for up to 12 hrs Referrals Follow up/Referrals: Provider,Referral, MD [Referring] - See instructions Activity Restrictions/Add. Instructions Additional Instructions/Restrictions: You have been evaluated in the ED for your complaints. You may follow-up with your PCP in the next 3 to 5 days. Please return to ED for any new or worsening symptoms. I have written for cefdinir to treat your kidney infection. Please take this medication as prescribed over the next 14 days. I have also written for Toradol to assist with pain. I have written for Zofran to assist with any nausea that you may have. Clinical Impressions Clinical Impression: Pyelonephritis of right kidney, Right flank pain, UTI (urinary tract infection) Instructions Patient Instructions: DI for Acute Abdominal Pain, DI for Kidney Infection Print Language Print Language: Armenian Discharge ED Provider: Jeramie Sanchez Adult HPI General Chief complaint: Abdominal Pain Stated complaint: weakness Time Seen by Provider: 09/28/23 12:59 Mode of Arrival: EMS Source of Information: Patient and EMS Limitations: No Limitations Description of Symptoms (Recalled from ER Triage Doc. by RN): pt c/o R flank pain that radiates distal down her leg ongoing since 0 last night. pt states the pain is sharp and 8/10. pt denies urinary symptoms or N/V/D. pt states she feels somewhat constipated and her last normal BM was 8/2. pt denies any injury. History of Present Illness HPI narrative: 62-year-old female with past medical history significant for HTN, COPD, HLD, seizures, CVA, CAD, presents today for evaluation concerning right flank pain rating around to her right lower quadrant onset around 1030 last p.m. Pain is characterized as sharp and rated as an 8 out of 10. Denies any dysuria or hematuria. Has not had any nausea, vomiting or diarrhea. Denies any chest pain or shortness of breath. Has been constipated over the past few days. No further complaints. Related Data Previous Rx's ?Medication ?Instructions ?Recorded atorvastatin 10 mg tablet 10 mg PO DAILY Cholesterol #90 tabs 06/16/23 bupropion HCl 150 mg 24 hr tablet, 150 mg PO DAILY #90 tabs 06/16/23 extended release cyanocobalamin (vitamin B-12) 1,000 mcg PO DAILY 90 days #90 tabs 06/16/23 1,000 mcg sublingual tablet ferrous sulfate 325 mg (65 mg 325 mg PO DAILY low HGB #90 tabs 06/16/23 iron) tablet lisinopril 10 mg tablet 10 mg PO DAILY 90 days #90 tabs 06/16/23 metoprolol succinate 25 mg 25 mg PO DAILY 90 days #90 tabs 06/16/23 tablet,extended release 24 hr magnesium oxide 400 mg (241.3 mg 400 mg PO DAILY 30 days #30 tabs 07/19/23 magnesium) tablet sennosides 8.6 mg-docusate sodium 1 tab PO DAILY PRN constipation 30 07/19/23 50 mg tablet (Stimulant Laxative days #30 tabs Plus) albuterol sulfate 90 mcg/actuation 2 puff inhalation Q4-6H PRN 07/24/23 aerosol inhaler (ProAir HFA) Shortness Of Breath #8.5 grams aspirin 81 mg tablet,delayed 81 mg PO DAILY #90 tabs 07/24/23 release cholecalciferol (vitamin D3) 125 125 mcg PO DAILY #90 caps 07/24/23 mcg (5,000 unit) capsule levetiracetam 1,000 mg tablet 1,000 mg PO BID #180 tabs 07/24/23 quetiapine 300 mg tablet 300 mg PO HS #90 tabs 07/24/23 tizanidine 2 mg capsule 2 mg PO HS PRN muscle spasticity 08/12/23 #30 caps methylprednisolone 4 mg tablets in See Rx Instructions PO PER PKG DIR 09/08/23 a dose pack (Medrol (David)) #21 tabs lidocaine 5 % topical patch 1 patch topical DAILY #30 ea 09/17/23 diclofenac sodium 3 % topical gel 1 applic topical TID PRN 09/25/23 musculoskeletal pain #100 grams meloxicam 15 mg tablet 15 mg PO DAILY #30 tabs 09/25/23 pramipexole 0.25 mg tablet 0.25 mg PO HS #30 tabs 09/25/23 cefdinir 300 mg capsule 300 mg PO BID 14 days #28 caps 09/28/23 ketorolac 10 mg tablet 10 mg PO Q6H PRN pain 4 days #16 09/28/23 tabs ondansetron HCl 4 mg tablet 4 mg PO Q6H PRN nausea and 09/28/23 vomiting 3 days #12 tabs Allergies Allergy/AdvReac Type Severity Reaction Status Date / Time codeine AdvReac Mild Nausea Verified 09/28/23 13:03 [facility] Disclaimer: The information contained in this section may have been updated after the patient was seen, as this information can be updated by other users. Medical History Left against medical advice Left patella fracture Alcoholic intoxication Gastric ulcer Essentially healed CAD in [place] artery We did the coronary calcium scoring and she has moderate disease. She is following with Dr. Luis. Echocardiogram does reveal mild reduction of left ventricular function with an ejection fraction of 45%, moderate hypokinesis of the anterior LV, the remainder of the read was read as mild . She will return to Dr. Luis within 2 weeks for further evaluation and treatment. Hyperlipidemia Hypertension COPD (chronic obstructive pulmonary disease) Wheezing Dyspnea History of stroke Seizure disorder Nerve pain HTN (hypertension) Anxiety Back Pain This patient's main complaint is in the back and leg. Surgical History History of hysterectomy Family History Other Family history of cancer Family history of myocardial infarction Social History Smoking Status: Current every day smoker tobacco type: cigarettes packs per day: 1 second hand exposure: Yes alcohol intake: former substance use type: marijuana, crack/cocaine, heroin and opiates current occupational status: unemployed Travel in the last 8 weeks: None household members: significant other housing: house number of children: 2 ROS Obtained: Yes All systems reviewed & no additional complaints except as documented Physical Exam General General appearance: alert and in no apparent distress Head Head exam: atraumatic and normocephalic Eye Eye exam: Present normal appearance, PERRL and EOMI ENT ENT exam: Present normal oropharynx and mucous membranes moist Neck Neck exam: Present full ROM; Absent meningismus Respiratory Respiratory exam: Absent respiratory distress, wheezes, stridor or accessory muscle use Cardiovascular Cardiovascular exam: Present normal rhythm Abdominal Exam Abdominal exam: Present soft and tenderness; Absent distention, guarding, rebound or rigidity Abdominal tenderness: Present RLQ Back Exam Back exam: Present CVA tenderness (R); Absent CVA tenderness (L) Neurological Exam Neurological exam: Present alert, oriented X3 and CN II-XII intact; Absent motor sensory deficit Psychiatric Psychiatric exam: Present normal affect and normal mood Skin Skin exam: Present warm and dry Medical Decision Making Medical Records Medical records reviewed: Yes I reviewed the patient's medical records. Georgi Inquiry Pt receiving controlled substance: No Georgi was queried for this patient: No Vital Signs: 09/28/23 12:44 09/28/23 12:51 09/28/23 13:31 Temperature 98.6 F Temperature Source Oral Pulse Rate 89 88 Pulse Rate [Left] 88 Respiratory Rate 16 Blood Pressure 132/93 H 107/69 L Blood Pressure [Right Arm] 132/93 H Blood Pressure Mean [Right Arm] 106 Blood Pressure Source [Right Arm] Automatic Cuff Blood Pressure Position [Right Arm] Sitting 02 Sat by Pulse Oximetry 97 97 97 Oxygen Delivery Method Room Air Room Air Room Air 09/28/23 14:00 Temperature Temperature Source Pulse Rate 84 Pulse Rate [Left] Respiratory Rate Blood Pressure 137/86 Blood Pressure [Right Arm] Blood Pressure Mean [Right Arm] Blood Pressure Source [Right Arm] Blood Pressure Position [Right Arm] 02 Sat by Pulse Oximetry 97 Oxygen Delivery Method Room Air Lab Data Lab Results 09/28/23 13:01: WBC 15.1 H, RBC 3.07 L, Hgb 11.2 L, Hct 35.1 L, MCV 114.0 H, MCH 36.5 H, MCHC 32.0, RDW 13.8, Plt Count 378, MPV 8.4, Neut % (Auto) 83.2 H, Lymph % (Auto) 10.5, [place] % (Auto) 5.5, Eos % (Auto) 0.3, Baso % (Auto) 0.5, Neut # (Auto) 12.6 H, Lymph # (Auto) 1.6, [place] # (Auto) 0.8, Eos # (Auto) 0.0, Baso # (Auto) 0.1, Total Counted 100, Neutrophils % (Manual) 83 H, Band Neutrophils % 2.0, Lymphocytes % (Manual) 10, Atypical Lymphs % 1.0, Monocytes % (Manual) 4, Platelet Estimate Normal, Hypochromasia 1+, Macrocytosis 1+, Sodium 138, Potassium 3.9, Chloride 110 H, Carbon Dioxide 23, Anion Gap 8.9, BUN 12, Creatinine 0.90, Estimated Creat Clear 50, Estimated GFR 64, Est GFR ( Amer) 77, Glucose 102 H, Lactate 1.0, Calcium 9.2, Total Bilirubin 0.5, AST 32, ALT 15, Alkaline Phosphatase 85, Total Protein 6.9, Albumin 3.4 L, Globulin 3.5 H, Albumin/Globulin Ratio 1.0 L, Lipase 166 09/28/23 13:32: Urine Color Yellow, Urine Appearance Clear, Urine pH 6.0, Ur Specific [place] 1.020, Urine Protein 2+, Urine Glucose (UA) Negative, Urine Ketones Negative, Urine Blood 2+, Urine Nitrate Positive, Urine Bilirubin Negative, Urine Urobilinogen 0.2, Ur Leukocyte Esterase 2+ A, Urine RBC 3-5, Urine WBC Tntc, Ur Squamous Epith Cells 5-10, Urine Bacteria 3+ 09/28/23 13:01 09/28/23 13:01 Orders (Tests/Meds): ED MEDICATIONS Generic Name Dose Route Start Last Admin Trade Name Freq PRN Reason Stop Dose Admin Sodium Chloride 10 ml 09/28/23 14:37 09/28/23 14:40 Sodium Chloride 0.9% 10ml Syr (Rad Only) IV 10/28/23 14:36 10 ml NEEDED PRN Administration Maintain IV Site Discontinued Medications Generic Name Dose Route Start Last Admin Trade Name Freq PRN Reason Stop Dose Admin Lactated Ringer's 1,000 mls @ 999 mls/hr 09/28/23 13:09 09/28/23 13:17 Lactated Ringer's 1000 Ml Bag IV 09/28/23 14:09 999 mls/hr .Q1H1M ONE Administration Iopamidol 75 ml 09/28/23 14:37 09/28/23 14:40 Iopamidol-370 (76%);100ml Bottle IV 09/28/23 14:38 75 ml ONCE ONE Administration Ketorolac Tromethamine 30 mg 09/28/23 13:09 09/28/23 13:17 Ketorolac 30mg/Ml Vial IV 09/28/23 13:10 30 mg ONCE ONE Administration ORDERS Category Date Time Status CT abdomen pelvis w con Stat Cat Scan 09/28/23 13:08 Completed CBC w/Auto Diff [Complete Blood Count Auto Diff] Stat Lab 09/28/23 13:01 Completed CMP [Comprehensive Metabolic Panel] Stat Lab 09/28/23 13:01 Completed Lactic Acid Stat Lab 09/28/23 13:01 Completed Lipase Stat Lab 09/28/23 13:01 Completed UA [Urinalysis and Microscopic] Stat Lab 09/28/23 13:32 Completed Urine Culture Stat Micro 09/28/23 13:32 Received Medical Decision Narrative: Male [id number] female with past medical history significant for HTN, COPD, HLD, seizures, CVA, CAD, presents today for evaluation concerning right flank pain rating around to her right lower quadrant onset around 1030 last p.m. Pain is characterized as sharp and rated as an 8 out of 10. Denies any dysuria or hematuria. Has not had any nausea, vomiting or diarrhea. Denies any chest pain or shortness of breath. Has been constipated over the past few days. On assessment, the patient was hemodynamically stable and in no acute distress. Afebrile. Chest clear to auscultation bilaterally. Her abdomen was soft and nondistended and was tender in the right lower quadrant. She also had right CVA tenderness. Otherwise exam vitals unremarkable. Differential diagnoses include but limited to appendicitis, pyelonephritis, UTI, colitis, constipation, among others Labs today remarkable for a WBC of 15.1. Hemoglobin 11.2. CMP nonactionable. Creatinine 0.9. Lipase within range at 166. Urinalysis showing 2+ leukocyte esterase, too numerous to count WBCs, nitrate positive. CT abdomen pelvis shows mild right perinephric stranding with enhancement of the proximal ureteral de [place] santos. Will treat as pyelonephritis. On reassessment the patient remains hemodynamically stable and in no acute distress. Pain is controlled. I discussed ED workup and results as well as current plan to discharge home with Toradol and antibiotics to treat her pyelonephritis. She verbalized understanding and agreed with plan. Provided her with strict return ED precautions and instructions concerning follow-up. Subsequently discharged hemodynamically stable and in no acute distress Critical Care Critical Care Time Critical Care Time: No
--- NOTE | 2023-09-28 13:08 | CT_ITS ---
PROCEDURE INFORMATION: Exam: CT Abdomen And Pelvis With Contrast Exam date and time: 09/28/2023 2:39 PM Age: 62 years old Clinical indication: Abdominal pain; Localized; Right lower quadrant (rlq); Additional info: Rlq pain TECHNIQUE: Imaging protocol: Computed tomography of the abdomen and pelvis with contrast. Radiation optimization: All CT scans at this facility use at least one of these dose optimization techniques: automated exposure control; mA and/or kV adjustment per patient size (includes targeted exams where dose is matched to clinical indication); or iterative reconstruction. Contrast material: ISOVUE; Contrast volume: 75 ml; Contrast route: IV; COMPARISON: CT ABDOMEN PELVIS W CON 08/22/2023 9:19 PM FINDINGS: Liver: Normal. No mass. Gallbladder and biliary ducts: Normal. No calcified stones. No ductal dilation. Pancreas: Normal. No ductal dilation. Spleen: Normal. No splenomegaly. Adrenal glands: Normal. No mass. Kidneys and ureters: Mild right perinephric stranding, with enhancement of the proximal ureteral de [place]. No hydronephrosis or hydroureter. Findings concerning for UTI, clinical correlation necessary. No CT evidence of pyelonephritis. Stable simple cortical renal cysts, no additional follow-up necessary. Stomach and bowel: Unremarkable. No obstruction. No mucosal thickening. Appendix: No evidence of appendicitis. Intraperitoneal space: Unremarkable. No free air. No significant fluid collection. Vasculature: Unremarkable. No abdominal aortic aneurysm. Lymph nodes: Unremarkable. No enlarged lymph nodes. Urinary bladder: Bladder incompletely distended to evaluate for wall thickening. Reproductive: Unremarkable as visualized. Bones/joints: Scoliotic curvature thoracolumbar spine. Soft tissues: Unremarkable. IMPRESSION: Mild right perinephric stranding, with enhancement of the proximal ureteral de [place] sant[place]. No hydronephrosis or hydroureter. Findings concerning for UTI, clinical correlation necessary.
[2023-09-28] MEDS: LACTATED RINGERS 1000ML 1,000 ML 999 ML IV (13:17)
[2023-09-28] MEDS: KETOROLAC 30MG/ML VIAL 30 MG IV (13:17)
[2023-09-28 13:31] VITALS: BP 107/69; PULSE 88; O2SAT 97
[2023-09-28 13:36] LABS: Basophils # 0.1 K/mm3 (0-0.2); Basophils % 0.5 % (0.1-2.0); Eosinophils % 0.3 % (0.1-12.0); Hematocrit 35.1 % (37.0-47.0); Hemoglobin 11.2 g/dL (12.2-16.2); Lymphocytes # 1.6 K/mm3 (0.7-4.5); Lymphocytes % 10.5 % (10-50); Mean Corpuscular Hemoglobin 36.5 pg (27.0-31.2); Mean Platelet Volume 8.4 fl (7.4-10.4); Monocytes # 0.8 K/mm3 (0.1-1.0); Monocytes % 5.5 % (1.7-9.3); Neutrophils # 12.6 K/mm3 (1.8-7.8); Neutrophils % 83.2 % (37.0-80.0); Platelet Count 378 K/mm3 (142-424); Red Blood Count 3.07 M/mm3 (4.20-5.40); Red Cell Distribution Width 13.8 % (11.5-17.5); White Blood Count 15.1 K/mm3 (4.8-10.8)
[2023-09-28 13:40] LABS: MANUAL DIFFERENTIAL MANUAL DIFFERENTIAL (MANUAL DIFF)
[2023-09-28 13:46] LABS: Microscopic, Urine URINE MICROSCOPIC (MICROSCOPIC)
[2023-09-28 13:52] LABS: Appearance,Urine CLEAR (Clear); Bilirubin,Urine Negative (Negative); Blood, Urine 2+ (Negative); Color,Urine YELLOW (Yellow); Glucose,Urine (UA) Negative (Negative); Ketones,Urine Negative (Negative); Leukocyte Esterase,Urine 2+ (Negative); Nitrate,Urine POSITIVE (Negative); Protein,Urine 2+ (Negative); Urobilinogen,Urine 0.2 EU/dl (0.2)
[2023-09-28 14:00] VITALS: BP 137/86; PULSE 84; O2SAT 97
[2023-09-28 14:06] LABS: Alanine Aminotransferase 15 U/L (12-78); Albumin Level 3.4 g/dl (3.5-5.0); Alkaline Phosphatase 85 U/L (38-126); Anion Gap 8.9 mEq/L (5-15); Aspartate Amino Transferase 32 U/L (14-36); Bilirubin,Total 0.5 mg/dl (0.2-1.3); Blood Urea Nitrogen 12 mg/dl (7-17); Calcium 9.2 mg/dl (8.4-10.2); Carbon Dioxide 23 mmol/L (22.0-30.0); Chloride 110 mmol/L (98-107); Creatinine Clearance Estimated 50 mL/min (50-200); Estimated Glomerular Filt Rate 64 ml/min (>60); GFR (African American) 77 ML/MIN (>60); Globulin 3.5 g/dL (1.3-3.2); Glucose 102 mg/dl (74-100); Lipase 166 U/L (23-300); Potassium 3.9 mmoL/L (3.5-5.1); Sodium 138 mmol/L (136-145); Total Protein,Serum 6.9 g/dl (6.3-8.2)
--- NOTE | 2023-09-28 14:18 | PC.NURSE ---
Pt gone to RAD via wheelchair
[2023-09-28 14:20] LABS: Bacteria,Urine 3+ /lpf; WBC,Urine TNTC #/hpf (0-3)
[2023-09-28 14:27] LABS: Lymphocytes % 10 % (10-50); Monocytes % 4 % (2-9); Neutrophils % 83 % (42-76); Platelet Estimate Normal; Total Cells Counted 100
[2023-09-28 14:28] LABS: Hypochromasia 1+; Macrocytosis 1+
[2023-09-28] MEDS: SODIUM CHLORIDE 0.9% 10ML SYR (RAD ONLY) 10 ML IV (14:40)
[2023-09-28] MEDS: IOPAMIDOL-370 (76%);100ML BOTTLE 75 ML IV (14:40)
[2023-09-28] MEDS: CEFDINIR 300MG CAPSULE 300 MG PO (16:04)
[2023-09-28 16:08] VITALS: BP 132/84; PULSE 82; RESP 16; TEMP 37.1
--- NOTE | 2023-09-30 18:57 | PC.NURSE ---
URINE CULTURE DISCUSSED WITH DR IQBAL, NO NEW ORDERS AT THIS TIME
== END 2023-09-28 16:09 | disposition home or self-care (01) ==
PROVIDERS: Emergency Provider Emergency Medicine; PCP Internal Medicine
DX: N10 Acute pyelonephritis (principal); N39.0 Urinary tract infection, site not specified; B96.29 Other Escherichia coli [E. coli] as the cause of diseases classified elsewhere; R10.31 Right lower quadrant pain; M54.59 Other low back pain; F17.210 Nicotine dependence, cigarettes, uncomplicated; J44.9 Chronic obstructive pulmonary disease, unspecified; I11.9 Hypertensive heart disease without heart failure; I25.10 Atherosclerotic heart disease of native coronary artery without angina pectoris; E78.5 Hyperlipidemia, unspecified; Z86.73 Personal history of transient ischemic attack (TIA), and cerebral infarction without residual deficits
CPT/HCPCS: 74177; 80053; 81001; 83605; 83690; 85007; 85025; 85027; 87086; 87088; 87186; 96361; 96374; 99284; J1885; J7120; Q9967

== ENCOUNTER 2023-10-01 08:16 | Outpatient (POV) | payer MEDICAID, SELFPAY ==
[2023-10-01 08:52] VITALS: BP 139/95; PULSE 94; RESP 20; O2SAT 97; BMI 20.2
--- NOTE | 2023-10-01 09:58 | A.OFFVIS_ITS ---
HPI Data of Consult Patient: new to practice Consult date: 10/01/23 Requesting Physician: Feilcia Valles APRN Primary Care Provider: Jose De Jesus Kovacs DO Consult Narrative Reason for consult: Low back pain, buttocks pain, hip pain History of present illness: Ms. Cedeño is a 62 year old female who presents today as a new patient. She is a referral from [facility]. Today she rates her pain a 8 out of 10. Patient states she has chronic pain throughout her neck and low back. Patient describes this as an aching, throbbing sensation with numbness and tingling. She does state that the pain interferes with her ability perform activities of daily living such as cooking and cleaning. She states the pain is constant and frequently has to stop and take multiple breaks due to the pain. She states this is gone on since at least 2009 when she started seeing Dr. Shaw. Patient denies any specific trauma or injury but feels like it was more wear and tear over the years. Patient does state that she has not had any surgery and only had [address] Lindsay here recently for her neck. Patient has tried [id number] medications along with heat and ice and topicals with minimal relief. Patient is scheduled to start physical therapy for her neck coming up and has had physical therapy for her back previously. She states that therapy made no change of her overall symptoms. She does state that the low back symptoms are worse than the neck symptoms and that she is interested in injection therapy. Patient does also state that she has had a CVA in the past and does have some residual weakness along the left side. She is prescribed Percocet and diazepam for her PCP. Her Georgi has been reviewed and is appropriate. CC: Felicia Valles APRN [facility] Disclaimer: The information contained in this section may have been updated after the patient was seen, as this information can be updated by other users. Medical History Left against medical advice Left patella fracture Alcoholic intoxication Gastric ulcer Essentially healed CAD in [place] artery We did the coronary calcium scoring and she has moderate disease. She is following with Dr. Luis. Echocardiogram does reveal mild reduction of left ventricular function with an ejection fraction of 45%, moderate hypokinesis of the anterior LV, the remainder of the read was read as mild . She will return to Dr. Luis within 2 weeks for further evaluation and treatment. Hyperlipidemia Hypertension COPD (chronic obstructive pulmonary disease) Wheezing Dyspnea History of stroke Seizure disorder Nerve pain HTN (hypertension) Anxiety Back Pain This patient's main complaint is in the back and leg. Surgical History History of hysterectomy Family History Other Family history of cancer Family history of myocardial infarction Social History (Updated 10/01/23 @ 08:55 by Lila Morrow RN) Smoking Status: Current every day smoker tobacco type: cigarettes packs per day: 1 second hand exposure: Yes alcohol intake: former substance use type: marijuana, crack/cocaine, heroin and opiates current occupational status: unemployed Travel in the last 8 weeks: None household members: significant other housing: house number of children: 2 Review of Systems Review of Systems Review of systems:: pertinent systems reviewed and negative unless documented below Review of systems (narrative): Review of Systems: General: No recent weight changes, no fever, no sleep disturbances Respiratory: No cough, no shortness of air, no recurring pulmonary infections Cardiovascular/peripheral vascular: No chest pain, no palpitations, no edema, no shortness of breath Gastrointestinal: No new onset incontinence, normal bowel movements reported Genitourinary: No new onset incontinence Musculoskeletal: Low back pain, bilateral hip pain, buttocks pain Psychiatric: [Normal mood/affect] Neurological: [Denies weakness in extremities], [denies balance issues] Meds Home Medications and Allergies Home Medications ?Medication ?Instructions ?Recorded ?Confirmed ?Type atorvastatin 10 mg tablet 10 mg PO DAILY Cholesterol #90 tabs 06/16/23 10/01/23 Rx bupropion HCl 150 mg 24 hr tablet, 150 mg PO DAILY #90 tabs 06/16/23 10/01/23 Rx extended release cyanocobalamin (vitamin B-12) 1,000 mcg PO DAILY 90 days #90 tabs 06/16/23 10/01/23 Rx 1,000 mcg sublingual tablet ferrous sulfate 325 mg (65 mg 325 mg PO DAILY low HGB #90 tabs 06/16/23 10/01/23 Rx iron) tablet lisinopril 10 mg tablet 10 mg PO DAILY 90 days #90 tabs 06/16/23 10/01/23 Rx metoprolol succinate 25 mg 25 mg PO DAILY 90 days #90 tabs 06/16/23 10/01/23 Rx tablet,extended release 24 hr magnesium oxide 400 mg (241.3 mg 400 mg PO DAILY 30 days #30 tabs 07/19/23 10/01/23 Rx magnesium) tablet sennosides 8.6 mg-docusate sodium 1 tab PO DAILY PRN constipation 30 07/19/23 10/01/23 Rx 50 mg tablet (Stimulant Laxative days #30 tabs Plus) albuterol sulfate 90 mcg/actuation 2 puff inhalation Q4-6H PRN 07/24/23 10/01/23 Rx aerosol inhaler (ProAir HFA) Shortness Of Breath #8.5 grams aspirin 81 mg tablet,delayed 81 mg PO DAILY #90 tabs 07/24/23 10/01/23 Rx release cholecalciferol (vitamin D3) 125 125 mcg PO DAILY #90 caps 07/24/23 10/01/23 Rx mcg (5,000 unit) capsule levetiracetam 1,000 mg tablet 1,000 mg PO BID #180 tabs 07/24/23 10/01/23 Rx quetiapine 300 mg tablet 300 mg PO HS #90 tabs 07/24/23 10/01/23 Rx tizanidine 2 mg capsule 2 mg PO HS PRN muscle spasticity 08/12/23 10/01/23 Rx #30 caps methylprednisolone 4 mg tablets in See Rx Instructions PO PER PKG DIR 09/08/23 10/01/23 Rx a dose pack (Medrol (David)) #21 tabs lidocaine 5 % topical patch 1 patch topical DAILY #30 ea 09/17/23 10/01/23 Rx diclofenac sodium 3 % topical gel 1 applic topical TID PRN 09/25/23 10/01/23 Rx musculoskeletal pain #100 grams meloxicam 15 mg tablet 15 mg PO DAILY #30 tabs 09/25/23 10/01/23 Rx pramipexole 0.25 mg tablet 0.25 mg PO HS #30 tabs 09/25/23 10/01/23 Rx ketorolac 10 mg tablet 10 mg PO Q6H PRN pain 4 days #16 08/04/24 08/07/24 Rx tabs ondansetron HCl 4 mg tablet 4 mg PO Q6H PRN nausea and 09/28/23 10/01/23 Rx vomiting 3 days #12 tabs New Prescriptions to Start Prescriptions: Allergies Allergy/AdvReac Type Severity Reaction Status Date / Time codeine AdvReac Mild Nausea Verified 09/28/23 13:03 Objective Vital signs: Pulse Resp BP Pulse Ox O2 Del Method 94 H 20 139/95 H 97 Room Air 10/01/23 08:52 10/01/23 08:52 10/01/23 08:52 10/01/23 08:52 10/01/23 08:52 Narrative: Physical Exam: General: Alert and oriented x3, no acute distress, pleasant and cooperative Lungs: Respirations even and unlabored, symmetrical chest expansion Eyes: PERRL Musculoskeletal: Flexion and extension of lumbar [spine] somewhat guarded secondary to pain, [antalgic gait noted] point tenderness along bilateral SIs with positive bilateral Maria L's, Philip's, Gaenslen's, compression and distraction exam Neurological: Speech clear, no gross sensory deficit Assessment and Plan *Assessment and plan (1) Bilateral sacroiliitis: Status: Acute Category: Medical Code(s): M46.1 - Sacroiliitis, not elsewhere classified Plan Patient is experiencing significant pain throughout her low back and bilateral hips with limited range of motion of her lumbar spine. Patient did have extreme point tenderness along her bilateral SIs and a positive bilateral Maria L's, Philip's, Gaenslen's, compression and distraction exam. I have discussed with the patient that she may benefit from bilateral SI injections. Risk and benefits were discussed with patient and she would like to proceed forward with this plan of care. Patient has tried and failed conservative therapy over the last 14 years including oral medications, heat and ice, topicals, physical therapy and continued at home exercise and stretching for longer than 12 weeks. We will submit to insurance for bilateral SI injections under fluoroscopy. Patient has been instructed to contact the clinic with any concerns before the next appointment. Dr. Barron has reviewed this note and agrees with this plan of care. This note was dictated using voice recognition software and make contain errors or omissions. All injections are used with Lidocaine or Bupivacaine and Depo Medrol.
== END 2023-10-01 23:59 | disposition home or self-care (01) ==
LOC: SC.PAIN 08:16
PROVIDERS: PCP Internal Medicine; Visit Provider Nurse Practitioner Family
DX: M46.1 Sacroiliitis, not elsewhere classified (principal); Z86.73 Personal history of transient ischemic attack (TIA), and cerebral infarction without residual deficits; F17.210 Nicotine dependence, cigarettes, uncomplicated; Z79.899 Other long term (current) drug therapy; Z73.89 Other problems related to life management difficulty
CPT/HCPCS: 99202; G0463

== ENCOUNTER 2023-10-14 09:01 | Day surgery (SDC) | payer MEDICAID, SELFPAY ==
[2023-10-14 09:13] VITALS: BP 152/89; PULSE 88; RESP 18; TEMP 36.7; O2SAT 99; BMI 17.3
--- NOTE | 2023-10-14 09:27 | P.PCN_ITS ---
Procedure Date: 10/14/23 Time: 09:15 Anesthesiologist:: Cisco Brown CRNA Complications:: None Pre-procedure Diagnosis:: Bilateral sacroiliitis Post-procedure Diagnosis:: Same Indications for Procedure:: Patient is a pleasant 63-year-old female comes to clinic today for bilateral sacroiliac joint injections of cortisone and local anesthetic. Patient describes low back pain as constant, dull, aching. Patient also reports bilateral posterior hip pain. She has extreme point tenderness upon examination of the bilateral sacroiliac joints. She describes difficulties transitioning from sitting to standing. She rates her pain 10/10. Procedure Details:: Procedure: Bilateral sacroiliac joint injections under fluoroscopy Informed consent was obtained and the risks and benefits of the procedure were explained to the patient.~ The patient was taken to the procedure room and noninvasive monitors were placed including a noninvasive blood pressure cuff and pulse oximeter.~ The patient was placed prone on the procedure table. Both hips were cleansed using Betadine as a cleansing solution. C-arm fluoroscopy was used to view the right sacroiliac joint.~ The skin and subcutaneous tissues were anesthetized using lidocaine 1.5% and a 25-gauge needle.~ After this, a 22-gauge spinal needle was inserted under fluoroscopic guidance into the inferior aspect of the right sacroiliac joint.~ Omnipaque dye was injected and good spread was seen throughout the joint.~ After this, approximately 5 mL of bupivacaine, 0.25% and Depo-Medrol, 40 mg was incrementally injected into the right sacroiliac joint. We then moved to the left sacroiliac joint.~ The skin and subcutaneous tissues were anesthetized using lidocaine 1.5% and a 25-gauge needle.~ After this, a 22- gauge spinal needle was inserted under fluoroscopic guidance into the inferior a spect of the left sacroiliac joint.~ Omnipaque dye was injected and good spread was seen throughout the joint. After this, approximately 5 mL of bupivacaine, 0.25% and Depo-Medrol, 40 mg was incrementally injected into the left sacroiliac joint.~ The patient tolerated the procedure well with no complications. The patient was observed in the Pain Clinic and then was discharged home neurologically intact. Plan and Disposition:: Patient was discharged without incident.
[2023-10-14 09:30] VITALS: BP 146/87; PULSE 74; RESP 16; O2SAT 99
[2023-10-14] MEDS: methylPREDNISolone ACETATE 80MG/ML VIAL 80 MG (09:32)
[2023-10-14 09:33] VITALS: BP 140/79; PULSE 89; RESP 18; O2SAT 95
[2023-10-14] MEDS: LIDOCAINE 1% 5ML PF VIAL 5 ML (09:33)
[2023-10-14] MEDS: BUPIVACAINE 0.25% 10ML INJ 25 MG IJ (09:33)
[2023-10-14 09:34] VITALS: BP 140/79; PULSE 89; RESP 18; O2SAT 95
== END 2023-10-14 09:30 | disposition home or self-care (01) ==
PROVIDERS: PCP Internal Medicine; Visit Provider Nurse Anesthetist, Certified Registered
DX: M46.1 Sacroiliitis, not elsewhere classified (principal)
CPT/HCPCS: 27096; G0260; J1010

== ENCOUNTER 2023-10-21 13:00 | Outpatient (RCR) | payer MEDICAID, SELFPAY ==
--- NOTE | 2023-10-06 15:44 | HMH.PTOPEV ---
PT Outpatient Evaluation Rehab PT Outpatient Evaluation Start: 10/06/23 13:55 Freq: Status: Active Protocol: Document 10/06/23 13:55 TONY (Rec: 10/06/23 15:32 TONY [id number]) E-signed By Carissa Nieves, PT Outpatient Therapy Subjective History Subjective History This is an initial PT evaluation for pleasant 62 y/o female, Kiesha Cedeño, who presents to PT with referral for cervicalgia. Pt reports this pain began about 3 weeks ago insidiously (denies falls, just woke up one day with pain). Pt went to the ER and reports no acute findings except maybe a pulled mm. There is a pronounced anterolisthesis at C5-6. Pt describes the pain as a pulling sensation that worsens when looking up. Pt reports she is only able to look down. Does have numbness and tingling in BUEs. Pain is mostly R-sided (from shoulder to base of skull). Pt received a cervical injection on the . Pt reports that helped relieve some pain (6-7%). Pt reports she has more upcoming injections scheduled for this month. Pt reports the pain is gradually getting worse and is affecting her daily activities and sleep. Pt uses ice and heat to relieve her pain. 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 Pt has an aide that comes in on Wednesdays. Meds: Antibiotics for UTI, pain medication. PMH: Left patella fracture, Gastric ulcer, CAD in [place] artery, Hyperlipidemia, Hypertension, COPD, History of stroke, Seizure disorder, HTN , Anxiety New diagnosis of cancer in past 12 No months? Chief Complaint Pain,Stiff,Paresthesia Symptom Type Ache,Dull,Numbness,Tingling Symptoms Relieved By Rest/Positioning,Heat,Ice, Prescription Meds Symptoms Aggravated By Supine,Physical Activity, Twisting,Lifting Prior Functional Limitations Housework,Driving,Balance Current Functional Limitations Reaching,Lifting,Housework, Dressing,Sleeping,Sitting, Recreation Activity,Walking, Stairs Symptom Description Constant but Variable Level of pain today (0-10) 7 Pain scale - at its best (0-10) 3 Pain scale - at its worst (0-10) 8 Cervical Eval Palpation Cervical Muscles R Cervical Paraspinal,L Cervical Paraspinal,R Suboccipital,L Suboccipital,R SCM,L SCM,R Upper Trapezius,L Upper Trapezius,R Thoracic Paraspinals,L Thoracic Paraspinals Cervical/Thoracic Palpation Findings Tenderness Posture Head/C-Spine Posture Sitting Position Flexed Head/C-Spine Posture Standing Position Flexed Flexibility Deficits Upper Trapezius Muscle Length (L) Moderate Tightness,(R) Severe Tightness Levaetor Scapulae Muscle Length (L) Moderate Tightness,(R) Severe Tightness Sternocleidomastoid Muscle Length (R) Moderate Tightness,(L) Moderate Tightness AROM Cervical Spine Extension Active Range of 0/neutral Motion (degrees) Cervical Spine Flexion Active Range of WNL Motion (degrees) Cervical Spine Right Lateral Flexion 22 Active Range of Motion (degrees) Cervical Spine Left Lateral Flexion 20 Active Range of Motion (degrees) Cervical Spine Right Rotation Active 20 Range of Motion (degrees) Cervical Spine Left Rotation Active 25 Range of Motion (degrees) MMT Bilateral Deltoid (C5) 3+ Fair+ Biceps Brachii Strength Grade 3+ Fair+ Triceps Brachii Strength Grade 3+ Fair+ Special Test C-Spine Foraminal Compression (Spurling) Positive Left,Positive Right Test Neck Disability Index Neck Disability Index Section 1: Pain Intensity The pain is moderate at the moment Section 2: Personal Care (washing, I can look after myself dressing, etc.) normally but it causes extra pain Section 3: Lifting I cannot lift or carry anything Section 4: Reading I cannot read at all Section 5: Headaches I have no headaches at all Section 6: Concentration I have a great deal of difficulty in concentrating when I want to Section 7: Work I can do as much work as I want to Section 8: Driving I can't drive my car at all Section 9: Sleeping My sleep is greatly disturbed (3-5 hrs sleepless) Section 10: Recreation I am able to engage in all my recreation activities with some pain in NDI Score 27 Outpatient Therapy Assessment Impairments Problems/Impairmments Palpation Tenderness,Impaired Range of Motion,Impaired Strength,Impaired Standing, Impaired Sitting,Impaired Lifting,Impaired Dressing, Impaired Recreational Activities,Subjective C/O Pain Prognosis Rehab Potential Good Comment Pt presents with acute neck pain with radiating pain. Pt with limited cervical AROM in all planes but flexion, 3/4 TTP B UTs, Rhomboids, and suboccipitals, impaired B UE strength, and significant forward head posture. Pt would benefit from skilled OP PT to address deficits, decrease pain, and return to PLOF. Clinical Impression Consistent with Diagnosis Yes Short Term Goals Number of Weeks 3 Decreased Palpation Tenderness Yes: 2/4 TTP cervical and thoracic musculature to decrease symptom irritability. Increase Range of Motion Yes: Improve cervical AROM by 4 degrees in each direction. Improve Neck Disability Index Score Yes: Improve by 2 points to improve function and QOL. Decrease Subjective C/O Pain Yes: 24 hour pain average of 4 /10 to decrease symptom severity. Patient to be Ind w/ HEP Yes Bioanalyst Goals Number of Weeks 6 Decreased Palpation Tenderness Yes: 0-1/4 TTP cervical and thoracic mm to decrease symptom irritability Increase Range of Motion Yes: AROM WFL for B cervical rotation, extension, and side- bending. Increase Strength Yes: Increase BUE strength to 4/5 to assist in daily activities. Improve Neck Disability Index Score Yes: Improve by 4 points to improve function and QOL. Decrease Subjective C/O Pain Yes: 48 hour at worst neck pain decreased to 3/10 to minimize pain severity. Patient to be Ind w/ Advanced HEP Yes Outpatient Therapy Plan of Care Treatment Plan May Include Therapeutic Exercise Including Home Yes Exercise Program Manual Therapy Techniques Yes Neuromuscular Re-education Yes Therapeutic Activities to Return to Yes Previous Functional/Work Level ADL/Self Care Education Yes Dry Needling Yes Thermal Modalities Yes Electrical Stimulation Yes Ultrasound/Phonophoresis Yes Iontophoresis Yes Parrafin Yes Massage Yes Eval/Re-Eval Yes Frequency Times per week 2x Duration Number of Weeks 6-8 weeks Addendums This patient is a candidate for social No or vocational rehab? Patient/Guardian verbally acknowledges Yes understanding of treatment program and consents to further treatment? Patient/Guardian verbally acknowledges Yes understanding of diagnosis, prognosis and goals for treatment? Eval Complexity PT Charges 65031 - Moderate Complexity Shoulder/Elbow Eval Shoulder Objective Measurements Elbow Objective Measurements PHYSICIAN CERTIFICATION: I certify the specified therapy services for Kiesha Cedeño are required, authorized, and reviewed every 30 days.
== END 2023-10-21 13:05 | disposition home or self-care (01) ==
LOC: PT 13:00
PROVIDERS: Visit Provider Internal Medicine
DX: M54.2 Cervicalgia (principal)
CPT/HCPCS: 97014; 97110; 97140; 97163; G0283

== ENCOUNTER 2023-10-23 14:55 | Outpatient (CLI) | payer MEDICAID, SELFPAY ==
[2023-10-23 18:27] LABS: Microscopic, Urine URINE MICROSCOPIC (MICROSCOPIC)
[2023-10-23 19:08] LABS: Appearance,Urine CLEAR (Clear); Bilirubin,Urine Negative (Negative); Blood, Urine Negative (Negative); Color,Urine YELLOW (Yellow); Glucose,Urine (UA) Negative (Negative); Ketones,Urine TRACE (Negative); Leukocyte Esterase,Urine TRACE (Negative); Nitrate,Urine Negative (Negative); PH,Urine 5.5 (5.0-8.5); Protein,Urine Negative (Negative); Specific Gravity, Urine >= 1.030 (1.005-1.030); Urobilinogen,Urine 0.2 EU/dl (0.2)
[2023-10-23 19:27] LABS: RBC,Urine Occasional #/hpf (0-3); WBC,Urine 20-50 #/hpf (0-3)
[2023-10-23 19:28] LABS: Bacteria,Urine 4+ /lpf; Calcium Oxalate Crystals,Urine 1+ /lpf; Squamous Epithelial Cell,Urine 20-50 #/hpf (0-5)
== END 2023-10-23 23:59 | disposition home or self-care (01) ==
LOC: LAB.DROPOF 10-24 11:16
PROVIDERS: PCP Internal Medicine; Visit Provider Internal Medicine
DX: R73.09 Other abnormal glucose (principal); N39.0 Urinary tract infection, site not specified
CPT/HCPCS: 81001; 87086

== ENCOUNTER 2023-11-08 14:27 | Emergency (ER) | payer MEDICAID, SELFPAY ==
[2023-11-08] VITALS (13 sets, daily range): BP systolic 86–124; BP diastolic 59–82; PULSE 81–90; RESP 13–29; TEMP 36.4; O2SAT 93–100; BMI 19.9
--- NOTE | 2023-11-08 14:42 | ECG_ITS ---
APPROVED REPORT Exam: Resting ECG HR:93 bpm ECG Measurements Heart Rate 93 AXES TN 136 P 17 QRSd 80 QRS 72 QT 328 T 71 QTc 379 Conclusion SINUS RHYTHM NORMAL ECG Electronically signed by : FANI IQBAL, 11/08/2023 15:56:41
--- NOTE | 2023-11-08 15:20 | XR_ITS ---
PROCEDURE INFORMATION: Exam: XR Chest Exam date and time: 11/08/2023 3:21 PM Age: 63 years old Clinical indication: Dyspnea TECHNIQUE: Imaging protocol: Radiologic exam of the chest. Views: 1 view. COMPARISON: CT LUNG SCREENING 07/24/2023 3:12 PM FINDINGS: Lungs: Unremarkable. No consolidation. Pleural spaces: Unremarkable. No pleural effusion. No pneumothorax. Heart/Mediastinum: Unremarkable. No cardiomegaly. Bones/joints: Unremarkable. IMPRESSION: No acute findings.
--- NOTE | 2023-11-08 15:29 | [facility].EDCP ---
Discharge Plan Disposition Patient Disposition: Home, Self-Care Prescriptions Prescriptions: New cefdinir 300 mg capsule 300 mg PO BID 10 Days Qty: 20 0RF No Action atorvastatin 10 mg tablet 10 mg PO DAILY Qty: 90 4RF bupropion HCl 150 mg tablet extended release 24 hr 150 mg PO DAILY Qty: 90 4RF cyanocobalamin (vitamin B-12) 1,000 mcg tablet, sublingual 1,000 mcg PO DAILY 90 Days Qty: 90 4RF ferrous sulfate 325 mg (65 mg iron) tablet 325 mg PO DAILY Qty: 90 4RF lisinopril 10 mg tablet 10 mg PO DAILY 90 Days Qty: 90 4RF metoprolol succinate 25 mg tablet extended release 24 hr 25 mg PO DAILY 90 Days Qty: 90 4RF albuterol sulfate [ProAir HFA] 90 mcg/actuation HFA aerosol inhaler 2 puff inhalation Q4-6H PRN (Reason: Shortness Of Breath) Qty: 8.5 8RF Rx Instructions: INHALE 2 PUFFS BY MOUTH EVERY 4 TO 6 HOURS NEEDED FOR SHORTNESS OF BREATH OR WHEEZING aspirin 81 mg tablet,delayed release (DR/EC) 81 mg PO DAILY Qty: 90 4RF cholecalciferol (vitamin D3) 125 mcg (5,000 unit) capsule 125 mcg PO DAILY Qty: 90 4RF levetiracetam 1,000 mg tablet 1,000 mg PO BID Qty: 180 4RF quetiapine 300 mg tablet 300 mg PO HS Qty: 90 4RF tizanidine 2 mg tablet See Rx Instructions .ROUTE .COMPLEX Qty: 30 2RF Dose Instruction: TAKE ONE TABLET BY MOUTH AT BEDTIME NEEDED FOR MUSCLE SPASTICITY Rx Instructions: TAKE ONE TABLET BY MOUTH AT BEDTIME NEEDED FOR MUSCLE SPASTICITY magnesium oxide 400 mg (241.3 mg magnesium) Tablet 400 mg PO DAILY 30 Days Qty: 30 0RF sennosides-docusate sodium [Stimulant Laxative Plus] 8.6-50 mg Tablet 1 tab PO DAILY PRN (Reason: constipation) 30 Days Qty: 30 0RF lidocaine 5 % adhesive patch,medicated 1 patch topical DAILY Qty: 30 0RF Rx Instructions: leave on most painful area for up to 12 hrs ondansetron HCl 4 mg tablet 4 mg PO Q6H PRN (Reason: nausea and vomiting) 3 Days Qty: 12 0RF Referrals Follow up/Referrals: Jose De Jesus Kovacs DO [Primary Care Provider] - See instructions Activity Restrictions/Add. Instructions Additional Instructions/Restrictions: You have evidence of a low sodium/salt level in your blood at 128 this needs to be rechecked as soon as possible. Additionally your kidney function is little bit worse than its baseline please follow-up with primary care doctor in the next 1 to 2 days otherwise return to the emergency department. We considered admission today but you opted and would like to go home. You also have urinary tract infection. No evidence of severe sepsis or any life-threatening condition please return with significant worsening of her symptoms. Clinical Impressions Clinical Impression: Hypotension, Dyspnea, Thyroid nodule, SHADY (acute kidney injury), Acute hyponatremia, UTI (urinary tract infection) Print Language Print Language: [place] Discharge ED Provider: Brandy [facility] Chief Complaint: Shortness of Breath/Dyspnea Stated Complaint: bilateral shoulder and back pain, SOA, leg pain Time Seen by Provider: 11/08/23 15:13 Mode of Arrival: Ambulatory Source of Information: Patient Limitations: No Limitations Description of Symptoms (Recalled from ER Triage Doc. by RN): c/o soa since yesterday. Back and leg pain that started last night, states that her left side under her ribs hurts when she takes a breath, pain from her neck down her back. reports that she got an injection one month ago for her chronic back pain. History of Present Illness HPI narrative: Patient is a 63-year-old chronic smoker presents today with shortness of breath. She states she has had chronic neck and back pain this been ongoing for the last several months and that is unchanged but she does complain of neck pain today. Her shortness of breath is what brought her to the emergency department she states that she called her friend who brought her here today. She denies any increasing cough sputum production wheezing etc. She is never been diagnosed with any heart or lung diseases that she is aware of. She was hypotensive in triage IV fluids were initiated prior to my evaluation. Related Data Previous Rx's ?Medication ?Instructions ?Recorded atorvastatin 10 mg tablet 10 mg PO DAILY Cholesterol #90 tabs 06/16/23 bupropion HCl 150 mg 24 hr tablet, 150 mg PO DAILY #90 tabs 06/16/23 extended release cyanocobalamin (vitamin B-12) 1,000 mcg PO DAILY 90 days #90 tabs 06/16/23 1,000 mcg sublingual tablet ferrous sulfate 325 mg (65 mg 325 mg PO DAILY low HGB #90 tabs 06/16/23 iron) tablet lisinopril 10 mg tablet 10 mg PO DAILY 90 days #90 tabs 06/16/23 metoprolol succinate 25 mg 25 mg PO DAILY 90 days #90 tabs 06/16/23 tablet,extended release 24 hr magnesium oxide 400 mg (241.3 mg 400 mg PO DAILY 30 days #30 tabs 07/19/23 magnesium) tablet sennosides 8.6 mg-docusate sodium 1 tab PO DAILY PRN constipation 30 07/19/23 50 mg tablet (Stimulant Laxative days #30 tabs Plus) albuterol sulfate 90 mcg/actuation 2 puff inhalation Q4-6H PRN 07/24/23 aerosol inhaler (ProAir HFA) Shortness Of Breath #8.5 grams aspirin 81 mg tablet,delayed 81 mg PO DAILY #90 tabs 07/24/23 release cholecalciferol (vitamin D3) 125 125 mcg PO DAILY #90 caps 07/24/23 mcg (5,000 unit) capsule levetiracetam 1,000 mg tablet 1,000 mg PO BID #180 tabs 07/24/23 quetiapine 300 mg tablet 300 mg PO HS #90 tabs 07/24/23 lidocaine 5 % topical patch 1 patch topical DAILY #30 ea 09/17/23 ondansetron HCl 4 mg tablet 4 mg PO Q6H PRN nausea and 09/28/23 vomiting 3 days #12 tabs tizanidine 2 mg tablet See Rx Instructions .Route 11/07/23 .COMPLEX #30 tabs cefdinir 300 mg capsule 300 mg PO BID 10 days #20 caps 11/08/23 Allergies Allergy/AdvReac Type Severity Reaction Status Date / Time codeine AdvReac Mild Nausea Verified 11/04/23 13:12 [facility] Disclaimer: The information contained in this section may have been updated after the patient was seen, as this information can be updated by other users. Medical History Left against medical advice Left patella fracture Alcoholic intoxication Gastric ulcer Essentially healed CAD in [place] artery We did the coronary calcium scoring and she has moderate disease. She is following with Dr. Luis. Echocardiogram does reveal mild reduction of left ventricular function with an ejection fraction of 45%, moderate hypokinesis of the anterior LV, the remainder of the read was read as mild . She will return to Dr. Luis within 2 weeks for further evaluation and treatment. Hyperlipidemia Hypertension COPD (chronic obstructive pulmonary disease) Wheezing Dyspnea History of stroke Seizure disorder Nerve pain HTN (hypertension) Anxiety Back Pain This patient's main complaint is in the back and leg. Surgical History History of hysterectomy Family History Other Family history of cancer Family history of myocardial infarction Social History Smoking Status: Current every day smoker tobacco type: cigarettes packs per day: 1 second hand exposure: Yes alcohol intake: former substance use type: marijuana, crack/cocaine, heroin and opiates current occupational status: unemployed Travel in the last 8 weeks: None household members: significant other housing: house number of children: 2 ROS Obtained: Yes All systems reviewed & no additional complaints except as documented Physical Exam General General appearance: cachectic Respiratory Respiratory exam: Present other (Patient speaking in fragmented sentences there is some right basilar crackles) Cardiovascular Cardiovascular exam: Present regular rate and normal rhythm Abdominal Exam Abdominal exam: Present soft and distention Neurological Exam Neurological exam: Present alert and oriented X3 HEART Score HEART Score HEART Score assessment performed?: No Critical Care Critical Care Time Critical Care Time: No Medical Decision Making Georgi Inquiry Pt receiving controlled substance: No Vital Signs Vital Signs: 11/08/23 14:28 11/08/23 15:50 11/08/23 16:00 Temperature 97.5 F L Temperature Source Oral Pulse Rate 89 Pulse Rate [Left Radial] 89 Respiratory Rate 16 17 20 Blood Pressure 90/62 L 95/64 L Blood Pressure [Right Arm] 86/59 L Blood Pressure Mean [Right Arm] 68 Blood Pressure Source [Right Arm] Automatic Cuff Blood Pressure Position [Right Arm] Sitting 02 Sat by Pulse Oximetry 98 99 Oxygen Delivery Method Room Air 11/08/23 16:10 11/08/23 16:26 11/08/23 16:30 Temperature Temperature Source Pulse Rate 86 90 88 Pulse Rate [Left Radial] Respiratory Rate 24 29 H 20 Blood Pressure 97/69 L 118/76 102/70 L Blood Pressure [Right Arm] Blood Pressure Mean [Right Arm] Blood Pressure Source [Right Arm] Blood Pressure Position [Right Arm] 02 Sat by Pulse Oximetry 100 99 98 Oxygen Delivery Method 11/08/23 16:40 11/08/23 16:50 11/08/23 17:00 Temperature Temperature Source Pulse Rate 86 85 89 Pulse Rate [Left Radial] Respiratory Rate 13 22 20 Blood Pressure 102/76 L 121/81 112/78 Blood Pressure [Right Arm] Blood Pressure Mean [Right Arm] Blood Pressure Source [Right Arm] Blood Pressure Position [Right Arm] 02 Sat by Pulse Oximetry 98 97 97 Oxygen Delivery Method 11/08/23 17:30 11/08/23 17:40 11/08/23 17:50 Temperature Temperature Source Pulse Rate 81 81 85 Pulse Rate [Left Radial] Respiratory Rate 22 20 23 Blood Pressure 124/77 108/74 L 119/82 Blood Pressure [Right Arm] Blood Pressure Mean [Right Arm] Blood Pressure Source [Right Arm] Blood Pressure Position [Right Arm] 02 Sat by Pulse Oximetry 96 96 93 L Oxygen Delivery Method Room Air Room Air Room Air Lab Data Lab results reviewed: Yes I reviewed the patient's lab results. Labs: Lab Results 11/08/23 14:40: WBC 13.1 H, RBC 3.04 L, Hgb 11.5 L, Hct 34.3 L, MCV 112.8 H, MCH 37.8 H, MCHC 33.5, RDW 14.1, Plt Count 176, MPV 9.1, Neut % (Auto) 84.3 H, Lymph % (Auto) 5.8 L, [place] % (Auto) 9.6 H, Eos % (Auto) 0.2, Baso % (Auto) 0.2, Neut # (Auto) 7.0, Lymph # (Auto) 0.5 L, [place] # (Auto) 0.8, Eos # (Auto) 0.0, Baso # (Auto) 0.0, D-Dimer 1.87 H, Sodium 128 L, Potassium 4.1, Chloride 106, Carbon Dioxide 14 L, Anion Gap 12.1, BUN 28 H, Creatinine 1.60 H, Estimated Creat Clear 27, Estimated GFR 33 L, Est GFR ( Amer) 40 L, Glucose 123 H, Calcium 8.4, Total Bilirubin 0.8, AST 48 H, ALT 37, Alkaline Phosphatase 114, NT-Pro-B Natriuret Pep 822 H, Total Protein 6.4, Albumin 3.4 L, Globulin 3.0, Albumin/Globulin Ratio 1.1 11/08/23 15:35: SARS-CoV-2 (PCR) Not detected, Influenza A Untype (PCR) Not detected, Influenza Type B (PCR) Not detected 11/08/23 15:58: VBG pH 7.45 H, VBG pCO2 23.8 L, VBG pO2 129.0 H, VBG HCO3 16.1 L, VBG Total CO2 16.8 L, VBG O2 Saturation 98.4 H, VBG Base Excess -8.0 L, VBG Lactic Acid 1.9 11/08/23 16:17: Urine Color Yellow, Urine Appearance Clear, Urine pH 6.0, Ur Specific [place] 1.025, Urine Protein 1+ A, Urine Glucose (UA) Negative, Urine Ketones Negative, Urine Blood Trace-i, Urine Nitrate Positive, Urine Bilirubin 1+ A, Urine Urobilinogen 1.0, Ur Leukocyte Esterase 2+ A, Urine RBC 5-10, Urine WBC 50-100, Ur Squamous Epith Cells 20-50, Urine Bacteria 4+ 11/08/23 14:40 11/08/23 14:40 Response Orders (Tests/Meds): ED MEDICATIONS Discontinued Medications Generic Name Dose Route Start Last Admin Trade Name Freq PRN Reason Stop Dose Admin Acetaminophen 1,000 mg 11/08/23 17:16 11/08/23 17:24 Acetaminophen 1,000mg/100ml Vial IV 11/08/23 17:17 1,000 mg ONCE ONE Administration Lactated Ringer's 1,000 mls @ 999 mls/hr 11/08/23 15:30 11/08/23 16:35 Lactated Ringer's 1000 Ml Bag IV 11/08/23 16:30 999 mls/hr .Q1H1M AVE Administration Iopamidol 80 ml 11/08/23 17:14 11/08/23 17:15 Iopamidol-370 (76%);100ml Bottle IV 11/08/23 17:15 80 ml ONCE ONE Administration Sodium Chloride 10 ml 11/08/23 17:14 11/08/23 17:15 Sodium Chloride 0.9% 10ml Syr (Rad Only) IV 11/08/23 17:15 10 ml ONCE ONE Administration Sodium Chloride 50 ml 11/08/23 17:14 11/08/23 17:15 0.9 % Sodium Chloride 50 Ml Vial IV 11/08/23 17:15 50 ml ONCE ONE Administration ORDERS Category Date Time Status CT angio chest PE protocol Stat Cat Scan 11/08/23 16:54 Completed CXR --portable [XR chest portable] Stat Exams 11/08/23 15:20 Completed BNP [NT Pro Brain Natriuretic Pep.] Stat Lab 11/08/23 14:40 Completed CBC w/Auto Diff [Complete Blood Count Auto Diff] Stat Lab 11/08/23 14:40 Completed CMP [Comprehensive Metabolic Panel] Stat Lab 11/08/23 14:40 Completed D-Dimer Stat Lab 11/08/23 14:40 Completed Lactate Venous Stat Lab 11/08/23 15:58 Ordered Rapid PCR Covid and Flu A/B Stat Lab 11/08/23 15:35 Completed UA [Urinalysis and Microscopic] Stat Lab 11/08/23 16:17 Completed Blood Culture Stat Micro 11/08/23 15:58 Ordered Urine Culture Stat Micro 11/08/23 16:17 Received Venous Blood Gas Stat RT 11/08/23 15:58 Completed MDM Narrative Medical Decision Narrative: 63-year-old presents today with hypotension and shortness of breath. She states that she is only mildly symptomatic at this point but differential includes septic shock pneumonia etc. Patient does have right basilar crackles differential also includes pulmonary embolism decompensated heart failure etc. Will get plain films troponin D-dimer BNP reassess shortly after DuoNeb has been administered. Reassessment 6:30 PM patient feeling much better blood pressure has significantly improved with the most recent pressure of 119/79. Patient states that she feels much better and that she is asymptomatic. She does have evidence of urinary tract infection. She also had a mild leukocytosis but was not tachycardic or febrile or tachypneic she objectively is not septic. Blood pressure improved with IV fluids. Lactic acid also not elevated serial perfusion exams normal. She does have some mild acute kidney injury with a creatinine of 1.6 baseline is near 1. Also she has a sodium of 128. All of these things make her borderline for needing to be admitted I discussed with her and consider this but she wants to go home with close outpatient follow-up. She was administered IV fluid she has been advised to follow-up within the next 1 to 2 days to have her creatinine and her sodium rechecked which she understands. Additionally she has a thyroid nodule that was incidentally found on CT PE that was performed to person interpreted shows no other acute emergencies. She has been made aware of this and will follow-up outpatient regarding this as well. From respiratory standpoint she is very stable on serial reassessments. Patient is tenuous but would like to go home and try to manage her self outpatient antibiotics have not prescribed to her pharmacy return precautions emphasized was discharged in stable condition.
[2023-11-08 15:36] LABS: Albumin Level 3.4 g/dl (3.5-5.0); Basophils % 0.2 % (0.1-2.0); Chloride 106 mmol/L (98-107); Eosinophils % 0.2 % (0.1-12.0); Lymphocytes # 0.5 K/mm3 (0.7-4.5); Lymphocytes % 5.8 % (10-50); Monocytes # 0.8 K/mm3 (0.1-1.0); Monocytes % 9.6 % (1.7-9.3); Neutrophils % 84.3 % (37.0-80.0); Potassium 4.1 mmoL/L (3.5-5.1); Red Cell Distribution Width 14.1 % (11.5-17.5); Sodium 128 mmol/L (136-145)
[2023-11-08 15:39] LABS: Alanine Aminotransferase 37 U/L (12-78); Albumin/Globulin Ratio 1.1 (1.1-1.8); Alkaline Phosphatase 114 U/L (38-126); Anion Gap 12.1 mEq/L (5-15); Aspartate Amino Transferase 48 U/L (14-36); Bilirubin,Total 0.8 mg/dl (0.2-1.3); Blood Urea Nitrogen 28 mg/dl (7-17); Calcium 8.4 mg/dl (8.4-10.2); Carbon Dioxide 14 mmol/L (22.0-30.0); Creatinine Clearance Estimated 27 mL/min (50-200); Estimated Glomerular Filt Rate 33 ml/min (>60); GFR (African American) 40 ML/MIN (>60); Glucose 123 mg/dl (74-100); Total Protein,Serum 6.4 g/dl (6.3-8.2)
[2023-11-08 15:40] LABS: Coronavirus 19, PCR Not Detected (NotDetected); Influenza A, PCR Not Detected (NotDetected); Influenza B, PCR Not Detected (NotDetected)
[2023-11-08 15:48] LABS: Hematocrit 34.3 % (37.0-47.0); Mean Corpuscular HGB Conc 33.5 g/dL (31.8-35.4); Mean Corpuscular Hemoglobin 37.8 pg (27.0-31.2); Mean Corpuscular Volume 112.8 fl (81-99); Mean Platelet Volume 9.1 fl (7.4-10.4); NT Pro Brain Natriuretic Pep. 822 pg/mL (0-125); Platelet Count 176 K/mm3 (142-424); Red Blood Count 3.04 M/mm3 (4.20-5.40); White Blood Count 13.1 K/mm3 (4.8-10.8)
[2023-11-08 15:59] LABS: Hemoglobin 11.5 g/dL (12.2-16.2)
[2023-11-08 16:07] LABS: Lactate Venous 1.9 mmol/L (0.4-2.0); VBG HCO3 16.1 mmol/L (23-30); VBG Oxygen Saturation 98.4 % (50-70); VBG PH 7.45 mmol/L (7.31-7.41); VBG Total CO2 16.8 mmol/L (23-27)
[2023-11-08 16:09] LABS: VBG PCO2 23.8 mmol/L (35-51)
[2023-11-08 16:09] LABS: D-Dimer 1.87 ug/mL (0.0-0.5)
[2023-11-08 16:28] LABS: Microscopic, Urine URINE MICROSCOPIC (MICROSCOPIC)
[2023-11-08 16:34] LABS: Appearance,Urine CLEAR (Clear); Blood, Urine TRACE-I (Negative); Color,Urine YELLOW (Yellow); Glucose,Urine (UA) Negative (Negative); Ketones,Urine Negative (Negative); Leukocyte Esterase,Urine 2+ (Negative); Nitrate,Urine POSITIVE (Negative); Protein,Urine 1+ (Negative); Specific Gravity, Urine 1.025 (1.005-1.030)
[2023-11-08] MEDS: LACTATED RINGERS 1000ML 1,000 ML 999 ML IV (16:35)
[2023-11-08 16:40] LABS: Bilirubin,Urine 1+ (Negative)
[2023-11-08 16:44] LABS: Bacteria,Urine 4+ /lpf; Squamous Epithelial Cell,Urine 20-50 #/hpf (0-5); WBC,Urine 50-100 #/hpf (0-3)
--- NOTE | 2023-11-08 16:54 | CT_ITS ---
PROCEDURE INFORMATION: Exam: CTA Chest With Contrast Exam date and time: 11/08/2023 5:16 PM Age: 63 years old Clinical indication: Abnormal findings; Abnormal diagnostic tests; Elevated d-dimer; Additional info: Dyspnea, elevated dimer TECHNIQUE: Imaging protocol: Computed tomographic angiography of the chest with contrast. Exam focused on the arteries. 3D rendering (Not supervised by radiologist): MIP and/or 3D reconstructed images were created by the technologist. Radiation optimization: All CT scans at this facility use at least one of these dose optimization techniques: automated exposure control; mA and/or kV adjustment per patient size (includes targeted exams where dose is matched to clinical indication); or iterative reconstruction. Contrast material: ISO 370; Contrast volume: 80 ml; Contrast route: INTRAVENOUS (IV); COMPARISON: CT ANGIO CHEST PE PROTOCOL 12/06/2022 3:30 PM FINDINGS: Pulmonary arteries: No evidence of pulmonary embolus to the segmental level. Aorta: No aneurysm of the aorta. No dissection of the aorta. Thyroid: 17 mm nodule in the right lobe of the thyroid. Recommend thyroid ultrasound. Lungs: Mild panlobular emphysematous changes. Bibasilar atelectasis Pleural spaces: Unremarkable. No pneumothorax. No pleural effusion. Heart: Unremarkable. No cardiomegaly. No pericardial effusion. Coronary arteries: Coronary artery calcifications may indicate coronary artery disease. Lymph nodes: Unremarkable. No enlarged lymph nodes. Bones/joints: Levoscoliosis of the thoracic spine Soft tissues: Unremarkable. IMPRESSION: 1. No evidence of pulmonary embolus to the segmental level. 2. No aneurysm of the aorta. 3. No dissection of the aorta. 4. 17 mm nodule in the right lobe of the thyroid. Recommend thyroid ultrasound. COMMENTS: 1. Consistent with the [employer] [employer]'s Incidental Findings Committee white paper (J Am Aurelio Radiol 2015): In patients aged 35 years and older with an incidental thyroid nodule equal to or greater than 1.[address], MRI or extrathyroidal US, further evaluation with dedicated thyroid US is recommended for patients with normal life expectancy and without comorbidities. For smaller nodules without suspicious features, no further evaluation or follow up is recommended. 2. The presence of pulmonary emphysema on CT is an independent risk factor for lung cancer. In the absence of a history or active diagnosis of lung cancer, it is recommended that this patient with emphysema be evaluated for enrollment in a low dose CT lung cancer screening program.
[2023-11-08] MEDS: 0.9 % SODIUM CHLORIDE 50 ML VIAL IV (17:15)
[2023-11-08] MEDS: IOPAMIDOL-370 (76%);100ML BOTTLE 80 ML IV (17:15)
[2023-11-08] MEDS: SODIUM CHLORIDE 0.9% 10ML SYR (RAD ONLY) 10 ML IV (17:15)
[2023-11-08] MEDS: ACETAMINOPHEN 1,000MG/100ML VIAL 1000 MG IV (17:24)
--- NOTE | 2023-11-09 09:50 | PC.NURSE ---
Discussed urine culture with , pt dc with cefdinir, ntd
--- NOTE | 2023-11-10 08:45 | PC.NURSE ---
Final discussed with , pt dc with cefdinir, ntd
--- NOTE | 2023-11-10 11:59 | PC.NURSE ---
called pt about positive blood cultures, David Pressley wants pt to return to the ER for admission to receive antibiotics
--- NOTE | 2023-11-12 10:06 | PC.NURSE ---
URINE CULTURE NOTED, PT HAS SINCE BEEN ADMITTED. CARE PER HOSPITALIST
== END 2023-11-08 18:12 | disposition home or self-care (01) ==
PROVIDERS: Emergency Provider Student in an Organized Health Care Education/Training Program; PCP Internal Medicine
DX: M51.36 Other intervertebral disc degeneration, lumbar region (principal); M54.16 Radiculopathy, lumbar region
CPT/HCPCS: 71045; 71275; 80053; 81001; 82803; 83880; 85025; 85378; 87040; 87077; 87086; 87088; 87186; 87636; 93005; J0131; J7120; Q9967

== ENCOUNTER 2023-11-10 10:46 | Outpatient (POV) | payer MEDICAID, SELFPAY ==
[2023-11-10 11:10] VITALS: BP 85/48; PULSE 112; RESP 18; O2SAT 98; BMI 19.9
--- NOTE | 2023-11-10 11:26 | EXP.PAIN.SOA ---
[facility] Disclaimer: The information contained in this section may have been updated after the patient was seen, as this information can be updated by other users. Medical History Left against medical advice Left patella fracture Alcoholic intoxication Gastric ulcer Essentially healed CAD in [place] artery We did the coronary calcium scoring and she has moderate disease. She is following with Dr. Luis. Echocardiogram does reveal mild reduction of left ventricular function with an ejection fraction of 45%, moderate hypokinesis of the anterior LV, the remainder of the read was read as mild . She will return to Dr. Luis within 2 weeks for further evaluation and treatment. Hyperlipidemia Hypertension COPD (chronic obstructive pulmonary disease) Wheezing Dyspnea History of stroke Seizure disorder Nerve pain HTN (hypertension) Anxiety Back Pain This patient's main complaint is in the back and leg. Surgical History History of hysterectomy Family History Other Family history of cancer Family history of myocardial infarction Social History Smoking Status: Current every day smoker tobacco type: cigarettes packs per day: 1 second hand exposure: Yes alcohol intake: former substance use type: marijuana, crack/cocaine, heroin and opiates current occupational status: unemployed Travel in the last 8 weeks: None household members: significant other housing: house number of children: 2 PM Subjective & Objective Subjective Subjective:: Patient is a pleasant 63-year-old female who presents today for follow-up of bilateral SI injections. Today she rates her pain a 7 out of 10. Patient does state that she had at least 60 to 80% improvement following these injections however only lasted about a week and a half. Patient does state today that she is back at her baseline and feels like she is having more numbness and tingling going down into her left extremity. Patient denies any new trauma or injury. Patient does state that part of her symptoms are related to her prior stroke. Patient states that her right side is doing fine and no complaints on that end. Patient does state this pain is a constant aching, throbbing sensation with numbness and tingling. She states it does interfere with her ability perform activities of daily living such as cooking and cleaning. Patient has tried conservative therapy including oral medications heat and ice, topicals, physical therapy and continued at home exercising and stretching for longer than 6 weeks. Her Georgi has been reviewed and is appropriate. Review of Systems: General: No recent weight changes, no fever, no sleep disturbances Respiratory: No cough, no shortness of air, no recurring pulmonary infections Cardiovascular/peripheral vascular: No chest pain, no palpitations, no edema, no shortness of breath Gastrointestinal: No new onset incontinence, normal bowel movements reported Genitourinary: No new onset incontinence Musculoskeletal: Low back pain, left leg pain Psychiatric: [Normal mood/affect] Neurological: [Denies weakness in extremities], [denies balance issues] Pain at rest (0-10 scale): 7 Objective Objective:: Physical Exam: General: Alert and oriented x3, no acute distress, pleasant and cooperative Lungs: Respirations even and unlabored, symmetrical chest expansion Eyes: PERRL Musculoskeletal: Flexion and extension of lumbar [spine] somewhat guarded secondary to pain, [antalgic gait noted] positive left leg raise with decreased sensation to light touch and decreased reflexes Neurological: Speech clear, no gross sensory deficit Has patient had previous pain injection?: Yes Percent improvement in pain since last injection: 60 to 80% Conservative treatment options previously tried: Home exercise plan Length of treatment: Longer than 12 weeks Meds Home Medications and Allergies Home Medications ?Medication ?Instructions ?Recorded ?Confirmed ?Type atorvastatin 10 mg tablet 10 mg PO DAILY Cholesterol #90 tabs 06/16/23 11/04/23 Rx bupropion HCl 150 mg 24 hr tablet, 150 mg PO DAILY #90 tabs 06/16/23 11/04/23 Rx extended release cyanocobalamin (vitamin B-12) 1,000 mcg PO DAILY 90 days #90 tabs 06/16/23 11/04/23 Rx 1,000 mcg sublingual tablet ferrous sulfate 325 mg (65 mg 325 mg PO DAILY low HGB #90 tabs 06/16/23 11/04/23 Rx iron) tablet lisinopril 10 mg tablet 10 mg PO DAILY 90 days #90 tabs 06/16/23 11/04/23 Rx metoprolol succinate 25 mg 25 mg PO DAILY 90 days #90 tabs 06/16/23 11/04/23 Rx tablet,extended release 24 hr magnesium oxide 400 mg (241.3 mg 400 mg PO DAILY 30 days #30 tabs 07/19/23 11/04/23 Rx magnesium) tablet sennosides 8.6 mg-docusate sodium 1 tab PO DAILY PRN constipation 30 07/19/23 11/04/23 Rx 50 mg tablet (Stimulant Laxative days #30 tabs Plus) albuterol sulfate 90 mcg/actuation 2 puff inhalation Q4-6H PRN 07/24/23 11/04/23 Rx aerosol inhaler (ProAir HFA) Shortness Of Breath #8.5 grams aspirin 81 mg tablet,delayed 81 mg PO DAILY #90 tabs 07/24/23 11/04/23 Rx release cholecalciferol (vitamin D3) 125 125 mcg PO DAILY #90 caps 07/24/23 11/04/23 Rx mcg (5,000 unit) capsule levetiracetam 1,000 mg tablet 1,000 mg PO BID #180 tabs 07/24/23 11/04/23 Rx quetiapine 300 mg tablet 300 mg PO HS #90 tabs 07/24/23 11/04/23 Rx lidocaine 5 % topical patch 1 patch topical DAILY #30 ea 09/17/23 11/04/23 Rx ondansetron HCl 4 mg tablet 4 mg PO Q6H PRN nausea and 09/28/23 11/04/23 Rx vomiting 3 days #12 tabs tizanidine 2 mg tablet See Rx Instructions .Route 11/07/23 Rx .COMPLEX #30 tabs cefdinir 300 mg capsule 300 mg PO BID 10 days #20 caps 11/08/23 Rx New Prescriptions to Start Prescriptions: Allergies Allergy/AdvReac Type Severity Reaction Status Date / Time codeine AdvReac Mild Nausea Verified 11/04/23 13:12 Assessment and Plan *Assessment and plan (1) Degenerative disc disease, lumbar: Status: Acute Category: Medical Code(s): M51.36 - Other intervertebral disc degeneration, lumbar region (2) Left lumbar radiculopathy: Status: Acute Category: Medical Code(s): M54.16 - Radiculopathy, lumbar region Plan Patient is experiencing significant pain throughout her low back with radiating symptoms down her left extremity with numbness and tingling. Patient did have limited range of motion of her lumbar spine with a positive left leg raise. I did discuss with patient that she may benefit from a left transforaminal epidural steroid injection. Risk and benefits were discussed with the patient and she would like to proceed forward with this plan of care. Patient has tried and failed conservative therapy continued at home stretching exercise for longer than 12 weeks. Patient is not on any blood thinners. Patient will be scheduled for a left transforaminal epidural steroid injection L3-L4 and L4-L5 under fluoroscopy. Patient has been instructed to contact the clinic with any concerns before the next appointment. Dr. Barron has reviewed this note and agrees with this plan of care. This note was dictated using voice recognition software and make contain errors or omissions. All injections are used with Lidocaine or Bupivacaine and Depo Medrol.
== END 2023-11-10 23:59 | disposition home or self-care (01) ==
LOC: SC.PAIN 10:47
PROVIDERS: PCP Internal Medicine; Visit Provider Nurse Practitioner Family
DX: M51.36 Other intervertebral disc degeneration, lumbar region (principal); M54.16 Radiculopathy, lumbar region
CPT/HCPCS: 99212; G0463

== ENCOUNTER 2023-11-10 12:33 | Inpatient (IN) | payer MEDICAID, SELFPAY ==
[2023-11-10] VITALS (11 sets, daily range): BP systolic 74–148; BP diastolic 52–99; PULSE 83–120; RESP 18–21; TEMP 36.6–36.8; O2SAT 92–98; BMI 19.9; BMI 20.8
--- NOTE | 2023-11-10 12:52 | PC.NURSE ---
Dr. Hernandez at bedside for pt eval
--- NOTE | 2023-11-10 12:54 | CT_ITS ---
FINAL REPORT TECHNIQUE: Axial imaging of the chest is obtained after the administration of contrast. 3-D MIP reformatted images were also obtained and reviewed per PE protocol. This study was performed with techniques to keep radiation doses as low as reasonably achievable (ALARA). Individualized dose reduction techniques using automated exposure control or adjustment of mA and/or kV according to the patient's size were employed. CLINICAL HISTORY: septic shock, back pain, UTI, SOA COMPARISON: 10/08/2023 FINDINGS: The pulmonary arteries are well filled. There is no evidence of pulmonary embolus. There is no aortic dissection or intimal flap. There is no mediastinal, hilar, or axillary lymphadenopathy. The lungs are clear. There is no pleural or pericardial effusion. The right thyroid nodule noted on the prior exam of November 07 is unchanged in appearance. Limited evaluation of the upper abdomen is without acute abnormality. No acute osseous abnormality. IMPRESSION: No evidence of pulmonary embolism or aortic dissection. Reviewed, Interpreted and Dictated by Yumiko Warren MD Transcribed by Tiffany Cruz Authenticated and [facility]
--- NOTE | 2023-11-10 12:54 | CT_ITS ---
FINAL REPORT TECHNIQUE: Pre-and postcontrast axial imaging of the abdomen and pelvis was obtained.This study was performed with techniques to keep radiation doses as low as reasonably achievable, (ALARA). Individualized dose reduction technique using automated exposure control or adjustment of mA and/or kV according to the patient's size were employed. CLINICAL HISTORY: septic shock, back pain, UTI, SOA COMPARISON: 09/28/2023 FINDINGS: The lung bases are clear. The liver is homogeneous. The gallbladder is present. The spleen, adrenal glands, and pancreas are unremarkable. There is right sided hydronephrosis, with the ureters bilaterally mildly dilated to the level of the bladder. On precontrast imaging, there is contrast staining of the left kidney, which can be seen in contrast nephropathy but can also be seen with pyelonephritis. There is mild wall thickening of the proximal colon, with a moderate to large amount of stool stool in the more distal colon. There is no lymphadenopathy or ascites. The pelvic organs and pelvic portions of the GI tract, including the appendix, are within normal limits. There is wall thickening of the bladder with contrast from the prior examination seen on noncontrast imaging. The appendix is normal in appearance. There is no lymphadenopathy or ascites. The uterus has been surgically resected. No acute osseous abnormalities identified. IMPRESSION: There is wall thickening of the bladder with contrast from a prior exam Right hydronephrosis with the ureters mildly dilated bilaterally to the bladder. Mild wall thickening of the proximal colon consistent with mild colitis. Contrast staining is present in the left kidney, which can be seen in contrast neuropathy but can also be seen in cases of pyelonephritis. Reviewed, Interpreted and Dictated by Yumiko Warren MD Transcribed by Tiffany Cruz Authenticated and [facility]
[2023-11-10 13:12] LABS: Basophils % 0.2 % (0.1-2.0); Eosinophils # 0.1 K/mm3 (0.0-0.4); Eosinophils % 0.4 % (0.1-12.0); Hematocrit 31.2 % (37.0-47.0); Hemoglobin 9.7 g/dL (12.2-16.2); Lymphocytes # 1.1 K/mm3 (0.7-4.5); Lymphocytes % 8.2 % (10-50); Mean Corpuscular HGB Conc 31.2 g/dL (31.8-35.4); Mean Corpuscular Hemoglobin 35.2 pg (27.0-31.2); Mean Platelet Volume 8.9 fl (7.4-10.4); Monocytes # 0.8 K/mm3 (0.1-1.0); Neutrophils # 11.7 K/mm3 (1.8-7.8); Neutrophils % 85.2 % (37.0-80.0); Platelet Count 243 K/mm3 (142-424); Red Blood Count 2.76 M/mm3 (4.20-5.40); Red Cell Distribution Width 14.3 % (11.5-17.5); White Blood Count 13.7 K/mm3 (4.8-10.8)
[2023-11-10 13:14] LABS: Albumin Level 3.3 g/dl (3.5-5.0); Chloride 108 mmol/L (98-107); Sodium 133 mmol/L (136-145)
[2023-11-10 13:15] LABS: MANUAL DIFFERENTIAL MANUAL DIFFERENTIAL (MANUAL DIFF)
[2023-11-10 13:17] LABS: Alanine Aminotransferase 30 U/L (12-78); Anion Gap 10.8 mEq/L (5-15); Aspartate Amino Transferase 28 U/L (14-36); Bilirubin,Total 0.6 mg/dl (0.2-1.3); Blood Urea Nitrogen 26 mg/dl (7-17); Carbon Dioxide 17 mmol/L (22.0-30.0); Creatinine Clearance Estimated 29 mL/min (50-200); Estimated Glomerular Filt Rate 35 ml/min (>60); GFR (African American) 43 ML/MIN (>60); Globulin 3.3 g/dL (1.3-3.2); Total Protein,Serum 6.6 g/dl (6.3-8.2)
[2023-11-10 13:18] LABS: Alkaline Phosphatase 140 U/L (38-126); Calcium 8.4 mg/dl (8.4-10.2); Glucose 129 mg/dl (74-100); Lactic Acid 2.3 mmol/L (0.7-2.1)
[2023-11-10 13:20] LABS: Potassium 2.8 mmoL/L (3.5-5.1)
--- NOTE | 2023-11-10 13:21 | PC.NURSE ---
critical potassium 2.8, aware
[2023-11-10] MEDS: VANCOMYCIN HCL 1,000 MG in 0.9 % SODIUM CHLORIDE 250 ML 125 MG IV (13:29)
[2023-11-10] MEDS: LACTATED RINGERS 1000ML 1,370 ML 685 ML IV (13:34)
[2023-11-10 13:37] LABS: C-Reactive Protein 334.2 mg/L (0-4); T4 (Thyroxine) 3.2 ug/dl (5.53-11.0); Troponin I < 0.01 ng/ml (0.00-0.034)
--- NOTE | 2023-11-10 13:41 | ECG_ITS ---
APPROVED REPORT Exam: Resting ECG HR:94 bpm ECG Measurements Heart Rate 94 AXES DE 151 P 14 QRSd 94 QRS 69 QT 348 T 66 QTc 400 Conclusion SINUS RHYTHM NORMAL ECG Electronically signed by : HOME MISHRA, 11/10/2023 16:33:03
--- NOTE | 2023-11-10 13:41 | HMH.EDGENADL ---
Discharge Plan Disposition Chief Complaint: Recheck/Abnormal Lab/Rx Discharge ED Provider: Felicia Hernandez General Adult HPI General Chief complaint: Recheck/Abnormal Lab/Rx Stated complaint: abnormal labs Time Seen by Provider: 11/10/23 12:44 Mode of Arrival: Ambulatory Source of Information: Patient Limitations: No Limitations Description of Symptoms (Recalled from ER Triage Doc. by RN): Patient was called back in for a postive blood culture. History of Present Illness HPI narrative: This patient is a 63-year-old female with a history of hypertension, anxiety, COPD, CVA, CAD, and seizure disorder presenting to the emergency department for evaluation with concern for positive blood cultures. Patient was called back by us to return to the hospital given positive blood cultures from 11/08/2023. Patient was seen here for shortness of breath and was diagnosed with UTI, SHADY, hyponatremia. Ultimately, she was deemed to be well enough to go home so she was discharged with blood cultures pending. Blood cultures came back for gram-negative rods. Patient states that since going home she is been feeling awful with shortness of breath, fatigue, dizziness. She also is having significant back pain Related Data Home Medications ?Medication ?Instructions ?Recorded ?Confirmed albuterol sulfate 90 mcg/actuation 2 puff inhalation Q4HP PRN 11/10/23 11/10/23 aerosol inhaler Shortness Of Breath atorvastatin 10 mg tablet 10 mg PO DAILY 11/10/23 11/10/23 ferrous sulfate 325 mg (65 mg 325 mg PO DAILY 11/10/23 11/10/23 iron) tablet tizanidine 2 mg tablet 2 mg PO HSP PRN Muscle Spasticity 11/10/23 11/10/23 Previous Rx's ?Medication ?Instructions ?Recorded bupropion HCl 150 mg 24 hr tablet, 150 mg PO DAILY #90 tabs 06/16/23 extended release cyanocobalamin (vitamin B-12) 1,000 mcg PO DAILY 90 days #90 tabs 06/16/23 1,000 mcg sublingual tablet lisinopril 10 mg tablet 10 mg PO DAILY 90 days #90 tabs 06/16/23 metoprolol succinate 25 mg 25 mg PO DAILY 90 days #90 tabs 06/16/23 tablet,extended release 24 hr magnesium oxide 400 mg (241.3 mg 400 mg PO DAILY 30 days #30 tabs 07/19/23 magnesium) tablet aspirin 81 mg tablet,delayed 81 mg PO DAILY #90 tabs 07/24/23 release cholecalciferol (vitamin D3) 125 125 mcg PO DAILY #90 caps 07/24/23 mcg (5,000 unit) capsule levetiracetam 1,000 mg tablet 1,000 mg PO BID #180 tabs 07/24/23 quetiapine 300 mg tablet 300 mg PO HS #90 tabs 07/24/23 cefdinir 300 mg capsule 300 mg PO BID 10 days #20 caps 11/08/23 Allergies Allergy/AdvReac Type Severity Reaction Status Date / Time codeine AdvReac Mild Nausea Verified 11/04/23 13:12 [facility] Disclaimer: The information contained in this section may have been updated after the patient was seen, as this information can be updated by other users. Medical History Left against medical advice Left patella fracture Alcoholic intoxication Gastric ulcer CAD in [place] artery Hyperlipidemia Hypertension COPD (chronic obstructive pulmonary disease) Wheezing Dyspnea History of stroke Seizure disorder Nerve pain HTN (hypertension) Anxiety Back Pain Surgical History History of hysterectomy Family History Other Family history of cancer Family history of myocardial infarction Social History Smoking Status: Current every day smoker tobacco type: cigarettes packs per day: 1 second hand exposure: Yes alcohol intake: former substance use type: marijuana, crack/cocaine, heroin and opiates current occupational status: unemployed Travel in the last 8 weeks: None household members: significant other housing: house number of children: 2 ROS Obtained: Yes All systems reviewed & no additional complaints except as documented Physical Exam General General appearance: alert Comment: Pale, ill-appearing Head Head exam: atraumatic and normocephalic Eye Eye exam: Present normal appearance, PERRL and EOMI ENT ENT exam: Present normal exam, normal oropharynx, mucous membranes moist and normal external ear exam Neck Neck exam: Present normal inspection, full ROM and trachea midline; Absent tenderness Chest Chest inspection: Present normal inspection and symmetric chest wall rise; Absent tenderness Respiratory Respiratory exam: Present other (Tachypneic); Absent respiratory distress, wheezes, stridor or accessory muscle use Cardiovascular Cardiovascular exam: Present normal rhythm and tachycardia Abdominal Exam Abdominal exam: Present soft; Absent distention, tenderness or guarding Extremities Exam Extremities exam: Present normal inspection, full ROM and normal capillary refill; Absent tenderness or edema Back Exam Back exam: Present normal inspection and full ROM; Absent tenderness Neurological Exam Neurological exam: Present alert, oriented X3, CN II-XII intact and normal gait; Absent motor sensory deficit Psychiatric Psychiatric exam: Present anxious Skin Skin exam: Present warm, dry and pallor Medical Decision Making Medical Records Medical records reviewed: Yes I reviewed the patient's medical records. Georgi Inquiry Pt receiving controlled substance: No Vital Signs: 11/10/23 12:45 11/10/23 13:02 11/10/23 13:30 Temperature 98.2 F Temperature Source Oral Pulse Rate 103 H 100 H Pulse Rate [Right Brachial] 108 H Respiratory Rate 20 Blood Pressure 94/66 L 84/62 L Blood Pressure [Right Arm] 74/52 L Blood Pressure Mean 76 66 Blood Pressure Mean [Right Arm] 59 02 Sat by Pulse Oximetry 97 96 96 Oxygen Delivery Method Room Air 11/10/23 14:00 11/10/23 14:35 11/10/23 15:12 Temperature Temperature Source Pulse Rate 120 H 95 H 101 H Pulse Rate [Right Brachial] Respiratory Rate Blood Pressure 102/69 L 114/74 135/91 H Blood Pressure [Right Arm] Blood Pressure Mean 78 85 105 Blood Pressure Mean [Right Arm] 02 Sat by Pulse Oximetry 92 L 94 L 96 Oxygen Delivery Method Room Air Room Air Room Air Lab Data Lab results reviewed: Yes I reviewed the patient's lab results. Lab Results 11/10/23 13:00: WBC 13.7 H, RBC 2.76 L, Hgb 9.7 L, Hct 31.2 L, MCV 113.0 H, MCH 35.2 H, MCHC 31.2 L, RDW 14.3, Plt Count 243 D, MPV 8.9, Neut % (Auto) 85.2 H, Lymph % (Auto) 8.2 L, [place] % (Auto) 6.0, Eos % (Auto) 0.4, Baso % (Auto) 0.2, Neut # (Auto) 11.7 H, Lymph # (Auto) 1.1, [place] # (Auto) 0.8, Eos # (Auto) 0.1, Baso # (Auto) 0.0, Total Counted 100, Neutrophils % (Manual) 83 H, Lymphocytes % (Manual) 6 L, Monocytes % (Manual) 11 H, Platelet Estimate Normal, RBC Morphology Normal, Macrocytosis 1+, Sodium 133 L, Potassium 2.8 L* D, Chloride 108 H, Carbon Dioxide 17 L, Anion Gap 10.8, BUN 26 H, Creatinine 1.50 H, Estimated Creat Clear 29, Estimated GFR 35 L, Est GFR ( Amer) 43 L, Glucose 129 H, Lactate 2.3 H, Calcium 8.4, Total Bilirubin 0.6, AST 28 D, ALT 30, Alkaline Phosphatase 140 H, Troponin I < 0.01, C-Reactive Protein 334.2 H, Total Protein 6.6, Albumin 3.3 L, Globulin 3.3 H, Albumin/Globulin Ratio 1.0 L, TSH 0.66, Thyroxine (T4) 3.2 L 11/10/23 13:00 11/10/23 13:00 Orders (Tests/Meds): ED MEDICATIONS Generic Name Dose Route Start Last Admin Trade Name Freq PRN Reason Stop Dose Admin Acetaminophen 650 mg 11/10/23 15:56 Acetaminophen 325mg Tab PO 12/10/23 15:55 Q4HP PRN Fever or Mild Pain (1-3) Ketorolac Tromethamine 30 mg 11/10/23 15:56 Ketorolac 30mg/Ml Vial IV 11/15/23 15:55 Q6HP PRN Moderate Pain (4-6) Discontinued Medications Generic Name Dose Route Start Last Admin Trade Name Freq PRN Reason Stop Dose Admin Acetaminophen 1,000 mg 11/10/23 15:43 Acetaminophen 500mg Tab PO 11/10/23 15:44 ONCE ONE Lactated Ringer's 1,370 mls @ 685 mls/hr 11/10/23 12:49 11/10/23 13:34 Lactated Ringer's 1000 Ml Bag 30 ml/kg infuse over 2 hr (1370 ml) 11/10/23 14:48 685 mls/hr IV Administration .Q2H ONE Piperacillin Sod/Tazobactam 50 mls @ 100 mls/hr 11/10/23 12:50 Sod 3.375 gm/ Sodium Chloride IV 11/10/23 13:19 ONCE ONE Vancomycin HCl 1,000 mg/ 250 mls @ 125 mls/hr 11/10/23 13:15 11/10/23 13:29 Sodium Chloride IV 11/10/23 15:14 125 mls/hr ONCE ONE Administration Potassium Chloride/Water 100 mls @ 100 mls/hr 11/10/23 13:21 11/10/23 16:16 Potassium Chloride 10meq/100ml Ivpb IV 11/10/23 15:20 100 mls/hr Q1H AVE Administration Iopamidol 155 ml 11/10/23 14:11 11/10/23 14:12 Iopamidol-370 (76%);100ml Bottle IV 11/10/23 14:12 155 ml ONCE ONE Administration Ketorolac Tromethamine 15 mg 11/10/23 15:43 Ketorolac 30mg/Ml Vial IV 11/10/23 15:44 ONCE ONE Miscellaneous 1 each 11/10/23 13:00 11/10/23 14:02 Vancomycin Consult Request NOTAPPLIC 12/10/23 12:[address] Administration Potassium Chloride 40 meq 11/10/23 13:21 11/10/23 16:17 Potassium Chloride 20meq Tab PO 11/10/23 13:22 40 meq ONCE ONE Administration ORDERS Category Date Time Status CT abdomen pelvis wo/w con Stat Cat Scan 11/10/23 12:[address] angio chest PE protocol Stat Cat Scan 11/10/23 12:54 Completed CRP [C-Reactive Protein] Stat Lab 11/10/23 13:00 Results Complete Blood Count Auto Diff AMLAB Lab 11/11/23 06:00 Ordered Complete Blood Count Auto Diff Stat Lab 11/10/23 13:00 Completed Comprehensive Metabolic Panel AMLAB Lab 11/11/23 06:00 Ordered Comprehensive Metabolic Panel Stat Lab 11/10/23 13:00 Results Lactic Acid Stat Lab 11/10/23 13:00 Completed Magnesium AMLAB Lab 11/11/23 06:00 Ordered Procalcitonin Stat Lab 11/10/23 13:00 Results T4 (Thyroxine) Stat Lab 11/10/23 13:00 Results TSH [Thyroid Stimulating Hormone] Stat Lab 11/10/23 13:00 Results Trop I [Troponin I] Stat Lab 11/10/23 13:00 Results Troponin I Q3H Lab 11/10/23 16:06 Received Troponin I Q3H Lab 11/10/23 19:00 Ordered UA [Urinalysis and Microscopic] Stat Lab 11/10/23 12:49 Ordered Blood Culture Stat Micro 11/10/23 13:12 Received Urine Culture Stat Micro 11/10/23 12:49 Ordered ECG Data Tracing #1: I reviewed this ECG and interpreted as documented below: Normal sinus rhythm with a ventricular rate of [address] changes concerning for ischemia. Normal axis and intervals. ECG initial impression date: 11/10/23 ECG initial impression time: 13:43 Medical Decision Narrative: In summary, this patient is a 63-year-old female presenting to the Emergency Department for evaluation of positive blood cultures. She has not been feeling well and has had shortness of breath, fatigue, weakness, back pain. Differential diagnoses considered include but are not limited to sepsis, bacteremia, pyelonephritis, ureterolithiasis, PE. Ruling out the most morbid conditions drove assessment. It should be noted patient's history includes anxiety, hypertension which may or may not be at goal therapy. This complicates all aspects of care by increasing patient's risk for morbidity. I reviewed patient's past medical records and noted previous evaluation 11/08/2023 as detailed in HPI as well as her positive blood cultures. On exam, the patient is ill-appearing, hypotensive, tachycardic, and tachypneic. She initially was systolic in the 70s. Given this, sepsis fluid bolus was initiated immediately. Workup included new labs including repeat blood cultures, urinalysis, and urine culture as well as CT PE and CT abdomen pelvis to evaluate for acute pathology that could lead to shock/sepsis/SHADY, such as ureterolithiasis, pyelonephritis, pneumonia, PE. She was started on IV vancomycin and Zosyn. I independently interpreted CT scan prior to the radiologist read and noted pyelonephritis without other obvious acute concerns. Please see their read for final interpretation. Labs were obtained that demonstrated leukocytosis, significantly with inflammatory markers, elevated lactic, SHADY. On reassessment, patient has better perfusion and better systolic blood pressure after sepsis bolus of IV fluids. She is doing a lot better. She complains of pain everywhere, so she was given IV Toradol and oral Tylenol. Ultimately I feel she requires admission for septic shock and SHADY with gram-negative rods growing in her blood culture. I had an interactive discussion with the hospitalist who admitted the patient for further evaluation and management Critical Care Critical Care Time Critical Care Time: Yes Attestation: On 11/10/23, the high probability of a clinically significant, sudden or life threatening deterioration of the following system(s) required my full and direct attention, intervention and personal management. The time I documented below is in addition to time spent performing reported procedures but includes the following listed in this critical care notation. Total Time Total Critical Care Time: 30
[2023-11-10 13:47] LABS: Lymphocytes % 6 % (10-50); Macrocytosis 1+; Monocytes % 11 % (2-9); Neutrophils % 83 % (42-76); Platelet Estimate Normal; RBC Morphology Normal; Total Cells Counted 100
[2023-11-10 13:51] LABS: Thyroid Stimulating Hormone 0.66 uIU/mL (0.465-4.68)
[2023-11-10] MEDS: VANCOMYCIN CONSULT REQUEST 1 EACH NOTAPPLIC (14:02)
[2023-11-10] MEDS: IOPAMIDOL-370 (76%);100ML BOTTLE 155 ML IV (14:12)
--- NOTE | 2023-11-10 15:05 | PC.NURSE ---
attempted to get second IV access on patient at this time to start IV potassium. two attempts made and were unsuccessful. Pt refused further sticks at this time
--- NOTE | 2023-11-10 15:57 | PC.NURSE ---
called for admission
--- NOTE | 2023-11-10 15:58 | P.HP_ITS ---
History of Present Illness *Admission Date: 11/10/23 *Reason for visit:: Positive blood culture *History of present illness: Ms. Cedeño is a 63-year-old female who initially presented to the ER on 11/07 for shortness of breath and weakness. Was diagnosed with UTI, SHADY, hyponatremia. Ultimately she decided to discharge home on oral antibiotics. Blood cultures were obtained. Returned today positive for gram-negative rods. Patient was contacted and told to come back to the ER for evaluation. States that she had been feeling awful with worsening shortness of breath, fatigue, dizziness and left flank pain. History significant for hypertension, anxiety, COPD, CVA, CAD and seizure disorder. On arrival to the ER, patient was in severe sepsis with hypotension. Blood pressure initially 74/52. Responded well to IV fluids/sepsis bolus with improvement and normalization of blood pressure. White count elevated at 13.7, neutrophil predominant. Kidney injury with creatinine 1.5, BUN 26. Potassium low at 2.8. CRP and Pro-Sung severely elevated. Initiated on vancomycin and Zosyn. Medicine consulted for admission and further management. Repeat blood and urine cultures obtained. On arrival to the floor, denies fever but complains of chills. Complaining of severe pain. Denies any nausea or vomiting. States she is feeling little bit more comfortable after improvement in blood pressure. [facility] Disclaimer: The information contained in this section may have been updated after the patient was seen, as this information can be updated by other users. Medical History Left against medical advice Left patella fracture Alcoholic intoxication Gastric ulcer CAD in [place] artery Hyperlipidemia Hypertension COPD (chronic obstructive pulmonary disease) Wheezing Dyspnea History of stroke Seizure disorder Nerve pain HTN (hypertension) Anxiety Back Pain Surgical History History of hysterectomy Family History Other Family history of cancer Family history of myocardial infarction Social History Smoking Status: Current every day smoker tobacco type: cigarettes packs per day: 1 second hand exposure: Yes alcohol intake: former substance use type: marijuana, crack/cocaine, heroin and opiates current occupational status: unemployed Travel in the last 8 weeks: None household members: significant other housing: house number of children: 2 Review of Systems Review of Systems Review of systems (narrative): 14 point review of systems performed, pertinent positives and negatives as per [facility] Meds Home Medications and Allergies Home Medications ?Medication ?Instructions ?Recorded ?Confirmed ?Type bupropion HCl 150 mg 24 hr tablet, 150 mg PO DAILY #90 tabs 06/16/23 11/10/23 Rx extended release cyanocobalamin (vitamin B-12) 1,000 mcg PO DAILY 90 days #90 tabs 06/16/23 11/10/23 Rx 1,000 mcg sublingual tablet lisinopril 10 mg tablet 10 mg PO DAILY 90 days #90 tabs 06/16/23 11/10/23 Rx metoprolol succinate 25 mg 25 mg PO DAILY 90 days #90 tabs 06/16/23 11/10/23 Rx tablet,extended release 24 hr magnesium oxide 400 mg (241.3 mg 400 mg PO DAILY 30 days #30 tabs 07/19/23 11/10/23 Rx magnesium) tablet aspirin 81 mg tablet,delayed 81 mg PO DAILY #90 tabs 07/24/23 11/10/23 Rx release cholecalciferol (vitamin D3) 125 125 mcg PO DAILY #90 caps 07/24/23 11/10/23 Rx mcg (5,000 unit) capsule levetiracetam 1,000 mg tablet 1,000 mg PO BID #180 tabs 07/24/23 11/10/23 Rx quetiapine 300 mg tablet 300 mg PO HS #90 tabs 07/24/23 11/10/23 Rx cefdinir 300 mg capsule 300 mg PO BID 10 days #20 caps 11/08/23 11/10/23 Rx albuterol sulfate 90 mcg/actuation 2 puff inhalation Q4HP PRN 11/10/23 11/10/23 History aerosol inhaler Shortness Of Breath atorvastatin 10 mg tablet 10 mg PO DAILY 11/10/23 11/10/23 History ferrous sulfate 325 mg (65 mg 325 mg PO DAILY 11/10/23 11/10/23 History iron) tablet tizanidine 2 mg tablet 2 mg PO HSP PRN Muscle Spasticity 11/10/23 11/10/23 History New Prescriptions to Start Prescriptions: Allergies Allergy/AdvReac Type Severity Reaction Status Date / Time codeine AdvReac Mild Nausea Verified 11/04/23 13:12 Exam Data for Last 24 hours Vital signs and Labs for Last 24 Hours: Temp Pulse Resp BP Pulse Ox O2 Del Method 98.2 F 101 H 20 135/91 H 96 Room Air 11/10/23 12:45 11/10/23 15:12 11/10/23 12:45 11/10/23 15:12 11/10/23 15:12 11/10/23 15:12 Laboratory Results - last 24 hr 11/10/23 13:00: WBC 13.7 H, RBC 2.76 L, Hgb 9.7 L, Hct 31.2 L, MCV 113.0 H, MCH 35.2 H, MCHC 31.2 L, RDW 14.3, Plt Count 243 D, MPV 8.9, Neut % (Auto) 85.2 H, Lymph % (Auto) 8.2 L, [place] % (Auto) 6.0, Eos % (Auto) 0.4, Baso % (Auto) 0.2, Neut # (Auto) 11.7 H, Lymph # (Auto) 1.1, [place] # (Auto) 0.8, Eos # (Auto) 0.1, Baso # (Auto) 0.0, Total Counted 100, Neutrophils % (Manual) 83 H, Lymphocytes % (Manual) 6 L, Monocytes % (Manual) 11 H, Platelet Estimate Normal, RBC Morphology Normal, Macrocytosis 1+, Sodium 133 L, Potassium 2.8 L* D, Chloride 108 H, Carbon Dioxide 17 L, Anion Gap 10.8, BUN 26 H, Creatinine 1.50 H, Est imated Creat Clear 29, Estimated GFR 35 L, Est GFR ( Amer) 43 L, Glucose 129 H, Lactate 2.3 H, Calcium 8.4, Total Bilirubin 0.6, AST 28 D, ALT 30, Alkaline Phosphatase 140 H, Troponin I < 0.01, C-Reactive Protein 334.2 H, Total Protein 6.6, Albumin 3.3 L, Globulin 3.3 H, Albumin/Globulin Ratio 1.0 L, TSH 0.66, Thyroxine (T4) 3.2 L I & O for Last 24 hours: Intake & Output 11/07/23 11/08/23 11/09/23 11/10/23 23:59 23:59 23:59 23:59 Weight 46.266 kg Constitutional Constitutional: moderate distress, average body habitus, chronically ill appearing and cooperative *Routine HEENT Exam Head: Present normocephalic Eye: Present EOMI ENT: Present mucous membranes moist Comments: vision impaired *Routine Neck Exam Neck: Present supple; Absent lymphadenopathy *Routine Respiratory Exam Respiratory: Present CTA bilaterally; Absent rhonchi or wheezes *Routine Cardiovascular Exam Cardiovascular: Present tachycardia *Routine Abdominal Exam Abdominal: Present soft, normoactive bowel sounds and tenderness; Absent distended *Routine Rectal Exam Rectal:: deferred *Routine Genitalia Exam Genitalia:: deferred *Routine Extremities Exam Extremities: Absent cyanosis, clubbing or edema Routine Back/Spine/Pelvis Exam Back/Spine: Present CVA tenderness (Severe on the left but present on right side as well) *Routine Skin Exam Skin: Present intact and warm; Absent rash *Routine Neurological Exam Neurological: Present alert, oriented X3 and moving all extremities; Absent altered mental status Assessment and Plan *Assessment and plan (1) Sepsis: Status: Resolved Category: Medical Code(s): A41.9 - Sepsis, unspecified organism (2) Pyelonephritis: Status: Acute Category: Medical Code(s): N12 - Tubulo-interstitial nephritis, not specified as acute or chronic (3) SHADY (acute kidney injury): Status: Acute Category: Medical Code(s): N17.9 - Acute kidney failure, unspecified (4) Chronic kidney disease: Status: Acute Qualifiers: Chronic kidney disease stage: unspecified stage Qualified Code(s): N18.9 - Chronic kidney disease, unspecified Category: Medical Code(s): N18.9 - Chronic kidney disease, unspecified (5) Anxiety: Status: Chronic Category: Medical Code(s): F41.9 - Anxiety disorder, unspecified (6) Back Pain: Problem Comment: This patient's main complaint is in the back and leg. Status: Chronic Qualifiers: Back pain location: low back pain Chronicity: chronic Back pain laterality: bilateral Sciatica presence: without sciatica Qualified Code(s): M54.5 - Low back pain; G89.29 - Other chronic pain Category: Medical Code(s): M54.9 - Dorsalgia, unspecified (7) HTN (hypertension): Status: Acute Qualifiers: Hypertension type: primary hypertension Qualified Code(s): I10 - Essential (primary) hypertension Category: Medical Code(s): I10 - Essential (primary) hypertension (8) History of stroke: Status: Acute Category: Medical Code(s): Z86.73 - Personal history of transient ischemic attack (TIA), and cerebral infarction without residual deficits (9) Seizure disorder: Status: Acute Category: Medical Code(s): G40.909 - Epilepsy, unspecified, not intractable, without status epilepticus (10) COPD (chronic obstructive pulmonary disease): Status: Acute Qualifiers: COPD type: unspecified COPD Qualified Code(s): J44.9 - Chronic obstructive pulmonary disease, unspecified Category: Medical Code(s): J44.9 - Chronic obstructive pulmonary disease, unspecified Plan 62-year-old female who vision impairment after CVA, COPD, hypertension, seizure disorder, chronic back pain. Called back to the ER due to positive blood culture with gram-negative rods. Discussed case with ER physician, patient needs admission for sepsis and pyelonephritis. I agreed to admit for further management. Initiated on broad-spectrum antibiotics. Blood pressure improving with fluids. Patient's condition still tenuous. Necessitating inpatient admission. High risk for decompensation. Problems addressed as follows: Sepsis Pyelonephritis - flank pain on exam, urinalysis grossly abnormal. Blood culture positive, urine culture and repeat blood cultures pending. Tachycardic, leukocytosis, Ashish on imaging along with positive blood cultures. -Initiated on Zosyn and vancomycin. Based on blood cultures, will continue Zosyn 3.375 g every 6 hours. - White cell count elevated at 13. CRP and Pro-Sung elevated with CRP of 330, Pro-Sung of 2.0 -Repeat CBC, CMP, magnesium, CRP and Pro-Sung ordered for the morning. SHADY -BUN elevated 34, creatinine 1.9. Baseline appears to be normal from chart review. -Gentle hydration IV fluids. Monitor kidney function in the morning Chronic pain: Continue Tylenol 650 mg as needed every 4 hours. Toradol 30 mg IV every 6 hours as needed for severe pain. baclofen 5 mg per home regimen Mood disorder: Continue Seroquel 300 mg daily, continue Wellbutrin 150 mg daily History of stroke: Continue aspirin 81 mg daily and Lipitor 10 mg daily Hypertension: Holding lisinopril in setting of SHADY, resume prelaw succinate 25 mg daily in the morning Seizure disorder: Continue Keppra 1000 mg twice daily Vision impairment complicates her care. 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 Full code Cardiac diet
[2023-11-10] MEDS: KCl 10mEq/100ml 100 ML 100 MEQ IV ×2 (16:16→19:39)
[2023-11-10] MEDS: POTASSIUM CHLORIDE 20MEQ TAB 40 MEQ PO ×2 (16:17→20:34)
--- NOTE | 2023-11-10 16:20 | HMH.PHAINT1 ---
Pharmacy Intervention Comments: MEDICATION RECONCILIATION COMPLETED ON PATIENT USING EXTERNAL FILL HISTORY FROM PHARMACY AND LIST FROM PCP OFFICE. -ADRIEN WHEELER, LOLLYD
--- NOTE | 2023-11-10 16:37 | PC.NURSE ---
Report called to Med Surg.
[2023-11-10 16:42] LABS: Troponin I < 0.01 ng/ml (0.00-0.034)
[2023-11-10] MEDS: ACETAMINOPHEN 500MG TAB 1000 MG PO (16:53)
[2023-11-10] MEDS: KETOROLAC 30MG/ML VIAL 15 MG IV (16:53)
[2023-11-10 17:06] LABS: Reflex Lactic Add Lactic Reflex
--- NOTE | 2023-11-10 17:46 | PC.NURSE ---
arrived by w/c from ED
[2023-11-10 18:08] LABS: Lactic Acid Follow Up (RFLX 1) 1.7 mmol/L (0.7-2.1)
[2023-11-10 18:49] LABS: Procalcitonin 2.09 ng/mL (0.0-2.0)
[2023-11-10 20:04] LABS: Troponin I < 0.01 ng/ml (0.00-0.034)
[2023-11-10] MEDS: PIPERCILLIN/TAZO 3.375 GM in 0.9 % SODIUM CHLORIDE 50 ML IV (20:33)
[2023-11-10] MEDS: PATIENT'S OWN HOME MEDICATION (Levetiracetam 1,000 mg tablet) 1000 EACH PO (20:34)
[2023-11-10] MEDS: QUETIAPINE 300 MG 300 EACH PO (20:35)
[2023-11-11] VITALS: BP 119/72; PULSE 89; RESP 16; TEMP 37; O2SAT 94
[2023-11-11] MEDS: PIPERCILLIN/TAZO 3.375 GM in 0.9 % SODIUM CHLORIDE 50 ML IV ×2 (00:57→06:43)
[2023-11-11 04:00] VITALS: BP 126/79; PULSE 100; RESP 16; TEMP 37.1; O2SAT 90; BMI 22.1
--- NOTE | 2023-11-11 04:37 | PC.NURSE ---
63 yo female pt is A/O X4. She is able to ambulate to with standby assist due to poor vision and unfamiliar surroundings. Pt reported back pain this shift but reports chronic back pain. She was able to rest without difficulty. Antibiotics given, see APR. Sabi from [facility] at lab who reports blood cultures + for E coli
--- NOTE | 2023-11-11 07:29 | EXP.ACUTE.PN ---
Subjective *Date: 11/11/23 *Time: 10:01 Interval history: Patient states she is feeling better this morning. Blood cultures returned positive overnight. Blood pressure improved at 143/84. Stable on room air and afebrile overnight. Medical Exam Vital signs and Labs for Last 24 Hours: Vital Signs Temp Pulse Pulse Resp BP BP Pulse Ox 11/11/23 07:00 11/11/23 04:58 11/11/23 04:00 98.7 F 100 H 16 126/79 90 L 11/11/23 03:00 11/11/23 01:00 11/11/23 00:00 98.6 F 89 16 119/72 94 L 11/10/23 23:00 11/10/23 21:00 11/10/23 20:00 95 11/10/23 20:00 97.9 F 89 18 135/86 95 11/10/23 17:48 98.2 F 83 20 148/99 H 11/10/23 17:45 98.3 F 95 H 21 124/83 97 11/10/23 16:30 83 20 148/99 H 97 11/10/23 16:15 87 146/95 H 98 11/10/23 15:12 101 H 135/91 H 96 11/10/23 14:35 95 H 114/74 94 L 11/10/23 14:00 120 H 102/69 L 92 L 11/10/23 13:30 100 H 84/62 L 96 11/10/23 13:02 103 H 94/66 L 96 11/10/23 12:45 98.2 F 108 H 20 74/52 L 97 O2 Del Method 11/11/23 07:00 Room Air 11/11/23 04:58 Room Air 11/11/23 04:00 Room Air 11/11/23 03:00 Room Air 11/11/23 01:00 Room Air 11/11/23 00:00 Room Air 11/10/23 23:00 Room Air 11/10/23 21:00 Room Air 11/10/23 20:00 Room Air 11/10/23 20:00 Room Air 11/10/23 17:48 Room Air 11/10/23 17:45 Room Air 11/10/23 16:30 Room Air 11/10/23 16:15 Room Air 11/10/23 15:12 Room Air 11/10/23 14:35 Room Air 11/10/23 14:00 Room Air 11/10/23 13:30 11/10/23 13:02 11/10/23 12:45 Room Air Intake and Output 11/10/23 11/10/23 11/11/23 15:59 23:59 07:59 Intake Total 400 / 400 Output Total 0 / 0 0 / 0 Balance 0 / 400 400 / 400 Intake: Intake, Oral Amount 200 / 200 Intake, Total IV Amount 200 / 200 KCl 10mEq/100ml 100 ml @ 100 100 / 100 mls/hr IV Q1H AVE Rx#:[id number] Pipercillin/Tazo 3.375 gm In 0. 100 / 100 9 % Sodium Chloride 50 ml @ 100 mls/hr IV Q6H AVE Rx#: [id number] Output: Output, Urine Amount 0 / 0 0 / 0 Other: Number of Unmeasured Voids 1 1 Weight 46.266 kg 48.137 kg 51.057 kg Patient Weight 11/11/23 23:59 Weight 51.057 kg Laboratory Results - last 24 hr 11/10/23 13:00: WBC 13.7 H, RBC 2.76 L, Hgb 9.7 L, Hct 31.2 L, MCV 113.0 H, MCH 35.2 H, MCHC 31.2 L, RDW 14.3, Plt Count 243 D, MPV 8.9, Neut % (Auto) 85.2 H, Lymph % (Auto) 8.2 L, [place] % (Auto) 6.0, Eos % (Auto) 0.4, Baso % (Auto) 0.2, Neut # (Auto) 11.7 H, Lymph # (Auto) 1.1, [place] # (Auto) 0.8, Eos # (Auto) 0.1, Baso # (Auto) 0.0, Total Counted 100, Neutrophils % (Manual) 83 H, Lymphocytes % (Manual) 6 L, Monocytes % (Manual) 11 H, Platelet Estimate Normal, RBC Morphology Normal, Macrocytosis 1+, Sodium 133 L, Potassium 2.8 L* D, Chloride 108 H, Carbon Dioxide 17 L, Anion Gap 10.8, BUN 26 H, Creatinine 1.50 H, Estimated Creat Clear 29, Estimated GFR 35 L, Est GFR ( Amer) 43 L, Glucose 129 H, Lactate 2.3 H, Calcium 8.4, Total Bilirubin 0.6, AST 28 D, ALT 30, Alkaline Phosphatase 140 H, Troponin I < 0.01, C-Reactive Protein 334.2 H, Total Protein 6.6, Albumin 3.3 L, Globulin 3.3 H, Albumin/Globulin Ratio 1.0 L, Procalcitonin 2.09 H, TSH 0.66, Thyroxine (T4) 3.2 L 11/10/23 16:06: Troponin I < 0.01 11/10/23 17:20: Lactate 1.7 11/10/23 19:28: Troponin I < 0.01 I & O for Labs for Last 24 Hours: Intake & Output 11/08/23 11/09/23 11/10/23 11/11/23 23:59 23:59 23:59 23:59 Intake Total 400 / 400 Output Total 0 / 0 0 / 0 Balance 0 / 400 400 / 400 Weight 48.137 kg 51.057 kg Microbiology Reports for the Last 24 Hours: Microbiology 11/10/23 13:00 Blood Blood Culture - Preliminary Escherichia coli Enterobacter Constitutional: Present no acute distress, average body habitus and chronically ill appearing Head: Present atraumatic and normocephalic ENT: Present normal exam Comment:: Visual impairment Respiratory: Present normal respiratory effort; Absent rhonchi, wheezes or crackles Cardiac: Present Reg Rate and Rhythm GI: Present soft and normal bowel sounds; Absent distention or tenderness Comments:: CVA tenderness on left side significantly improved, minimal on exam today Rectal (female): Present deferred Extremities: Present normal inspection and full ROM Skin: Present intact; Absent erythema Neuro: Present Grossly Intact, alert, awake, oriented x 3 and moves all extremities Additional Findings:: Right-sided CVA tenderness to percussion, left side improved Assessment and Plan *Assessment and plan (1) Sepsis: Status: Resolved Category: Medical Code(s): A41.9 - Sepsis, unspecified organism (2) Pyelonephritis: Status: Acute Category: Medical Code(s): N12 - Tubulo-interstitial nephritis, not specified as acute or chronic (3) SHADY (acute kidney injury): Status: Acute Category: Medical Code(s): N17.9 - Acute kidney failure, unspecified (4) Chronic kidney disease: Status: Acute Qualifiers: Chronic kidney disease stage: unspecified stage Qualified Code(s): N18.9 - Chronic kidney disease, unspecified Category: Medical Code(s): N18.9 - Chronic kidney disease, unspecified (5) Anxiety: Status: Chronic Category: Medical Code(s): F41.9 - Anxiety disorder, unspecified (6) Back Pain: Problem Comment: This patient's main complaint is in the back and leg. Status: Chronic Qualifiers: Back pain laterality: bilateral Back pain location: low back pain Chronicity: chronic Sciatica presence: without sciatica Qualified Code(s): M54.5 - Low back pain; G89.29 - Other chronic pain Category: Medical Code(s): M54.9 - Dorsalgia, unspecified (7) HTN (hypertension): Status: Acute Qualifiers: Hypertension type: primary hypertension Qualified Code(s): I10 - Essential (primary) hypertension Category: Medical Code(s): I10 - Essential (primary) hypertension (8) History of stroke: Status: Acute Category: Medical Code(s): Z86.73 - Personal history of transient ischemic attack (TIA), and cerebral infarction without residual deficits (9) Seizure disorder: Status: Acute Category: Medical Code(s): G40.909 - Epilepsy, unspecified, not intractable, without status epilepticus (10) COPD (chronic obstructive pulmonary disease): Status: Acute Qualifiers: COPD type: unspecified COPD Qualified Code(s): J44.9 - Chronic obstructive pulmonary disease, unspecified Category: Medical Code(s): J44.9 - Chronic obstructive pulmonary disease, unspecified Plan 62-year-old female who vision impairment after CVA, COPD, hypertension, seizure disorder, chronic back pain. Called back to the ER due to positive blood culture with gram-negative rods. Discussed case with ER physician, patient needs admission for sepsis and pyelonephritis. I agreed to admit for further management. Initiated on broad-spectrum antibiotics. Blood pressure improving with fluids. Patient's condition still tenuous. Showing improvement since admission. Symptoms deffervescing. Continuing to require inpatient management. Problems addressed as follows: Sepsis Pyelonephritis -Culture positive for E cloacae from 11/07. Repeat blood cultures positive in less than 24 hours. Transition to levofloxacin based on previous sensitivities, ease of transition to oral dosing at discharge for bacteremia, and broad coverage. -Discontinue Zosyn - White cell count elevated at 14.9, hemoglobin 9.7. - CRP down to 224, Pro-Sung improved to 1.48 from 2.0 -Repeat CBC, CMP, magnesium, CRP and Pro-Sung ordered for the morning. SHADY -BUN elevated 23, creatinine 1.4. Baseline appears to be normal from chart review. -Gentle hydration IV fluids. Monitor kidney function in the morning Chronic pain: Continue Tylenol 650 mg as needed every 4 hours. Toradol 30 mg IV every 6 hours as needed for severe pain. baclofen 5 mg per home regimen Mood disorder: Continue Seroquel 300 mg daily, continue Wellbutrin 150 mg daily History of stroke: Continue aspirin 81 mg daily and Lipitor 10 mg daily Hypertension: Holding lisinopril in setting of SHADY, resume prelaw succinate 25 mg daily in the morning Seizure disorder: Continue Keppra 1000 mg twice daily Vision impairment complicates her care. 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 Full code Cardiac diet
[2023-11-11 08:00] VITALS: BP 143/84; PULSE 101; RESP 20; TEMP 36.6; O2SAT 94
[2023-11-11 08:07] LABS: Basophils % 0.2 % (0.1-2.0); Eosinophils # 0.3 K/mm3 (0.0-0.4); Hematocrit 30.2 % (37.0-47.0); Hemoglobin 9.7 g/dL (12.2-16.2); Lymphocytes # 1.1 K/mm3 (0.7-4.5); Lymphocytes % 7.5 % (10-50); Mean Corpuscular Hemoglobin 35.9 pg (27.0-31.2); Mean Corpuscular Volume 112.1 fl (81-99); Mean Platelet Volume 8.3 fl (7.4-10.4); Monocytes # 0.9 K/mm3 (0.1-1.0); Monocytes % 6.1 % (1.7-9.3); Neutrophils # 12.5 K/mm3 (1.8-7.8); Neutrophils % 84.2 % (37.0-80.0); Platelet Count 217 K/mm3 (142-424); Red Cell Distribution Width 14.1 % (11.5-17.5); White Blood Count 14.9 K/mm3 (4.8-10.8)
[2023-11-11 08:12] LABS: Alanine Aminotransferase 16 U/L (12-78); Albumin Level 2.5 g/dl (3.5-5.0); Albumin/Globulin Ratio 0.9 (1.1-1.8); Alkaline Phosphatase 149 U/L (38-126); Anion Gap 6.6 mEq/L (5-15); Aspartate Amino Transferase 20 U/L (14-36); Bilirubin,Total 0.5 mg/dl (0.2-1.3); Blood Urea Nitrogen 23 mg/dl (7-17); Calcium 8.6 mg/dl (8.4-10.2); Carbon Dioxide 18 mmol/L (22.0-30.0); Chloride 116 mmol/L (98-107); Creatinine Clearance Estimated 34 mL/min (50-200); Estimated Glomerular Filt Rate 38 ml/min (>60); GFR (African American) 46 ML/MIN (>60); Globulin 2.9 g/dL (1.3-3.2); Glucose 87 mg/dl (74-100); Magnesium 1.7 mg/dl (1.6-2.3); Potassium 4.6 mmoL/L (3.5-5.1); Sodium 136 mmol/L (136-145); Total Protein,Serum 5.4 g/dl (6.3-8.2)
[2023-11-11 08:18] LABS: C-Reactive Protein 224.2 mg/L (0-4)
[2023-11-11] MEDS: MAGNESIUM OXIDE 400MG TABLET 400 MG PO (08:26)
[2023-11-11] MEDS: ASPIRIN EC 81MG TABLET 81 MG PO (08:26)
[2023-11-11] MEDS: levETIRAcetam 500 MG TABLET 1000 MG PO ×2 (08:27→20:08)
[2023-11-11] MEDS: POTASSIUM CHLORIDE 20MEQ TAB 40 MEQ PO ×3 (08:27→20:07)
[2023-11-11] MEDS: buPROPion HCl SR 150MG TAB 150 MG PO (08:27)
[2023-11-11] MEDS: METOPROLOL SUCCINATE XL 25MG TABLET 25 MG PO (08:27)
[2023-11-11 08:41] LABS: Procalcitonin 1.48 ng/mL (0.0-2.0)
[2023-11-11 10:47] LABS: Microscopic, Urine URINE MICROSCOPIC (MICROSCOPIC)
[2023-11-11 10:54] LABS: Appearance,Urine CLEAR (Clear); Bilirubin,Urine Negative (Negative); Blood, Urine TRACE-I (Negative); Color,Urine YELLOW (Yellow); Glucose,Urine (UA) Negative (Negative); Ketones,Urine Negative (Negative); Leukocyte Esterase,Urine 1+ (Negative); Nitrate,Urine Negative (Negative); Protein,Urine TRACE (Negative); Specific Gravity, Urine 1.015 (1.005-1.030); Urobilinogen,Urine 0.2 EU/dl (0.2)
[2023-11-11 11:20] LABS: RBC,Urine Occasional #/hpf (0-3)
[2023-11-11 12:00] VITALS: BP 141/86; PULSE 92; RESP 18; TEMP 36.7; O2SAT 96
[2023-11-11] MEDS: LEVOFLOXACIN/D5W 750 MG/150 ML 750 MG/150 ML PIGGYBACK 100 MG IV (12:41)
[2023-11-11 16:00] VITALS: BP 155/83; PULSE 100; RESP 17; TEMP 36.8; O2SAT 98
--- NOTE | 2023-11-11 18:03 | PC.NURSE ---
Patient a&ox4 and vss. Patient tolerating IV antibiotics and states feeling better today
[2023-11-11 20:00] VITALS: BP 142/94; PULSE 103; RESP 18; TEMP 36.6; O2SAT 98
[2023-11-11] MEDS: ATORVASTATIN 10MG TABLET 10 MG PO (20:07)
[2023-11-11] MEDS: QUETIAPINE 100MG TABLET 300 MG PO (20:08)
[2023-11-12] VITALS: BP 138/91; PULSE 111; RESP 16; TEMP 36.9; O2SAT 95
[2023-11-12 04:00] VITALS: BP 136/77; PULSE 105; RESP 16; TEMP 37.2; O2SAT 95; BMI 20.9
--- NOTE | 2023-11-12 05:21 | PC.NURSE ---
Pt is A&OX4 and has tolerated room air. Lung sounds clear throughout and bowel sounds active in all quadrants. Vss. Pt has ambulated to the bathroom independently this shift. She denies any pain and has no requests at this time. Call light within reach.
[2023-11-12 06:18] LABS: Basophils % 0.4 % (0.1-2.0); Eosinophils # 0.4 K/mm3 (0.0-0.4); Eosinophils % 3.5 % (0.1-12.0); Hematocrit 30.9 % (37.0-47.0); Hemoglobin 9.8 g/dL (12.2-16.2); Lymphocytes # 1.8 K/mm3 (0.7-4.5); Lymphocytes % 15.8 % (10-50); Mean Corpuscular HGB Conc 31.7 g/dL (31.8-35.4); Mean Corpuscular Hemoglobin 35.7 pg (27.0-31.2); Mean Corpuscular Volume 112.5 fl (81-99); Mean Platelet Volume 8.1 fl (7.4-10.4); Monocytes # 0.7 K/mm3 (0.1-1.0); Neutrophils # 8.3 K/mm3 (1.8-7.8); Neutrophils % 74.4 % (37.0-80.0); Platelet Count 235 K/mm3 (142-424); Red Blood Count 2.75 M/mm3 (4.20-5.40); Red Cell Distribution Width 14.4 % (11.5-17.5); White Blood Count 11.1 K/mm3 (4.8-10.8)
[2023-11-12 07:18] LABS: Alanine Aminotransferase 16 U/L (12-78); Albumin Level 2.7 g/dl (3.5-5.0); Albumin/Globulin Ratio 0.8 (1.1-1.8); Alkaline Phosphatase 131 U/L (38-126); Anion Gap 8.6 mEq/L (5-15); Aspartate Amino Transferase 23 U/L (14-36); Bilirubin,Total 0.5 mg/dl (0.2-1.3); Blood Urea Nitrogen 19 mg/dl (7-17); Calcium 9.2 mg/dl (8.4-10.2); Carbon Dioxide 18 mmol/L (22.0-30.0); Chloride 113 mmol/L (98-107); Creatinine Clearance Estimated 32 mL/min (50-200); Estimated Glomerular Filt Rate 38 ml/min (>60); GFR (African American) 46 ML/MIN (>60); Globulin 3.4 g/dL (1.3-3.2); Glucose 87 mg/dl (74-100); Magnesium 1.6 mg/dl (1.6-2.3); Potassium 5.6 mmoL/L (3.5-5.1); Sodium 134 mmol/L (136-145); Total Protein,Serum 6.1 g/dl (6.3-8.2)
[2023-11-12 07:46] VITALS: BP 116/73; PULSE 106; RESP 16; TEMP 36.6; O2SAT 98
[2023-11-12] MEDS: LACTATED RINGERS 1000ML 500 ML 250 ML IV (08:48)
[2023-11-12] MEDS: levETIRAcetam 500 MG TABLET 1000 MG PO (08:49)
[2023-11-12] MEDS: ASPIRIN EC 81MG TABLET 81 MG PO (08:49)
[2023-11-12] MEDS: POTASSIUM CHLORIDE 20MEQ TAB 40 MEQ PO (08:49)
[2023-11-12] MEDS: buPROPion HCl SR 150MG TAB 150 MG PO (08:49)
[2023-11-12] MEDS: MAGNESIUM OXIDE 400MG TABLET 400 MG PO (08:49)
[2023-11-12] MEDS: MAGNESIUM SULFATE IN WATER 2 GM/50 ML PIGGYBACK IV (08:49)
[2023-11-12] MEDS: METOPROLOL SUCCINATE XL 25MG TABLET 25 MG PO (08:50)
--- NOTE | 2023-11-12 10:13 | P.DS_ITS ---
General Admission date:: 11/10/23 Discharge date: 11/12/23 HPI HPI HPI: Ms. Cedeño is a 63-year-old female who initially presented to the ER on 11/07 for shortness of breath and weakness. Was diagnosed with UTI, SHADY, hyponatremia. Ultimately she decided to discharge home on oral antibiotics. Blood cultures were obtained. Returned today positive for gram-negative rods. Patient was contacted and told to come back to the ER for evaluation. States that she had been feeling awful with worsening shortness of breath, fatigue, dizziness and left flank pain. History significant for hypertension, anxiety, COPD, CVA, CAD and seizure disorder. On arrival to the ER, patient was in severe sepsis with hypotension. Blood pressure initially 74/52. Responded well to IV fluids/sepsis bolus with improvement and normalization of blood pressure. White count elevated at 13.7, neutrophil predominant. Kidney injury with creatinine 1.5, BUN 26. Potassium low at 2.8. CRP and Pro-Sung severely elevated. Initiated on vancomycin and Zosyn. Medicine consulted for admission and further management. Repeat blood and urine cultures obtained. On arrival to the floor, denies fever but complains of chills. Complaining of severe pain. Denies any nausea or vomiting. States she is feeling little bit more comfortable after improvement in blood pressure. 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 Called back to the ER due to positive blood culture with gram-negative rods. Discussed case with ER physician, patient needs admission for sepsis and pyelonephritis. I agreed to admit for further management. Initiated on broad-spectrum antibiotics. Blood pressure improving with fluids. Patient's condition improved significantly during admission. Stable for over 24 hours prior to discharge home. Will transition to oral therapy to complete 10 days of antibiotics given her bacteremia and repeat infection in less than 2 months. Problems addressed as follows: Sepsis Pyelonephritis -Culture positive for E cloacae from 11/07. Repeat blood cultures positive in less than 24 hours. Cultures are positive for gram-negative bacteria. Likely the same pathogen from her initial blood cultures. Transitioned to levofloxacin for ease of oral dosing at discharge. Will complete 10 days of therapy. Antibiotics sent on discharge. Of note her inflammatory markers and white cell count improving after initiating appropriate antibiotics. Stable to discharge home to complete course. SHADY: Present on admission. Showing improvement during course of admission. Recommend repeat labs in 1 week to monitor kidney function and electrolytes. Chronic pain: Continue Tylenol 650 mg as needed every 4 hours. Toradol 30 mg IV every 6 hours as needed for severe pain. baclofen 5 mg per home regimen Mood disorder: Continue Seroquel 300 mg daily, continue Wellbutrin 150 mg daily History of stroke: Continue aspirin 81 mg daily and Lipitor 10 mg daily Hypertension: Held lisinopril initially due to SHADY. Resume at discharge. Okay to continue metoprolol succinate 25 mg daily. Seizure disorder: Continue Keppra 1000 mg twice daily Vision impairment complicates her care. Dependent on organ builder at home. Exam Data for Last 24 hours Vital signs and Labs for Last 24 Hours: Temp Pulse Resp BP Pulse Ox O2 Del Method 98 F 106 H 16 116/73 98 Room Air 11/12/23 07:46 11/12/23 07:46 11/12/23 07:46 11/12/23 07:46 11/12/23 07:46 11/12/23 07:38 Laboratory Results - last 24 hr 11/11/23 10:43: Urine Color Yellow, Urine Appearance Clear, Urine pH 6.0, Ur Specific Otto 1.015, Urine Protein Trace, Urine Glucose (UA) Negative, Urine Ketones Negative, Urine Blood Trace-i, Urine Nitrate Negative, Urine Bilirubin Negative, Urine Urobilinogen 0.2, Ur Leukocyte Esterase 1+ A, Urine RBC Occasional, Urine WBC 3-5, Ur Squamous Epith Cells 3-5, Urine Bacteria None 11/12/23 05:53: WBC 11.1 H D, RBC 2.75 L, Hgb 9.8 L, Hct 30.9 L, MCV 112.5 H, MCH 35.7 H, MCHC 31.7 L, RDW 14.4, Plt Count 235, MPV 8.1, Neut % (Auto) 74.4, Lymph % (Auto) 15.8, [place] % (Auto) 6.0, Eos % (Auto) 3.5, Baso % (Auto) 0.4, Neut # (Auto) 8.3 H, Lymph # (Auto) 1.8, [place] # (Auto) 0.7, Eos # (Auto) 0.4, Baso # (Auto) 0.0, Sodium 134 L, Potassium 5.6 H D, Chloride 113 H, Carbon Dioxide 18 L, Anion Gap 8.6, BUN 19 H, Creatinine 1.40 H, Estimated Creat Clear 32, Estimated GFR 38 L, Est GFR ( Amer) 46 L, Glucose 87, Calcium 9.2, Magnesium 1.6, Total Bilirubin 0.5, AST 23, ALT 16, Alkaline Phosphatase 131 H, Total Protein 6.1 L, Albumin 2.7 L, Globulin 3.4 H, Albumin/Globulin Ratio 0.8 L I & O for Last 24 hours: Intake & Output 11/09/23 11/10/23 11/11/23 11/12/23 23:59 23:59 23:59 23:59 Intake Total 1660 / 2160 740 / 740 Output Total 0 / 0 600 / 600 0 / 0 Balance 0 / 400 1060 / 1560 740 / 740 Weight 48.137 kg 51.057 kg 48.534 kg Microbiology Reports for the Last 24 Hours: Microbiology 11/10/23 13:12 Blood Blood Culture - Preliminary 11/10/23 13:00 Blood Blood Culture - Preliminary Escherichia coli Enterobacter Constitutional Constitutional: no acute distress, average body habitus and chronically ill appearing *Routine HEENT Exam Head: Present normocephalic Eye: Present EOMI ENT: Present mucous membranes moist Comments: Visually impaired *Routine Neck Exam Neck: Present supple; Absent lymphadenopathy *Routine Respiratory Exam Respiratory: Present CTA bilaterally; Absent rhonchi, wheezes or crackles *Routine Cardiovascular Exam Cardiovascular: Present RRR *Routine Abdominal Exam Abdominal: Present soft and normoactive bowel sounds; Absent tenderness *Routine Rectal Exam Patient deferred: visual exam *Routine Exam Patient deferred: external exam *Routine Extremities Exam Extremities: Absent cyanosis, clubbing or edema Routine Back/Spine/Pelvis Exam Comments: No CVA tenderness *Routine Skin Exam Skin: Present warm; Absent rash *Routine Neurological Exam Neurological: Present alert, oriented X3 and moving all extremities; Absent altered mental status Results Data Completed and Pending Labs on day of discharge: Labs from last 24 hours 11/12/23 11/11/23 05:53 10:43 WBC 11.1 H D RBC 2.75 L Hgb 9.8 L Hct 30.9 L MCV 112.5 H MCH 35.7 H MCHC 31.7 L RDW 14.4 Plt Count 235 MPV 8.1 Neut % (Auto) 74.4 Lymph % (Auto) 15.8 [place] % (Auto) 6.0 Eos % (Auto) 3.5 Baso % (Auto) 0.4 Neut # (Auto) 8.3 H Lymph # (Auto) 1.8 [place] # (Auto) 0.7 Eos # (Auto) 0.4 Baso # (Auto) 0.0 Sodium 134 L Potassium 5.6 H D Chloride 113 H Carbon Dioxide 18 L Anion Gap 8.6 BUN 19 H Creatinine 1.40 H Estimated Creat Clear 32 Estimated GFR 38 L Est GFR ( Amer) 46 L Glucose 87 Calcium 9.2 Magnesium 1.6 Total Bilirubin 0.5 AST 23 ALT 16 Alkaline Phosphatase 131 H Total Protein 6.1 L Albumin 2.7 L Globulin 3.4 H Albumin/Globulin Ratio 0.8 L Urine Color Yellow Urine Appearance Clear Urine pH 6.0 Ur Specific Otto 1.015 Urine Protein Trace Urine Glucose (UA) Negative Urine Ketones Negative Urine Blood Trace-i Urine Nitrate Negative Urine Bilirubin Negative Urine Urobilinogen 0.2 Ur Leukocyte Esterase 1+ A Urine RBC Occasional Urine WBC 3-5 Ur Squamous Epith Cells 3-5 Urine Bacteria None Preliminary micro results at discharge 11/10/23 13:12 Blood Culture - Preliminary Blood 11/10/23 13:00 Blood Culture - Preliminary Blood Escherichia coli Enterobacter DS: Diagnosis Discharge Diagnosis (1) Sepsis: Status: Resolved Code(s): A41.9 - Sepsis, unspecified organism (2) Pyelonephritis: Status: Acute Code(s): N12 - Tubulo-interstitial nephritis, not specified as acute or chronic (3) SHADY (acute kidney injury): Status: Acute Code(s): N17.9 - Acute kidney failure, unspecified (4) Chronic kidney disease: Status: Acute Code(s): N18.9 - Chronic kidney disease, unspecified Qualifiers: Chronic kidney disease stage: unspecified stage Qualified Code(s): N18.9 - Chronic kidney disease, unspecified (5) Anxiety: Status: Chronic Code(s): F41.9 - Anxiety disorder, unspecified (6) Back Pain: Status: Chronic Code(s): M54.9 - Dorsalgia, unspecified Qualifiers: Back pain laterality: bilateral Back pain location: low back pain Chronicity: chronic Sciatica presence: without sciatica Qualified Code(s): M54.5 - Low back pain; G89.29 - Other chronic pain Problem details: This patient's main complaint is in the back and leg. (7) HTN (hypertension): Status: Acute Code(s): I10 - Essential (primary) hypertension Qualifiers: Hypertension type: primary hypertension Qualified Code(s): I10 - Essential (primary) hypertension (8) History of stroke: Status: Acute Code(s): Z86.73 - Personal history of transient ischemic attack (TIA), and cerebral infarction without residual deficits (9) Seizure disorder: Status: Acute Code(s): G40.909 - Epilepsy, unspecified, not intractable, without status epilepticus (10) COPD (chronic obstructive pulmonary disease): Status: Acute Code(s): J44.9 - Chronic obstructive pulmonary disease, unspecified Qualifiers: COPD type: unspecified COPD Qualified Code(s): J44.9 - Chronic obstructive pulmonary disease, unspecified Meds Home Medications and Allergies Home Medications ?Medication ?Instructions ?Recorded ?Confirmed ?Type bupropion HCl 150 mg 24 hr tablet, 150 mg PO DAILY #90 tabs 06/16/23 11/10/23 Rx extended release cyanocobalamin (vitamin B-12) 1,000 mcg PO DAILY 90 days #90 tabs 06/16/23 11/10/23 Rx 1,000 mcg sublingual tablet lisinopril 10 mg tablet 10 mg PO DAILY 90 days #90 tabs 06/16/23 11/10/23 Rx metoprolol succinate 25 mg 25 mg PO DAILY 90 days #90 tabs 06/16/23 11/10/23 Rx tablet,extended release 24 hr magnesium oxide 400 mg (241.3 mg 400 mg PO DAILY 30 days #30 tabs 07/19/23 11/10/23 Rx magnesium) tablet aspirin 81 mg tablet,delayed 81 mg PO DAILY #90 tabs 07/24/23 11/10/23 Rx release cholecalciferol (vitamin D3) 125 125 mcg PO DAILY #90 caps 07/24/23 11/10/23 Rx mcg (5,000 unit) capsule levetiracetam 1,000 mg tablet 1,000 mg PO BID #180 tabs 07/24/23 11/10/23 Rx quetiapine 300 mg tablet 300 mg PO HS #90 tabs 07/24/23 11/10/23 Rx albuterol sulfate 90 mcg/actuation 2 puff inhalation Q4HP PRN 11/10/23 11/10/23 History aerosol inhaler Shortness Of Breath atorvastatin 10 mg tablet 10 mg PO DAILY 11/10/23 11/10/23 History ferrous sulfate 325 mg (65 mg 325 mg PO DAILY 11/10/23 11/10/23 History iron) tablet tizanidine 2 mg tablet 2 mg PO HSP PRN Muscle Spasticity 11/10/23 11/10/23 History levofloxacin 750 mg tablet 750 mg PO DAILY 8 days #8 tabs 11/12/23 Rx New Prescriptions to Start Prescriptions: Branden Mullins Allergies Allergy/AdvReac Type Severity Reaction Status Date / Time codeine AdvReac Mild Nausea Verified 11/04/23 13:12 Discharge Plan Disposition Patient Disposition: Home, Self-Care Condition: Fair Discharge Order Discharge Orders: Discharge Order (Routine); Ordered 11/12/23 Ordered By: Branden Camacho Follow up Plan Follow up with: Jose De Jesus Kovacs DO [Primary Care Provider] - 11/19/23 10:30 am Prescriptions/Medication Reconciliation: New levofloxacin 750 mg tablet 750 mg PO DAILY 8 Days Qty: 8 0RF Continued bupropion HCl 150 mg tablet extended release 24 hr 150 mg PO DAILY Qty: 90 4RF cyanocobalamin (vitamin B-12) 1,000 mcg tablet, sublingual 1,000 mcg PO DAILY 90 Days Qty: 90 4RF lisinopril 10 mg tablet 10 mg PO DAILY 90 Days Qty: 90 4RF metoprolol succinate 25 mg tablet extended release 24 hr 25 mg PO DAILY 90 Days Qty: 90 4RF aspirin 81 mg tablet,delayed release (DR/EC) 81 mg PO DAILY Qty: 90 4RF cholecalciferol (vitamin D3) 125 mcg (5,000 unit) capsule 125 mcg PO DAILY Qty: 90 4RF levetiracetam 1,000 mg tablet 1,000 mg PO BID Qty: 180 4RF quetiapine 300 mg tablet 300 mg PO HS Qty: 90 4RF magnesium oxide 400 mg (241.3 mg magnesium) Tablet 400 mg PO DAILY 30 Days Qty: 30 0RF albuterol sulfate 90 mcg/actuation HFA aerosol inhaler 2 puff INHALATION Q4HP PRN (Reason: Shortness Of Breath) tizanidine 2 mg tablet 2 mg PO HSP PRN (Reason: Muscle Spasticity) atorvastatin 10 mg tablet 10 mg PO DAILY ferrous sulfate 325 mg (65 mg iron) tablet 325 mg PO DAILY Discontinued cefdinir 300 mg capsule 300 mg PO BID 10 Days Qty: 20 0RF Other Ambulatory Orders: Basic Metabolic Panel (Routine) Timeframe: 1 Week Facility: [facility] - Location: Laboratory Ordered By: Branden Camacho Problem Reconciliation Problems Reviewed?: Yes Patient Discharge Instructions ACTIVITY: Continue current activity DIET: continue same diet Patient Instructions: Kidney Infection, Sepsis, DI for Sepsis -- Adult, DI for Bacteremia-Adult Print Language: Georgian Providers Primary Care Provider: Jose De Jesus Kovacs Admit Provider: Branden Camacho Attending Provider: Branden Camacho
--- NOTE | 2023-11-13 14:52 | CARE MANAGER ---
Contacted patient related to hospital discharge. Patient states she is doing better. She has her antibiotic and is aware of her follow up appointment. Denies questions or concerns. MEGAN Quarles
== END 2023-11-12 12:34 | disposition home or self-care (01) | DRG 872 ==
LOC: ER 12:52 → 2ND 16:57
PROVIDERS: Admitting Provider Internal Medicine Adolescent Medicine; Emergency Provider Emergency Medicine; PCP Internal Medicine; Visit Provider Internal Medicine Adolescent Medicine
DX: A41.59 Other Gram-negative sepsis (principal); N17.9 Acute kidney failure, unspecified; E87.1 Hypo-osmolality and hyponatremia; N12 Tubulo-interstitial nephritis, not specified as acute or chronic; A41.9 Sepsis, unspecified organism; N18.9 Chronic kidney disease, unspecified; F41.9 Anxiety disorder, unspecified; G89.29 Other chronic pain; F17.210 Nicotine dependence, cigarettes, uncomplicated; I25.10 Atherosclerotic heart disease of native coronary artery without angina pectoris; Z86.73 Personal history of transient ischemic attack (TIA), and cerebral infarction without residual deficits; G40.909 Epilepsy, unspecified, not intractable, without status epilepticus
CPT/HCPCS: 36415; 71045; 71275; 74178; 80050; 80053; 81001; 82803; 83605; 83735; 83880; 84145; 84436; 84443; 84484; 85007; 85025; 85378; 86140; 87040; 87077; 87086; 87088; 87186; 87636; 93005; 99212; 99284; 99291; G0463; J0131; J1885; J1956; J2543; J3370; J3475; J3480; J7050; J7120; Q9967

== ENCOUNTER 2023-11-22 12:26 | Emergency (ER) | payer MEDICAID, SELFPAY ==
[2023-11-22 12:26] VITALS: BP 115/81; PULSE 104; RESP 18; TEMP 36.6; O2SAT 100; BMI 19.9
[2023-11-22 12:29] VITALS: BP 115/81
--- NOTE | 2023-11-22 12:30 | ECG_ITS ---
APPROVED REPORT Exam: Resting ECG HR:105 bpm ECG Measurements Heart Rate 105 AXES DC 131 P 70 QRSd 83 QRS 79 QT 330 T 77 QTc 391 Conclusion Sinus tachycardia Electronically signed by : NIKITA DEWEY, 11/25/2023 18:55:59
[2023-11-22 12:32] VITALS: PULSE 104; RESP 11; O2SAT 96
--- NOTE | 2023-11-22 12:37 | PC.NURSE ---
pt signed out AMA; signed form with Bandar Sampson
[2023-11-22 12:45] VITALS: PULSE 109; RESP 13; O2SAT 95
--- NOTE | 2023-11-22 13:00 | HMH.EDGENADL ---
Discharge Plan Disposition Patient Disposition: Home, Self-Care Chief Complaint: Weakness Prescriptions Prescriptions: No Action bupropion HCl 150 mg tablet extended release 24 hr 150 mg PO DAILY Qty: 90 4RF cyanocobalamin (vitamin B-12) 1,000 mcg tablet, sublingual 1,000 mcg PO DAILY 90 Days Qty: 90 4RF lisinopril 10 mg tablet 10 mg PO DAILY 90 Days Qty: 90 4RF metoprolol succinate 25 mg tablet extended release 24 hr 25 mg PO DAILY 90 Days Qty: 90 4RF aspirin 81 mg tablet,delayed release (DR/EC) 81 mg PO DAILY Qty: 90 4RF cholecalciferol (vitamin D3) 125 mcg (5,000 unit) capsule 125 mcg PO DAILY Qty: 90 4RF levetiracetam 1,000 mg tablet 1,000 mg PO BID Qty: 180 4RF quetiapine 300 mg tablet 300 mg PO HS Qty: 90 4RF magnesium oxide 400 mg (241.3 mg magnesium) Tablet 400 mg PO DAILY 30 Days Qty: 30 0RF albuterol sulfate 90 mcg/actuation HFA aerosol inhaler 2 puff INHALATION Q4HP PRN (Reason: Shortness Of Breath) tizanidine 2 mg tablet 2 mg PO HSP PRN (Reason: Muscle Spasticity) atorvastatin 10 mg tablet 10 mg PO DAILY ferrous sulfate 325 mg (65 mg iron) tablet 325 mg PO DAILY levofloxacin 750 mg tablet 750 mg PO DAILY 8 Days Qty: 8 0RF Referrals Follow up/Referrals: Jose De Jesus Kovacs DO [Primary Care Provider] - See instructions Activity Restrictions/Add. Instructions Additional Instructions/Restrictions: Call your family doctor to establish care for this visit to the emergency department and schedule follow-up within 48 hours to ensure improvement. If you have any worsening of your condition or any other concerning signs or symptoms, return to the emergency department or your primary care doctor for further evaluation. Continue taking antibiotic as prescribed. Clinical Impressions Clinical Impression: Weakness, Acute left flank pain Print Language Print Language: German Discharge ED Provider: Gilson Griffin General Adult HPI General Chief complaint: Weakness Stated complaint: dizzy, weak, tired Time Seen by Provider: 11/22/23 12:36 Mode of Arrival: EMS Source of Information: Patient and EMS Limitations: No Limitations Description of Symptoms (Recalled from ER Triage Doc. by RN): PT BROUGTH VIA EMS, REPORTS WEAKNESS AND FATIGUE SINCE FRIDAY. PT REPORTS SHE DID TAKE HER B/P MEDS THIS AM OF WHICH SHE HAS NOT TAKEN FOR ABOUT1 WEEK History of Present Illness HPI narrative: Please note that above description of symptoms, in this electronic medical record under categorization of recalled from ER triage doctor by RN are reflective of an initial nursing assessment, however, is not reflective of my full history and physical exam that was personally taken and clarified. Consequentially, this preceding description of symptoms, which may include the patient's categorized chief complaint in the EMR, do not reflect my personal clinical impression, and the ultimate description of history of present illness and patient stated complaints should be deferred to this section of the note. Unless stated otherwise or congruent with this section of the note, additional signs, symptoms, or incongruence should be interpreted as inaccurate with my clinical impression. Related Data Home Medications ?Medication ?Instructions ?Recorded ?Confirmed albuterol sulfate 90 mcg/actuation 2 puff inhalation Q4HP PRN 11/10/23 11/10/23 aerosol inhaler Shortness Of Breath atorvastatin 10 mg tablet 10 mg PO DAILY 11/10/23 11/10/23 ferrous sulfate 325 mg (65 mg 325 mg PO DAILY 11/10/23 11/10/23 iron) tablet tizanidine 2 mg tablet 2 mg PO HSP PRN Muscle Spasticity 11/10/23 11/10/23 Previous Rx's ?Medication ?Instructions ?Recorded bupropion HCl 150 mg 24 hr tablet, 150 mg PO DAILY #90 tabs 06/16/23 extended release cyanocobalamin (vitamin B-12) 1,000 mcg PO DAILY 90 days #90 tabs 06/16/23 1,000 mcg sublingual tablet lisinopril 10 mg tablet 10 mg PO DAILY 90 days #90 tabs 06/16/23 metoprolol succinate 25 mg 25 mg PO DAILY 90 days #90 tabs 06/16/23 tablet,extended release 24 hr magnesium oxide 400 mg (241.3 mg 400 mg PO DAILY 30 days #30 tabs 07/19/23 magnesium) tablet aspirin 81 mg tablet,delayed 81 mg PO DAILY #90 tabs 07/24/23 release cholecalciferol (vitamin D3) 125 125 mcg PO DAILY #90 caps 07/24/23 mcg (5,000 unit) capsule levetiracetam 1,000 mg tablet 1,000 mg PO BID #180 tabs 07/24/23 quetiapine 300 mg tablet 300 mg PO HS #90 tabs 07/24/23 levofloxacin 750 mg tablet 750 mg PO DAILY 8 days #8 tabs 11/12/23 Allergies Allergy/AdvReac Type Severity Reaction Status Date / Time codeine AdvReac Mild Nausea Verified 11/04/23 13:12 [facility] Disclaimer: The information contained in this section may have been updated after the patient was seen, as this information can be updated by other users. Medical History Left against medical advice Left patella fracture Alcoholic intoxication Gastric ulcer CAD in [place] artery Hyperlipidemia Hypertension COPD (chronic obstructive pulmonary disease) Wheezing Dyspnea History of stroke Seizure disorder Nerve pain HTN (hypertension) Anxiety Back Pain Surgical History History of hysterectomy Family History Other Family history of cancer Family history of myocardial infarction Social History Smoking Status: Current every day smoker tobacco type: cigarettes packs per day: 1 second hand exposure: Yes alcohol intake: former substance use type: marijuana, crack/cocaine, heroin and opiates current occupational status: unemployed Travel in the last 8 weeks: None household members: significant other housing: house number of children: 2 ROS Obtained: Yes All systems reviewed & no additional complaints except as documented Physical Exam General General appearance: alert Head Head exam: atraumatic and normocephalic Eye Eye exam: Present normal appearance, PERRL and EOMI Neck Neck exam: Present normal inspection, full ROM and trachea midline Respiratory Respiratory exam: Absent respiratory distress, wheezes, stridor, accessory muscle use or prolonged expiratory phase Cardiovascular Cardiovascular exam: Present other (Pulses equal symmetric in upper and lower extremities) Abdominal Exam Abdominal exam: Present soft; Absent distention, tenderness or pulsatile mass Extremities Exam Extremities exam: Absent edema Neurological Exam Neurological exam: Present alert, oriented X3 and CN II-XII intact; Absent motor sensory deficit Skin Skin exam: Present warm and dry; Absent diaphoresis or erythema Medical Decision Making Medical Records Medical records reviewed: Yes I reviewed the patient's medical records. Screening: Per USPSTF and CDC recommendations, given the prevalence of disease in our region, it is our hospital?s policy to screen for HIV and viral Hepatitis for all patients aged 18 and over and those with ongoing risk factors. Georgi Inquiry Pt receiving controlled substance: No Georgi was queried for this patient: No Vital Signs: 11/22/23 12:26 11/22/23 12:29 11/22/23 12:32 Temperature 97.9 F Temperature Source Oral Pulse Rate 104 H Pulse Rate [Apical] 104 H Respiratory Rate 18 11 L Blood Pressure 115/81 Blood Pressure [Right Arm] 115/81 Blood Pressure Mean 88 Blood Pressure Mean [Right Arm] 92 Blood Pressure Source [Right Arm] Automatic Cuff Blood Pressure Position [Right Arm] Sitting 02 Sat by Pulse Oximetry 100 96 Oxygen Delivery Method Room Air 11/22/23 12:45 11/22/23 14:01 Temperature Temperature Source Pulse Rate 109 H 91 H Pulse Rate [Apical] Respiratory Rate 13 18 Blood Pressure 97/67 L Blood Pressure [Right Arm] Blood Pressure Mean 72 Blood Pressure Mean [Right Arm] Blood Pressure Source [Right Arm] Blood Pressure Position [Right Arm] 02 Sat by Pulse Oximetry 95 96 Oxygen Delivery Method Lab Data Lab Results 11/22/23 12:38: WBC 6.8, RBC 3.57 L, Hgb 12.4, Hct 40.2, MCV 112.4 H, MCH 34.8 H, MCHC 31.0 L, RDW 14.1, Plt Count 524 H, MPV 7.5, Neut % (Auto) 59.7, Lymph % (Auto) 29.3, [place] % (Auto) 8.3, Eos % (Auto) 1.6, Baso % (Auto) 1.2, Neut # (Auto) 4.0, Lymph # (Auto) 2.0, [place] # (Auto) 0.6, Eos # (Auto) 0.1, Baso # (Auto) 0.1, Sodium 137, Potassium 4.8, Chloride 109 H, Carbon Dioxide 26, Anion Gap 6.8, BUN 15, Creatinine 1.10 H, Estimated Creat Clear 39, Estimated GFR 50 L, Est GFR ( Amer) 61, Glucose 107 H, Calcium 9.7, Total Bilirubin 0.6, AST 45 H, ALT 28, Alkaline Phosphatase 87, Total Protein 8.1 D, Albumin 3.8, Globulin 4.3 H, Albumin/Globulin Ratio 0.9 L, Lipase 152, HIV 1&2 Antibody Rapid Nonreactive 11/22/23 13:45: Urine Color Yellow, Urine Appearance Clear, Urine pH 6.0, Ur Specific [place] 1.025, Urine Protein Negative, Urine Glucose (UA) Negative, Urine Ketones Negative, Urine Blood Negative, Urine Nitrate Negative, Urine Bilirubin Negative, Urine Urobilinogen 0.2, Ur Leukocyte Esterase Trace, Urine RBC None, Urine WBC 5-10, Ur Squamous Epith Cells 3-5, Urine Bacteria Trace 11/22/23 12:38 11/22/23 12:38 Orders (Tests/Meds): ED MEDICATIONS Discontinued Medications Generic Name Dose Route Start Last Admin Trade Name Freq PRN Reason Stop Dose Admin Lactated Ringer's 1,000 mls @ 999 mls/hr 11/22/23 12:59 11/22/23 13:15 Lactated Ringer's 1000 Ml Bag IV 11/22/23 13:59 999 mls/hr .Q1H1M ONE Administration Ketorolac Tromethamine 15 mg 11/22/23 12:59 11/22/23 13:15 Ketorolac 30mg/Ml Vial IV 11/22/23 13:00 15 mg ONCE ONE Administration ORDERS Category Date Time Status CBC w/Auto Diff [Complete Blood Count Auto Diff] Stat Lab 11/22/23 12:38 Completed CMP [Comprehensive Metabolic Panel] Stat Lab 11/22/23 12:38 Completed HIV (1&2) Antibody Rapid Stat Lab 11/22/23 12:38 Completed Hep C Ab with Reflex to RNA Stat Lab 11/22/23 12:38 Received Lipase Stat Lab 11/22/23 12:38 Completed UA [Urinalysis and Microscopic] Stat Lab 11/22/23 13:45 Completed Medical Decision Narrative: 63-year-old female recent urinary tract infection and bacteremia presenting with concern for left flank pain. Patient states that she has been feeling weak for the last 24 hours or so, left flank pain that does not radiate. Concerned because of her recent bacterial infections that she might have a worsening infection. Urinary symptoms have completely resolved. No fevers or chills, chest pain, shortness of breath, nausea or vomiting, last bowel movement was today and normal for her, no urinary symptoms, as stated. States that she just started taking her cardiac medications again yesterday, may have accidentally taken too of her blood pressure medications, unsure. History obtained to patient and EMS. On arrival, patient very well-appearing. Dry mucous membranes, mildly tachycardic and borderline hypotensive. Afebrile, saturating appropriately on room air. Cardiopulmonary exam within normal limits. Abdomen soft, nontender, nondistended. She does have left flank tenderness no overlying skin changes. Differential includes sepsis, UTI, iatrogenic, intoxication, withdrawal, medication nonadherence, among others. Patient was given liter fluids for symptomatic management. Independent to rotation workup without leukocytosis. Chemistry nonactionable as well. Urinalysis nonconcerning. On reevaluation, patient still resting comfortably. Improvement with 1 L of fluids with nontachycardic and pressures improved systolic greater than 100. Because patient at baseline without signs or symptoms of clinical decompensation, deemed appropriate for discharge. Results were relayed to patient who voiced understanding and were agreeable to outpatient management and follow up. I discussed my clinical impression with patient and answered all questions. At this time, the evidence for any other entities in the differential is insufficient to warrant any further testing or ED observation. This was explained as well. Advisory was given that persistent or worsening symptoms require further evaluation. I confirmed the understanding of this discussion. Career Coach disclaimer Much of this encounter note is an electronic hoisting pile driving engineer spoken language to printed text. Electronic hoisting pile driving engineer of the spoken language may permit errors. Although I have reviewed the note, some errors may still exist. Critical Care Critical Care Time Critical Care Time: No
[2023-11-22 13:06] LABS: Albumin Level 3.8 g/dl (3.5-5.0); Chloride 109 mmol/L (98-107); Sodium 137 mmol/L (136-145)
[2023-11-22 13:07] LABS: Potassium 4.8 mmoL/L (3.5-5.1)
[2023-11-22 13:08] LABS: Basophils # 0.1 K/mm3 (0-0.2); Basophils % 1.2 % (0.1-2.0); Eosinophils # 0.1 K/mm3 (0.0-0.4); Eosinophils % 1.6 % (0.1-12.0); Hematocrit 40.2 % (37.0-47.0); Hemoglobin 12.4 g/dL (12.2-16.2); Lymphocytes % 29.3 % (10-50); Mean Corpuscular Hemoglobin 34.8 pg (27.0-31.2); Mean Corpuscular Volume 112.4 fl (81-99); Mean Platelet Volume 7.5 fl (7.4-10.4); Monocytes # 0.6 K/mm3 (0.1-1.0); Monocytes % 8.3 % (1.7-9.3); Neutrophils % 59.7 % (37.0-80.0); Platelet Count 524 K/mm3 (142-424); Red Blood Count 3.57 M/mm3 (4.20-5.40); Red Cell Distribution Width 14.1 % (11.5-17.5); White Blood Count 6.8 K/mm3 (4.8-10.8)
[2023-11-22 13:09] LABS: Alanine Aminotransferase 28 U/L (12-78); Albumin/Globulin Ratio 0.9 (1.1-1.8); Alkaline Phosphatase 87 U/L (38-126); Anion Gap 6.8 mEq/L (5-15); Aspartate Amino Transferase 45 U/L (14-36); Bilirubin,Total 0.6 mg/dl (0.2-1.3); Blood Urea Nitrogen 15 mg/dl (7-17); Carbon Dioxide 26 mmol/L (22.0-30.0); Creatinine Clearance Estimated 39 mL/min (50-200); Estimated Glomerular Filt Rate 50 ml/min (>60); GFR (African American) 61 ML/MIN (>60); Globulin 4.3 g/dL (1.3-3.2); Lipase 152 U/L (23-300); Total Protein,Serum 8.1 g/dl (6.3-8.2)
[2023-11-22 13:10] LABS: Calcium 9.7 mg/dl (8.4-10.2); Glucose 107 mg/dl (74-100)
[2023-11-22] MEDS: LACTATED RINGERS 1000ML 1,000 ML 999 ML IV (13:15)
[2023-11-22] MEDS: KETOROLAC 30MG/ML VIAL 15 MG IV (13:15)
[2023-11-22 13:38] LABS: HIV (1&2) Antibody Rapid NONREACTIVE (NONREACTIVE)
--- NOTE | 2023-11-22 13:40 | PC.NURSE ---
ROUNDED ON PT, NO NEEDS AT THIS TIME
[2023-11-22 13:48] LABS: Microscopic, Urine URINE MICROSCOPIC (MICROSCOPIC)
[2023-11-22 13:49] LABS: Appearance,Urine CLEAR (Clear); Bilirubin,Urine Negative (Negative); Blood, Urine Negative (Negative); Color,Urine YELLOW (Yellow); Glucose,Urine (UA) Negative (Negative); Ketones,Urine Negative (Negative); Leukocyte Esterase,Urine TRACE (Negative); Nitrate,Urine Negative (Negative); Protein,Urine Negative (Negative); Specific Gravity, Urine 1.025 (1.005-1.030); Urobilinogen,Urine 0.2 EU/dl (0.2)
[2023-11-22 13:57] LABS: Bacteria,Urine Trace /lpf
--- NOTE | 2023-11-22 14:00 | PC.NURSE ---
PT ON PHONE WITH FRIEND, NO NEEDS AT THIS TIME
[2023-11-22 14:01] VITALS: BP 97/67; PULSE 91; RESP 18; O2SAT 96
--- NOTE | 2023-11-22 14:39 | PC.NURSE ---
ILANA pts daughter called for ride home for pt.
[2023-11-22 14:40] VITALS: BP 98/68; PULSE 77; RESP 18; TEMP 36.7; O2SAT 97
== END 2023-11-22 14:49 | disposition home or self-care (01) ==
PROVIDERS: Emergency Provider Emergency Medicine; PCP Internal Medicine
DX: R10.32 Left lower quadrant pain (principal); M54.59 Other low back pain; R53.1 Weakness; R42 Dizziness and giddiness
CPT/HCPCS: 80053; 81001; 83690; 85025; 87389; 93005; 96361; 96374; 99284; J1885; J7120

== ENCOUNTER 2023-11-25 11:00 | Day surgery (SDC) | payer MEDICAID, SELFPAY ==
[2023-11-25 11:47] VITALS: BP 95/60; PULSE 80; RESP 16; TEMP 36.4; O2SAT 97; BMI 19.9
[2023-11-25 11:55] VITALS: BP 100/65; PULSE 76; RESP 18; O2SAT 97
[2023-11-25] MEDS: LIDOCAINE 1% 5ML PF VIAL 5 ML (11:55)
[2023-11-25 11:56] VITALS: BP 100/65; PULSE 76; RESP 18; O2SAT 98
[2023-11-25 12:05] VITALS: BP 93/60; PULSE 84; RESP 16; O2SAT 97
--- NOTE | 2023-11-25 12:22 | EXP.PAIN.PRO ---
Procedure Date: 11/25/23 Time: 11:50 Anesthesiologist:: Cisco Brown CRNA Complications:: None Pre-procedure Diagnosis:: Degenerative disc lumbar spine multilevels. Lumbar radiculopathy. Multilevel disc bulge L4-5, L5-S1. Post-procedure Diagnosis:: Same Indications for Procedure:: Patient is a pleasant 63-year-old female that comes our clinic today for a left L4-5, L5-S1 transforaminal epidural steroid injection. Patient describes low left lumbar back pain as well as left leg radicular symptoms to the foot. She reports pain intensifies with standing and ambulation. She rates her pain 8/10. Procedure Details:: Details of the procedure explained to the patient. The patient was taken to procedure room placed in the prone position. The area over the lumbar spine was cleansed using chlorhexidine as a cleansing solution. Using fluoroscopy guidance markers were placed over the left border of the L4-5 and L5-S1 vertebral body. At each marker the skin and subcutaneous tissue was anesthetized using 1% lidocaine and a 25-gauge needle. At this time using fluoroscopy guidance 3 and half inch 22-gauge spinal needle was used to access the upper one third of the left L4-5 and L5-S1 foramen. Using fluoroscopy guidance in the lateral position needle position was confirmed using 0.5 mL of contrast dye. Good spread was noted in the epidural space at each level. After negative aspiration 2 mL of 1% lidocaine and 40 mg of Depo-Medrol was injected at each level. Patient tolerated procedure without difficulty. There are no complications. Plan and Disposition:: Patient was discharged without incident.
== END 2023-11-25 12:05 | disposition home or self-care (01) ==
LOC: SC.PAINP 11:01
PROVIDERS: PCP Internal Medicine; Visit Provider Nurse Anesthetist, Certified Registered
DX: M51.16 Intervertebral disc disorders with radiculopathy, lumbar region (principal)
CPT/HCPCS: 64483; 64484; J1010

== ENCOUNTER 2023-12-18 10:31 | Outpatient (POV) | payer MEDICAID, SELFPAY ==
[2023-12-18 10:48] VITALS: BP 91/56; PULSE 90; RESP 18; O2SAT 97; BMI 20.2
--- NOTE | 2023-12-18 11:05 | EXP.PAIN.SOA ---
[facility] Disclaimer: The information contained in this section may have been updated after the patient was seen, as this information can be updated by other users. Medical History Infection due to trichomonas Left against medical advice Left patella fracture Alcoholic intoxication Gastric ulcer Essentially healed CAD in [place] artery Hyperlipidemia Hypertension COPD (chronic obstructive pulmonary disease) Wheezing Dyspnea History of stroke Seizure disorder Nerve pain HTN (hypertension) Anxiety Back Pain This patient's main complaint is in the back and leg. Surgical History History of hysterectomy Family History Other Family history of cancer Family history of myocardial infarction Social History Smoking Status: Current every day smoker tobacco type: cigarettes packs per day: 1 second hand exposure: Yes alcohol intake: former substance use type: marijuana, crack/cocaine, heroin and opiates current occupational status: other Travel in the last 8 weeks: None household members: significant other housing: house number of children: 2 PM Subjective & Objective Subjective Subjective:: Patient is a pleasant 63-year-old female who presents today for follow-up of left transforaminal epidural steroid injection L4-L5 and L5-S1 on 11/25/2023. Today she rates her pain an 8 out of 10. Patient states that the injection worked great with at least 50% improvement however it only provided very temporary relief of about 2 days. She states during those 2 days it was great and that she was not experiencing the pinching or stinging sensations like what she had. Today she states she is back at her baseline and states she has chronic pain throughout her back and it does interfere with her ability perform activities of daily living such as cooking and cleaning. Her Georgi has been reviewed and is appropriate. Review of Systems: General: No recent weight changes, no fever, no sleep disturbances Respiratory: No cough, no shortness of air, no recurring pulmonary infections Cardiovascular/peripheral vascular: No chest pain, no palpitations, no edema, no shortness of breath Gastrointestinal: No new onset incontinence, normal bowel movements reported Genitourinary: No new onset incontinence Musculoskeletal: Chronic back pain, leg pain Psychiatric: [Normal mood/affect] Neurological: [Denies weakness in extremities], [denies balance issues] Pain at rest (0-10 scale): 8 Objective Objective:: Physical Exam: General: Alert and oriented x3, no acute distress, pleasant and cooperative Lungs: Respirations even and unlabored, symmetrical chest expansion Eyes: PERRL Musculoskeletal: Flexion and extension of lumbar [spine] somewhat guarded secondary to pain, [antalgic gait noted] Neurological: Speech clear, no gross sensory deficit Has patient had previous pain injection?: Yes Percent improvement in pain since last injection: 50% Conservative treatment options previously tried: Home exercise plan Length of treatment: Longer than 10 weeks Meds Home Medications and Allergies Home Medications ?Medication ?Instructions ?Recorded ?Confirmed ?Type bupropion HCl 150 mg 24 hr tablet, 150 mg PO DAILY #90 tabs 06/16/23 12/18/23 Rx extended release cyanocobalamin (vitamin B-12) 1,000 mcg PO DAILY 90 days #90 tabs 06/16/23 12/18/23 Rx 1,000 mcg sublingual tablet lisinopril 10 mg tablet 10 mg PO DAILY 90 days #90 tabs 06/16/23 12/01/23 Rx metoprolol succinate 25 mg 25 mg PO DAILY 90 days #90 tabs 06/16/23 12/18/23 Rx tablet,extended release 24 hr magnesium oxide 400 mg (241.3 mg 400 mg PO DAILY 30 days #30 tabs 07/19/23 12/18/23 Rx magnesium) tablet aspirin 81 mg tablet,delayed 81 mg PO DAILY #90 tabs 07/24/23 12/18/23 Rx release quetiapine 300 mg tablet 300 mg PO HS #90 tabs 07/24/23 12/18/23 Rx albuterol sulfate 90 mcg/actuation 2 puff inhalation Q4HP PRN 11/10/23 12/18/23 History aerosol inhaler Shortness Of Breath atorvastatin 10 mg tablet 10 mg PO DAILY 11/10/23 12/18/23 History ferrous sulfate 325 mg (65 mg 325 mg PO DAILY 11/10/23 12/18/23 History iron) tablet levetiracetam 1,000 mg tablet 1,500 mg (1.5 x 1,000 mg) PO BID 10/07/24 10/24/24 Rx #180 tabs tizanidine 2 mg tablet 4 mg PO HSP PRN Muscle Spasticity 12/01/23 12/18/23 History ergocalciferol (vitamin D2) 1,250 See Rx Instructions .Route 12/02/23 12/18/23 Rx mcg (50,000 unit) capsule .COMPLEX #4 caps New Prescriptions to Start Prescriptions: Allergies Allergy/AdvReac Type Severity Reaction Status Date / Time codeine AdvReac Mild Nausea Verified 12/01/23 13:18 Assessment and Plan *Assessment and plan (1) Degenerative disc disease, lumbar: Status: Acute Category: Medical Code(s): M51.36 - Other intervertebral disc degeneration, lumbar region (2) Left lumbar radiculopathy: Status: Acute Category: Medical Code(s): M54.16 - Radiculopathy, lumbar region (3) Chronic back pain: Status: Acute Category: Medical Code(s): M54.9 - Dorsalgia, unspecified; G89.29 - Other chronic pain Plan I did discuss at length with the patient due to the fact that she is only gotten very temporary relief with the injections so far that she may benefit more from a intrathecal pain pump trial. Risk and benefits and educational handouts were given during today's visit. Patient does state that she would like to proceed forward with this plan of care. I will order the patient a psychological evaluation and if she is deemed an appropriate candidate we will proceed forward with the intrathecal pain pump trial at a later date. Patient will return to clinic in 1 month for reevaluation of symptoms and plan of care. Patient has tried and failed conservative therapy including physical therapy and continued at home stretching exercise for longer than 10 weeks. Patient has been instructed to contact the clinic with any concerns before the next appointment. Dr. Barron has reviewed this note and agrees with this plan of care. This note was dictated using voice recognition software and make contain errors or omissions. All injections are used with Lidocaine or Bupivacaine and Depo Medrol.
== END 2023-12-18 23:59 | disposition home or self-care (01) ==
LOC: SC.PAIN 10:32
PROVIDERS: PCP Internal Medicine; Visit Provider Nurse Practitioner Family
DX: M51.16 Intervertebral disc disorders with radiculopathy, lumbar region (principal); M54.9 Dorsalgia, unspecified; G89.29 Other chronic pain; F17.210 Nicotine dependence, cigarettes, uncomplicated; Z73.89 Other problems related to life management difficulty
CPT/HCPCS: 99212; G0463

== ENCOUNTER 2023-12-19 12:26 | Emergency (ER) | payer MEDICAID, SELFPAY ==
[2023-12-19 12:28] VITALS: BP 110/79; PULSE 85; RESP 16; TEMP 36.6; O2SAT 95; BMI 20.2
--- NOTE | 2023-12-19 13:26 | ED_ITS ---
Discharge Plan Disposition Patient Disposition: Home, Self-Care Condition: Good Prescriptions Prescriptions: No Action bupropion HCl 150 mg tablet extended release 24 hr 150 mg PO DAILY Qty: 90 4RF cyanocobalamin (vitamin B-12) 1,000 mcg tablet, sublingual 1,000 mcg PO DAILY 90 Days Qty: 90 4RF lisinopril 10 mg tablet 10 mg PO DAILY 90 Days Qty: 90 4RF metoprolol succinate 25 mg tablet extended release 24 hr 25 mg PO DAILY 90 Days Qty: 90 4RF tizanidine 2 mg tablet 4 mg PO HSP PRN (Reason: Muscle Spasticity) levetiracetam 1,000 mg tablet 1,500 mg PO BID Qty: 180 4RF aspirin 81 mg tablet,delayed release (DR/EC) 81 mg PO DAILY Qty: 90 4RF quetiapine 300 mg tablet 300 mg PO HS Qty: 90 4RF ergocalciferol (vitamin D2) 1,250 mcg (50,000 unit) capsule See Rx Instructions .ROUTE .COMPLEX Qty: 4 0RF Dose Instruction: TAKE ONE CAPSULE BY MOUTH EVERY WEEK Rx Instructions: TAKE ONE CAPSULE BY MOUTH EVERY WEEK magnesium oxide 400 mg (241.3 mg magnesium) Tablet 400 mg PO DAILY 30 Days Qty: 30 0RF albuterol sulfate 90 mcg/actuation HFA aerosol inhaler 2 puff INHALATION Q4HP PRN (Reason: Shortness Of Breath) atorvastatin 10 mg tablet 10 mg PO DAILY ferrous sulfate 325 mg (65 mg iron) tablet 325 mg PO DAILY Referrals Follow up/Referrals: Jose De Jesus Kovacs DO [Primary Care Provider] - See instructions Activity Restrictions/Add. Instructions Additional Instructions/Restrictions: Follow-up with your primary care physician. Clean close, sheets, blankets and any other soft material in the house and hot water to get rid of any potential bugs that may be in the house. If you develop any new or worsening symptoms, or if you become concerned for your health for any reason, return to the emergency department for evaluation. You can take Benadryl to help with itching Clinical Impressions Clinical Impression: Rash Instructions Patient Instructions: DI for Skin Abscess Print Language Print Language: Divehi Discharge ED Provider: Jackson Collins Adult HPI General Chief complaint: Skin/Abscess/Foreign Body Stated complaint: rashes on face and legs Time Seen by Provider: 12/19/23 13:01 Mode of Arrival: Ambulatory Source of Information: Patient Limitations: No Limitations Description of Symptoms (Recalled from ER Triage Doc. by RN): Reports rash to forehead and inside bilateral groins that started yesterday. History of Present Illness HPI narrative: Kiesha Cedeño is a 63-year-old female with a past medical history of coronary artery disease, COPD, previous stroke who presents to the Emergency Department for complaints of small rashes to her forehead and her left thigh. She states that this popped up 2 to 3 days ago and is itchy. She states that she has been picking at these areas a lot as they have scabbed over. She denies any bugs in the house. She lives alone with her dog. She has no other complaints or concerns at this time. She denies any fevers, history of liver disease. Related Data Home Medications ?Medication ?Instructions ?Recorded ?Confirmed albuterol sulfate 90 mcg/actuation 2 puff inhalation Q4HP PRN 11/10/23 12/18/23 aerosol inhaler Shortness Of Breath atorvastatin 10 mg tablet 10 mg PO DAILY 11/10/23 12/18/23 ferrous sulfate 325 mg (65 mg 325 mg PO DAILY 11/10/23 12/18/23 iron) tablet tizanidine 2 mg tablet 4 mg PO HSP PRN Muscle Spasticity 12/01/23 12/18/23 Previous Rx's ?Medication ?Instructions ?Recorded bupropion HCl 150 mg 24 hr tablet, 150 mg PO DAILY #90 tabs 06/16/23 extended release cyanocobalamin (vitamin B-12) 1,000 mcg PO DAILY 90 days #90 tabs 06/16/23 1,000 mcg sublingual tablet lisinopril 10 mg tablet 10 mg PO DAILY 90 days #90 tabs 06/16/23 metoprolol succinate 25 mg 25 mg PO DAILY 90 days #90 tabs 06/16/23 tablet,extended release 24 hr magnesium oxide 400 mg (241.3 mg 400 mg PO DAILY 30 days #30 tabs 07/19/23 magnesium) tablet aspirin 81 mg tablet,delayed 81 mg PO DAILY #90 tabs 07/24/23 release quetiapine 300 mg tablet 300 mg PO HS #90 tabs 07/24/23 levetiracetam 1,000 mg tablet 1,500 mg (1.5 x 1,000 mg) PO BID 12/01/23 #180 tabs ergocalciferol (vitamin D2) 1,250 See Rx Instructions .Route 12/02/23 mcg (50,000 unit) capsule .COMPLEX #4 caps Allergies Allergy/AdvReac Type Severity Reaction Status Date / Time codeine AdvReac Mild Nausea Verified 12/01/23 13:18 [facility] Disclaimer: The information contained in this section may have been updated after the patient was seen, as this information can be updated by other users. Medical History Infection due to trichomonas Left against medical advice Left patella fracture Alcoholic intoxication Gastric ulcer Essentially healed CAD in [place] artery Hyperlipidemia Hypertension COPD (chronic obstructive pulmonary disease) Wheezing Dyspnea History of stroke Seizure disorder Nerve pain HTN (hypertension) Anxiety Back Pain This patient's main complaint is in the back and leg. Surgical History History of hysterectomy Family History Other Family history of cancer Family history of myocardial infarction Social History Smoking Status: Current every day smoker tobacco type: cigarettes packs per day: 1 second hand exposure: Yes alcohol intake: former substance use type: marijuana, crack/cocaine, heroin and opiates current occupational status: other Travel in the last 8 weeks: None household members: significant other housing: house number of children: 2 Other Medical History Have you received the Flu Vaccine for this season: Yes Have you received the Pneumonia Vaccine: Yes ROS Obtained: Yes Systems reviewed as appropriate & no additional complaints except as documented Physical Exam General General appearance: alert and in no apparent distress Head Head exam: atraumatic Eye Eye exam: Present normal appearance ENT ENT exam: Present normal external ear exam Neck Neck exam: Present full ROM Chest Chest inspection: Present symmetric chest wall rise Respiratory Respiratory exam: Present normal lung sounds bilaterally; Absent respiratory distress Cardiovascular Cardiovascular exam: Present regular rate and normal rhythm Abdominal Exam Abdominal exam: Present soft; Absent tenderness or guarding Extremities Exam Extremities exam: Present normal inspection Back Exam Back exam: Present normal inspection Neurological Exam Neurological exam: Present alert and oriented X3 Psychiatric Psychiatric exam: Present normal affect Skin Skin exam: Present warm, dry and other (Scattered small erythematous lesions across the forehead that appear like removed scabs/insect bites. Small area of bruising to the medial aspect of the left thigh and the right thigh. None of these areas are tender to touch.) Medical Decision Making Medical Records Screening: Per USPSTF and CDC recommendations, given the prevalence of disease in our region, it is our hospital?s policy to screen for HIV and viral Hepatitis for all patients aged 18 and over and those with ongoing risk factors. Georgi Inquiry Pt receiving controlled substance: No Vital Signs: 12/19/23 12:28 12/19/23 14:11 Temperature 97.9 F 97.9 F Temperature Source Oral Pulse Rate 80 Pulse Rate [Radial] 85 Respiratory Rate 16 14 Blood Pressure 113/82 Blood Pressure [Right Arm] 110/79 Blood Pressure Mean [Right Arm] 89 Blood Pressure Source [Right Arm] Automatic Cuff Blood Pressure Position [Right Arm] Sitting 02 Sat by Pulse Oximetry 95 Oxygen Delivery Method Room Air Orders (Tests/Meds): ORDERS Category Date Time Status HIV (1&2) Antibody Rapid Stat Lab 12/19/23 12:34 Ordered Hep C Ab with Reflex to RNA Stat Lab 12/19/23 12:34 Ordered Medical Decision Narrative: Kiesha Cedeño is a 63-year-old female with a history of previous stroke, COPD, hypertension who presents to the emergency department for complaints of an itchy rash to her forehead as well as bruising to her thighs bilaterally. Patient s tates that the rash to her forehead has been itchy and she has been scratching at it and picking off scabs. She notes some bruising to her medial thighs bilaterally but states that these areas are not painful and there is no swelling associated with it. She denies any history of liver disease. The lesions to her forehead appear like bug bites and that she has been scratching at them frequently/removing scabs. The areas to her thighs appear to be small burst capillaries and these areas are nontender. She is hemodynamically stable, no acute respiratory distress and afebrile. Physical exam is otherwise unremarkable. Considerations were made to obtaining basic labs that included coagulation studies, however, given her overall well appearance and the nature of the lesions on exam, is felt that this is of low utility and would not change ED management. Patient was encouraged to wash her sheets, clothes, and any fabric in her home that she is able to in a hot water as the lesions appear to be bug bites. She was also encouraged to take Benadryl to help with itchiness. She was instructed to follow-up with her primary care physician, whom she says she has an appointment with on the fifth. Return precautions were given. All questions were answered. She demonstrated understanding and was agreed with this plan. She was then [facility] Critical Care Critical Care Time Critical Care Time: No
[2023-12-19 14:11] VITALS: BP 113/82; PULSE 80; RESP 14; TEMP 36.6; O2SAT 99
== END 2023-12-19 14:02 | disposition home or self-care (01) ==
PROVIDERS: Emergency Provider Student in an Organized Health Care Education/Training Program; PCP Internal Medicine
DX: R21 Rash and other nonspecific skin eruption (principal)
CPT/HCPCS: 99281

== ENCOUNTER 2024-03-15 15:48 | Outpatient (CLI) | payer MEDICAID, SELFPAY ==
[2024-03-15 17:42] LABS: 25-OH Vitamin D, Total 71.6 ng/mL (30-100)
[2024-03-15 18:14] LABS: Vitamin B12 935 pg/mL (239-931)
[2024-03-15 19:14] LABS: Creatinine,Urine Random 39 mg/dL (Not Estab.); Microalbumin < 6.000 mg/L (0-16.7)
== END 2024-03-15 23:59 | disposition home or self-care (01) ==
LOC: LAB 15:48
PROVIDERS: PCP Internal Medicine; Visit Provider Internal Medicine
DX: E56.9 Vitamin deficiency, unspecified (principal); I10 Essential (primary) hypertension; Z72.0 Tobacco use
CPT/HCPCS: 36415; 82043; 82306; 82570; 82607

== ENCOUNTER 2024-06-07 08:50 | Outpatient (CLI) | payer MEDICAID, SELFPAY ==
--- NOTE | 2024-06-07 08:56 | CA_ITS ---
APPROVED REPORT EXAM: Comprehensive 2D, Doppler, and color-flow Echocardiogram Custodian Supervisor: Meredith Marino RVT Ht: 4 ft 11 in Wt: 105lbs BSA: 1.40 BP: 150/80 mmHg Indications: HFrEF,COPD,SOA,CAD,SMOKER,HTN,HLD M-Mode Dimensions RVDd 2.65 cm (0.9-2.6) LA Diam 2.36 cm (1.9-4.0) LVDd 4.01 cm (3.5-5.7) LVDs 3.11 cm (3.5-5.7) IVSd 0.73 cm (0.6-1.1) PWd 0.32 cm (0.6-1.1) EF (Teich) 45.70% FS 22.40% EDV (Teich) 70.40 mL ESV (Teich) 38.20 mL LV Diastology E Decel Time 150 (160-240 msec) E/A Ratio 0.6 Aortic Valve TYLER Index 2.24 cm2/m2 AoV Peak Alcides. 92.0 (50-130 cm/s) AO Peak GR. 3.40 mmHg AO Mean GR. 2.00 (<5 mmHg) AO VTI 16.8 (18-25 cm) TYLER (VTI) 3.23 (2.5-4.5 cm2) Mitral Valve MV E Max Alcides. 46.0 (40-130 cm/s) MV A Velocity 80.0 (40-130 cm/s) E/A Ratio 0.58 MV PHT 44.0 ms Pulmonary Valve PV Peak Velocity 65.0 (50-150 cm/s) Tricuspid Valve TR P. Velocity 237.00 cm/s RAP Estimate 10.00 mmHg RVSP 32.50 mmHg Left Ventricle The left ventricle is normal size. The left ventricular systolic function is normal. The left ventricular ejection fraction is within the normal range. There is increased LV wall thickness. There is normal LV segmental wall motion. The left ventricular diastolic function is normal. LVEF is 55%. Right Ventricle The right ventricle is normal size. The right ventricular systolic function is normal. Atria Left atrium is mildly dilated. Right atrium is mildly dilated. There is no Doppler evidence of interatrial shunt. Aortic Valve Aortic valve is mildly thickened. There is no aortic valvular stenosis. No aortic regurgitation is present. Mitral Valve The mitral valve is normal in structure. Trace mitral regurgitation. Tricuspid Valve Tricuspid valve is grossly normal in structure and function. Trace tricuspid regurgitation. There is insufficient TR jet to estimate RVSP. Pulmonic Valve The pulmonary valve is normal in structure. Trace pulmonic regurgitation. Great Vessels The aortic root is normal in size. IVC is normal in size and collapses >50% with inspiration. Pericardium There is no pericardial effusion. Other Information Study Quality: Fair Conclusion Normal biventricular systolic function. Mild biatrial dilation. No significant valvular stenosis or regurgitation. Electronically signed by : Janelle Galo MD 06/08/2024 13:03:14
== END 2024-06-07 23:59 | disposition home or self-care (01) ==
LOC: RT 08:51
PROVIDERS: PCP Nurse Practitioner Family; Visit Provider Nurse Practitioner Family
DX: I51.7 Cardiomegaly (principal); I25.10 Atherosclerotic heart disease of native coronary artery without angina pectoris; R93.1 Abnormal findings on diagnostic imaging of heart and coronary circulation; R53.83 Other fatigue
CPT/HCPCS: 93306

== ENCOUNTER 2024-06-15 10:24 | Outpatient (POV) | payer MEDICAID, SELFPAY ==
[2024-06-15 10:31] VITALS: BP 149/95; BP 155/94; PULSE 14; RESP 14; O2SAT 99; BMI 20.7
--- NOTE | 2024-06-15 11:06 | A.OFFVIS_ITS ---
[facility] Disclaimer: The information contained in this section may have been updated after the patient was seen, as this information can be updated by other users. Medical History Infection due to trichomonas Left against medical advice Left patella fracture Alcoholic intoxication Gastric ulcer Essentially healed CAD in [place] artery Hyperlipidemia Hypertension COPD (chronic obstructive pulmonary disease) Wheezing Dyspnea History of stroke Seizure disorder Nerve pain HTN (hypertension) Anxiety Back Pain This patient's main complaint is in the back and leg. Surgical History History of hysterectomy Family History Other Family history of cancer Family history of myocardial infarction Social History Smoking Status: Current every day smoker tobacco type: cigarettes packs per day: 1 second hand exposure: Yes alcohol intake: former substance use type: marijuana, crack/cocaine, heroin and opiates current occupational status: other Travel in the last 8 weeks: None household members: significant other housing: house number of children: 2 PM Subjective & Objective Subjective Subjective:: Patient is a pleasant 63-year-old female who presents today for worsening back pain. She states that it is all across her low back and goes into her buttocks area and upper thighs. Patient states that she has noticed more issues along the right side that have progressively worsened. Patient does state the pain is worse with prolonged positioning such as sitting or standing. Patient does state that she does have to frequently change positions due to the worsening pain. Patient is interested in any interventions we may be able to provide as the pain is stopping her from being able to do activities of daily living such as cooking and cleaning. Patient has continued conservative treatment with no additional improvement. Her Georgi has been reviewed and is appropriate. Review of Systems: General: No recent weight changes, no fever, no sleep disturbances Respiratory: No cough, no shortness of air, no recurring pulmonary infections Cardiovascular/peripheral vascular: No chest pain, no palpitations, no edema, no shortness of breath Gastrointestinal: No new onset incontinence, normal bowel movements reported Genitourinary: No new onset incontinence Musculoskeletal: Low back pain, bilateral hip pain Psychiatric: [Normal mood/affect] Neurological: [Denies weakness in extremities], [denies balance issues] Pain at rest (0-10 scale): 8 Objective Objective:: Physical Exam: General: Alert and oriented x3, no acute distress, pleasant and cooperative Lungs: Respirations even and unlabored, symmetrical chest expansion Eyes: PERRL Musculoskeletal: Flexion and extension of lumbar [spine] somewhat guarded secondary to pain, [antalgic gait noted] point tenderness along bilateral SIs with positive bilateral Maria L's, Philip's, Gaenslen's, compression and distraction exam Neurological: Speech clear, no gross sensory deficit Has patient had previous pain injection?: No Conservative treatment options previously tried: Home exercise plan Length of treatment: Longer than 12 weeks Meds Home Medications and Allergies Home Medications ?Medication ?Instructions ?Recorded ?Confirmed ?Type bupropion HCl 150 mg 24 hr tablet, 150 mg PO DAILY #90 tabs 06/16/23 06/15/24 Rx extended release metoprolol succinate 25 mg 25 mg PO DAILY 90 days #90 tabs 06/16/23 06/15/24 Rx tablet,extended release 24 hr magnesium oxide 400 mg (241.3 mg 400 mg PO DAILY 30 days #30 tabs 07/19/23 06/15/24 Rx magnesium) tablet aspirin 81 mg tablet,delayed 81 mg PO DAILY #90 tabs 07/24/23 06/15/24 Rx release quetiapine 300 mg tablet 300 mg PO HS #90 tabs 07/24/23 06/15/24 Rx albuterol sulfate 90 mcg/actuation 2 puff inhalation Q4HP PRN 11/10/23 06/15/24 History aerosol inhaler Shortness Of Breath atorvastatin 10 mg tablet 10 mg PO DAILY 11/10/23 06/15/24 History ferrous sulfate 325 mg (65 mg 325 mg PO DAILY 11/10/23 06/15/24 History iron) tablet tizanidine 4 mg tablet 4 mg PO TID PRN muscle spasticity 03/18/24 06/15/24 Rx and pain 30 days #90 tabs lisinopril 20 mg tablet 20 mg PO DAILY #90 tabs 05/13/24 06/15/24 Rx New Prescriptions to Start Prescriptions: Allergies Allergy/AdvReac Type Severity Reaction Status Date / Time codeine AdvReac Mild Nausea Verified 06/14/24 11:53 Assessment and Plan *Assessment and plan (1) Bilateral sacroiliitis: Status: Acute Category: Medical Code(s): M46.1 - Sacroiliitis, not elsewhere classified Plan Patient is experiencing worsening pain along the low back and bilateral hips. They did have limited range of motion of the lumbar spine along with point tenderness along bilateral SI joints and a positive bilateral Maria L's, Philip's, Gaenslen's, compression and distraction exam. I did discuss with the patient that I do believe they would benefit from bilateral SI injections. Risk and benefits were discussed with the patient and they would like to proceed forward with this option. Patient has tried and failed conservative therapy including continued at home stretching exercise for longer than 12 weeks. Patient does have a history of chronic sacroiliitis. Patient's last SI injections were back in September 2023 that did provide 80% improvement and did improve overall function and decrease pain. Patient will be scheduled for bilateral SI injections under fluoroscopy. Patient has been instructed to contact the clinic with any concerns before the next appointment. Dr. Barron has reviewed this note and agrees with this plan of care. This note was dictated using voice recognition software and make contain errors or omissions. All injections are used with Lidocaine or Bupivacaine and Depo Medrol.
== END 2024-06-15 23:59 | disposition home or self-care (01) ==
LOC: SC.PAIN 10:26
PROVIDERS: PCP Nurse Practitioner Family; Visit Provider Nurse Practitioner Family
DX: M46.1 Sacroiliitis, not elsewhere classified (principal); F17.210 Nicotine dependence, cigarettes, uncomplicated; Z73.89 Other problems related to life management difficulty
CPT/HCPCS: 99212; G0463

== ENCOUNTER 2024-07-07 12:25 | Outpatient (CLI) | payer MEDICAID, SELFPAY | END 2024-07-07 23:59 | disposition home or self-care (01) | LOC: LAB.DROPOF 07-09 12:26 | PROVIDERS: PCP Nurse Practitioner Family; Visit Provider Nurse Practitioner Family | DX: M54.50 Low back pain, unspecified (principal) | CPT/HCPCS: 87086 ==

== ENCOUNTER 2024-07-24 11:37 | Outpatient (CLI) | payer MEDICAID, SELFPAY ==
[2024-07-24 11:58] LABS: Basophils # 0.1 K/mm3 (0-0.2); Basophils % 1.4 % (0.1-2.0); Eosinophils # 0.4 Kmm3 (0.0-0.4); Eosinophils % 5.3 % (0.1-12.0); Hematocrit 37.3 % (37.0-47.0); Hemoglobin 12.6 g/dL (12.2-16.2); Immature Granulocytes # 0.02 10^3uL; Immature Granulocytes % 0.3 %; Lymphocytes # 2.6 K/mm3 (0.7-4.5); Lymphocytes % 32.4 % (10-50); Mean Corpuscular HGB Conc 33.8 g/dL (31.8-35.4); Mean Corpuscular Hemoglobin 34.9 pg (27.0-31.2); Mean Corpuscular Volume 103.3 fl (81-99); Mean Platelet Volume 9.5 fl (7.4-10.4); Monocytes # 0.8 K/mm3 (0.1-1.0); Monocytes % 10.4 % (1.7-9.3); Neutrophils # 3.9 K/mm3 (1.8-7.8); Neutrophils % 50.2 % (37.0-80.0); Nucleated Red Blood Cells # 0 10^3/uL; Nucleated Red Blood Cells % 0 %; Platelet Count 330 K/mm3 (142-424); Red Blood Count 3.61 M/mm3 (4.20-5.40); Red Cell Distribution Width 13.4 % (11.5-17.5); Red Cell Distribution Width-SD 51.9 fL; White Blood Count 7.9 K/mm3 (4.8-10.8)
[2024-07-24 12:24] LABS: Albumin Level 4.1 g/dl (3.5-5.0)
[2024-07-24 12:25] LABS: Chloride 105 mmol/L (98-107); Potassium 4.4 mmoL/L (3.5-5.1); Sodium 137 mmol/L (136-145)
[2024-07-24 12:27] LABS: Alanine Aminotransferase 21 U/L (12-78); Anion Gap 8.4 mEq/L (5-15); Aspartate Amino Transferase 29 U/L (14-36); Bilirubin,Unconjugated 0.2 mg/dL (0.0-1.1); Blood Urea Nitrogen 14 mg/dl (7-17); Carbon Dioxide 28 mmol/L (22.0-30.0); Estimated Glomerular Filt Rate 50 ml/min (>60); GFR (African American) 61 ML/MIN (>60); Total Protein,Serum 7.3 g/dl (6.3-8.2)
[2024-07-24 12:28] LABS: Alkaline Phosphatase 78 U/L (38-126); Bilirubin,Direct 0.2 mg/dl (0.0-0.4); Bilirubin,Indirect 0.2 mg/dL (0.0-0.9); Bilirubin,Total 0.4 mg/dl (0.2-1.3); Calcium 9.7 mg/dl (8.4-10.2); Chol/HDL Ratio 3.3 (1-3.5); Cholesterol 185 mg/dl (140-200); Glucose 111 mg/dl (74-100); HDL Cholesterol 56 mg/dl (40-60); Magnesium 1.8 mg/dl (1.6-2.3); Triglycerides 92 mg/dl (30-150); VLDL Cholesterol 18 mg/dL (0-40)
[2024-07-24 12:39] LABS: Direct LDL Cholesterol 96.13 mg/dL (100-129)
[2024-07-24 13:09] LABS: Thyroid Stimulating Hormone 0.77 uIU/mL (0.465-4.68)
[2024-07-24 14:29] LABS: Free T4 (Free Thyroxine) 0.69 ng/dl (0.78-2.19)
== END 2024-07-24 23:59 | disposition home or self-care (01) ==
LOC: LABREF 11:37
PROVIDERS: PCP Nurse Practitioner Family; Visit Provider Physician Assistant
DX: I25.10 Atherosclerotic heart disease of native coronary artery without angina pectoris (principal); I95.9 Hypotension, unspecified; I10 Essential (primary) hypertension; E78.5 Hyperlipidemia, unspecified
CPT/HCPCS: 36415; 80048; 80061; 80076; 83735; 84439; 84443; 85025